=== PATIENT | female | born 1955 | race Caucasian/White ===

== ENCOUNTER 2017-10-04 08:42 | Emergency (ER) | payer OTHER, SELFPAY ==
[2017-10-04 08:43] VITALS: BP 113/73; PULSE 89; RESP 16; TEMP 36.6; O2SAT 100; BMI 30.7
--- NOTE | 2017-10-04 08:54 | EKG12_ITS ---
Test Reason : GENERAL ILLNESS Blood Pressure : / mmHG Vent. Rate : 077 BPM Atrial Rate : 077 BPM P-R Int : 138 ms QRS Dur : 068 ms QT Int : 392 ms P-R-T Axes : 034 020 036 degrees QTc Int : 443 ms Normal sinus rhythm Low voltage QRS Borderline ECG Confirmed by YONNY CONROY, DAWOOD ([id number]), magazine editor DARELL JUSTIN ([id number]) on 10/07/2017 3:30:26 PM Referred By: GLO Confirmed By:DAWOOD BLANCAS MD
--- NOTE | 2017-10-04 08:59 | ED.DCSUM_ITS ---
- ER Visit Summary Date of Service: 10/04/17 Chief Complaint: Increased heart rate, near syncopal symptoms History of Present Illness: The patient is a 62 F who presents with the above symptoms. She states that when she woke up this morning she started walking down the hallway and felt nauseous, diaphoretic and shaky. This is her third visit in 6 weeks for similar symptoms. She states that she did not eat anything this morning and that may contribute to her symptoms. She has seen her PCP as well as cardiology. They do not feel it is caused by her heart. They told her it may be anxiety and told her to increase her Zoloft. She has not done this. She denies any chest pain or abdominal pain. Physical Examination: Vital signs reviewed. HEENT exam unremarkable. Heart is regular rate and rhythm without murmurs. Lungs are clear to auscultation. Abdomen is soft and nontender. Extremities reveal no edema. Skin exam normal. Neurologic exam normal. Test Results: EKG was normal sinus rhythm with a rate of 77. No ST changes. Laboratory studies were normal. Her TSH is 4.64. Is improved from a little bit over 5 a couple of months ago. Emergency Department Course and Treatment: Patient received Tylenol for headache. Treatment Plan: The patient was placed in the residential monitor. There is no signs of any ectopy or tachycardia. Her blood pressure currently is 120/73. I have no definite answer as to why she is having symptoms of heart racing and near syncope including the lightheadedness and feeling like she was going to pass out. She has seen cardiology as well as the primary care physician. According to her, cardiology did not feel that it was cardiac in nature. She is scheduled for an outpatient echocardiogram in days. I feel she can keep this appointment. She was upset that we do not find an acute cause for her symptoms. I informed her that there was no further testing that we could do in the emergency department. She was also upset that there is no clear indication for admission to the hospital. I informed her that she needs to increase hydration at home as this may be a cause of her symptoms. She was afraid to go home by herself. I informed her that maybe having somebody stay with her would help her feel better about this. At this point she has no indications for admission. She has had multiple symptoms and occurrences of this over the past 2 months. She will call her primary care physician today for follow-up appointment Disposition: Discharge Impression: Near syncope This note was generated with [employer] dictation software. It may contain incorrect words, spelling, and punctuation that were not noted in review of the chart prior to signing ED Disposition - Plan for ED Patient: Chief Complaint: General Illness Referrals: Gordon Morley DO [Primary Care Provider] -
[2017-10-04 09:00] LABS: Bedside Glucose 101 mg/dL (70-110)
[2017-10-04 09:20] LABS: Absolute Lymphocyte Count 1.89 X10^3/ul (0.83-4.51); Absolute Neutrophil Count 5.5 X10^3/uL (2.0-7.7); Basophil# 0.03 X10^3/uL; Basophil% 0.4 % (0-1); Eosinophil# 0.21 X10^3/uL; Eosinophils% 2.6 % (0-5); Hematocrit 38.2 % (37-47); Lymphocyte # 1.89 X10^3/ul (4.0); Mean Corp Hgb Conc 31.4 g/gl (32-36); Mean Corpuscular Hgb 26.4 pg (27.0-32.0); Mean Corpuscular Volume 84.1 fL (81-99); Mean Platelet Vol. 10.6 fl (6.2-12.0); Monocyte# 0.62 X10^3/uL; Monocyte% 7.6 % (0-10); Neutrophil # 5.45 X10^3/uL (2.7-7.7); Neutrophil % 66.3 % (47-70); Platelet Count 307 K/mm3 (150-450); RBC Distribution Width CV 15.5 % (11.6-14.6); RBC Distribution Width SD 47.9 fl (35.1-43.9); Red Blood Count 4.54 M/mm3 (4.2-5.4); White Blood Count 8.2 K/mm3 (4.4-11.0)
[2017-10-04 09:21] LABS: POSITIVE COUNT NO; POSITIVE DIFFERENTIAL NO; POSITIVE MORPHOLOGY NO
[2017-10-04 09:23] VITALS: BP 108/68; PULSE 77; RESP 17; O2SAT 99
[2017-10-04] MEDS: Acetaminophen 500 MG Tablet 1000 MG PO (09:34)
[2017-10-04 09:49] LABS: Anion Gap 7 (5-15); BUN 9 mg/dL (7-18); BUN/Creat Ratio 10.1 RATIO (10-20); Calcium,Total 8.6 mg/dL (8.5-10.1); Chloride 107 mmol/L (98-107); Creatinine, Serum 0.89 mg/dL (0.55-1.02); EST Glomerular Filtration Rate 68 mL/min (>60); Est Glom Filt Rate - Afr Amer 82 mL/min (>60); Estimated Creatinine Clearance 61.35 ml/min; Glucose 98 mg/dL (70-110); Potassium 3.6 mmol/L (3.5-5.1); Sodium Level 142 mmol/L (136-145); Thyroid Stim Hormone (TSH) 4.64 uIU/mL (0.358-3.74)
--- NOTE | 2017-10-04 10:17 | ED.DEP ---
ED Disposition - Plan for ED Patient: Disposition: Home or Assisted Living Chief Complaint: General Illness Instructions: ED Near Syncope Unkn Referrals: Gordon Morley DO [Primary Care Provider] -
[2017-10-04 10:39] VITALS: BP 128/84; PULSE 82; RESP 16; O2SAT 98
== END 2017-10-04 10:40 | disposition home or self-care (01) ==
PROVIDERS: Emergency Provider Emergency Medicine; Family Provider Family Medicine; PCP Family Medicine
DX: R55 Syncope and collapse (principal); R00.0 Tachycardia, unspecified; F41.9 Anxiety disorder, unspecified; E03.9 Hypothyroidism, unspecified; Z79.899 Other long term (current) drug therapy
CPT/HCPCS: 80048; 82962; 84443; 84484; 85025; 93005; 99285; A4216

== ENCOUNTER → 2017-10-08 13:41 | Outpatient (CLI) | payer OTHER, SELFPAY ==
[2017-10-04 08:43] VITALS: BMI 30.7
[2017-10-04 10:39] VITALS: BP 128/84
--- NOTE | 2017-10-08 14:00 | ECHOD_ITS ---
Reason For Study: arrhythmia Procedure This was a 2D Doppler, Color Flow transthoracic echocardiogram. Exam performed in department. Left Ventricle Normal LV size. Left ventricular systolic function is normal. The estimated ejection fraction is 65 %. No regional wall motion abnormalities noted. Right Ventricle Normal RV size. Normal systolic function. Atria Normal left atrium. Normal right atrium. Mitral Valve Normal mitral valve. Mild (1+) eccentric mitral valve insufficiency. Tricuspid Valve Normal tricuspid valve. Mild (1+) tricuspid valve insufficiency. Pulmonary artery systolic pressure is 30 mmHg. Aortic Valve Normal aortic valve. Trisinus/trileaflet aortic valve. Pulmonic Valve Normal pulmonic valve. Great Vessels Normal aortic root. The pulmonary artery is normal size. Normal inferior vena cava. Pericardium/Pleural No pericardial effusion. MMode/2D Measurements & Calculations LVIDd: 4.9 cm IVSd: 0.86 cm Ao root diam: 2.8 cm LVIDs: 3.5 cm LVPWd: 0.96 cm LA dimension: 4.0 cm RVDd: 3.1 cm FS: 27.4 % LAV(MOD-bp): 51.4 ml LA A4 area: 18.0 cm2 RA A4 area: 10.9 cm2 LAV(MOD-bp) Indexed: 26.3 ml/m2 LAV(MOD-sp2): 52.7 ml LAV(MOD-sp4): 45.4 ml Doppler Measurements & Calculations Lat Peak E' Rogerio: 12.2 cm/sec Med Peak E' Rogerio: 11.6 cm/sec Ao V2 max: 138.7 cm/sec Ao max P.7 mmHg LV V1 max: 111.0 cm/sec PA V2 max: 119.3 cm/sec TR max rogerio: 252.5 cm/sec LV V1 max P.9 mmHg TR max P.7 mmHg Interpretation Summary Normal LV size. Left ventricular systolic function is normal. The estimated ejection fraction is 65 %. Mild (1+) tricuspid valve insufficiency. Ordering Physician: Jhon Rojas Referring Physician: Gordon Morley Performed By: Jesika Rose, JAGJIT, RVT
== END ==
PROVIDERS: Family Provider Family Medicine; PCP Family Medicine; Visit Provider Internal Medicine Cardiovascular Disease
DX: R00.2 Palpitations (principal)
CPT/HCPCS: 93306

== ENCOUNTER → 2017-10-10 12:16 | Outpatient (CLI) | payer OTHER, SELFPAY ==
[2017-10-10 10:54] VITALS: BP 91/64; BMI 32.0
[2017-10-10 12:42] LABS: Color, Urine Yellow (Yellow); Glucose, Dipstick Normal (Normal); Ketone-Dipstick Negative (Negative); Leukocyte Esterase-Dipstick 500 /ul (Negative); Nitrite-Dipstick Negative (Negative); Occult Blood-Urine 10 /ul (Negative); Protein-Dipstick Negative (Negative); Specific Gravity, Urine 1.015 (1.002-1.030); Urine Clarity Clear (Clear); Urine Urobilinogen Normal (Normal)
[2017-10-10 12:46] LABS: Urine Bilirubin Dipstick 1 mg/dL (Negative)
[2017-10-10 12:52] LABS: Red Blood Cells-Urine 0-5 SEEN /hpf (0-5); Squamous Epithelial Cells - UA 0-5 SEEN /hpf (5-10); White Blood Cells 10-25 SEEN /hpf (0-5)
[2017-10-10 12:53] LABS: Bacteria 1+ /hpf (None Seen); Mucous, Urine 1+ /hpf (<or=2+)
== END ==
PROVIDERS: Family Provider Family Medicine; PCP Family Medicine; Visit Provider Nurse Practitioner
DX: N39.0 Urinary tract infection, site not specified (principal)
CPT/HCPCS: 81001

== ENCOUNTER → 2017-10-11 08:54 | Outpatient (CLI) | payer OTHER, SELFPAY ==
[2017-10-10 10:54] VITALS: BP 91/64; BMI 32.0
[2017-10-15 12:39] LABS: Adrenocorticotropic Hormone 22.5 pg/mL (7.2-63.3)
== END ==
PROVIDERS: Family Provider Family Medicine; PCP Family Medicine; Visit Provider Nurse Practitioner
DX: E27.9 Disorder of adrenal gland, unspecified (principal)
CPT/HCPCS: 36415; 82024; 82533

== ENCOUNTER → 2017-10-15 09:00 | Outpatient (CLI) | payer OTHER, SELFPAY | PROVIDERS: Family Provider Family Medicine; PCP Family Medicine; Visit Provider Family Medicine | DX: N39.0 Urinary tract infection, site not specified (principal) | CPT/HCPCS: 87086; 87088 ==

== ENCOUNTER → 2017-10-29 14:53 | Outpatient (CLI) | payer OTHER, SELFPAY ==
--- NOTE | 2017-10-29 14:56 | US_ITS ---
STUDY: THYROID ULTRASOUND REASON FOR EXAM: Female, 62 years old. Thyroid nodule TECHNIQUE: Transverse and longitudinal ultrasound evaluation of the thyroid was performed with real-time and static arciniega-scale imaging. COMPARISON: September 08, 2012 FINDINGS: RIGHT LOBE: The right lobe of the thyroid gland measures 4.5 x 1.9 x 2.0 cm. There is a heterogeneous echotexture. There is a hyperechoic area in the midpole measuring 14.4 x 9.0 x 12.1 mm. There is increased vascularity. LEFT LOBE: The left lobe of the thyroid gland measures 4.2 x 1.8 x 1.1 cm. There is a heterogeneous echotexture. There are no demonstrated solid, cystic or complex lesions. There is increased vascularity. ISTHMUS: The isthmus measures 4.0 mm. The regional lymph nodes are unremarkable. US/Thyroid IMPRESSION: The thyroid is prominent in size with heterogeneity and increased blood flow consistent with goiter. There is a dominant nodule in the periphery of the midpole of the right lobe showing more prominent blood flow. Percutaneous sampling can be performed. Electronically Signed: Heide Up MD at 22:46 EST Tel Direct: [phone], Service support ,
== END ==
PROVIDERS: Family Provider Family Medicine; PCP Family Medicine; Visit Provider Family Medicine
DX: E03.9 Hypothyroidism, unspecified (principal); E04.1 Nontoxic single thyroid nodule
CPT/HCPCS: 76536

== ENCOUNTER → 2017-12-02 08:32 | Outpatient (CLI) | payer OTHER, SELFPAY ==
[2017-12-02 09:55] LABS: T4 Free Direct 1.31 ng/dL (0.76-1.46); Thyroid Stim Hormone (TSH) 3.12 uIU/mL (0.358-3.74)
== END ==
PROVIDERS: Family Provider Family Medicine; PCP Family Medicine; Visit Provider Internal Medicine Endocrinology, Diabetes & Metabolism
DX: R00.2 Palpitations (principal)
CPT/HCPCS: 36415; 84439; 84443

== ENCOUNTER → 2017-12-07 15:41 | Outpatient (CLI) | payer OTHER, SELFPAY ==
[2017-12-11 11:41] LABS: Metanephrine, Ur 18 ug/L (Undefined); Normetanephrines, Ur 115 ug/L (Undefined)
[2017-12-12 10:24] LABS: Metanephrines, 24Ur 20 ug/24 hr (45-290); Normetanephrines, 24Ur 130 ug/24 hr (82-500)
== END ==
PROVIDERS: Family Provider Family Medicine; PCP Family Medicine; Visit Provider Internal Medicine Endocrinology, Diabetes & Metabolism
DX: R00.2 Palpitations (principal)
CPT/HCPCS: 81050; 83835

== ENCOUNTER → 2017-12-13 10:55 | Outpatient (CLI) | payer OTHER, SELFPAY ==
[2017-12-18 20:08] LABS: Dopamine, UR 90 ug/L (Undefined); Epinephrine, 24Ur 6 ug/24 hr (0-20); Epinephrine, Ur 2 ug/L (Undefined); Norepinephrine, 24Ur 50 ug/24 hr (0-135); Norepinephrine, Ur 18 ug/L (Undefined)
[2017-12-19 08:39] LABS: Dopamine, 24Ur 248 ug/24 hr (0-510); VMA, 24UR 5.5 mg/24 hr (0.0-7.5)
== END ==
PROVIDERS: Family Provider Family Medicine; PCP Family Medicine; Visit Provider Internal Medicine Endocrinology, Diabetes & Metabolism
DX: R00.2 Palpitations (principal)
CPT/HCPCS: 81050; 82384; 84585

== ENCOUNTER → 2018-01-24 12:24 | Outpatient (CLI) | payer OTHER, SELFPAY ==
--- NOTE | 2018-01-24 12:25 | BI_ITS ---
MAMMOGRAPHY - BILATERAL SCREENING REASON FOR EXAM: Female, 62 years old. Routine annual screening examination. PERTINENT HISTORY: Non-contributory. TECHNIQUE: Digital bilateral breast cyndi (3D mammographic acquisition) in the CC and MLO projections. 2-D mediolateral oblique (MLO) and craniocaudad (CC) views of both breasts were obtained. CAD: Full Field Digital Mammography with Computer Added Detection was performed. COMPARISON: Comparison is made with prior examination dated March 19, 2016. FINDINGS: Breast Composition: There are scattered areas of fibroglandular density. There are no dominant masses or suspicious calcifications. No other significant abnormalities are identified. There has been no significant change since the prior study. BI/SCREENING MAMM (CAD), BILAT IMPRESSION: Stable bilateral screening mammogram. Yearly follow-up mammogram recommended. (A) ASSESSMENT CATEGORY: BIRADS Category 1: Negative. A letter regarding these results will be sent to the patient by the facility within 30 days. Approximately 10% of breast cancers are not detected by mammography. A normal mammogram should not delay biopsy of a clinically suspicious abnormality. [id number] Electronically Signed: Darryl Couch MD at 14:12 EDT Tel [phone], Service support ,
== END ==
PROVIDERS: Family Provider Family Medicine; PCP Family Medicine; Visit Provider Family Medicine
DX: Z12.31 Encounter for screening mammogram for malignant neoplasm of breast (principal)
CPT/HCPCS: 77063; 77067

== ENCOUNTER → 2018-04-18 09:35 | Outpatient (CLI) | payer OTHER, SELFPAY ==
[2018-04-18 12:25] LABS: Absolute Lymphocyte Count 1.44 X10^3/ul (0.83-4.51); Absolute Neutrophil Count 3.9 X10^3/uL (2.0-7.7); Basophil# 0.04 X10^3/uL; Basophil% 0.6 % (0-1); Eosinophil# 0.24 X10^3/uL; Eosinophils% 3.9 % (0-5); Hematocrit 36.3 % (37-47); Hemoglobin 11.7 g/dl (12.0-15.0); Lymphocyte # 1.44 X10^3/ul (4.0); Lymphocyte % 23.2 % (19-41); Mean Corp Hgb Conc 32.2 g/gl (32-36); Mean Corpuscular Hgb 25.8 pg (27.0-32.0); Mean Corpuscular Volume 80.1 fL (81-99); Mean Platelet Vol. 12.4 fl (6.2-12.0); Monocyte# 0.55 X10^3/uL; Monocyte% 8.9 % (0-10); Neutrophil # 3.92 X10^3/uL (2.7-7.7); Neutrophil % 63.2 % (47-70); Platelet Count 290 K/mm3 (150-450); RBC Distribution Width CV 16.6 % (11.6-14.6); RBC Distribution Width SD 48.4 fl (35.1-43.9); Red Blood Count 4.53 M/mm3 (4.2-5.4); White Blood Count 6.2 K/mm3 (4.4-11.0)
[2018-04-18 12:33] LABS: POSITIVE COUNT NO; POSITIVE DIFFERENTIAL NO; POSITIVE MORPHOLOGY NO
[2018-04-18 12:37] LABS: ALB/GLOB Ratio 0.8 RATIO (0.9-2.4); AST(SGOT) 25 U/L (15-37); Alanine Aminotransfer ALT/SGPT 38 U/L (13-56); Albumin, Serum 3.3 g/dL (3.2-5.0); Alkaline Phosphatase 129 U/L (45-117); Anion Gap 5 (5-15); BUN 9 mg/dL (7-18); BUN/Creat Ratio 11.5 RATIO (10-20); Calcium,Total 8.8 mg/dL (8.5-10.1); Chloride 105 mmol/L (98-107); Cholesterol 183 mg/dL (200); Creatinine, Serum 0.78 mg/dL (0.55-1.02); EST Glomerular Filtration Rate 79 mL/min (>60); Est Glom Filt Rate - Afr Amer 96 mL/min (>60); Globulin 4.4 g/dL (2.2-4.2); Glucose 84 mg/dL (74-106); High Density Lipoprotein 41 mg/dL; Potassium 3.6 mmol/L (3.5-5.1); Protein, Total 7.7 g/dL (6.4-8.2); Sodium Level 140 mmol/L (136-145); T4 Free Direct 1.29 ng/dL (0.76-1.46); Thyroid Stim Hormone (TSH) 3.62 uIU/mL (0.358-3.74); Triglycerides 104 mg/dL; Very Low Density Lipoprotein 21 mg/dL (5-40); Vitamin D,25 Hydroxy 33.8 ng/mL (29.95-100.01)
[2018-04-21 14:07] LABS: Thyroid Peroxidase AB 119 IU/mL (0-34)
[2018-04-22 10:27] LABS: Thyroglobulin Antibody 4.7 IU/mL (0.0-0.9)
== END ==
PROVIDERS: Family Provider Family Medicine; PCP Family Medicine; Visit Provider Family Medicine
DX: Z00.00 Encounter for general adult medical examination without abnormal findings (principal); E03.9 Hypothyroidism, unspecified; R55 Syncope and collapse; R00.2 Palpitations; E04.1 Nontoxic single thyroid nodule; M85.80 Other specified disorders of bone density and structure, unspecified site
CPT/HCPCS: 36415; 80053; 80061; 82306; 84439; 84443; 85025; 86376; 86800

== ENCOUNTER → 2018-05-06 10:11 | Outpatient (CLI) | payer OTHER, SELFPAY | PROVIDERS: Family Provider Family Medicine; PCP Family Medicine; Visit Provider Family Medicine | DX: Z00.01 Encounter for general adult medical examination with abnormal findings (principal) | CPT/HCPCS: 77080 ==

== ENCOUNTER 2018-05-29 08:55 | Outpatient (RCR) | payer OTHER, SELFPAY | END 2018-06-01 23:59 | LOC: NS 08:55 | PROVIDERS: Family Provider Family Medicine; PCP Family Medicine; Visit Provider Family Medicine | DX: M81.0 Age-related osteoporosis without current pathological fracture (principal); E66.9 Obesity, unspecified; Z71.3 Dietary counseling and surveillance | CPT/HCPCS: 97802 ==

== ENCOUNTER 2018-06-20 08:05 | Outpatient (RCR) | payer OTHER, SELFPAY | END 2018-07-02 23:59 | LOC: NS 08:05 | PROVIDERS: Family Provider Family Medicine; PCP Family Medicine; Visit Provider Family Medicine | DX: E66.9 Obesity, unspecified (principal); Z71.3 Dietary counseling and surveillance; M81.0 Age-related osteoporosis without current pathological fracture | CPT/HCPCS: 97803 ==

== ENCOUNTER 2018-08-01 11:00 | Outpatient (RCR) | payer OTHER, SELFPAY | END 2018-08-01 23:59 | LOC: NS 11:00 | PROVIDERS: Family Provider Family Medicine; PCP Family Medicine; Visit Provider Family Medicine | DX: E66.9 Obesity, unspecified (principal); Z71.3 Dietary counseling and surveillance; M81.0 Age-related osteoporosis without current pathological fracture | CPT/HCPCS: 97803 ==

== ENCOUNTER 2018-08-18 16:51 | Outpatient (RCR) | payer OTHER, SELFPAY ==
[2018-08-02 01:27] VITALS: BMI 32.0
== END 2018-09-01 23:59 ==
LOC: NS 16:51
PROVIDERS: Family Provider Family Medicine; PCP Family Medicine; Visit Provider Family Medicine
DX: E66.9 Obesity, unspecified (principal); M81.0 Age-related osteoporosis without current pathological fracture; Z71.3 Dietary counseling and surveillance
CPT/HCPCS: 97803

== ENCOUNTER 2018-09-08 16:37 | Outpatient (RCR) | payer OTHER, SELFPAY ==
[2018-09-02 01:00] VITALS: BMI 32.0
== END 2018-09-08 23:59 | disposition home or self-care (01) ==
LOC: NS 16:37
PROVIDERS: Family Provider Family Medicine; PCP Family Medicine; Visit Provider Family Medicine
DX: E66.9 Obesity, unspecified (principal); M81.0 Age-related osteoporosis without current pathological fracture; Z71.3 Dietary counseling and surveillance
CPT/HCPCS: 97803

== ENCOUNTER → 2018-09-26 09:47 | Outpatient (CLI) | payer OTHER, SELFPAY ==
[2018-09-25 09:18] VITALS: BMI 33.0
[2018-09-26 12:38] LABS: Cholesterol 168 mg/dL (200); High Density Lipoprotein 44 mg/dL; T4 Free Direct 1.32 ng/dL (0.76-1.46); Thyroid Stim Hormone (TSH) 2.57 uIU/mL (0.358-3.74); Triglycerides 87 mg/dL; Very Low Density Lipoprotein 17 mg/dL (5-40)
== END ==
LOC: LAB.FUTURE 08-17 23:20 → BFHLAB 09-30 08:15
PROVIDERS: Family Provider Family Medicine; PCP Family Medicine; Visit Provider Family Medicine
DX: E03.8 Other specified hypothyroidism (principal); E06.3 Autoimmune thyroiditis; E78.5 Hyperlipidemia, unspecified
CPT/HCPCS: 36415; 80061; 84439; 84443

== ENCOUNTER → 2019-04-08 | Outpatient (CLI) | payer OTHER, SELFPAY ==
[2018-09-25 09:18] VITALS: BMI 33.0
--- NOTE | 2019-04-08 15:08 | BI_ITS ---
MAMMOGRAPHY - BILATERAL SCREENING REASON FOR EXAM: Female, 63 years old. Routine annual screening examination. PERTINENT HISTORY: Non-contributory. TECHNIQUE: Digital bilateral breast jose a (3D mammographic acquisition) in the CC and MLO projections. 2-D mediolateral oblique (MLO) and craniocaudad (CC) views of both breasts were obtained. CAD: Full Field Digital Mammography with Computer Added Detection was performed. COMPARISON: Comparison is made with prior study dated January 24, 2018. FINDINGS: Breast Composition: There are scattered areas of fibroglandular density. There are no dominant masses or suspicious calcifications. No other significant abnormalities are identified. There has been no significant change since the prior study. BI/SCREEN MAMM (CAD) W/JOSE A BILAT IMPRESSION: Stable bilateral screening mammogram. Yearly follow-up mammogram recommended. (A) ASSESSMENT CATEGORY: BIRADS Category 1: Negative. A letter regarding these results will be sent to the patient by the facility within 30 days. Approximately 10% of breast cancers are not detected by mammography. A normal mammogram should not delay biopsy of a clinically suspicious abnormality. [id number] Electronically Signed: Darryl Couch, at 8:33 EDT , Service support ,
== END | disposition home or self-care (01) ==
LOC: OPBI 15:07
PROVIDERS: Family Provider Family Medicine; PCP Family Medicine; Referring Provider Family Medicine; Visit Provider Family Medicine
DX: Z12.31 Encounter for screening mammogram for malignant neoplasm of breast (principal)
CPT/HCPCS: 77063; 77067

== ENCOUNTER → 2019-04-21 08:02 | Outpatient (CLI) | payer OTHER, SELFPAY ==
[2018-09-25 09:18] VITALS: BMI 33.0
[2019-04-21 09:04] LABS: Absolute Lymphocyte Count 1.53 X10^3/uL (0.83-4.51); Absolute Neutrophil Count 4.3 X10^3/uL (2.0-7.7); Basophil# 0.07 X10^3/uL; Eosinophil# 0.24 X10^3/uL; Eosinophils% 3.6 % (0-5); Hemoglobin 11.7 g/dL (12.0-15.0); Lymphocyte # 1.53 X10^3/ul (4.0); Lymphocyte % 22.8 % (19-41); Mean Corp Hgb Conc 31.6 g/dL (32-36); Mean Corpuscular Hgb 26.1 pg (27.0-32.0); Mean Corpuscular Volume 82.6 fL (81-99); Mean Platelet Vol. 11.4 fl (6.2-12.0); Monocyte# 0.57 X10^3/uL; Monocyte% 8.5 % (0-10); NRBC Flagged by Analyzer 0 % (0-5); Neutrophil # 4.28 X10^3/uL (2.7-7.7); Neutrophil % 63.8 % (47-70); Platelet Count 289 K/mm3 (150-450); RBC Distribution Width CV 16.1 % (11.6-14.6); RBC Distribution Width SD 48.6 fl (35.1-43.9); Red Blood Count 4.48 M/mm3 (4.2-5.4); White Blood Count 6.7 K/mm3 (4.4-11.0)
[2019-04-21 09:35] LABS: Hemoglobin A1c 5.7 % (4.2-6.3)
[2019-04-21 09:38] LABS: Vitamin D,25 Hydroxy 31.2 ng/mL (29.95-100.01)
[2019-04-21 09:40] LABS: ALB/GLOB Ratio 0.8 RATIO (0.9-2.4); AST(SGOT) 24 U/L (15-37); Alanine Aminotransfer ALT/SGPT 31 U/L (13-56); Albumin, Serum 3.2 g/dL (3.2-5.0); Alkaline Phosphatase 153 U/L (45-117); Anion Gap 2 (5-15); BUN 8 mg/dL (7-18); BUN/Creat Ratio 10.2 RATIO (10-20); Calcium,Total 8.7 mg/dL (8.5-10.1); Chloride 108 mmol/L (98-107); Cholesterol 186 mg/dL (200); Creatinine, Serum 0.79 mg/dL (0.55-1.02); EST Glomerular Filtration Rate 78 mL/min (>60); Est Glom Filt Rate - Afr Amer 95 mL/min (>60); Ferritin 4 ng/mL (8-252); Globulin 4.1 g/dL (2.2-4.2); Glucose 83 mg/dL (74-106); High Density Lipoprotein 45 mg/dL; Iron 25 ug/dL (50-170); Potassium 4.3 mmol/L (3.5-5.1); Protein, Total 7.3 g/dL (6.4-8.2); Sodium Level 143 mmol/L (136-145); T4 Free Direct 1.25 ng/dL (0.76-1.46); Thyroid Stim Hormone (TSH) 4.56 uIU/mL (0.358-3.74); Triglycerides 86 mg/dL; Very Low Density Lipoprotein 17 mg/dL (5-40)
== END ==
LOC: LAB.FUTURE 10-22 00:32 → LAB 02-24 11:43
PROVIDERS: Family Provider Family Medicine; PCP Family Medicine; Referring Provider Family Medicine; Visit Provider Family Medicine
DX: Z00.00 Encounter for general adult medical examination without abnormal findings (principal); E03.8 Other specified hypothyroidism; E06.3 Autoimmune thyroiditis; E78.5 Hyperlipidemia, unspecified; M85.80 Other specified disorders of bone density and structure, unspecified site; D50.9 Iron deficiency anemia, unspecified; R73.01 Impaired fasting glucose
CPT/HCPCS: 36415; 80053; 80061; 82306; 82728; 83036; 83540; 84439; 84443; 85025

== ENCOUNTER → 2019-08-20 10:26 | Outpatient (CLI) | payer OTHER, SELFPAY ==
[2019-07-17 10:13] VITALS: BMI 33.0
== END ==
PROVIDERS: Family Provider Family Medicine; PCP Family Medicine; Referring Provider Chiropractor; Visit Provider Chiropractor
DX: M99.01 Segmental and somatic dysfunction of cervical region (principal)
CPT/HCPCS: 72040

== ENCOUNTER → 2019-10-02 09:38 | Outpatient (CLI) | payer OTHER, SELFPAY ==
[2019-07-17 10:13] VITALS: BMI 33.0
[2019-10-02 12:43] LABS: Absolute Lymphocyte Count 1.29 X10^3/uL (0.83-4.51); Absolute Neutrophil Count 3.8 X10^3/uL (2.0-7.7); Basophil# 0.06 X10^3/uL; Eosinophil# 0.23 X10^3/uL; Eosinophils% 3.8 % (0-5); Hematocrit 36.9 % (37-47); Hemoglobin 11.4 g/dL (12.0-15.0); Lymphocyte # 1.29 X10^3/ul (4.0); Lymphocyte % 21.4 % (19-41); Mean Corp Hgb Conc 30.9 g/dL (32-36); Mean Corpuscular Hgb 25.4 pg (27.0-32.0); Mean Corpuscular Volume 82.2 fL (81-99); Mean Platelet Vol. 11.8 fl (6.2-12.0); Monocyte# 0.62 X10^3/uL; Monocyte% 10.3 % (0-10); NRBC Flagged by Analyzer 0 % (0-5); Neutrophil # 3.81 X10^3/uL (2.7-7.7); Platelet Count 299 K/mm3 (150-450); RBC Distribution Width CV 15.9 % (11.6-14.6); RBC Distribution Width SD 47.8 fl (35.1-43.9); Red Blood Count 4.49 M/mm3 (4.2-5.4)
[2019-10-02 13:07] LABS: Hemoglobin A1c 5.5 % (4.2-6.3)
[2019-10-02 13:35] LABS: Ferritin 3 ng/mL (8-252); Iron 26 ug/dL (50-170); T4 Free Direct 1.41 ng/dL (0.76-1.46); Thyroid Stim Hormone (TSH) 3.38 uIU/mL (0.358-3.74)
== END ==
PROVIDERS: PCP Family Medicine; Visit Provider Family Medicine
DX: E03.8 Other specified hypothyroidism (principal); E06.3 Autoimmune thyroiditis; D50.9 Iron deficiency anemia, unspecified; R73.01 Impaired fasting glucose
CPT/HCPCS: 36415; 82728; 83036; 83540; 84439; 84443; 85025

== ENCOUNTER 2019-10-11 09:01 | Emergency (ER) | payer OTHER, SELFPAY ==
[2019-07-17 10:13] VITALS: BMI 33.0
[2019-10-11 09:02] VITALS: BP 132/77; PULSE 81; RESP 16; TEMP 36.7; O2SAT 96; BMI 31.4
--- NOTE | 2019-10-11 09:04 | EKG12_ITS ---
Test Reason : PALP Blood Pressure : / mmHG Vent. Rate : 081 BPM Atrial Rate : 081 BPM P-R Int : 142 ms QRS Dur : 068 ms QT Int : 378 ms P-R-T Axes : 040 000 049 degrees QTc Int : 439 ms Normal sinus rhythm Normal ECG Confirmed by YONNY CONROY, DAWOOD ([id number]), editorial clerk ABNER RAMSEY ([id number]) on 10/13/2019 8:01:05 AM Referred By: JORGE Confirmed By:DAWOOD BLANCAS MD
--- NOTE | 2019-10-11 09:05 | RAD_ITS ---
STUDY: X-RAY CHEST REASON FOR EXAM: Female, 64 years old. CHEST PAIN TECHNIQUE: Single AP portable view of the chest. COMPARISON: None. FINDINGS: Mild prominent interstitial markings bilaterally are noted. There is no demonstrated pleural abnormality. Normal size heart. Normal mediastinum and deejay. Normal visualized pulmonary arteries. Normal visualized aortic arch and descending thoracic aorta. Normal visualized thoracic spine. Normal visualized ribs, clavicles, and shoulders. There is no demonstrated abnormality of the visualized soft tissue structures of the upper abdomen. RAD/Chest 1 View (Portable) IMPRESSION: Mild prominent interstitial markings with no evidence of focal consolidation. Electronically Signed: Kevan Xiong DO at 9:26 EST , Service support ,
[2019-10-11 09:10] VITALS: O2SAT 96
[2019-10-11] MEDS: Aspirin 81 MG TAB.CHEW 324 MG PO (09:12)
[2019-10-11 09:20] LABS: Absolute Lymphocyte Count 1.88 X10^3/uL (0.83-4.51); Absolute Neutrophil Count 5.1 X10^3/uL (2.0-7.7); Basophil# 0.05 X10^3/uL; Basophil% 0.6 % (0-1); Eosinophil# 0.42 X10^3/uL; Eosinophils% 5.1 % (0-5); Hematocrit 34.8 % (37-47); Lymphocyte # 1.88 X10^3/ul (4.0); Lymphocyte % 22.8 % (19-41); Mean Corp Hgb Conc 31.6 g/dL (32-36); Mean Corpuscular Hgb 25.5 pg (27.0-32.0); Mean Corpuscular Volume 80.6 fL (81-99); Mean Platelet Vol. 10.7 fl (6.2-12.0); Monocyte# 0.79 X10^3/uL; Monocyte% 9.6 % (0-10); NRBC Flagged by Analyzer 0 % (0-5); Neutrophil # 5.08 X10^3/uL (2.7-7.7); Neutrophil % 61.5 % (47-70); Platelet Count 305 K/mm3 (150-450); Red Blood Count 4.32 M/mm3 (4.2-5.4); White Blood Count 8.3 K/mm3 (4.4-11.0)
--- NOTE | 2019-10-11 09:26 | ED.VISSUMM ---
- ER Visit Summary Date of Service: 10/11/19 Chief Complaint: Palpitations History of Present Illness: The patient is a [address] Morley and Dr. Rojas. She reports that during the night she was awakened by palpitations. States that she has had 3 episodes. It is a fast, irregular heartbeat that last approximately 30 seconds at a time. She reports that she has felt slightly nauseated with this. She is also felt warm. She denies any chest pain. No vomiting or shortness of breath. No near syncope. Patient reports she had a similar episode approximately 10 years ago and had a work-up at that time that included a monitor at home and there was not a cause found. She also reports that she has a history of hypothyroidism. Physical Examination: Vitals: Stable. Afebrile. General: Well-nourished and well-developed. Head: Normocephalic atraumatic. Neck: Supple, no lymphadenopathy. No JVD. Nontender. Cardiovascular: Regular rate and rhythm. No murmurs. Respiratory: No respiratory distress. Clear to auscultation bilaterally. Abdominal: Soft, nontender, nondistended, normal bowel sounds. No guarding, rebound, or peritoneal signs. Back: Nontender. Extremities: Nontender, no edema. Skin: Normal color, no rash. Neurologic: Alert and oriented ?3. Cranial nerves II through XII are intact. Normal strength and sensation. Psych: Normal affect. Test Results: EKG is sinus at [address] changes. CBC shows an H&H 11.0 34.8. Chem-7 shows a chloride of 109. Troponin is negative. TSH is 5.08. Emergency Department Course and Treatment: Patient was given aspirin p.o. She is resting comfortably. Treatment Plan: Patient was discussed with Dr. Ladd. She is going to [place] tomorrow and therefore cannot have a 2448-hour Holter monitor placed. She will be discharged with instructions to follow-up with Dr. Rojas when she gets back from [place]. Return to the emergency department for any worsening symptoms. Disposition: To home in improved and stable condition. Impression: 1. Palpitations. This note was generated with [employer] software. It may contain incorrect words, spelling, and punctuation that were not noted in review of the chart prior to signing ED Disposition - Plan for ED Patient: Instructions: Palpitations Referrals: Gordon Morley DO [Primary Care Provider] - 1-2 Weeks Jhon Rojas MD [STAFF PHYSICIAN] - 1-2 Weeks
[2019-10-11 09:37] LABS: Anion Gap 4 (5-15); BUN 10 mg/dL (7-18); BUN/Creat Ratio 12.2 RATIO (10-20); Calcium,Total 8.7 mg/dL (8.5-10.1); Chloride 109 mmol/L (98-107); Creatinine, Serum 0.82 mg/dL (0.55-1.02); EST Glomerular Filtration Rate 75 mL/min (>60); Est Glom Filt Rate - Afr Amer 91 mL/min (>60); Estimated Creatinine Clearance 64.88 ml/min; Glucose 93 mg/dL (74-106); Potassium 3.7 mmol/L (3.5-5.1); Sodium Level 141 mmol/L (136-145); Thyroid Stim Hormone (TSH) 5.08 uIU/mL (0.358-3.74)
[2019-10-11 10:32] VITALS: BP 114/88; PULSE 76; RESP 16; O2SAT 98
[2019-10-11] MEDS: 0.9% Normal Saline 1,000 ML 150 ML IV (10:32)
== END 2019-10-11 10:37 | disposition home or self-care (01) ==
PROVIDERS: Emergency Provider Emergency Medicine; PCP Family Medicine
DX: R00.2 Palpitations (principal); E03.9 Hypothyroidism, unspecified
CPT/HCPCS: 71045; 80048; 84443; 84484; 85025; 93005; 99285; J7030; A4216

== ENCOUNTER 2020-01-02 07:09 | Emergency (ER) | payer OTHER, SELFPAY ==
[2020-01-02 07:10] VITALS: BP 107/67; PULSE 85; RESP 16; TEMP 35.6; O2SAT 97; BMI 30.7
--- NOTE | 2020-01-02 07:22 | EKG12_ITS ---
Test Reason : PALPS Blood Pressure : / mmHG Vent. Rate : 080 BPM Atrial Rate : 080 BPM P-R Int : 134 ms QRS Dur : 076 ms QT Int : 372 ms P-R-T Axes : 031 012 034 degrees QTc Int : 429 ms Normal sinus rhythm Normal ECG Confirmed by DAWOOD BLANCAS MD ([id number]), communications editor DARELL JUSTIN ([id number]) on 01/05/2020 10:50:29 AM Referred By: YAMILEX Confirmed By:DAWOOD BLANCAS MD
--- NOTE | 2020-01-02 07:22 | RAD_ITS ---
STUDY: X-RAY CHEST REASON FOR EXAM: Female, 64 years old. Heart palpitations TECHNIQUE: Single AP portable view of the chest. COMPARISON: 10.11.2019, chest x-rays FINDINGS: There is minimal interstitial prominence stable since prior studies. There is mild vascular prominence left greater than right suprahilar region. Also stable since prior studies. There is no demonstrated pleural abnormality. There is borderline cardiomegaly. Normal mediastinum and deejay. Normal visualized pulmonary arteries. Normal visualized aortic arch and descending thoracic aorta. Normal visualized thoracic spine. Normal visualized ribs, clavicles, and shoulders. There is no demonstrated abnormality of the visualized soft tissue structures of the upper abdomen. RAD/Chest 1 View (Portable) IMPRESSION: Stable chest no visualized acute focal infiltrate. Electronically Signed: Amaris Barrera MD at 8:42 EDT Tel , Service support ,
--- NOTE | 2020-01-02 07:32 | ED.VIS.GEN ---
History of Present Illness Chief Complaint: Palpitations Informant: Patient Onset: Today Current Severity: Resolved Maximum Severity: Moderate Narrative: Patient presents with palpitations. She states she woke up around midnight. After she rolled over in bed she felt like her heart was racing. She tried to reposition herself multiple times but symptoms did not seem to resolve. She did get up and check her vital signs. She has record of heart rates and blood pressures throughout the night. Heart rate ranged anywhere from 69-131. Patient was seen in October for similar, however symptoms not last as long. At that time they had discussed having her wear a Holter monitor but she was heading out of town the following day and this was not possible. She has not followed up with cardiology. Patient states she did have a similar episode approximately 10 years ago and did wear Holter monitor at that time. No arrhythmia was ever noted. Patient does have a history of hypothyroidism. She denies any recent changes to her Synthroid. - Past Medical History (1) Anxiety and depression Status: Chronic (2) Hypothyroidism (acquired) Status: Chronic (3) Palpitation Status: Chronic (4) Dyslipidemia Status: Chronic Past Medical History - Allergies and Home Meds Allergies/Adverse Reactions: Allergies amoxicillin trihydrate [From Augmentin] Allergy (Verified 01/02/20 07:11) Rash levofloxacin [From Levaquin] Allergy (Verified 01/02/20 07:11) Rash Penicillins Allergy (Verified 01/02/20 07:11) Rash potassium clavulanate [From Augmentin] Allergy (Verified 01/02/20 07:11) Rash Sulfa (Sulfonamide Antibiotics) Allergy (Verified 01/02/20 07:11) Rash tramadol HCl [From Ultram] Allergy (Verified 01/02/20 07:11) Rash codeine Adverse Reaction (Verified 01/02/20 07:11) Unknown Primary Care Physician: Gordon Morley DO [Primary Care Provider] - Doctors: Dr. Rojas Prior records reviewed: Yes Surgical History: cholecystectomy, hysterectomy, tonsillectomy Smoking Status: Never smoker Review of Systems General: Denies: Chills, Fever Eyes: Denies: Visual changes - bilaterally ENT: Denies: Bilateral ear pain Cardiovascular: Reports: Palpitations, Heart racing. Denies: Chest pain Respiratory: Denies: Dyspnea Gastrointestinal: Reports: Nausea. Denies: Abdominal pain, Vomiting Genitourinary: Denies: Dysuria Musculoskeletal: Denies: Swelling, Extremity Pain Neurological: Denies: Headache Hematologic: Denies: Easy bruising, Easy bleeding Allergy: Denies: Uticaria Physical Exam Vital Signs/Narrative: Vital Signs Temp Pulse Resp BP Pulse Ox 01/02/20 07:10 96.1 F L 85 16 107/67 97 Inital Vital Signs reviewed: Yes General: Well nourished, Well developed Head: Normocephalic ENT: Moist mucous membranes Neck: Supple Cardiovascular: Regular rate, Regular rhythm Respiratory: No distress, CTA bilaterally Abdomen: Soft, Nontender Back: Nontender Extremities: Nontender Skin: Normal color, No rash Neurological: Alert, Oriented x3 Psychological: Normal affect Diagnostic/Tx/Re-eval Chest X-Ray - ED: 1 View, Read by ED Physician, Normal, Heart, Lungs, Mediastinum - EKG Initial EKG Interpretation: Sinus Rhythm - Sinus 80 with no acute ischemia. - Medical Decision Making Patient was observed on monitoring and evaluation advisor throughout ED stay. No arrhythmia has been noted. TSH is slightly high, however this is improved when compared to prior visit in October. I spoke with Dr. Gallego, on-call for cardiology. Patient will be given a 48-hour Holter monitor. Patient is to call the office for follow-up. If symptoms worsen she is to return to the emergency room. ED Disposition - Plan for ED Patient: Disposition: Home or Assisted Living Diagnosis: Palpitations Instructions: ED Palpitations Referrals: Jhon Rojas MD [STAFF PHYSICIAN] - As soon as possible
[2020-01-02 08:06] LABS: Absolute Lymphocyte Count 1.63 X10^3/uL (0.83-4.51); Absolute Neutrophil Count 4.7 X10^3/uL (2.0-7.7); Basophil# 0.05 X10^3/uL; Basophil% 0.6 % (0-1); Eosinophil# 0.37 X10^3/uL; Eosinophils% 4.8 % (0-5); Hematocrit 34.7 % (37-47); Hemoglobin 10.9 g/dL (12.0-15.0); Lymphocyte # 1.63 X10^3/ul (4.0); Lymphocyte % 21.1 % (19-41); Mean Corp Hgb Conc 31.4 g/dL (32-36); Mean Corpuscular Hgb 25.5 pg (27.0-32.0); Mean Corpuscular Volume 81.3 fL (81-99); Mean Platelet Vol. 10.9 fl (6.2-12.0); Monocyte# 0.95 X10^3/uL; Monocyte% 12.3 % (0-10); NRBC Flagged by Analyzer 0 % (0-5); Neutrophil # 4.69 X10^3/uL (2.7-7.7); Neutrophil % 60.9 % (47-70); Platelet Count 278 K/mm3 (150-450); RBC Distribution Width CV 15.9 % (11.6-14.6); RBC Distribution Width SD 46.7 fl (35.1-43.9); Red Blood Count 4.27 M/mm3 (4.2-5.4); White Blood Count 7.7 K/mm3 (4.4-11.0)
[2020-01-02 08:08] LABS: Anion Gap 5 (5-15); BUN 9 mg/dL (7-18); Chloride 107 mmol/L (98-107); Creatinine, Serum 0.82 mg/dL (0.55-1.02); EST Glomerular Filtration Rate 74 mL/min (>60); Est Glom Filt Rate - Afr Amer 90 mL/min (>60); Estimated Creatinine Clearance 64.88 ml/min; Glucose 96 mg/dL (74-106); Potassium 3.5 mmol/L (3.5-5.1); Sodium Level 140 mmol/L (136-145)
--- NOTE | 2020-01-02 09:00 | ED.RN ---
AWAITING HOLTER MONITOR PER [facility]
[2020-01-02 09:14] VITALS: BP 95/66; PULSE 78; RESP 16; O2SAT 98
== END 2020-01-02 09:16 | disposition home or self-care (01) ==
PROVIDERS: Emergency Provider Emergency Medicine; PCP Family Medicine
DX: R00.2 Palpitations (principal); E78.5 Hyperlipidemia, unspecified; E03.9 Hypothyroidism, unspecified; F32.9 Major depressive disorder, single episode, unspecified; F41.9 Anxiety disorder, unspecified
CPT/HCPCS: 71045; 80048; 84443; 84484; 85025; 93005; 93225; 93226; 99284; A4216

== ENCOUNTER → 2020-01-02 08:32 | Outpatient (CLI) | payer OTHER, SELFPAY ==
[2020-01-02 07:10] VITALS: BMI 30.7
== END ==
PROVIDERS: PCP Family Medicine; Visit Provider Emergency Medicine
DX: R00.2 Palpitations (principal); E78.5 Hyperlipidemia, unspecified; E03.9 Hypothyroidism, unspecified; F32.9 Major depressive disorder, single episode, unspecified; F41.9 Anxiety disorder, unspecified
CPT/HCPCS: 71045; 80048; 84443; 84484; 85025; 93005; 93225; 93226; 99284; A4216

== ENCOUNTER → 2020-02-19 11:12 | Outpatient (CLI) | payer OTHER, SELFPAY ==
--- NOTE | 2020-02-19 11:14 | RAD_ITS ---
STUDY: X-RAY - RIGHT HAND REASON FOR EXAM: Female, 64 years old. Pain over 3rd mc anterior -- no injury TECHNIQUE: 3 view(s) of the hand. COMPARISON: None. FINDINGS: Normal radiocarpal articulation. Normal distal radioulnar joint. Normal visualized carpal bones. Normal carpal articulations Normal carpometacarpal articulation of the thumb. Normal second through fifth carpometacarpal joints. Normal metacarpi. Normal metacarpophalangeal joint of the thumb. Normal interphalangeal joint of the thumb. Normal proximal and distal phalanges of the thumb. Normal metacarpophalangeal joints of the second through fifth fingers. There is mild articular joint space narrowing of the proximal and distal interphalangeal joints of the second through fifth fingers, but without erosive changes or periarticular soft tissue swelling. Normal phalanges of the second through fifth fingers. The soft tissue structures are unremarkable. RAD/Hand Min 3 Views IMPRESSION: Degenerative joint disease of the hand, as described above. Electronically Signed: Darryl Couch, at 15:24 EDT , Service support ,
== END ==
PROVIDERS: PCP Family Medicine; Referring Provider Family Medicine; Visit Provider Family Medicine
DX: M25.549 Pain in joints of unspecified hand (principal)
CPT/HCPCS: 73130

== ENCOUNTER → 2020-03-30 08:48 | Outpatient (CLI) | payer OTHER, SELFPAY ==
[2020-03-29 10:48] VITALS: BMI 32.3
[2020-03-30 12:34] LABS: Absolute Lymphocyte Count 1.55 X10^3/uL (0.83-4.51); Absolute Neutrophil Count 4.7 X10^3/uL (2.0-7.7); Basophil# 0.06 X10^3/uL; Basophil% 0.8 % (0-1); Eosinophil# 0.25 X10^3/uL; Eosinophils% 3.4 % (0-5); Hematocrit 33.8 % (37-47); Hemoglobin 10.5 g/dL (12.0-15.0); Lymphocyte # 1.55 X10^3/ul (4.0); Lymphocyte % 21.2 % (19-41); Mean Corp Hgb Conc 31.1 g/dL (32-36); Mean Corpuscular Hgb 25.5 pg (27.0-32.0); Mean Platelet Vol. 11.5 fl (6.2-12.0); Monocyte# 0.75 X10^3/uL; Monocyte% 10.3 % (0-10); NRBC Flagged by Analyzer 0 % (0-5); Neutrophil # 4.68 X10^3/uL (2.7-7.7); Platelet Count 314 K/mm3 (150-450); RBC Distribution Width CV 17.3 % (11.6-14.6); RBC Distribution Width SD 51.2 fl (35.1-43.9); Red Blood Count 4.12 M/mm3 (4.2-5.4); White Blood Count 7.3 K/mm3 (4.4-11.0)
[2020-03-30 12:52] LABS: Vitamin D,25 Hydroxy 44.6 ng/mL
[2020-03-30 13:00] LABS: ALB/GLOB Ratio 0.8 RATIO (0.9-2.4); AST(SGOT) 21 U/L (15-37); Alanine Aminotransfer ALT/SGPT 26 U/L (13-56); Albumin, Serum 3.4 g/dL (3.2-5.0); Alkaline Phosphatase 147 U/L (45-117); Anion Gap 3 (5-15); BUN 10 mg/dL (7-18); BUN/Creat Ratio 11.9 RATIO (10-20); Calcium,Total 8.4 mg/dL (8.5-10.1); Chloride 108 mmol/L (98-107); Cholesterol 194 mg/dL (200); Creatinine, Serum 0.84 mg/dL (0.55-1.02); EST Glomerular Filtration Rate 73 mL/min (>60); Est Glom Filt Rate - Afr Amer 88 mL/min (>60); Ferritin 3 ng/mL (8-252); Globulin 4.3 g/dL (2.2-4.2); Glucose 87 mg/dL (74-106); High Density Lipoprotein 44 mg/dL; Iron 27 ug/dL (50-170); Protein, Total 7.7 g/dL (6.4-8.2); Sodium Level 140 mmol/L (136-145); T4 Free Direct 1.29 ng/dL (0.76-1.46); Thyroid Stim Hormone (TSH) 4.59 uIU/mL (0.358-3.74); Triglycerides 73 mg/dL; Very Low Density Lipoprotein 15 mg/dL (5-40)
== END ==
PROVIDERS: PCP Family Medicine; Visit Provider Family Medicine
DX: R00.2 Palpitations (principal); E03.8 Other specified hypothyroidism; E06.3 Autoimmune thyroiditis; M85.80 Other specified disorders of bone density and structure, unspecified site; E78.5 Hyperlipidemia, unspecified; D50.9 Iron deficiency anemia, unspecified
CPT/HCPCS: 36415; 80053; 80061; 82306; 82728; 83540; 84439; 84443; 85025

== ENCOUNTER → 2020-05-05 10:21 | Outpatient (CLI) | payer MEDICARE, SELFPAY ==
[2020-03-29 10:48] VITALS: BMI 32.3
[2020-05-05 12:48] LABS: Absolute Lymphocyte Count 1.45 X10^3/uL (0.83-4.51); Absolute Neutrophil Count 4.9 X10^3/uL (2.0-7.7); Basophil# 0.07 X10^3/uL; Basophil% 0.9 % (0-1); Eosinophil# 0.32 X10^3/uL; Eosinophils% 4.2 % (0-5); Hematocrit 35.6 % (37-47); Lymphocyte # 1.45 X10^3/ul (4.0); Lymphocyte % 19.2 % (19-41); Mean Corp Hgb Conc 30.9 g/dL (32-36); Mean Corpuscular Hgb 25.2 pg (27.0-32.0); Mean Corpuscular Volume 81.7 fL (81-99); Mean Platelet Vol. 11.8 fl (6.2-12.0); Monocyte# 0.81 X10^3/uL; Monocyte% 10.7 % (0-10); NRBC Flagged by Analyzer 0 % (0-5); Neutrophil # 4.85 X10^3/uL (2.7-7.7); Neutrophil % 64.5 % (47-70); Platelet Count 337 K/mm3 (150-450); RBC Distribution Width CV 17.1 % (11.6-14.6); RBC Distribution Width SD 50.8 fl (35.1-43.9); Red Blood Count 4.36 M/mm3 (4.2-5.4); White Blood Count 7.5 K/mm3 (4.4-11.0)
[2020-05-05 12:50] LABS: Ferritin 6 ng/mL (8-252); Iron 31 ug/dL (50-170); LDH 117 U/L (84-246)
== END ==
PROVIDERS: PCP Family Medicine; Visit Provider Family Medicine
DX: D50.9 Iron deficiency anemia, unspecified (principal)
CPT/HCPCS: 36415; 82728; 83540; 83615; 85025

== ENCOUNTER → 2020-05-10 12:52 | Outpatient (CLI) | payer MEDICARE, SELFPAY ==
[2020-03-29 10:48] VITALS: BMI 32.3
[2020-05-06 15:00] VITALS: BMI 32.9
--- NOTE | 2020-05-10 12:59 | BD_ITS ---
STUDY: DUAL ENERGY X-RAY ABSORPTIOMETRY / DXA REASON FOR EXAM: Female, 65 years old. 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 COMPARISON: Comparison is made with prior examination dated 05/06/2018. FINDINGS: Lumbar Spine (L1-L4): g/cm2 (1.132) / T-score (-0.6) / Z-score (1.0) Findings are suggestive of normal bone density with a low fracture risk. Left Femur Total: g/cm2 (0.685) / T-score (-2.6) / Z-score (-1.4) Left Femoral Neck: g/cm2 (0.728) / T-score (-2.2) / Z-score (-0.8) Right Femur Total: g/cm2 (0.718) / T-score (-2.3) / Z-score (-1.1) Right Femoral Neck: g/cm2 (0.763) / T-score (-2.0) / Z-score (-0.5) The T-Scores on the most recent prior examination were: Lumbar Spine (L1-L4): There has been worsening of bone density since the previous examination. Left Femur Total: which represents a worsening of 2.7%. Right Femur Total: which represents a worsening of 4.4%. BD/Dexa Bone Density Study IMPRESSION: The patient is considered osteoporotic as outlined below according to World [employer] Organization (WHO) criteria with a high fracture risk. There has been worsening of bone density since the previous examination. Reference Information: The T-score is the number of standard deviations above or below the standard which is normal for young adults at their peak bone mineral density. The World Health Organization (WHO) interprets the T-scores as follows: Above -1 Normal bone density Between -1 and -2.5 Osteopenia Equal to / or below -2.5 Osteoporosis As a practical clinical guideline, osteopenia may be graded as follows: Mild -1 through -1.5 Moderate -1.6 through -2.0 Severe -2.1 through -2.4 The Z-score is the number of standard deviations above or below age-matched controls. A Z-score of less than -1.5 would be considered abnormal. References: 1. NIH Osteoporosis and Related Bone Diseases http://www.osteo.org 2. International Society for Clinical Densitometry http://www.iscd.org 3. National Osteoporosis Foundation http://www.nof.org Electronically Signed: Darryl Couch, at 14:08 EDT , Service support ,
== END ==
PROVIDERS: PCP Family Medicine; Referring Provider Family Medicine; Visit Provider Family Medicine
DX: M81.0 Age-related osteoporosis without current pathological fracture (principal); Z78.0 Asymptomatic menopausal state
CPT/HCPCS: 77080

== ENCOUNTER 2020-06-07 05:52 | Day surgery (SDC) | payer MEDICARE, SELFPAY ==
[2020-05-13 08:44] VITALS: BMI 31.5
[2020-05-19 12:57] VITALS: BMI 32.8
[2020-06-07] VITALS (7 sets, daily range): BP systolic 91–110; BP diastolic 55–94; PULSE 59–70; RESP 16; TEMP 35.9–36.6; O2SAT 94–97; BMI 32.3
--- NOTE | 2020-06-07 06:15 | HP.PCM_ITS ---
Problem List (1) Iron deficiency anemia Status: Chronic Qualifiers: History and Physical Date of Admission: 06/07/20 Intake Visit Reasons: EGD/ CSCOPE,ANEMIA Chief Complaint: neck and low back pain Allergies amoxicillin trihydrate [From Augmentin] Allergy (Verified 05/13/20 09:03) Rash levofloxacin [From Levaquin] Allergy (Verified 05/13/20 09:03) Rash Penicillins Allergy (Verified 05/13/20 09:03) Rash potassium clavulanate [From Augmentin] Allergy (Verified 05/13/20 09:03) Rash Sulfa (Sulfonamide Antibiotics) Allergy (Verified 05/13/20 09:03) Rash tramadol HCl [From Ultram] Allergy (Verified 05/13/20 09:03) Rash codeine Adverse Reaction (Verified 05/13/20 09:03) Unknown Medications Levothyroxine [Synthroid] 112 mcg PO DAILY 08/11/17 [History Confirmed 05/13/20] ferrous sulfate 325 mg (65 mg iron) tablet 325 mg PO BID #60 tab 03/29/20 [Rx Confirmed 05/13/20] sertraline 50 mg tablet 50 mg PO DAILY tab 03/29/20 [History Confirmed 05/13/20] metoprolol succinate 25 mg tablet,extended release 24 hr 25 mg PO DAILY #30 tab 05/06/20 [Rx Confirmed 05/13/20] PFSH Family History Father CAD (coronary artery disease) myocardial infarction Cancer Heart disease CVA (cerebral vascular accident) Son Diabetes Brother Hyperthyroidism Kidney stones Mother Hypothyroidism Sister Kidney stones Hypothyroidism Social History (Updated 05/13/20 @ 09:[address] Greg Odom MD) Smoking Status: Never smoker second hand exposure: No alcohol intake: never substance use type: does not use HPI HPI HPI: MARCOS BOLIVAR, is a 65 F who presents to the office today for cons ultation regarding iron deficiency anemia. The patient parents been anemic for a couple years. Her most recent hemoglobin level was as low as 10.5. Currently is 11. She also recently has had problems with palpitations. She has been placed on metoprolol. The patient is referred by Dr. Gordno Morley a written compromise surgical consult recommendations will be returned to him. Previous upper endoscopy done November 06, [address] Tc Sun for reflux symptoms. Some reflux esophagitis was identified. The patient actually does not remember that procedure diagnosis. She is not on any ulcer reducing medications at this time. She does not sense any reflux. She denies any previous known history of peptic ulcer disease. On March 27, 2011 she had a previous screening colonoscopy. Internal hemorrhoids noted diverticulosis. This exam was reported to be technically difficult due to tortuosity. Family history is notable that her father had peptic ulcer disease. She has a sister who has ulcerative colitis but that is in remission. The patient notes a low ferritin level. She has been taking oral iron supplementation. She has concerns that she may not be absorbing it. She has not noticed any bright red blood per rectum or melena. No abdominal pain. No unexpected weight loss. She states that she is not on any gastric irritant medications. It is of note that because of relative hypotension she is having her metoprolol adjusted with decreasing dosage. She denies any current chest pain. RUN DATE: 05/13/20 [facility], DEPARTMENT OF LABORATORIES PAGE 1 RUN TIME: 842 Specimen Inquiry [address] [facility] , [place], [address] PATIENT: MARCOS BOLIVAR [facility] U #: [id number] : 1955 AGE/SX: 65/F FACILITY: [facility] ROOM: RE05/05/[address]: Dr. Gordon Morley, DO STATUS:REG CLI BED: DIS: ~ SPEC #: [id number] MAGGI: 05/05/20 STATUS: COMP REQ #: [id number] RECD: 05/05/[address]: Dr. Gordon Morley, DO ENTERED: 05/05/20 [facility] DR: ~ Test Result Flag Adult Reference Range CBCD WBC 7.5 4.4-11.0 K/mm3 RBC 4.36 4.2-5.4 M/mm3 HGB 11.0 L 12.0-15.0 g/dL HCT 35.6 L 37-47 % MCV 81.7 81-99 fL MCH 25.2 L 27.0-32.0 pg MCHC 30.9 L 32-36 g/dL RDW CV 17.1 H 11.6-14.6 % RDW SD 50.8 H 35.1-43.9 fl PLT 337 150-450 K/mm3 MPV 11.8 6.2-12.0 fl NEUT% 64.5 47-70 % LY% 19.2 19-41 % MONO% 10.7 H 0-10 % EO% 4.2 0-5 % BASO% 0.9 0-1 % IG% 0.500 0.0-0.9 % IG% - Immature Granulocytes (promyelocytes, myelocytes and metamyelocytes) > 1% indicates that a LEFT SHIFT is Present. Absolute Neut 4.9 2.0-7.7 X10^3/uL Absolute Lymph 1.45 0.83-4.51 X10^3/uL NUCLEATED RBC 0 0-5 % RUN DATE: 05/13/20 [facility], DEPARTMENT OF LABORATORIES PAGE 1 RUN TIME: 0844 Specimen Inquiry [address] [place], [address] PATIENT: MARCOS BOLIVAR LOC: [facility] U #: [id number] : 1955 AGE/SX: 64/F FACILITY: [facility] ROOM: RE03/30/[address]: Dr. Gordon Morley, STATUS:REG CLI BED: DIS: ~ SPEC #: [id number] MAGGI: 03/30/20 STATUS: COMP REQ #: [id number] RECD: 03/30/[address]: Dr. Gordon Morley, DO ENTERED: 03/30/20 [facility] DR: ~ Test Result Flag Adult Reference Range COMP METABOLIC LIPID GLU 87 74-106 mg/dL Please note revised GLUCOSE reference range effective 10/04/2017. BUN 10 7-18 mg/dL CREAT,SERUM 0.84 0.55-1.02 mg/dL The validity of the calculated GFR & GFRAA in patients over 70 years has not been determined. Clinical correlation is essential. EST GFR 73 >60 mL/min Non- GFR Calc EST GFR - AA 88 >60 mL/min GFR Calc BUN/CRE 11.9 10-20 RATIO T PROT 7.7 6.4-8.2 g/dL ALB 3.4 3.2-5.0 g/dL GLOB 4.3 H 2.2-4.2 g/dL A/G 0.8 L 0.9-2.4 RATIO CA,Total 8.4 L 8.5-10.1 mg/dL AST 21 15-37 U/L ALK P 147 H 45-117 U/L ALT 26 13-56 U/L T BILI 0.30 0.20-1.00 mg/dL For patients on eltrombopag therapy, use of Dimension [place] TBIL is not recommended. CHOL 194 200 mg/dL <200 mg/dL Desirable 200-240 mg/dL Borderline >240 mg/dL High Risk TRIG 73 mg/dL The drugs N-Acetylcysteine and Metamizole may falsely depress this assay. Serum Triglycerides Reference Interval Normal <150 mg/dL Borderline high 150 - 199 mg/dL High 200 - 499 mg/dL Very High > or = 500 mg/dL NA 140 136-145 mmol/L Potassium 4.0 3.5-5.1 mmol/L CL 108 H 98-107 mmol/L CO2 29.0 21.0-32.0 mmol/L GAP 3 L 5-15 HDL 44 mg/dL The drugs N-Acetylcysteine and Metamizole may falsely depress this assay. Reference Range HDL <40 mg/dL Low HDL Cholesterol HDL >or= 60 mg/dL High HDL Cholesterol LDL 135 H 0-130 mg/dL VLDL 15 5-40 mg/dL TSH 4.59 H 0.358-3.74 uIU/mL IRON 27 L 50-170 ug/dL FERRITIN 3 L 8-252 ng/mL T4 FREE DIRECT 1.29 0.76-1.46 ng/dL HPI HPI HPI: MARCOS BOLIVAR, is a 65 F who presents to the office today for Exam Const General: cooperative, healthy appearing, comfortable, no acute distress Nutritional Appearance: obese Orientation: alert, awake [facility] Head: normal to inspection Eyes General: appearance normal, both eyes and all related structures Resp Effort & Inspection: normal respiratory effort Auscultation: clear to auscultation bilaterally Cardio Rate: regular rate Rhythm: regular rhythm GI Palpation: soft, no hepatosplenomegaly Auscultation: normal bowel sounds Neuro Cognition: normal cognition Extrem General: no calf tenderness Psych Affect: normal affect Assessment & Plan Problems 1. Iron deficiency anemia, unspecified iron deficiency anemia type D50.9 Plan I recommended the patient get a esophagogastroduodenoscopy with possible biopsy and colonoscopy with possible biopsy or polypectomy as indicated. She is aware of the technique, benefit, risk, alternatives. In 2010 she describes a previous uncomfortable exam and reports by Dr. Tc Sun with increased difficulty. I anticipate monitored anesthesia care because of potential increased difficulty colonoscopy as well as her recent cardiac problems with palpitations. In addition we discussed the patient's low iron levels and difficulties with absorption. She would be interested in additional consultation from hematology to assist. We will make referral as noted. She has had an opportunity to ask and have questions answered. Currently she is not demonstrating acute signs of blood loss that she has noted. She is not on any anticoagulants. We will schedule and expedite her care. I very much appreciate the kind opportunity of assisting with her surgical management. Copy to Dr. Gordon Odom M.D., F.A.C.S. Orders Orders: Colonoscopy Today EGD Today Plan Detail Goals Decrease pain and spasm Improve ROM Barriers Cervical DDD Coding Level of Care Code 64862 Diagnoses Iron deficiency anemia, unspecified iron deficiency anemia type D50.9 ??Iron deficiency anemia type: unspecified iron deficiency I have re-examined the patient. There are no clinical changes since date of exam. Procedure Criteria Procedure Type: Elective COVID Risk Discussion: The surgeon/proceduralist and patient have discussed in detail the risk of exposure to and/or potential harm posed by the COVID-19 virus with having a surgery/procedure at this time versus the risk of delaying the surgery/procedure. It is not possible to know either the risk of delaying the surgery or procedure or chance of getting an infection with perfect accuracy, but a joint decision was made between the patient and the surgeon/proceduralist to proceed at this time with the scheduled surgery/procedure as indicated on the consent form.
[2020-06-07] MEDS: Lactated Ringers 1,000 ML 100 ML IV (06:31)
--- NOTE | 2020-06-07 07:00 | COLBX_PTH ---
PATIENT: MARCOS BOLIVAR LOC: EN U#:[id number] AGE/SX: 65/F ROOM: RE06/07/[address]: Dr. Greg Odom MD : 1955 BED: DIS: 06/07/2020 SPEC #: [id number] RECD: 06/07/20 08:36 STATUS: MAGDI KINA #: [id number] MAGGI: 06/07/20 07:[address]: Greg Odom DEPT: SURGICAL PATHOLOGY RECD BY: Elzbieta Bryant ENTERED: 06/07/20 08:45 SP TYPE: COLON BX OTHR DR: Dr. Gordon Morley DO Tissues: A - Gastric mucous membrane B - POLYP C - Esophagus, NOS D - Esophagus, NOS Procedures: Special Stain Group I Surgery Specimen Level IV GMS Stain (control) HEADER OPERATION: Colonoscopy, EGD ([facility] PRE-OP DIAGNOSIS: Iron deficiency anemia TISSUE SUBMITTED: A - Antrum biopsy for histo and H. pylori, B - Fundic polyp biopsy, C - Distal esophagus biopsy, D - Mid esophagus biopsy MICROSCOPIC DIAGNOSIS A. Gastric antrum, biopsy: Chronic gastritis. See comment. B. Gastric fundus polyp, biopsy: Fundic gland polyp. C. Distal esophagus, biopsy: Fragments of benign squamous mucosa with focal acute inflammation. Negative for fungal organisms. See comment. D. Mid esophagus, biopsy: Fragments of benign squamous mucosa. No evidence of inflammation. AM:deedee 06/08/20 COMMENT A. The results of immunohistochemistry for Helicobacter pylori will be reported separately ([id number]). C. GMS stain with matched control is used in the evaluation of this case. MICROSCOPIC DESCRIPTION Slides are reviewed. GROSS DESCRIPTION A - Received in fixative is one container labeled with the patient's name and designated antrum biopsy. The specimen consists of multiple irregular fragments of light ryan soft tissue that in aggregate measure 0.2 x 0.2 x 0.1 cm. The specimen is totally submitted in one cassette. B - Received in fixative is one container labeled with the patient's name and designated fundic polyp. The specimen consists of one irregular fragment of light ryan soft tissue that measures 0.5 x 0.3 x 0.1 cm. The specimen is totally submitted in one cassette. C - Received in fixative is one container labeled with the patient's name and designated distal esophagus. The specimen consists of two irregular fragments of light ryan soft tissue that in aggregate measure 0.7 x 0.6 x 0.1 cm. The specimen is totally submitted in one cassette. D - Received in fixative is one container labeled with the patient's name and designated mid esophagus biopsy. The specimen consists of one irregular fragment of light ryan soft tissue that measures 0.6 x 0.5 x 0.1 cm. The specimen is totally submitted in one cassette. / AM:deedee 06/07/20 TC:2 CPT: 06022 x4, 65196
--- NOTE | 2020-06-07 07:00 | IMM_PTH ---
PATIENT: MARCOS BOLIVAR LOC: EN U#:[id number] AGE/SX: 65/F ROOM: RE06/07/[address]: Dr. Greg Odom MD : 1955 BED: DIS: 06/07/2020 SPEC #: [id number] RECD: 06/07/20 09:35 STATUS: MAGDI REQ #: [id number] MAGGI: 06/07/20 07:[address]: Greg Odom DEPT: IMMUNOHISTOCHEMISTRY RECD BY: Evy Thakkar ENTERED: 06/07/20 09:36 SP TYPE: IMMUNO OTHR DR: Dr. Gordon Morley, DO Tissues: A - Stomach, NOS Procedures: H Pylori (initial) PHYSICIAN & INSTITUTION [place] [address] SPECIMEN INFORMATION: Tissue Source: A - Antrum biopsy Clinical Info: Iron deficiency anemia Specimen Number: [id number] CPT code: 92460 METHODOLOGY: Deparaffinized sections of prefer/formalin-fixed tissue or PAP/DQ stained slides are incubated with monoclonal/polyclonal antibodies/oligonucleotide probes. Localization is made via biotin free immunoperoxidase method. Appropriate controls are performed and reacted as expected. Results on target cell population are indicated in the following table: RESULTS: ANTIBODY / CLONE RESULT Block A H Pylori (polyclonal) negative These tests were developed and their performance characteristics determined by [facility]. They may not have been cleared or approved by the U.S. Food and Drug Administration. The FDA has determined that such clearance or approval is not necessary. INTERPRETATION: A. Antrum biopsy: Negative for Helicobacter pylori organisms. AM:deedee 06/08/20
--- NOTE | 2020-06-07 07:27 | OP.EGD_ITS ---
Patient Name: Melody Phillips Procedure Date: 06/07/2020 6:53 AM Date of : 1955 Age: 65 Procedure: Upper GI endoscopy Indications: Iron deficiency anemia Providers: Greg Odom MD Referring MD: Gordon Morley Medicines: See the Anesthesia note for documentation of the administered medications Complications: No immediate complications. Procedure: Pre-Anesthesia Assessment: - Prior to the procedure, a History and Physical was performed, and patient medications and allergies were reviewed. The patient's tolerance of previous anesthesia was also reviewed. The risks and benefits of the procedure and the sedation options and risks were discussed with the patient. All questions were answered, and informed consent was obtained. Prior Anticoagulants: The patient has taken no previous anticoagulant or antiplatelet agents. ASA Grade Assessment: II - A patient with mild systemic disease. After reviewing the risks and benefits, the patient was deemed in satisfactory condition to undergo the procedure. After obtaining informed consent, the endoscope was passed under direct vision. Throughout the procedure, the patient's blood pressure, pulse, and oxygen saturations were monitored continuously. The Endoscope was introduced through the mouth, and advanced to the second part of duodenum. The upper GI endoscopy was accomplished without difficulty. The patient tolerated the procedure well. Scope In: 7:01:10 AM Scope Out: 7:06:42 AM Total Procedure Duration Time 0 hours 5 minutes 32 seconds Findings: LA Grade A (one or more mucosal breaks less than 5 mm, not extending between tops of 2 mucosal folds) esophagitis with no bleeding was found 39 cm from the incisors. Biopsies were taken with a cold forceps for histology. A medium-sized hiatal hernia was present. A mild Schatzki ring was found at the gastroesophageal junction. Diffuse mildly erythematous mucosa without bleeding was found in the gastric antrum. Biopsies were taken with a cold forceps for histology. A few sessile polyps with no stigmata of recent bleeding were found in the gastric fundus. The polyp was removed with a cold biopsy forceps. Resection and retrieval were complete. The examined duodenum was normal. The mid esophagus was normal. Biopsies were taken with a cold forceps for histology. Impression: - LA Grade A reflux esophagitis. Biopsied. - Medium-sized hiatal hernia. - Mild Schatzki ring. - Erythematous mucosa in the antrum. Biopsied. - A few gastric polyps. Resected and retrieved. - Normal examined duodenum. Recommendation: - Telephone my office for pathology results in 1 week. - Use Pepcid (famotidine) 20 mg PO daily. - Follow an antireflux regimen. - Continue present medications. Procedure Code(s): --- Professional --- 65244, Esophagogastroduodenoscopy, flexible, transoral; with biopsy, single or multiple Diagnosis Code(s): --- Professional --- K21.0, Gastro-esophageal reflux disease with esophagitis K44.9, Diaphragmatic hernia without obstruction or gangrene K22.2, Esophageal obstruction K31.89, Other diseases of stomach and duodenum K31.7, Polyp of stomach and duodenum D50.9, Iron deficiency anemia, unspecified CPT copyright 2017 [employer]. All rights reserved. The codes documented in this report are preliminary and upon machine attendant review may be revised to meet current compliance requirements. Greg Odom MD 06/07/2020 7:26:59 AM This report has been signed electronically. Number of Addenda: 1 Note Initiated On: 06/07/2020 6:53 AM Addendum Number: 1 Addendum Date: 06/07/2020 7:29:57 AM Copy: Dr Kayce Odom MD 06/07/2020 7:30:42 AM This report has been signed electronically.
--- NOTE | 2020-06-07 07:27 | OP.CCLET_ITS ---
06/07/2020 Gordon Morley [address] [facility] [place] [address] Re : Upper GI endoscopy procedure for Melody Phililps Dear Dr. Morley This procedure was performed on Sunday, June 07, 2020. My impressions and recommendations are as follows: Impressions : - LA Grade A reflux esophagitis. Biopsied. - Medium-sized hiatal hernia. - Mild Schatzki ring. - Erythematous mucosa in the antrum. Biopsied. - A few gastric polyps. Resected and retrieved. - Normal examined duodenum. Recommendations : - Telephone my office for pathology results in 1 week. - Use Pepcid (famotidine) 20 mg PO daily. - Follow an antireflux regimen. - Continue present medications. My findings are described in the full procedure note, which is enclosed. If I can be of further assistance, please feel free to contact me at Doctor phone number(s): Work: . Sincerely, Greg Odom MD 06/07/2020 7:26:59 AM This report has been signed electronically.
--- NOTE | 2020-06-07 07:29 | OP.COLON_ITS ---
Patient Name: Melody Phillips Procedure Date: 06/07/2020 7:07 AM Date of : 1955 Age: 65 Procedure: Colonoscopy Indications: Iron deficiency anemia Providers: Greg Odom MD Referring MD: Gordon Morley Medicines: See the Anesthesia note for documentation of the administered medications Patient Profile: Last Colonoscopy: March 2011. Complications: No immediate complications. Procedure: Pre-Anesthesia Assessment: - Prior to the procedure, a History and Physical was performed, and patient medications and allergies were reviewed. The patient's tolerance of previous anesthesia was also reviewed. The risks and benefits of the procedure and the sedation options and risks were discussed with the patient. All questions were answered, and informed consent was obtained. Prior Anticoagulants: The patient has taken no previous anticoagulant or antiplatelet agents. ASA Grade Assessment: II - A patient with mild systemic disease. After reviewing the risks and benefits, the patient was deemed in satisfactory condition to undergo the procedure. After I obtained informed consent, the scope was passed under direct vision. Throughout the procedure, the patient's blood pressure, pulse, and oxygen saturations were monitored continuously. The colonoscope was introduced through the anus and advanced to the cecum, identified by appendiceal orifice and ileocecal valve. The colonoscopy was performed without difficulty. The patient tolerated the procedure well. The quality of the bowel preparation was good. The ileocecal valve and the appendiceal orifice were photographed. Scope In: 7:09:13 AM Scope Withdrawal Time 0 hours 6 minutes 28 seconds Scope Out: 7:19:56 AM Total Procedure Duration Time 0 hours 10 minutes 43 seconds Findings: Hemorrhoids were found on perianal exam. The colon (entire examined portion) appeared normal. Impression: - Hemorrhoids found on perianal exam. - The entire examined colon is normal. - No specimens collected. Recommendation: - Discharge patient to home. - Resume previous diet. - Continue present medications. - Repeat colonoscopy in 10 years for screening purposes. Procedure Code(s): --- Professional --- 20528, Colonoscopy, flexible; diagnostic, including collection of specimen(s) by brushing or washing, when performed (separate procedure) Diagnosis Code(s): --- Professional --- K64.9, Unspecified hemorrhoids D50.9, Iron deficiency anemia, unspecified CPT copyright 2017 [employer]. All rights reserved. The codes documented in this report are preliminary and upon robotics specialist review may be revised to meet current compliance requirements. Greg Odom MD 06/07/2020 7:29:17 AM This report has been signed electronically. Number of Addenda: 0 Note Initiated On: 06/07/2020 7:07 AM
--- NOTE | 2020-06-07 07:29 | OP.CCLET_ITS ---
06/07/2020 Kayce London [address] [place] [address] Re : Colonoscopy procedure for Melody Smithenhall Dear Dr. London This procedure was performed on Sunday, June 07, 2020. My impressions and recommendations are as follows: Impressions : - Hemorrhoids found on perianal exam. - The entire examined colon is normal. - No specimens collected. Recommendations : - Discharge patient to home. - Resume previous diet. - Continue present medications. - Repeat colonoscopy in 10 years for screening purposes. My findings are described in the full procedure note, which is enclosed. If I can be of further assistance, please feel free to contact me at Doctor phone number(s): Work: . Sincerely, Greg Odom MD 06/07/2020 7:29:17 AM This report has been signed electronically.
== END 2020-06-07 08:23 | disposition home or self-care (01) ==
LOC: EN 05:52 → AC 05:53
PROVIDERS: Anesthesiology; PCP Family Medicine; Referring Provider Family Medicine; Visit Provider Surgery
PROC: 0DJD8ZZ Inspection of Lower Intestinal Tract, Via Natural or Artificial Opening Endoscopic (ICD-10-PCS; CPT 45378; principal; 2020-06-07 06:55)
DX: K29.50 Unspecified chronic gastritis without bleeding (principal); K44.9 Diaphragmatic hernia without obstruction or gangrene; K31.7 Polyp of stomach and duodenum; K22.2 Esophageal obstruction; K64.9 Unspecified hemorrhoids; D50.9 Iron deficiency anemia, unspecified; Z11.59 Encounter for screening for other viral diseases; E06.9 Thyroiditis, unspecified; Z78.0 Asymptomatic menopausal state; Z79.899 Other long term (current) drug therapy
CPT/HCPCS: 43239; 45378; 87635; 88305; 88312; 88342; C9803; J7120; U0003

== ENCOUNTER 2020-06-09 21:20 | Emergency (ER) | payer MEDICARE, SELFPAY ==
[2020-06-07 06:26] VITALS: BMI 32.3
[2020-06-09 21:21] VITALS: BP 115/87; PULSE 74; RESP 19; TEMP 36.4; O2SAT 98; BMI 33.3
--- NOTE | 2020-06-09 21:38 | EKG12_ITS ---
Test Reason : PALPITATIONS Blood Pressure : / mmHG Vent. Rate : 071 BPM Atrial Rate : 071 BPM P-R Int : 166 ms QRS Dur : 070 ms QT Int : 402 ms P-R-T Axes : 042 001 029 degrees QTc Int : 436 ms Sinus rhythm with Premature atrial complexes Otherwise normal ECG Confirmed by WILBER CONROY, ALESSANDRA ([id number]), proposal editor THOMAS SOLARES ([id number]) on 06/15/2020 11:03:57 AM Referred By: RAFA Confirmed By:CHACE MERINO MD
--- NOTE | 2020-06-09 21:47 | ED.VIS.GEN ---
History of Present Illness Chief Complaint: Palpitations Informant: Patient Narrative: 65-year-old female with past medical history of hyperlipidemia and palpitations presents with palpitations. States that over the past year she has been on metoprolol which is kept her symptoms at day. States that today she was exerting herself and felt like she was short of breath and then noticed that she had palpitations again. This happened multiple times in the like she is going to pass out. She denies any chest pain, nausea, vomiting, diaphoresis. Has been taking her medication as prescribed. No increase in caffeine. Past Medical History - Allergies and Home Meds Allergies/Adverse Reactions: Allergies amoxicillin trihydrate [From Augmentin] Allergy (Verified 06/09/20 21:48) Rash levofloxacin [From Levaquin] Allergy (Verified 06/09/20 21:48) Rash Penicillins Allergy (Verified 06/09/20 21:48) Rash potassium clavulanate [From Augmentin] Allergy (Verified 06/09/20 21:48) Rash Sulfa (Sulfonamide Antibiotics) Allergy (Verified 06/09/20 21:48) Rash tramadol HCl [From Ultram] Allergy (Verified 06/09/20 21:48) Rash codeine Adverse Reaction (Verified 06/09/20 21:48) Unknown Primary Care Physician: Gordon Morley DO [Primary Care Provider] - Prior records reviewed: Yes Past Medical History: - - Palpitations and HLD Surgical History: cholecystectomy, hysterectomy, tonsillectomy Lives: Alone Smoking Status: Never smoker Alcohol: None Drugs: None Review of Systems General: Denies: Chills, Fever, Sweats Eyes: Denies: Visual changes - bilaterally, Diplopia ENT: Denies: Rhinorrhea, Sore throat Cardiovascular: Reports: Palpitations. Denies: Chest pain Respiratory: Reports: Dyspnea. Denies: Cough, Dyspnea on exertion Gastrointestinal: Denies: Abdominal pain, Nausea, Vomiting, Diarrhea, Melena, Hematochezia Genitourinary: Denies: Dysuria, Hematuria, Frequency Musculoskeletal: Denies: Back pain, Extremity Pain Skin: Denies: Rash, Wounds Neurological: Denies: Headache, Weakness, Numbness Physical Exam Vital Signs/Narrative: Vital Signs Temp Pulse Resp BP Pulse Ox 06/09/20 21:21 97.6 F L 74 19 H 115/87 H 98 Inital Vital Signs reviewed: Yes General: Well nourished, Well developed, No Acute Distress Head: Normocephalic, Atraumatic Eyes: Perrl, EOMI ENT: Moist mucous membranes, No rhinorrhea Neck: Supple, Nontender Cardiovascular: Regular rate, Regular rhythm, No murmurs Respiratory: No distress, CTA bilaterally, Chest nontender Abdomen: Soft, Nontender, Nondistended, Normal bowel sounds Back: Nontender, Normal Inspection Extremities: Nontender, No edema Skin: Normal color, No rash Neurological: Alert, Oriented x3, Cranial nerves II-XII grossly intact, Normal Strength, Normal Sensation Psychological: Normal affect, Normal Mood Diagnostic/Tx/Re-eval Chest X-Ray - ED: 1 View, No Acute Disease Clinical Impression(s) from Imaging Studies Chest X-Ray 06/09/20 22:00 IMPRESSION: Mild CHF with cephalization of pulmonary blood flow. This appears slightly more prominent than noted on the previous study. There is no evidence of infiltrate, atelectasis, or pleural fluid. Electronically Signed: Gonzalez Grande MD at 22:35 EDT , Service support , Laboratory Data 06/09/20 06/09/20 06/09/20 15:20 21:35 21:35 WBC 9.5 RBC 4.38 Hgb 11.1 L Hct 36.2 L MCV 82.6 MCH 25.3 L MCHC 30.7 L RDW Std Deviation 50.3 H RDW Coeff of Andreas 16.8 H Plt Count 317 MPV 11.0 Immature Gran % (Auto) 0.400 Neut % (Auto) 60.0 Lymph % (Auto) 26.0 [place] % (Auto) 9.9 Eos % (Auto) 3.2 Baso % (Auto) 0.5 Absolute Neuts (auto) 5.7 Absolute Lymphs (auto) 2.46 Nucleated RBC % 0 D-Dimer Quant (PE/DVT) 0.96 H* Sodium 140 Potassium 3.4 L Chloride 105 Carbon Dioxide 29.0 Anion Gap 6 BUN 9 Creatinine 0.84 Estim Creat Clear Calc 62.51 Est GFR (MDRD) Af Amer 88 Est GFR (MDRD) Non-Af 72 BUN/Creatinine Ratio 10.7 Glucose 89 Calcium 8.7 Magnesium 1.9 Troponin I < 0.015 TSH 4.40 H - Rhythm Strip Rhythm Strip: Sinus Rhythm Rate: 71 Ectopy: None - EKG Initial EKG Interpretation: Sinus Rhythm - Sinus rhythm at 71 bpm. OH interval 166 ms. QTC of 436 ms. No evidence of ST elevation or depression at this time. - Medical Decision Making Patient appears well and nontoxic. Vital signs within normal limits. EKG nonischemic. Lab work within normal limits other than elevated d-dimer. CTA currently pending. Patient will be signed out to oncoming physician at 2300. 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 Impression: 1. Palpitations 2. Dyspnea ED Disposition - Plan for ED Patient: Disposition: Home or Assisted Living Instructions: ED Palpitations Referrals: Grodon Morley DO [Primary Care Provider] - 2 Days Jhon Rojas MD [STAFF PHYSICIAN] - 3-5 Days
[2020-06-09 21:55] LABS: Absolute Lymphocyte Count 2.46 X10^3/uL (0.83-4.51); Absolute Neutrophil Count 5.7 X10^3/uL (2.0-7.7); Basophil# 0.05 X10^3/uL; Basophil% 0.5 % (0-1); Eosinophils% 3.2 % (0-5); Hematocrit 36.2 % (37-47); Hemoglobin 11.1 g/dL (12.0-15.0); Lymphocyte # 2.46 X10^3/ul (4.0); Mean Corp Hgb Conc 30.7 g/dL (32-36); Mean Corpuscular Hgb 25.3 pg (27.0-32.0); Mean Corpuscular Volume 82.6 fL (81-99); Monocyte# 0.94 X10^3/uL; Monocyte% 9.9 % (0-10); NRBC Flagged by Analyzer 0 % (0-5); Neutrophil # 5.68 X10^3/uL (2.7-7.7); Platelet Count 317 K/mm3 (150-450); RBC Distribution Width CV 16.8 % (11.6-14.6); RBC Distribution Width SD 50.3 fl (35.1-43.9); Red Blood Count 4.38 M/mm3 (4.2-5.4); White Blood Count 9.5 K/mm3 (4.4-11.0)
--- NOTE | 2020-06-09 22:00 | RAD_ITS ---
STUDY: X-RAY CHEST REASON FOR EXAM: Female, 65 years old. PALPITATIONS TECHNIQUE: Single AP portable view of the chest. COMPARISON: Prior study of 01/02/2020 FINDINGS: monitoring manager leads are seen. The lungs are clear and expanded. There is no demonstrated pleural abnormality. Normal size heart. Normal mediastinum and deejay. There is prominence of the pulmonary hilar arteries and peripheral pulmonary arteries, consistent with congestive heart failure (CHF). Normal visualized aortic arch and descending thoracic aorta. Normal visualized thoracic spine. Normal visualized ribs, clavicles, and shoulders. There is no demonstrated abnormality of the visualized soft tissue structures of the upper abdomen. RAD/Chest 1 View (Portable) IMPRESSION: Mild CHF with cephalization of pulmonary blood flow. This appears slightly more prominent than noted on the previous study. There is no evidence of infiltrate, atelectasis, or pleural fluid. Electronically Signed: Gonzalez Grande MD at 22:35 EDT , Service support ,
[2020-06-09 22:20] LABS: Anion Gap 6 (5-15); BUN 9 mg/dL (7-18); BUN/Creat Ratio 10.7 RATIO (10-20); Calcium,Total 8.7 mg/dL (8.5-10.1); Chloride 105 mmol/L (98-107); Creatinine, Serum 0.84 mg/dL (0.55-1.02); EST Glomerular Filtration Rate 72 mL/min (>60); Est Glom Filt Rate - Afr Amer 88 mL/min (>60); Estimated Creatinine Clearance 62.51 ml/min; Glucose 89 mg/dL (74-106); Magnesium 1.9 mg/dL (1.6-2.6); Potassium 3.4 mmol/L (3.5-5.1); Sodium Level 140 mmol/L (136-145)
[2020-06-09 22:21] VITALS: BP 103/72; PULSE 71; RESP 16; O2SAT 94
[2020-06-09 22:35] LABS: D-Dimer Quantitative (DVT/PE) 0.96 FEU/ug/m (0.27-0.49)
--- NOTE | 2020-06-09 22:36 | CT_ITS ---
STUDY: CTA CHEST REASON FOR EXAM: Female, 65 years old. PALPITATIONS AND DYSPNEA. Pt states she always has high ddimer RADIATION DOSAGE (If Supplied By Facility): CTDIvol = ( 12.05 ) mGy, DLP = ( 455.03 ) mGycm TECHNIQUE: The examination was performed with the intravenous administration of IV 75mL Isovue-370. Post-processing of the angiographic images was performed, with multiplanar reformation and 3D reconstruction. Individualized dose optimization techniques were used for this CT. COMPARISON: 09/21/2011. FINDINGS: Normal enhancement of the main pulmonary artery and right and left pulmonary arteries. Normal enhancement of the bilateral peripheral pulmonary arteries. There is no demonstrated pulmonary embolism. Normal thoracic aorta and visualized great vessels. There is no demonstrated aortic dissection. Normal heart and pericardium. Normal mediastinum. Normal hilar regions. Normal visualized trachea and bronchi. The lungs are well expanded. Mild diffuse hazy density seen throughout both lungs suggests possibility of mild pulmonary edema. There are numerous bilateral suspicious noncalcified pulmonary nodules, many of which in retrospect were present on the previous exam, but all of which have increased in size. The appearance is most consistent with widespread metastatic disease. As example, some of the nodules measure: 1.1 cm nodule seen in the medial left apex, axial image 179, previously measuring only 7 mm. 4 mm nodule in the posterior right upper lobe, axial image 153, previously measured 3 mm. 4 mm nodule in the lateral mid left lung, axial image 141 previously not clearly seen. 4. 5 nodules as much as 6 mm in the lateral mid right lung, axial image 131 increase in size and number since previous study. 8 mm nodule in the anterior segment of the right lower lobe, axial image 126 measured only 6 mm previously. 9 mm nodule in the right middle lobe, axial image 120 not definitely seen previously. Numerous nodules as much as 5 mm size in both lung bases. No infiltrates. No effusions. Normal osseous structures. Normal visualized upper abdomen. CT/CTA Chest W/WO Contrast IMPRESSION: Normal CTA chest examination, without a demonstrated pulmonary embolism or arterial dissection. Very numerous bilateral noncalcified pulmonary nodules many of which were present previously, but most of which have increased in size and there are also new nodules. Findings suggest metastatic disease. Electronically Signed: Michael Cervantes MD at 23:13 EDT , Service support ,
[2020-06-09 23:00] VITALS: BP 105/67; PULSE 66; RESP 12; O2SAT 95
[2020-06-10] VITALS: BP 116/71; PULSE 74; RESP 18; O2SAT 98
--- NOTE | 2020-06-10 | ED.RN ---
dr landa in to see pt and discuss dx
--- NOTE | 2020-06-10 00:06 | ED.VISSUMM ---
- ER Visit Summary Date of Service: 06/10/20 Chief Complaint: [] History of Present Illness: The patient is a 65 F [] Physical Examination: [] Test Results: [] Emergency Department Course and Treatment: [] Treatment Plan: [] Disposition: [] Impression: [] This note was generated with [employer] dictation software. It may contain incorrect words, spelling, and punctuation that were not noted in review of the chart prior to signing ED Disposition - Plan for ED Patient: Disposition: Home or Assisted Living Diagnosis: Multiple subsolid lung nodules greater than 6 mm in diameter, Anemia, Concern for metastatic disease Instructions: ED Palpitations Referrals: Jhon Rojas MD [STAFF PHYSICIAN] - 3-5 Days Gordon Morley DO [Primary Care Provider] - 2 Days Kayce London MD [STAFF PHYSICIAN] - Keep Karen appointment Additional Instructions: Your appointment with Dr. Baxter for this upcoming Saturday. He will have access to the CAT scan and determine appropriate tests to evaluate your multiple nodules and because of your multiple nodules.
[2020-06-10 00:19] VITALS: BP 114/71; PULSE 70; RESP 17; O2SAT 98
== END 2020-06-10 00:20 | disposition home or self-care (01) ==
PROVIDERS: Emergency Provider Emergency Medicine; PCP Family Medicine
DX: R00.2 Palpitations (principal); R06.00 Dyspnea, unspecified; D64.9 Anemia, unspecified; E78.5 Hyperlipidemia, unspecified
CPT/HCPCS: 71045; 71275; 80048; 83735; 84443; 84484; 85025; 85379; 93005; 99284; Q9967; A4216

== ENCOUNTER → 2020-06-23 07:57 | Outpatient (CLI) | payer MEDICARE, SELFPAY ==
[2020-06-15 13:23] VITALS: BMI 33.3
[2020-06-23] VITALS (12 sets, daily range): BP systolic 88–111; BP diastolic 54–70; PULSE 59–69; RESP 12–20; TEMP 37; O2SAT 95–100; BMI 30.7
--- NOTE | 2020-06-23 07:58 | CT_ITS ---
PROCEDURE: CT GUIDED CORE NEEDLE BIOPSY OF A right upper lobe LUNG LESION INDICATION: Female, 65 years old. RT LUNG NODULE BX PHYSICIAN: Dr. DALILA Zuluaga CONSENT: Written informed consent was obtained having explained the risks, benefits and alternatives in detail with the patient who accepted the risks and agreed to proceed. Laboratory review and clinical assessment was performed. CONSCIOUS SEDATION PROTOCOL: The Drugs used were: 2 mg Versed, IV., and 50 mcg Fentanyl, IV. The sedation time was: 23 minutes. Conscious sedation was started at 9:07 AM and terminated at 9:30 AM. The conscious sedation protocol was independently monitored. RADIATION DOSAGE (If Supplied By Facility): CTDIvol = ( 17 ) mGy, DLP = ( 347.58 ) mGycm Individualized dose optimization techniques were used for this CT. TECHNIQUE: The patient was placed in the supine position. A noncontrast CT was performed to localize the lesion in the anterior aspect of the right upper lobe . The skin surface was prepped and draped in a sterile fashion. 1% lidocaine was used for local anesthesia. Using CT guidance, a 20-gauge coaxial biopsy device was advanced to the periphery of the lesion. A total of 3 core specimens were obtained. The specimens were placed in a formalin solution. A post procedure CT demonstrated no adverse sequelae or pneumothorax. The patient tolerated the procedure well without adverse event. A negative biopsy does not exclude malignancy. Further imaging or clinical followup based on patient condition and degree of clinical suspicion for malignancy. Suggest rebiopsy, if biopsy results do not match with clinical scenario. CT/Biopsy/Inj or Needle Placement IMPRESSION: 1. CT directed core needle biopsy of the anterior right upper lobe pulmonary nodule using CT image guidance with image documentation as described. Pathology results are pending. 2. Conscious Sedation protocol utilized with independent monitoring. Electronically Signed: Darryl Couch, at 10:50 EDT , Service support ,
[2020-06-23 08:10] LABS: Absolute Lymphocyte Count 1.65 X10^3/uL (0.83-4.51); Absolute Neutrophil Count 5.1 X10^3/uL (2.0-7.7); Basophil# 0.04 X10^3/uL; Basophil% 0.5 % (0-1); Eosinophil# 0.28 X10^3/uL; Eosinophils% 3.6 % (0-5); Hematocrit 38.5 % (37-47); Hemoglobin 11.8 g/dL (12.0-15.0); Lymphocyte # 1.65 X10^3/ul (4.0); Lymphocyte % 21.2 % (19-41); Mean Corp Hgb Conc 30.6 g/dL (32-36); Mean Corpuscular Hgb 25.4 pg (27.0-32.0); Mean Platelet Vol. 10.4 fl (6.2-12.0); Monocyte# 0.64 X10^3/uL; Monocyte% 8.2 % (0-10); NRBC Flagged by Analyzer 0 % (0-5); Neutrophil # 5.14 X10^3/uL (2.7-7.7); Neutrophil % 66.1 % (47-70); Platelet Count 321 K/mm3 (150-450); RBC Distribution Width SD 51.1 fl (35.1-43.9); Red Blood Count 4.64 M/mm3 (4.2-5.4); White Blood Count 7.8 K/mm3 (4.4-11.0)
[2020-06-23 08:20] LABS: Prothrombin Time (Protime)PT. 12.7 SECONDS (11.7-14.9)
[2020-06-23 08:21] LABS: Partial Thromboplast Time 27.7 Seconds (24.1-36.2)
[2020-06-23] MEDS: Midazolam 2 MG/2 ML Syringe IV (09:07)
[2020-06-23] MEDS: fentaNYL 100 MCG/2 ML Ampul IV (09:07)
--- NOTE | 2020-06-23 09:30 | ASPIGT_PTH ---
PATIENT: MARCOS BOLIVAR LOC: [place] U#:[id number] AGE/SX: 70/F ROOM: RE06/23/[address]: Dr. Kayce London MD : 1955 BED: DIS: SPEC #: [id number] RECD: 06/23/20 10:00 STATUS: MAGDI REGabriel #: [id number] MAGGI: 06/23/20 09:[address]: Kayce London DEPT: SURGICAL PATHOLOGY RECD BY: Arcelia Huerta ENTERED: 06/23/20 10:00 SP TYPE: ASP RAD OTHR DR: Dr. Gordon Morley DO Tissues: Lung, NOS Procedures: FNA Specimen Adequacy Special Stain Group II Special Stain Group I Surgery Specimen Level IV AFB Stain (control) GMS Stain (control) Imprint (control) HEADER OPERATION: CT-guided biopsy right lung nodule PRE-OP DIAGNOSIS: Right lung nodule TISSUE SUBMITTED: Right lung nodule MICROSCOPIC DIAGNOSIS Right lung nodule, CT-guided core biopsy: Fragments of benign lung parenchymal tissue with focal area of non-necrotizing granuloma formation. Focal mild chronic inflammation. Special stains for acid fast bacilli and fungi are negative for organisms; matched controls are appropriate. See comment. AGAPITO:deedee 06/24/20 COMMENT The specimen is evaluated at the time of biopsy by Dr. Kaur. Immediate Evaluation = Atypical cells noted with spindle cell morphology. Correlation with clinical, radiologic findings and appropriate follow up are necessary. Re-biopsy is suggested if clinically indicated. Case has been reviewed in consultation with Dr. Bello who concurs with the above diagnosis. IDC:AM MICROSCOPIC DESCRIPTION Slides are reviewed. GROSS DESCRIPTION Received in fixative is one container labeled with the patient's name and designated right lung biopsy. The specimen consists of multiple elongated fragments of ryan soft tissue that in aggregate measure 0.2 x 0.2 x 0.1 cm. The specimen is totally submitted in one cassette. Four touch imprints are prepared at the time of core biopsy. / AGAPITO:deedee 06/23/20 TC:3 CPT: 86572, 41545, 15698 x2
--- NOTE | 2020-06-23 09:45 | RAD_ITS ---
STUDY: X-RAY CHEST REASON FOR EXAM: Female, 65 years old. Immediate post lung biopsy TECHNIQUE: Inspiration and expiration views are obtained. COMPARISON: Comparison is made to 06/09/2020. FINDINGS: EKG electrodes are seen. Immediate post right lung radiographs. No evidence of pneumothorax. RAD/Chest Insp/Exp 2 View IMPRESSION: No evidence of pneumothorax on the immediately post right lung biopsy Electronically Signed: Darryl Couch, at 13:46 EDT , Service support ,
--- NOTE | 2020-06-23 11:53 | RAD_ITS ---
STUDY: X-RAY CHEST REASON FOR EXAM: Female, 65 years old. 2 hour post biopsy TECHNIQUE: AP inspiration and expiration views. COMPARISON: Comparison is made with prior examination done earlier today. FINDINGS: Two-hour post right lung biopsy. There is no evidence of pneumothorax. RAD/Chest Insp/Exp 2 View IMPRESSION: No evidence of pneumothorax on the post right lung biopsy. Electronically Signed: Darryl Couch, at 12:24 EDT , Service support ,
== END ==
PROVIDERS: PCP Family Medicine; Referring Provider Internal Medicine Hematology & Oncology; Visit Provider Internal Medicine Hematology & Oncology
DX: J84.10 Pulmonary fibrosis, unspecified (principal); D50.9 Iron deficiency anemia, unspecified; K21.9 Gastro-esophageal reflux disease without esophagitis
CPT/HCPCS: 32405; 36415; 71046; 77012; 85025; 85610; 85730; 88172; 88305; 88312; 88313; 99155; 99156; J7040; A4216

== ENCOUNTER → 2020-07-06 08:57 | Outpatient (CLI) | payer MEDICARE, SELFPAY ==
[2020-07-05 06:21] VITALS: BMI 32.5
--- NOTE | 2020-07-08 07:41 | PFT ---
INTRODUCTION: The patient is a 65-year-old female that presents for pulmonary function studies secondary to a diagnosis of sarcoidosis. Respiratory therapy reports good patient effort. Bronchodilators were used during testing. INTERPRETATION: Forced expiration spirometry demonstrates no evidence of a large airways obstructive ventilatory defect. There was no significant response to aerosolized bronchodilators. Spirograms are of good quality and plateau normally. Body plethysmography was performed and reveals lung volumes to be within normal limits. Diffusing capacity by single breath CO is also within normal limits as well. IMPRESSION: Grossly normal pulmonary function studies.
== END ==
PROVIDERS: PCP Family Medicine; Referring Provider Internal Medicine Critical Care Medicine; Visit Provider Internal Medicine Critical Care Medicine
DX: D86.9 Sarcoidosis, unspecified (principal)
CPT/HCPCS: 94060; 94726; 94729

== ENCOUNTER → 2020-07-07 12:55 | Outpatient (CLI) | payer MEDICARE, SELFPAY ==
[2020-06-15 13:23] VITALS: BMI 33.3
[2020-07-05 06:21] VITALS: BMI 32.5
--- NOTE | 2020-07-07 12:56 | BI_ITS ---
MAMMOGRAPHY - BILATERAL SCREENING REASON FOR EXAM: Female, 65 years old. Routine annual screening examination. PERTINENT HISTORY: Non-contributory. TECHNIQUE: Digital bilateral breast jose a (3D mammographic acquisition) in the CC and MLO projections. 2-D mediolateral oblique (MLO) and craniocaudad (CC) views of both breasts were obtained. CAD: Full Field Digital Mammography with Computer Added Detection was performed. COMPARISON: Comparison is made with prior study dated 04/08/2019 and 01/24/2018. FINDINGS: Breast Composition: There are scattered areas of fibroglandular density. There are no dominant masses or suspicious calcifications. No other significant abnormalities are identified. There has been no significant change since the prior study. BI/SCREEN MAMM (CAD) W/JOSE A BILAT IMPRESSION: Stable bilateral screening mammogram. Yearly follow-up mammogram recommended. (A) ASSESSMENT CATEGORY: BIRADS Category 1: Negative. A letter regarding these results will be sent to the patient by the facility within 30 days. Approximately 10% of breast cancers are not detected by mammography. A normal mammogram should not delay biopsy of a clinically suspicious abnormality. [id number] Electronically Signed: Darryl Couch, at 14:22 EST , Service support ,
== END ==
PROVIDERS: PCP Internal Medicine Hematology & Oncology; Referring Provider Internal Medicine Hematology & Oncology; Visit Provider Internal Medicine Hematology & Oncology
DX: Z12.31 Encounter for screening mammogram for malignant neoplasm of breast (principal)
CPT/HCPCS: 77063; 77067

== ENCOUNTER → 2020-07-27 12:20 | Outpatient (CLI) | payer MEDICARE, SELFPAY ==
[2020-07-05 06:21] VITALS: BMI 32.5
[2020-07-25 13:07] VITALS: BMI 31.4
[2020-07-27 12:43] VITALS: PULSE 74; PULSE 78; PULSE 92; PULSE 94; PULSE 95; PULSE 97; PULSE 99; O2SAT 96; O2SAT 97; O2SAT 98
--- NOTE | 2020-07-27 14:55 | PCM.PSN.6M ---
PSN 6 Minute Walk Test - 6 Minute Walk Test 6 Minute Walk Test: 6 Minute Walk Test PSN:6-Minute Walk Test Start: 07/27/20 12:42 Freq: Status: Active Protocol: RESP.6MINW Document 07/27/20 12:43 JULIO (Rec: 07/27/20 12:47 JULIO [id number]) 6 Minute Walk Test Date Performed 07/27/20 Time Performed 12:30 Height 5 ft 6 in Weight: 88.904 kg Weight in Pounds 196.[address]: Sergio Kilpatrick Assistive device used: None Pre-test Oxygen Delivery Method Room Air Pulse Ox (%) 98 Pulse Rate (60-100 beats/min) 78 Dyspnea Katherin Scale (0-10) 0 Exertion Katherin Scale (6-20) 6 1st minute Oxygen Delivery Method Room Air Pulse Ox (%) 97 Pulse Rate (60-100 beats/min) 92 2nd minute Oxygen Delivery Method Room Air Pulse Ox (%) 97 Pulse Rate (60-100 beats/min) 92 3rd minute Oxygen Delivery Method Room Air Pulse Ox (%) 96 Pulse Rate (60-100 beats/min) 94 4th minute Oxygen Delivery Method Room Air Pulse Ox (%) 96 Pulse Rate (60-100 beats/min) 95 5th minute Oxygen Delivery Method Room Air Pulse Ox (%) 96 Pulse Rate (60-100 beats/min) 97 6th minute Oxygen Delivery Method Room Air Pulse Ox (%) 96 Pulse Rate (60-100 beats/min) 99 Dyspnea Katherin Scale (0-10) 0.5 Exertion Katherin Scale (6-20) 11 Post-test Oxygen Delivery Method Room Air Pulse Ox (%) 96 Pulse Rate (60-100 beats/min) 74 Full Laps Walked 17 Partial Lap, Number of Tiles Walked 20 Total Distance Walked (ft) 1023 - Interpretation Interpretation: The patient was able to ambulate 1023 feet over the course of 6 minutes on room air with no assistive devices or breaks. The patient experienced no significant tachycardia or desaturation during testing. These findings are consistent with a normal walking oximetry. - Recommendations Recommendations: No supplemental oxygen is indicated at this time.
== END ==
PROVIDERS: PCP Family Medicine; Referring Provider Internal Medicine Critical Care Medicine; Visit Provider Internal Medicine Critical Care Medicine
DX: D86.9 Sarcoidosis, unspecified (principal)
CPT/HCPCS: 94618

== ENCOUNTER → 2021-03-28 13:40 | Outpatient (CLI) | payer MEDICARE, SELFPAY ==
[2021-03-21 14:34] VITALS: BMI 34.0
--- NOTE | 2021-03-28 13:41 | CT_ITS ---
STUDY: CT CHEST WITHOUT CONTRAST REASON FOR EXAM: Female, 65 years old. Patient has a history of sarcoidosis. RADIATION DOSAGE (If Supplied By Facility): CTDIvol = ( 11.22 ) mGy, DLP = ( 389.66 ) mGycm TECHNIQUE: Transaxial imaging was performed without the administration of intravenous contrast material. Multiplanar coronal and sagittal images were reformatted. Individualized dose optimization techniques were used for this CT. COMPARISON: None. FINDINGS: There is a 7.7 mm noncalcified nodule in the medial aspect of the left upper lobe as seen on axial image #33 and coronal image #119. A similar appearing nodule measuring 5.8 mm is seen in the anterior aspect of the right lower lobe as seen on axial image #54 and coronal image #150. A 7.3 mm nodule is also seen in the anterior aspect of the right middle lobe as seen on axial image #59 and coronal image #73. There is no demonstrated pleural abnormality. There are calcifications of the coronary arteries. There are multiple small lymph nodes within the mediastinum, which are normal in size and morphology most compatible with reactive lymph hyperplasia. Normal hilar regions. Normal unenhanced pulmonary arteries. Normal aorta arch and descending thoracic aorta. There are degenerative changes of the thoracic spine. Small hiatal hernia. The patient is status post cholecystectomy. CT/Chest without Contrast IMPRESSION: Pulmonary nodules as described. Six-month follow-up examination is recommended. Electronically Signed: Darryl Couch MD at 15:38 EDT , Service support ,
== END ==
PROVIDERS: PCP Family Medicine; Referring Provider Nurse Practitioner Acute Care; Visit Provider Nurse Practitioner Acute Care
DX: D86.9 Sarcoidosis, unspecified (principal)
CPT/HCPCS: 71250

== ENCOUNTER → 2021-04-05 08:21 | Outpatient (CLI) | payer MEDICARE, SELFPAY ==
[2021-02-21 10:59] VITALS: BMI 33.9
[2021-04-04 10:50] VITALS: BMI 34.0
[2021-04-05 09:38] LABS: Vitamin D,25 Hydroxy 44.4 ng/mL
[2021-04-05 09:50] LABS: ALB/GLOB Ratio 0.9 RATIO (0.9-2.4); AST(SGOT) 26 U/L (15-37); Alanine Aminotransfer ALT/SGPT 36 U/L (13-56); Albumin, Serum 3.4 g/dL (3.2-5.0); Alkaline Phosphatase 122 U/L (45-117); Anion Gap 5 (5-15); BUN 10 mg/dL (7-18); BUN/Creat Ratio 13.8 RATIO (10-20); Calcium,Total 8.7 mg/dL (8.5-10.1); Chloride 107 mmol/L (98-107); Cholesterol 185 mg/dL (200); Creatinine, Serum 0.72 mg/dL (0.55-1.02); EST Glomerular Filtration Rate 86 mL/min (>60); Est Glom Filt Rate - Afr Amer 103 mL/min (>60); Globulin 3.8 g/dL (2.2-4.2); Glucose 93 mg/dL (74-106); High Density Lipoprotein 43 mg/dL; Potassium 3.8 mmol/L (3.5-5.1); Protein, Total 7.2 g/dL (6.4-8.2); Sodium Level 140 mmol/L (136-145); Thyroid Stim Hormone (TSH) 3.74 uIU/mL (0.358-3.74); Triglycerides 93 mg/dL; Very Low Density Lipoprotein 19 mg/dL (5-40)
== END ==
PROVIDERS: PCP Family Medicine; Referring Provider Family Medicine; Visit Provider Family Medicine
DX: E03.8 Other specified hypothyroidism (principal); E06.3 Autoimmune thyroiditis; E78.5 Hyperlipidemia, unspecified; M81.0 Age-related osteoporosis without current pathological fracture; Z51.81 Encounter for therapeutic drug level monitoring
CPT/HCPCS: 36415; 80053; 80061; 82306; 84443

== ENCOUNTER → 2021-08-08 09:07 | Outpatient (CLI) | payer MEDICARE, SELFPAY ==
--- NOTE | 2021-08-08 09:10 | RAD_ITS ---
STUDY: X-RAY - LEFT KNEE REASON FOR EXAM: Female, 66 years old. PAIN/ TRAUMA TECHNIQUE: 4 view(s) of the knee. COMPARISON: None. FINDINGS: Normal visualized distal femur. Normal visualized proximal tibia and fibula. Normal proximal tibiofibular articulation. Normal medial femorotibial compartment. Normal lateral femorotibial compartment. Normal patellofemoral articulation. The soft tissue structures are unremarkable. RAD/Knee 4 or More Views IMPRESSION: Normal x-ray examination of the knee. Electronically Signed: Darryl Couch MD at 9:19 EST , Service support ,
== END ==
PROVIDERS: PCP Family Medicine; Referring Provider Family Medicine; Visit Provider Family Medicine
DX: M25.562 Pain in left knee (principal)
CPT/HCPCS: 73564

== ENCOUNTER → 2021-08-23 10:24 | Outpatient (CLI) | payer MEDICARE, SELFPAY ==
--- NOTE | 2021-08-23 10:27 | US_ITS ---
STUDY: THYROID ULTRASOUND REASON FOR EXAM: Female, 66 years old. CORNELL''S DISEASE/GOITER TECHNIQUE: Ultrasound evaluation of the thyroid was performed with real-time and static arciniega-scale imaging. COMPARISON: 10/29/2017 FINDINGS: RIGHT LOBE: The right lobe of the thyroid gland measures 4.1 x 2.0 x 2.0 cm. There is a heterogeneous echotexture. Nodule 1: Enlarging 16 x 11 x 12 mm (from 14 x 9 x 12 mm) solid isoechoic wire than tall ill-defined marginated nodule with no echogenic foci (TR 3) in the lateral right lobe and follow-up ultrasound is recommended in one year. LEFT LOBE: The left lobe of the thyroid gland measures 4.2 x 1.3 x 1.3 cm. There is a heterogeneous echotexture. There are no demonstrated solid, cystic or complex lesions. ISTHMUS: The isthmus measures . The regional lymph nodes are normal. US/Thyroid IMPRESSION: Thyroiditis with an enlarging dominant nodule in the right lobe and follow-up ultrasound is recommended in 1 year. Electronically Signed: Kadeem Lopez MD at 16:58 EST Tel , Service support ,
== END ==
PROVIDERS: PCP Family Medicine; Referring Provider Family Medicine; Visit Provider Family Medicine
DX: E04.2 Nontoxic multinodular goiter (principal)
CPT/HCPCS: 76536

== ENCOUNTER 2021-09-27 12:04 | Outpatient (CLI) | payer MEDICARE, SELFPAY ==
--- NOTE | 2021-09-27 12:06 | BI_ITS ---
MAMMOGRAPHY - BILATERAL SCREENING REASON FOR EXAM: Female, 66 years old. Routine annual screening examination. PERTINENT HISTORY: Non-contributory. History of prior left breast aspiration. TECHNIQUE: Digital bilateral breast jose a (3D mammographic acquisition) in the CC and MLO projections. 2-D mediolateral oblique (MLO) and craniocaudad (CC) views of both breasts were obtained. CAD: Full Field Digital Mammography with Computer Added Detection was performed. COMPARISON: Comparison is made with prior study 07/07/2020 and 04/08/2019. FINDINGS: Breast Composition: There are scattered areas of fibroglandular density. There are no dominant masses or suspicious calcifications. No other significant abnormalities are identified. There has been no significant change since the prior study. BI/SCRN MAMM (CAD)W/JOSE A BILAT IMPRESSION: Stable bilateral screening mammogram. Yearly follow-up mammogram recommended. (A) ASSESSMENT CATEGORY: BIRADS Category 1: Negative. A letter regarding these results will be sent to the patient by the facility within 30 days. Approximately 10% of breast cancers are not detected by mammography. A normal mammogram should not delay biopsy of a clinically suspicious abnormality. [id number] Electronically Signed: Darryl Couch MD at 12:46 EST ,
== END 2021-09-27 23:59 | disposition short-term general hospital (02) ==
LOC: OPBI 12:04
PROVIDERS: PCP Family Medicine; Referring Provider Internal Medicine Hematology & Oncology; Visit Provider Internal Medicine Hematology & Oncology
DX: Z12.31 Encounter for screening mammogram for malignant neoplasm of breast (principal)
CPT/HCPCS: 77063; 77067

== ENCOUNTER 2021-11-29 12:06 | Outpatient (CLI) | payer MEDICARE, SELFPAY ==
--- NOTE | 2021-11-29 12:13 | US_ITS ---
STUDY: THYROID ULTRASOUND REASON FOR EXAM: Female, 66 years old. NODULE TECHNIQUE: Ultrasound evaluation of the thyroid was performed with real-time and static arciniega-scale imaging. COMPARISON: 08/23/2021. FINDINGS: RIGHT LOBE: The right lobe of the thyroid gland measures 4.2 x 2 x 1.9 cm. There is a heterogeneous echotexture. Multiple nodules are seen the largest measures 17 x 13 x 14 mm consistent with TR 2. LEFT LOBE: The left lobe of the thyroid gland measures 3.9 x 1.2 x 1.9 cm. There is a heterogeneous echotexture. Multiple nodules are seen adjacent to the previous study. ISTHMUS: The isthmus measures 3 . The regional lymph nodes are normal. US/Thyroid IMPRESSION: Heterogeneous echotexture of the thyroid gland suggesting chronic thyroiditis brain Multiple benign-appearing thyroid nodules the largest is in the right thyroid lobe measures 17 x 15 x 14 mm. There has been no significant change since the previous study. Electronically Signed: Joe Smith MD at 4:46 EDT ,
--- NOTE | 2021-11-29 12:18 | US_ITS ---
STUDY: ULTRASOUND OF THE SOFT TISSUES OF THE NECK REASON FOR EXAM: Female, 66 years old. SUPERFICIAL MASS LFT PAROTID TECHNIQUE: Ultrasound evaluation of the thyroid was performed with real-time and static arciniega-scale imaging. COMPARISON: None. FINDINGS: RIGHT PAROTID GLAND: 3.8 x 3.8 x 1.3 cm and shows homogeneous echotexture. There is no abdominal mass. LEFT PAROTID GLAND: 4.3 x 3.4 x 0.7 cm and shows homogeneous echotexture. There is a heterogeneous hypoechoic mass measuring approximately 0.7 x 0.8 x 0.4 cm at the upper part of the left parotid gland may represent a neoplastic process. Biopsy is recommended. US/Head/Neck Soft Tissue IMPRESSION: There is a heterogeneous hypoechoic mass measuring approximately 0.7 x 0.8 x 0.4 cm at the upper part of the left parotid gland may represent a neoplastic process. Biopsy is recommended. Electronically Signed: Joe Smith MD at 4:23 EDT ,
== END 2021-11-29 23:59 | disposition home or self-care (01) ==
LOC: US 12:07
PROVIDERS: PCP Family Medicine; Visit Provider Family Medicine
DX: K11.8 Other diseases of salivary glands (principal); E04.1 Nontoxic single thyroid nodule
CPT/HCPCS: 76536

== ENCOUNTER 2021-12-13 09:28 | Outpatient (CLI) | payer MEDICARE, SELFPAY ==
--- NOTE | 2021-12-13 | ASPOS_PTH ---
PATIENT: MARCOS BOLIVAR LOC: LAB U#:[id number] AGE/SX: 66/F ROOM: RE12/13/[address]: Dr. Leo Strauss MD : 1955 BED: DIS: 12/13/2021 SPEC #: [id number] RECD: 12/13/21 10:00 STATUS: MAGDI KINA #: [id number] MAGGI: 12/13/21 00:[address]: Leo Strauss DEPT: CYTOLOGY RECD BY: Arcelia Huerta ENTERED: 12/13/21 12:49 SP TYPE: ASP HERE OTHR DR: Dr. Gordon Morley, DO Tissues: Preauricular region Procedures: Surgery Specimen Level IV Cytology Other Fine Needle Asp on Site HEADER OPERATION: Fine needle aspiration, left preauricular mass PRE-OP DIAGNOSIS: Left preauricular mass TISSUE SUBMITTED: Left preauricular mass DIAGNOSIS CYTOLOGY Fine needle aspiration, left preauricular mass (smears and cell block): Consistent with atypical spindle/lipomatous lesion. See comment. AM:deedee 12/14/2021 COMMENT The specimen is evaluated at the time of FNA by Dr. Bello. Immediate Evaluation = Favor lipomatous lesion. Complete excision of lesion is recommended for definite classifications. Case has been reviewed in consultation with Dr. Kaur who concurs with the above diagnosis. IDC:SJ CYTOLOGY STUDY Slides are reviewed. CYTOLOGY GROSS Received is 0.1 ml of ryan fluid labeled with the patient's name, and designated left preauricular mass. Two imprints are made from the submitted fluid and the rest is added to CytoLyt for cell block preparation. Submitted for cytology study. / AM:deedee 12/13/2021 TC:? CPT: 83126, 30697, 96289, 72836
== END 2021-12-13 23:59 | disposition home or self-care (01) ==
LOC: LAB 10:15
PROVIDERS: PCP Family Medicine; Visit Provider Otolaryngology
DX: R22.0 Localized swelling, mass and lump, head (principal)
CPT/HCPCS: 10021; 88161; 88305

== ENCOUNTER → 2022-01-04 | Outpatient (CLI) | payer MEDICARE, SELFPAY ==
--- NOTE | 2022-01-04 13:11 | EKG12_ITS ---
Test Reason : PRE-OP Blood Pressure : / mmHG Vent. Rate : 068 BPM Atrial Rate : 068 BPM P-R Int : 148 ms QRS Dur : 070 ms QT Int : 414 ms P-R-T Axes : 029 005 032 degrees QTc Int : 440 ms Normal sinus rhythm Low voltage QRS Borderline ECG Confirmed by WILBER CONROY, ALESSANDRA ([id number]), make up editor THOMAS SOLARES ([id number]) on 01/05/2022 9:42:51 AM Referred By: Robbi Strauss Confirmed By:CHACE MERINO MD
== END | disposition home or self-care (01) ==
LOC: PSN 13:09
PROVIDERS: PCP Family Medicine; Referring Provider Otolaryngology; Visit Provider Otolaryngology
DX: Z01.810 Encounter for preprocedural cardiovascular examination (principal); L98.9 Disorder of the skin and subcutaneous tissue, unspecified
CPT/HCPCS: 93005

== ENCOUNTER → 2022-01-08 | Outpatient (CLI) | payer MEDICARE, SELFPAY ==
[2022-01-08 12:51] LABS: Hemoglobin 13.2 g/dL (12.0-15.0); Mean Corpuscular Hgb 30.6 pg (27.0-32.0); Mean Corpuscular Volume 92.6 fL (81-99); Mean Platelet Vol. 11.3 fl (6.2-12.0); Platelet Count 252 K/mm3 (150-450); RBC Distribution Width CV 13.4 % (11.6-14.6); RBC Distribution Width SD 45.4 fl (35.1-43.9); Red Blood Count 4.32 M/mm3 (4.2-5.4); White Blood Count 7.8 K/mm3 (4.4-11.0)
[2022-01-08 14:46] LABS: Anion Gap 6 (5-15); BUN 15 mg/dL (7-18); BUN/Creat Ratio 17.4 RATIO (10-20); Calcium,Total 8.8 mg/dL (8.5-10.1); Chloride 107 mmol/L (98-107); Creatinine, Serum 0.86 mg/dL (0.55-1.02); EST Glomerular Filtration Rate 70 mL/min (>60); Est Glom Filt Rate - Afr Amer 85 mL/min (>60); Glucose 102 mg/dL (74-106); Potassium 3.6 mmol/L (3.5-5.1); Sodium Level 140 mmol/L (136-145)
== END | disposition home or self-care (01) ==
LOC: LAB 11:30
PROVIDERS: PCP Family Medicine; Referring Provider Otolaryngology; Visit Provider Otolaryngology
DX: Z01.812 Encounter for preprocedural laboratory examination (principal); L98.9 Disorder of the skin and subcutaneous tissue, unspecified
CPT/HCPCS: 36415; 80048; 85027

== ENCOUNTER → 2022-01-16 | Outpatient (CLI) | payer MEDICARE, SELFPAY ==
--- NOTE | 2022-01-16 | LES_PTH ---
PATIENT: MARCOS BOLIVAR LOC: [facility] U#:[id number] AGE/SX: 66/F ROOM: RE01/16/[address]: Dr. Leo Strauss MD : 1955 BED: DIS: 01/16/2022 SPEC #: [id number] RECD: 01/16/22 15:02 STATUS: MAGDI REGabriel #: [id number] MAGGI: 01/16/22 00:[address]: Leo Strauss DEPT: SURGICAL PATHOLOGY RECD BY: Rolly Cerna ENTERED: 01/17/22 09:16 SP TYPE: Lesion OTHR DR: Dr. Gordon Morley, [facility] Tissues: Skin of face, NOS Procedures: Surgery Specimen Level IV HEADER OPERATION: Excision facial lesion PRE-OP DIAGNOSIS: Localized swelling mass and lump face TISSUE SUBMITTED: Left facial mass MICROSCOPIC DIAGNOSIS Left facial mass, excision: Pilomatricoma. SJ:deedee 01/18/2022 COMMENT Please make reference to previous cytology specimen ([id number]) left preauricular mass, FNA with diagnosis of ?consistent with atypical spindle/lipomatous lesion.? MICROSCOPIC DESCRIPTION Slides are reviewed. GROSS DESCRIPTION Received is one container labeled with the patient's name and not further designated. The specimen consists of a piece of ryan-brown soft tissue measuring 0.9 x 0.9 x 0.5 cm. The specimen is inked, bisected and submitted entirely in one cassette. / SJ:deedee 01/17/2022 TC:1 CPT: 77167
== END | disposition home or self-care (01) ==
PROVIDERS: PCP Family Medicine; Referring Provider Otolaryngology; Visit Provider Otolaryngology
DX: R22.0 Localized swelling, mass and lump, head (principal)
CPT/HCPCS: 88305

== ENCOUNTER → 2022-03-13 | Outpatient (CLI) | payer MEDICARE, SELFPAY ==
--- NOTE | 2022-03-13 12:43 | CT_ITS ---
STUDY: CT CHEST WITHOUT CONTRAST REASON FOR EXAM: Female, 66 years old. Multiple pulmonary Nodules RADIATION DOSAGE (If Supplied By Facility): CTDIvol = ( 15.43 ) mGy, DLP = ( 539.92 ) mGycm TECHNIQUE: Transaxial imaging was performed without the administration of intravenous contrast material. Multiplanar coronal and sagittal images were reformatted. Individualized dose optimization techniques were used for this CT. COMPARISON: Comparison is made with prior study dated 03/28/2021. FINDINGS: CHEST Stable 7.8 mm noncalcified nodule in the medial aspect of the left upper lobe as seen on axial image #26. Stable 5.2 mm well-defined nodule in the anterior aspect of the right lower lobe as seen on axial image #51. Stable 8 mm nodule in the anterior aspect of the right middle lobe as seen on axial image #55. Stable 2 mm nodule in the posterior lateral aspect of the right lower lobe as seen on axial image #55. There is no demonstrated pleural abnormality. There are calcifications of the coronary arteries. There are multiple small lymph nodes within the mediastinum, which are normal in size and morphology most compatible with reactive lymph hyperplasia. Normal hilar regions. Normal unenhanced pulmonary arteries. Normal aorta arch and descending thoracic aorta. There are mild degenerative changes of the thoracic spine. Small hiatal hernia. The patient is status post cholecystectomy. CT/Chest without Contrast IMPRESSION: Bilateral pulmonary nodules. There has been no change. Electronically Signed: Darryl Couch MD at 14:11 EDT ,
--- NOTE | 2022-03-14 07:48 | PFT ---
INTRODUCTION: The patient is a 66-year-old female that presents for pulmonary function studies. Respiratory therapy reported good patient effort. Bronchodilators were used during testing. INTERPRETATION: Forced expiration spirometry demonstrates no evidence of a large airways obstructive ventilatory defect. There was no significant response to aerosolized bronchodilators. Spirograms are of good quality and plateau normally. Body plethysmography was performed and reveals lung volumes to be within normal limits. Diffusing capacity by single breath CO is also within normal limits. IMPRESSION: Grossly normal pulmonary function studies.
== END | disposition home or self-care (01) ==
PROVIDERS: PCP Family Medicine; Referring Provider Nurse Practitioner Acute Care; Visit Provider Nurse Practitioner Acute Care
DX: R91.8 Other nonspecific abnormal finding of lung field (principal); D86.9 Sarcoidosis, unspecified
CPT/HCPCS: 71250; 94060; 94726; 94729

== ENCOUNTER → 2022-04-03 | Outpatient (CLI) | payer MEDICARE, SELFPAY ==
--- NOTE | 2022-04-03 17:32 | MRI_ITS ---
STUDY: MRI LEFT KNEE REASON FOR EXAM: Left lateral and posterior knee pain, twisting injury 3 weeks ago. TECHNIQUE: Standardized fat and water weighted pulse sequences were obtained in all 3 orthogonal planes. COMPARISON: Radiographs 03/28/2022. FINDINGS: Normal medial meniscus. Normal hyaline cartilage of the medial femorotibial compartment. Normal medial femoral condyle and tibial plateau. Normal medial collateral ligamentous complex (MCL). Normal distal semimembranosus, gracilis and semitendinosus tendons. Normal lateral meniscus. Normal hyaline cartilage of the lateral femorotibial compartment. Normal lateral femoral condyle and tibial plateau. Normal proximal tibiofibular articulation. Normal lateral collateral (fibular) ligament. Normal popliteus tendon. Normal biceps femoris tendon. Normal anterior cruciate ligament (ACL). Normal posterior cruciate ligament (PCL). Normal congruent patellofemoral articulation. There is low-grade chondromalacia patellae (T2 axial image 11). Normal medial and lateral patellar retinaculum. Normal quadriceps tendon. Normal patellar tendon. There is an enthesophyte at the inferior pole of the patella and an enthesophyte at the anterior tibial tubercle. Normal Hoffa''s fat pad. There is a small joint effusion. There is mild edema in the anterior subcutis adipose space. The otherwise visualized osseous structures are unremarkable. MRI/Lower Ext Joint Only (Routine) IMPRESSION: Low-grade chondromalacia patellae. Small joint effusion. No demonstrated meniscal or ligamentous injury. Electronically Signed: Brian Hood MD at 7:13 EDT ,
== END | disposition home or self-care (01) ==
LOC: MRI 16:56
PROVIDERS: PCP Family Medicine; Referring Provider Orthopaedic Surgery; Visit Provider Orthopaedic Surgery
DX: M23.92 Unspecified internal derangement of left knee (principal); X50.1XXA Overexertion from prolonged static or awkward postures, initial encounter; M22.42 Chondromalacia patellae, left knee; M25.462 Effusion, left knee
CPT/HCPCS: 73721

== ENCOUNTER → 2022-04-17 | Outpatient (CLI) | payer MEDICARE, SELFPAY ==
[2022-04-17 10:51] LABS: Vitamin D,25 Hydroxy 36.3 ng/mL
[2022-04-17 11:00] LABS: Cholesterol 222 mg/dL (200); High Density Lipoprotein 50 mg/dL; Thyroid Stim Hormone (TSH) 3.42 uIU/mL (0.358-3.74); Triglycerides 89 mg/dL; Very Low Density Lipoprotein 18 mg/dL (5-40)
== END | disposition home or self-care (01) ==
LOC: PAVLAB 09:52
PROVIDERS: PCP Family Medicine; Referring Provider Family Medicine; Visit Provider Family Medicine
DX: E78.5 Hyperlipidemia, unspecified (principal); E03.8 Other specified hypothyroidism; E06.3 Autoimmune thyroiditis; M81.0 Age-related osteoporosis without current pathological fracture
CPT/HCPCS: 36415; 80061; 82306; 84439; 84443

== ENCOUNTER → 2022-09-11 | Outpatient (CLI) | payer MEDICARE, SELFPAY ==
[2022-09-11 17:51] LABS: Absolute Lymphocyte Count 1.01 X10^3/uL (0.83-4.51); Absolute Neutrophil Count 6.6 X10^3/uL (2.0-7.7); Basophil# 0.06 X10^3/uL; Basophil% 0.7 % (0-1); Eosinophil# 0.04 X10^3/uL; Eosinophils% 0.5 % (0-5); Hematocrit 44.3 % (37-47); Hemoglobin 14.4 g/dL (12.0-15.0); Lymphocyte # 1.01 X10^3/ul (0.83-4.51); Lymphocyte % 12.3 % (19-41); Mean Corp Hgb Conc 32.5 g/dL (32-36); Mean Corpuscular Hgb 30.7 pg (27.0-32.0); Mean Corpuscular Volume 94.5 fL (81-99); Monocyte# 0.53 X10^3/uL; Monocyte% 6.5 % (0-10); NRBC Flagged by Analyzer 0.2 % (0-5); Neutrophil # 6.55 X10^3/uL (2.7-7.7); Neutrophil % 79.8 % (47-70); POSITIVE COUNT YES; Platelet Count 185 K/mm3 (150-450); RBC Distribution Width CV 13.6 % (11.6-14.6); RBC Distribution Width SD 47.5 fl (35.1-43.9); Red Blood Count 4.69 M/mm3 (4.2-5.4); White Blood Count 8.2 K/mm3 (4.4-11.0)
[2022-09-11 18:14] LABS: Hemoglobin A1c 5.2 % (3.8-5.6)
[2022-09-11 18:18] LABS: ALB/GLOB Ratio 0.9 RATIO (0.9-2.4); AST(SGOT) 23 U/L (15-37); Alanine Aminotransfer ALT/SGPT 35 U/L (13-56); Albumin, Serum 3.5 g/dL (3.2-5.0); Alkaline Phosphatase 101 U/L (45-117); Anion Gap 7 (5-15); BUN 10 mg/dL (7-18); BUN/Creat Ratio 11.6 RATIO (10-20); Calcium,Total 9.3 mg/dL (8.5-10.1); Chloride 105 mmol/L (98-107); Creatinine, Serum 0.86 mg/dL (0.55-1.02); EST Glomerular Filtration Rate 70 mL/min (>60); Est Glom Filt Rate - Afr Amer 85 mL/min (>60); Ferritin 51 ng/mL (8-252); Glucose 117 mg/dL (74-106); Iron 82 ug/dL (50-170); Potassium 4.3 mmol/L (3.5-5.1); Protein, Total 7.5 g/dL (6.4-8.2); Sodium Level 140 mmol/L (136-145); T4 Free Direct 1.33 ng/dL (0.76-1.46); Thyroid Stim Hormone (TSH) 2.67 uIU/mL (0.358-3.74)
== END | disposition home or self-care (01) ==
LOC: BFHLAB 15:01
PROVIDERS: PCP Family Medicine; Visit Provider Family Medicine
DX: D50.9 Iron deficiency anemia, unspecified (principal); E03.8 Other specified hypothyroidism; E06.3 Autoimmune thyroiditis; E16.2 Hypoglycemia, unspecified; I95.9 Hypotension, unspecified
CPT/HCPCS: 36415; 80053; 82533; 82728; 83036; 83540; 84439; 84443; 85025

== ENCOUNTER → 2022-11-22 | Outpatient (CLI) | payer MEDICARE, SELFPAY ==
--- NOTE | 2022-11-22 15:38 | BD_ITS ---
STUDY: DUAL ENERGY X-RAY ABSORPTIOMETRY / DXA REASON FOR EXAM: Female, 67 years old. M810 TECHNIQUE: Bone Mineral Density (BMD) measurements of lumbar spine and bilateral hips were obtained. COMPARISON: Comparison is made with prior examination of May 10, 2020. FINDINGS: Lumbar Spine (L1-L4): g/cm2 (0.926) / T-score (-1.1) / Z-score (0.8) Findings are suggestive of osteopenia with a moderate fracture risk. Left Femur Total: g/cm2 (0.670) / T-score (-2.2) / Z-score (-0.9) Left Femoral Neck: g/cm2 (0.625) / T-score (-2.0) / Z-score (-0.4) Right Femur Total: g/cm2 (0.687) / T-score (-2.1) / Z-score (-0.7) Right Femoral Neck: g/cm2 (0.611) / T-score (-2.1) / Z-score (-0.5) The T-Scores on the most recent prior examination were: Lumbar Spine (L1-L4): There has been worsening of bone density since the previous examination. Left Femur Total: which represents an improvement of 6.7%. Right Femur Total: which represents an improvement of 4.1%. BD/Dexa Bone Density Study IMPRESSION: The patient is considered osteopenic as outlined below according to World [place]cell[place] Organization (WHO) criteria with a high fracture risk. There has been improvement of bone density since the previous examination. Reference Information: The T-score is the number of standard deviations above or below the standard which is normal for young adults at their peak bone mineral density. The World Health Organization (WHO) interprets the T-scores as follows: Above -1 Normal bone density Between -1 and -2.5 Osteopenia Equal to / or below -2.5 Osteoporosis As a practical clinical guideline, osteopenia may be graded as follows: Mild -1 through -1.5 Moderate -1.6 through -2.0 Severe -2.1 through -2.4 The Z-score is the number of standard deviations above or below age-matched controls. A Z-score of less than -1.5 would be considered abnormal. References: 1. NIH Osteoporosis and Related Bone Diseases www osteo.org 2. International Society for Clinical Densitometry www iscd.org 3. National Osteoporosis Foundation www nof.org Electronically Signed: Darryl Couch MD at 15:57 EDT ,
== END | disposition home or self-care (01) ==
LOC: OPBD 15:28
PROVIDERS: PCP Family Medicine; Referring Provider Family Medicine; Visit Provider Family Medicine
DX: M81.0 Age-related osteoporosis without current pathological fracture (principal)
CPT/HCPCS: 77080

== ENCOUNTER → 2023-02-15 | Outpatient (CLI) | payer MEDICARE, SELFPAY ==
[2023-02-15 15:36] LABS: Absolute Lymphocyte Count 0.74 X10^3/uL (0.83-4.51); Absolute Neutrophil Count 4.5 X10^3/uL (2.0-7.7); Basophil# 0.04 X10^3/uL; Basophil% 0.7 % (0-1); Eosinophil# 0.18 X10^3/uL; Hematocrit 40.9 % (37-47); Hemoglobin 13.7 g/dL (12.0-15.0); Lymphocyte # 0.74 X10^3/ul (0.83-4.51); Lymphocyte % 12.5 % (19-41); Mean Corp Hgb Conc 33.5 g/dL (32-36); Mean Corpuscular Hgb 30.2 pg (27.0-32.0); Mean Corpuscular Volume 90.3 fL (81-99); Mean Platelet Vol. 11.8 fl (6.2-12.0); Monocyte% 8.4 % (0-10); NRBC Flagged by Analyzer 0 % (0-5); Neutrophil # 4.45 X10^3/uL (2.7-7.7); Neutrophil % 75.1 % (47-70); Platelet Count 261 K/mm3 (150-450); RBC Distribution Width CV 12.9 % (11.6-14.6); RBC Distribution Width SD 42.7 fl (35.1-43.9); Red Blood Count 4.53 M/mm3 (4.2-5.4); White Blood Count 5.9 K/mm3 (4.4-11.0)
[2023-02-15 15:58] LABS: Vitamin B12 295 pg/mL (211-911); Vitamin D,25 Hydroxy 54.4 ng/mL
[2023-02-15 16:22] LABS: Erythrocyte Sedimentation Rate 27 mm/hr (0-30)
[2023-02-15 16:33] LABS: CRP 4.01 mg/L (0.0-3.0); Ferritin 35 ng/mL (8-252); Iron 72 ug/dL (50-170)
[2023-02-18 12:07] LABS: CCP IgG Antibodies > 250 units (0-19)
[2023-02-18 13:07] LABS: ANTINUCLEAR ANTIBODIES DIRECT Negative (Negative)
== END | disposition home or self-care (01) ==
LOC: MTLAB 13:41
PROVIDERS: PCP Family Medicine; Referring Provider Nurse Practitioner Family; Visit Provider Nurse Practitioner Family
DX: M25.50 Pain in unspecified joint (principal); R53.83 Other fatigue
CPT/HCPCS: 36415; 82306; 82607; 82728; 83540; 85025; 85652; 86038; 86140; 86200; 86431

== ENCOUNTER 2023-02-26 11:00 | Outpatient (RCR) | payer MEDICARE, SELFPAY ==
--- NOTE | 2023-01-21 14:59 | HP.OTEVAL_ITS ---
Patient's Visit Information MARCOS BOLIVAR is a 67 year old F, referred to Occupational Therapy by Dr. Gordon Morley DO, with a diagnosis of CTS. Date of Evaluation: 01/21/23 Occupational Therapist: JAMIR Hernandez/Chris, CHT - Subjective This 67 year old female was seen for OT eval with dx of right CTS. pt states about two weeks ago she did gardening/ weedeating/and planting ta for 4-5 hours. than went to carry a heavy grocery bag and had sharp shooting pain down middle/and ring finger of right hand- pt states she has had pain since- she has been taking Tylenol, and soaking her hand in warm water and Epson salt and wearing a brace at night. pt states during the night she must take it off during the night, because she wakes up with it off. pt states she get sharp shooting pain. and this limits pt with daily occupations. pt states she likes doing YOGA but has not been able too- another person told her to do what look like nerve flossing) pt states no change in symptoms. She is schedule for a nerve conduction test in March- pt states she would like to know what she can do to decrease pain-. pt states she does gardening as well as her YOGA and goes to her grandchildren's events - ADLs Comments: pt states sharp shooting pain /tingling is challenging. - Pain right hand 2 Pain Intensity Range: 5 - ROM Wrist: right 55/70 left 65/65 CMC: right 10 left 10 MP: right 50 left 40 IP: right 50 left 40 Radial Abduction: right 35 left 40 - Strength Veterinary Technician Instructor: right 15# left 30# Lateral Pinch: right 4# left 10# Tripod Pinch: right 8# left 8# - Edema Wrist: right 15cm left 15cm - Sensation Thumb: right 2.83 left 2.83 interpretation normal sensation Index: right 2.83 left 2.83 interpretation normal sensation Middle: right 2.83 left 2.83 interpretation normal sensation Ring: right 2.83 left 2.83 interpretation normal sensation Little: right 2.83 left 2.83 interpretation normal sensation - Special Tests Phalen's (Carpal Tunnel): positive right and left - Goals Goal:ROM equal to unaffected hand: Yes Goal:Veterinary Technician Instructor/Pinch strength at least 75% of unaffected hand: Yes Goal:No pain with affected hand use: Yes Goal:Full use of affected hand in daily activities including: Yes Comment: brace Other Goal: pt will demo understanding of brace use at night ( not to put on tight) by end of 1st session. pt will demo understanding of positional symptoms and avoidance of positions of elbow/wrist that increase tingling symptoms by end of 3rd visit. - Rehabilitation General Assessment: pt demo symptoms of pain/tingling and weakness of bilateral hands/ pt demo with positive symptoms of CTS. pt would benefit from skilled OT services 2x week for 4 weeks to ed. pt on CTS, conservative treatment options - as well as joint protection paola. and ad. eq. to allow pt to continue to perform her IADLs at BRITNI level. pt demo understanding and agrees to POC. Rehabilitation Potential: Good - Anticipated Interventions Strengthening, Modalities, Orthoses, Joint Protection/Energy Conservation, Ergonomic Education, Education re assistive Equipment, Education re Diagnosis, Home Program - Visit Plan Frequency: 2x /Week Duration: 4 Weeks TEXT: Thank you for the opportunity to evaluate your patient. For Medicare and Medicare HMO plans, please review the plan of care and approve it. It will need to be FAXED BACK to us at [phone] for Medicare purposes. Please let me know if there are questions or concerns regarding this plan of care. Physician Signature: Date:
== END 2023-02-26 19:00 | disposition home or self-care (01) ==
LOC: OT 11:00
PROVIDERS: PCP Family Medicine; Referring Provider Nurse Practitioner Family; Visit Provider Family Medicine
DX: G56.01 Carpal tunnel syndrome, right upper limb (principal)
CPT/HCPCS: 97035; 97110; 97140; 97165; 97166; 97530

== ENCOUNTER → 2023-03-06 | Outpatient (CLI) | payer MEDICARE, SELFPAY ==
--- NOTE | 2023-03-06 12:40 | NEURO ---
NCS and/or EMG Patient Report Ordering Doctor: Yuni Tao DATE OF SERVICE: 03/06/23 Melody presents for electrodiagnostic testing of the right upper limb. She reports intermittent numbness and tingling in the right hand. Electrodiagnostic findings: Right median motor nerve demonstrates normal distal latency, amplitude and conduction velocity. Right ulnar motor responses is within normal limits, including conduction across the elbow. Normal right median and ulnar F-wave. Sensory responses are within normal limits. Needle EMG testing shows no evidence of denervation with normal motor unit action potentials. Electrodiagnostic impression: This is a normal electrodiagnostic study of the right upper limb. There is no electrodiagnostic evidence for peripheral neuropathy or cervical radiculopathy Multi Select Codes Neurology Neurology Interp Codes: 33496-07 Musc test done w/n test comp (interp) and 58395-04 Nrv cndj test 7-8 studies (interp)
== END | disposition home or self-care (01) ==
LOC: PSN 09:59
PROVIDERS: PCP Family Medicine; Referring Provider Nurse Practitioner; Visit Provider Nurse Practitioner
DX: M79.641 Pain in right hand (principal); Z12.31 Encounter for screening mammogram for malignant neoplasm of breast
CPT/HCPCS: 77063; 77067; 95886; 95910

== ENCOUNTER → 2023-03-06 | Outpatient (CLI) | payer MEDICARE, SELFPAY ==
--- NOTE | 2023-03-06 08:54 | BI_ITS ---
MAMMOGRAPHY - BILATERAL SCREENING REASON FOR EXAM: Female, 67 years old. Routine annual screening examination. PERTINENT HISTORY: Non-contributory. TECHNIQUE: Digital bilateral breast jose a (3D mammographic acquisition) in the CC and MLO projections. 2-D mediolateral oblique (MLO) and craniocaudad (CC) views of both breasts were obtained. CAD: Full Field Digital Mammography with Computer Added Detection was performed. COMPARISON: Comparison is made with prior study dated September 27, 2021 and July 07, 2020. FINDINGS: Breast Composition: There are scattered areas of fibroglandular density. There are no dominant masses or suspicious calcifications. No other significant abnormalities are identified. There has been no significant change since the prior study. BI/SCRN MAMM (CAD)W/JOSE A BILAT IMPRESSION: Stable bilateral screening mammogram. Yearly follow-up mammogram recommended. (A) ASSESSMENT CATEGORY: BIRADS Category 1: Negative. A letter regarding these results will be sent to the patient by the facility within 30 days. Approximately 10% of breast cancers are not detected by mammography. A normal mammogram should not delay biopsy of a clinically suspicious abnormality. [id number] Electronically Signed: Darryl Couch MD at 9:48 EDT ,
== END | disposition home or self-care (01) ==
LOC: OPBI 08:48
PROVIDERS: PCP Family Medicine; Visit Provider Internal Medicine Hematology & Oncology
DX: Z12.31 Encounter for screening mammogram for malignant neoplasm of breast (principal)
CPT/HCPCS: 77063; 77067

== ENCOUNTER → 2023-04-24 | Outpatient (CLI) | payer MEDICARE, SELFPAY ==
[2023-04-24 12:31] LABS: AST(SGOT) 22 U/L (15-37); Alanine Aminotransfer ALT/SGPT 32 U/L (13-56); Albumin, Serum 3.4 g/dL (3.2-5.0); Alkaline Phosphatase 95 U/L (45-117); Anion Gap 3 (5-15); BUN 12 mg/dL (7-18); Calcium,Total 8.7 mg/dL (8.5-10.1); Chloride 107 mmol/L (98-107); Cholesterol 195 mg/dL (200); Creatinine, Serum 0.75 mg/dL (0.55-1.02); EST Glomerular Filtration Rate 82 mL/min (>60); Est Glom Filt Rate - Afr Amer 99 mL/min (>60); Globulin 3.5 g/dL (2.2-4.2); Glucose 90 mg/dL (74-106); High Density Lipoprotein 44 mg/dL; Potassium 3.6 mmol/L (3.5-5.1); Protein, Total 6.9 g/dL (6.4-8.2); Sodium Level 142 mmol/L (136-145); T4 Free Direct 1.16 ng/dL (0.76-1.46); Triglycerides 94 mg/dL; Very Low Density Lipoprotein 19 mg/dL (5-40)
== END | disposition home or self-care (01) ==
LOC: LAB.FUTURE 10:39 → BFHLAB 10:45
PROVIDERS: PCP Family Medicine; Referring Provider Family Medicine; Visit Provider Family Medicine
DX: E78.5 Hyperlipidemia, unspecified (principal); E06.3 Autoimmune thyroiditis; R00.2 Palpitations; Z51.81 Encounter for therapeutic drug level monitoring
CPT/HCPCS: 36415; 80053; 80061; 84439; 84443

== ENCOUNTER 2023-05-23 13:06 | Outpatient (CLI) | payer MEDICARE, SELFPAY ==
--- NOTE | 2023-05-23 13:11 | CT_ITS ---
STUDY: CT CHEST WITHOUT CONTRAST REASON FOR EXAM: Female, 68 years old. CALC[address]ICATION ON CT OVER READ ONLY RADIATION DOSAGE (If Supplied By Facility): CTDIvol = ( 12.19 ) mGy, DLP = ( 195.04 ) mGycm TECHNIQUE: Transaxial imaging was performed without the administration of intravenous contrast material. Individualized dose optimization techniques were used for this CT. COMPARISON: Comparison is made with prior study dated March 13, 2002. FINDINGS: CHEST Stable 8 mm noncalcified nodule in the medial aspect of the left upper lobe as seen on axial image #2. Slight increase in size of the previously seen nodule in the right middle lobe as seen on axial image #31. This measures 1.2 cm. Stable 5.2 mm well-defined nodule in the anterior aspect of the right lower lobe. There is no demonstrated pleural abnormality. There are mild calcifications of the coronary arteries. Normal mediastinum. Normal hilar regions. Normal unenhanced pulmonary arteries. Normal aorta arch and descending thoracic aorta. There are degenerative changes of the thoracic spine. Small hiatal hernia. IMPRESSION: Interval increase in size of the previously seen nodule in the anterior aspect of the right middle lobe. It presently measures 1.2 cm. Correlation with a PET scan is recommended. Electronically Signed: Darryl Couch MD at 12:14 EDT , STUDY: CT CHEST WITH CONTRAST REASON FOR EXAM: Female, 68 years old. CALCIFICATION ON CT OVER READ ONLY RADIATION DOSAGE (If Supplied By Facility): CTDIvol = ( 31.76 ) mGy, DLP = ( 1078.72 ) mGycm TECHNIQUE: Transaxial imaging was performed following intravenous administration of ISOVUE 370-67ml. Individualized dose optimization techniques were used for this CT. COMPARISON: Comparison is made with prior study March 13, 2022. FINDINGS: CHEST Stable pulmonary nodules except for a nodule in the anterior aspect the right middle lobe. It presently measures 1.2 cm. Correlation with PET scan is recommended. There is no demonstrated pleural abnormality. There are calcifications of the coronary arteries. Normal mediastinum. Normal hilar regions. Normal unenhanced pulmonary arteries. Normal aorta arch and descending thoracic aorta. Normal osseous structures. There is no demonstrated abnormality of the visualized upper abdomen. CT/Limited Chest CT Cardiac Only IMPRESSION: Slight increase in size of the previously seen nodule in the right middle lobe. Correlation with PET scan is recommended. Electronically Signed: Darryl Couch MD at 12:16 EDT ,
[2023-05-23 13:26] VITALS: BP 116/73; PULSE 61; RESP 18; TEMP 36.5; O2SAT 99; BMI 31.4
[2023-05-23] MEDS: 0.9% Saline Lock 10 ML Syringe IV (13:45)
[2023-05-23 13:54] VITALS: BP 95/63; PULSE 62
[2023-05-23] MEDS: Nitroglycerin SL (ED/IMG/CATH) 0.4 MG TABLET SL (13:54)
[2023-05-23 13:57] VITALS: BP 95/63; PULSE 62; RESP 18; O2SAT 93
== END 2023-05-23 23:59 | disposition home or self-care (01) ==
LOC: CT 13:09
PROVIDERS: PCP Family Medicine; Referring Provider Physician Assistant Medical; Visit Provider Physician Assistant Medical
DX: I25.10 Atherosclerotic heart disease of native coronary artery without angina pectoris (principal)
CPT/HCPCS: 75571; 75574; 76380; A4216

== ENCOUNTER → 2023-06-06 | Outpatient (CLI) | payer MEDICARE, SELFPAY ==
--- NOTE | 2023-06-06 12:30 | PFT ---
INTRODUCTION: The patient is a 68-year-old female who presents for pulmonary function studies secondary to a diagnosis of sarcoidosis. Respiratory therapy reported good patient effort. Bronchodilators were used during testing. INTERPRETATION: Forced expiration spirometry demonstrates no evidence of a large airways obstructive ventilatory defect. There was no significant response to aerosolized bronchodilators. Spirograms are of good quality and plateau normally. Body plethysmography was performed and revealed lung volumes to be within normal limits. Diffusing capacity by single breath CO was also within normal limits. IMPRESSION: Normal pulmonary function studies.
== END | disposition home or self-care (01) ==
LOC: PSN 09:08
PROVIDERS: PCP Family Medicine; Referring Provider Nurse Practitioner Acute Care; Visit Provider Nurse Practitioner Acute Care
DX: D86.9 Sarcoidosis, unspecified (principal)
CPT/HCPCS: 94060; 94726; 94729

== ENCOUNTER → 2023-08-08 | Outpatient (CLI) | payer MEDICARE, SELFPAY ==
--- NOTE | 2023-08-08 14:54 | CT_ITS ---
EXAM: CT CHEST WITHOUT INTRAVENOUS CONTRAST CLINICAL INDICATION: Possible increase in 1.2 cm nodule TECHNIQUE: Helically acquired images were obtained of the chest without intravenous contrast. This CT exam was performed using one or more of the following dose reduction techniques: automated exposure control, adjustment of the mA and/or kV according to patient size, and/or use of iterative reconstruction technique. COMPARISON: 05/23/2023 FINDINGS: LUNGS AND PLEURAL SPACES: There is a noncalcified nodule in the right upper lobe that measures 9 mm. There is a noncalcified nodule seen. The right middle lobe and measures 1.1 cm. There are small 3 to 4 mm noncalcified nodules seen right middle and lower lobes as well as in the left lower lobe. No pleural effusion or thickening. No pneumothorax. HEART: Unremarkable. Heart size is normal. No pericardial effusion. No significant coronary artery calcifications. MEDIASTINUM: There is a small hiatal hernia. No mediastinal or hilar adenopathy. Esophagus is unremarkable. THYROID: Unremarkable. No thyroid lesions. BONES/JOINTS: Unremarkable. No suspicious lytic or blastic abnormality. VASCULATURE: Unremarkable. Thoracic aorta is non-dilated. CT/Chest without Contrast IMPRESSION: Multiple bilateral noncalcified nodules may represent metastatic disease. Further evaluation with PET CT scan may be beneficial. Electronically Signed: Johnson Saba MD at 23:23 EST ,
== END | disposition home or self-care (01) ==
LOC: CT 14:53
PROVIDERS: PCP Family Medicine; Referring Provider Nurse Practitioner Acute Care; Visit Provider Nurse Practitioner Acute Care
DX: R91.8 Other nonspecific abnormal finding of lung field (principal)
CPT/HCPCS: 71250

== ENCOUNTER → 2023-11-13 | Outpatient (CLI) | payer MEDICARE, SELFPAY ==
--- NOTE | 2023-11-13 13:43 | CT_ITS ---
STUDY: CT CHEST WITHOUT CONTRAST REASON FOR EXAM: Female, 68 years old. Enlarging multiple nodules in Sarcoid RADIATION DOSAGE (If Supplied By Facility): CTDIvol = ( 12.26 ) mGy, DLP = ( 401.26 ) mGycm TECHNIQUE: Transaxial imaging was performed without the administration of intravenous contrast material. Multiplanar coronal and sagittal images were reformatted. Individualized dose optimization techniques were used for this CT. COMPARISON: Comparison is made with prior study dated August 08, 2023. FINDINGS: CHEST There is a 7.5 mm noncalcified nodule in the anterior medial aspect of the left upper lobe as seen on axial image #29. Partially calcified 4.8 mm nodule in the anterior aspect of the right lower lobe adjacent to the right major fissure. 3 mm noncalcified nodule in the peripheral lateral aspect of the right lower lobe as seen on image #52. 1.05 cm nodule in the anterior medial aspect of the right middle lobe as seen on axial image #56. There is no demonstrated pleural abnormality. Normal heart and pericardium. Normal mediastinum. Normal hilar regions. Normal unenhanced pulmonary arteries. Normal aorta arch and descending thoracic aorta. Normal osseous structures. Small hiatal hernia. CT/Chest without Contrast IMPRESSION: Essentially stable examination with pulmonary nodules. Electronically Signed: Darryl Couch MD at 15:17 EDT ,
== END | disposition home or self-care (01) ==
LOC: PSN 12:52
PROVIDERS: PCP Family Medicine; Referring Provider Internal Medicine Critical Care Medicine; Visit Provider Internal Medicine Critical Care Medicine
DX: R91.8 Other nonspecific abnormal finding of lung field (principal)
CPT/HCPCS: 71250; 94060; 94726; 94729

== ENCOUNTER → 2024-01-14 | Outpatient (CLI) | payer MEDICARE, SELFPAY ==
[2024-01-14 15:40] LABS: T4 Free Direct 1.04 ng/dL (0.76-1.46); Thyroid Stim Hormone (TSH) 3.92 uIU/mL (0.358-3.74)
== END | disposition home or self-care (01) ==
LOC: BFHLAB 11:43
PROVIDERS: PCP Family Medicine; Referring Provider Family Medicine; Visit Provider Family Medicine
DX: E03.8 Other specified hypothyroidism (principal); E06.3 Autoimmune thyroiditis
CPT/HCPCS: 36415; 84439; 84443

== ENCOUNTER → 2024-03-09 | Outpatient (CLI) | payer MEDICARE, SELFPAY ==
--- NOTE | 2024-03-09 10:16 | BI_ITS ---
MAMMOGRAPHY - BILATERAL SCREENING REASON FOR EXAM: Female, 68 years old. Routine annual screening examination. PERTINENT HISTORY: Non-contributory. TECHNIQUE: Digital bilateral breast jose a (3D mammographic acquisition) in the CC and MLO projections. 2-D mediolateral oblique (MLO) and craniocaudad (CC) views of both breasts were obtained. CAD: Full Field Digital Mammography with Computer Added Detection was performed. COMPARISON: Comparison is made with prior study dated March 06, 2023 and September 27, 2021. FINDINGS: Breast Composition: There are scattered areas of fibroglandular density. There are no dominant masses or suspicious calcifications. No other significant abnormalities are identified. There has been no significant change since the prior study. BI/SCRN MAMM (CAD)W/JOSE A BILAT IMPRESSION: Stable bilateral screening mammogram. Yearly follow-up mammogram recommended. (A) ASSESSMENT CATEGORY: BIRADS Category 1: Negative. A letter regarding these results will be sent to the patient by the facility within 30 days. Approximately 10% of breast cancers are not detected by mammography. A normal mammogram should not delay biopsy of a clinically suspicious abnormality. [id number] Electronically Signed: Darryl Couch MD at 10:58 EDT ,
== END | disposition home or self-care (01) ==
LOC: OPBI 10:16
PROVIDERS: PCP Family Medicine; Referring Provider Internal Medicine Hematology & Oncology; Visit Provider Internal Medicine Hematology & Oncology
DX: Z12.31 Encounter for screening mammogram for malignant neoplasm of breast (principal)
CPT/HCPCS: 77063; 77067

== ENCOUNTER → 2024-04-24 | Outpatient (CLI) | payer MEDICARE, SELFPAY ==
[2024-04-24 10:59] LABS: Cholesterol 180 mg/dL (200); High Density Lipoprotein 48 mg/dL; T4 Free Direct 1.16 ng/dL (0.76-1.46); Triglycerides 77 mg/dL; Very Low Density Lipoprotein 15 mg/dL (5-40)
== END | disposition home or self-care (01) ==
LOC: LAB 09:19
PROVIDERS: PCP Family Medicine; Referring Provider Family Medicine; Visit Provider Family Medicine
DX: I25.10 Atherosclerotic heart disease of native coronary artery without angina pectoris (principal); I25.83 Coronary atherosclerosis due to lipid rich plaque; R79.89 Other specified abnormal findings of blood chemistry
CPT/HCPCS: 36415; 80061; 84439; 84443

== ENCOUNTER → 2024-05-05 | Outpatient (CLI) | payer MEDICARE, SELFPAY | END | disposition home or self-care (01) | LOC: SL 10:16 | PROVIDERS: PCP Family Medicine; Referring Provider Family Medicine; Visit Provider Physician Assistant Medical | DX: G47.33 Obstructive sleep apnea (adult) (pediatric) (principal) | CPT/HCPCS: 95806 ==

== ENCOUNTER → 2024-05-18 | Outpatient (CLI) | payer MEDICARE, SELFPAY | END | disposition home or self-care (01) | LOC: SL 11:45 | PROVIDERS: PCP Family Medicine; Visit Provider Nurse Practitioner Acute Care | DX: Z46.89 Encounter for fitting and adjustment of other specified devices (principal) ==

== ENCOUNTER → 2024-07-22 | Outpatient (CLI) | payer MEDICARE, SELFPAY | END | disposition home or self-care (01) | PROVIDERS: PCP Family Medicine; Referring Provider Nurse Practitioner Acute Care; Visit Provider Nurse Practitioner Acute Care | DX: Z53.21 Procedure and treatment not carried out due to patient leaving prior to being seen by health care provider (principal) ==

== ENCOUNTER 2024-08-18 05:50 | Emergency (ER) | payer MEDICARE, SELFPAY ==
[2024-08-18 05:52] VITALS: BP 132/85; PULSE 79; RESP 18; TEMP 36.5; O2SAT 97; BMI 32.5
[2024-08-18 05:54] VITALS: BP 132/85; PULSE 77; RESP 18; TEMP 36.5; O2SAT 97
[2024-08-18 06:16] VITALS: O2SAT 95
--- NOTE | 2024-08-18 06:29 | RAD_ITS ---
STUDY: X-RAY CHEST REASON FOR EXAM: Female, 69 years old. Cough. History of sarcoidosis. History of Covid. TECHNIQUE: Single AP portable view of the chest. COMPARISON: Comparison is made with prior study dated June 09, 2020. FINDINGS: EKG electrodes are seen. The lungs are clear and expanded. There is no demonstrated pleural abnormality. Normal size heart. Normal mediastinum and deejay. Normal visualized pulmonary arteries. Normal visualized aortic arch and descending thoracic aorta. Normal visualized thoracic spine. Normal visualized ribs, clavicles, and shoulders. There is no demonstrated abnormality of the visualized soft tissue structures of the upper abdomen. RAD/Chest 1 View (Portable) IMPRESSION: Normal x-ray examination of the chest. Electronically Signed: Darryl Couch MD at 8:39 EST ,
--- NOTE | 2024-08-18 06:30 | EX.ED.DYSGE1 ---
HPI History of Present Illness Chief Complaint: Shortness of Breath Informant: patient and family Narrative Narrative: Presents here with sister for evaluation. Patient diagnosed herself COVID 2 days ago. Symptoms of fatigue starting 4 days ago. Slight cough. No fevers headache myalgias. No vomiting or diarrhea. This morning she woke up she checked a pulse ox and was 87% with ambulation however it went up in the 90s. History of sarcoidosis. No tobacco history. Has had COVID infections in the past. She had 1 vaccination with 1 booster. She states symptoms seems to be improving with her fatigue. She is concerned with the initial pulse ox. Prior similar symptoms: Yes PFSH PFS Medical History Rheumatoid arthritis Coronary artery calcification seen on CAT scan Carpal tunnel syndrome of right wrist Nonsustained paroxysmal supraventricular tachycardia Segmental and somatic dysfunction of lumbar region DDD (degenerative disc disease), cervical Segmental and somatic dysfunction of thoracic region Segmental and somatic dysfunction of cervical region Iron deficiency anemia Obesity Degenerative disc disease, cervical Segmental and somatic dysfunction of cervical region Segmental and somatic dysfunction of thoracic region Segmental and somatic dysfunction of lumbar region Hypothyroidism (acquired) Migraine Gallstones Breast cyst Recurrent UTI Anxiety and depression Anemia Seasonal allergies Bursitis of left hip Dyslipidemia Osteopenia Hypothyroid Home Medications ?Medication ?Instructions ?Recorded ?Last Taken ?Type levothyroxine 112 mcg tablet 112 mcg PO DAILY 08/11/17 06/22/20 History sertraline 50 mg tablet 50 mg PO DAILY 03/29/20 06/22/20 History ferrous sulfate 325 mg (65 mg 325 mg PO DAILY 04/14/24 Unknown History iron) tablet (Feosol) cholecalciferol (vitamin D3) 50 50 mcg PO QDAY 07/07/24 Unknown History mcg (2,000 unit) capsule prednisone 10 mg tablet 20 mg PO QDAY 07/07/24 Unknown History Allergy/AdvReac Type Severity Reaction Status Date / Time levofloxacin (From Levaquin) Allergy Severe Rash Verified 08/18/24 05:52 amoxicillin trihydrate (From Allergy Intermediate Rash Verified 08/18/24 05:52 Augmentin) Penicillins Allergy Intermediate Rash Verified 08/18/24 05:52 potassium clavulanate (From Allergy Intermediate Rash Verified 08/18/24 05:52 Augmentin) tramadol HCl (From Ultram) Allergy Intermediate Rash Verified 08/18/24 05:52 Sulfa (Sulfonamide Allergy Mild Rash Verified 08/18/24 05:52 Antibiotics) codeine AdvReac Intermediate Unknown Verified 08/18/24 05:52 Family History Father CAD (coronary artery disease) myocardial infarction Cancer Heart disease CVA (cerebral vascular accident) Son Diabetes Brother Hyperthyroidism Kidney stones Mother Hypothyroidism Sister Kidney stones Hypothyroidism Surgical History History of colonoscopy (2010) History of esophagogastroduodenoscopy (EGD) (2012) repair of cleft lip Hx of tonsillectomy History of partial hysterectomy Hx of cholecystectomy Social History Smoking Status: Never smoker second hand exposure: No alcohol intake: never substance use type: does not use yahaira/pentecostalism: Caodaism seatbelt use: always do you feel safe at home: Yes ROS ROS ED Constitutional Constitutional ED: Reports other Details: Fatigue ; Denies chills, fever(s) or sweats Eyes Eyes: Denies change in vision ENT ENT ED: Denies dysphagia or sore throat Cardiovascular Cardiovascular: Denies chest pain, leg edema, palpitations or racing heartbeat Respiratory/Chest Respiratory/Chest: Reports cough; Denies dyspnea or dyspnea on exertion Gastrointestinal Gastrointestinal: Denies abdominal pain, diarrhea, nausea or vomiting Genitourinary Genitourinary ED: Denies dysuria, hematuria or urinary frequency Musculoskeletal Musculoskeletal: Denies back pain, extremity pain or neck pain Integumentary Denies rash or wounds Neurologic Neurologic: Denies headache(s), paresthesias or weakness EXAM Physical Exam Const Vital Signs: 08/18/24 05:52 08/18/24 05:54 08/18/24 06:16 Temperature 97.7 F L 97.7 F L Temperature Source Oral Oral Pulse Rate 79 77 Respiratory Rate 18 18 Respiratory Effort Normal Respiratory Depth Normal Respiratory Pattern Normal Blood Pressure 132/85 H 132/85 H Blood Pressure Mean 100 100 Pulse Ox 97 97 Oxygen Delivery Method Room Air Room Air Room Air Positive well nourished and well developed General Appearance ED: well developed and NAD HEENT Reports moist mucous membranes normocephalic and atraumatic Eyes EOMs intact bilaterally and conjunctivae normal General Eye ED: Yes normal appearance of both eyes Neck no lymphadenopathy and supple General: Negative for tenderness Chest Wall Chest: Negative for tenderness Resp normal respiratory effort and normal air movement Effort and Inspection: symmetric chest movement; Negative for respiratory distress Cardio regular rate, regular rhythm and no murmurs Peripheral Pulses: pulses 2+ throughout GI normal to inspection, nondistended, normoactive bowel sounds and non-tender Palpation: Negative for guarding or rebound tenderness present Back/Spine no CVA tenderness and no thoracic nor lumbar tenderness Extremity normal to inspection General Extremety ED: Negative for edema or tenderness General Extremity: Negative for edema Neuro oriented x3 and no sensory deficits noted Sensorium / Orientation: awake and alert Skin no rashes or lesions noted and no wounds MDM MDM MDM Narrative Medical decision making narrative: Interventions / MDM: Differential diagnosis: COVID-19 infection, fatigue Diagnosis considered but do not suspect: N/A My EKG interpretation: N/A Imaging independently reviewed and interpreted by myself: 1 view chest x-ray: No acute process. External documents reviewed: N/A Test considered but not ordered:N/A ED course: Pulse ox on arrival 97% on room air. She is in no respiratory distress. Home COVID +2 days ago. Will check two-view chest x-ray, will perform ambulatory pulse ox for evaluation. 0655: Chest x-ray negative. She was ambulated pulse ox maintained at 94% throughout. Reassured on findings. Clinically she reports she is improving. I would expect her to continue to improve. She will continue to monitor pulse ox. Return precautions. All questions were answered. Re-evaluation: stable Disposition discussed with patient/family/significant other: Patient and sister Case discussed with consulting clinician: N/A This note was generated with iKnowl dictation software. It may contain incorrect words, spelling, and punctuation that were not noted in checking the note before signing. Discharge Plan Triage Chief Complaint: Shortness of Breath ED Provider: Carl Mota Dx/Rx/DC Orders Clinical Impression: COVID-19, Fatigue Instructions: Coronavirus Disease 2019 (COVID-19): Caring for Yourself or Others Prescriptions: No Action sertraline 50 mg tablet 50 mg PO DAILY ferrous sulfate [Feosol] 325 mg (65 mg iron) tablet 325 mg PO DAILY prednisone 10 mg tablet 20 mg PO QDAY cholecalciferol (vitamin D3) 50 mcg (2,000 unit) capsule 50 mcg PO QDAY levothyroxine 112 MCG tablet 112 mcg PO DAILY Primary Care Provider: Gordon Morley Referrals: Gordon Morley DO [Primary Care Provider] - 1-2 Weeks Activity Restrictions/Additional Instructions: Chest x-ray negative. Pulse ox stable in the ED. Monitor symptoms, develop respiratory distress, return to ED for reevaluation. Print Language: Bur[place]ian Disposition Disposition: Home, Self Care Discharge Date/Time: 08/18/24 07:15
[2024-08-18 06:36] VITALS: O2SAT 94
== END 2024-08-18 07:15 | disposition home or self-care (01) ==
LOC: ED 07:07
PROVIDERS: Emergency Provider Emergency Medicine; PCP Family Medicine; Visit Provider Emergency Medicine
DX: U07.1 COVID-19 (principal); E03.9 Hypothyroidism, unspecified; F41.9 Anxiety disorder, unspecified; F32.A Depression, unspecified; Z79.899 Other long term (current) drug therapy
CPT/HCPCS: 71045; 99282

== ENCOUNTER → 2024-09-30 | Outpatient (CLI) | payer MEDICARE, SELFPAY ==
[2024-09-30 12:23] VITALS: PULSE 100; PULSE 101; PULSE 103; PULSE 104; PULSE 96; PULSE 97; PULSE 99; O2SAT 96; O2SAT 97; O2SAT 98
--- NOTE | 2024-10-07 13:24 | WT_ITS ---
PSN 6 Minute Walk Test 6 Minute Walk Test 6 Minute Walk Test: 6 Minute Walk Test PSN:6-Minute Walk Test Start: 09/30/24 12:23 Freq: Status: Active Protocol: RESP.6MINW Document 09/30/24 12:23 [facility] (Rec: 09/30/24 12:30 [facility] [id number]) 6 Minute Walk Test Date Performed 09/30/24 Time Performed 12:00 Height 5 ft 6 in Weight: 193 lb Weight in Pounds 193.[address]: Meka Tomas Assistive device None used: Pre-test Oxygen Delivery Room Air Method Pulse Ox (%) 97 Pulse Rate (60-100 99 beats/min) Dyspnea Katherin Scale ( 0 0-10) 1st minute Oxygen Delivery Room Air Method Pulse Ox (%) 98 Pulse Rate (60-100 96 beats/min) Dyspnea Katherin Scale ( 0 0-10) Number of Rests 0 Taken 2nd minute Oxygen Delivery Room Air Method Pulse Ox (%) 98 Pulse Rate (60-100 97 beats/min) Dyspnea Katherin Scale ( 0 0-10) Number of Rests 0 Taken 3rd minute Oxygen Delivery Room Air Method Pulse Ox (%) 98 Pulse Rate (60-100 100 beats/min) Dyspnea Katherin Scale ( 0 0-10) Number of Rests 0 Taken 4th minute Oxygen Delivery Room Air Method Pulse Ox (%) 96 Pulse Rate (60-100 104 H beats/min) Dyspnea Katherin Scale ( 0 0-10) Number of Rests 0 Taken 5th minute Oxygen Delivery Room Air Method Pulse Ox (%) 97 Pulse Rate (60-100 101 H beats/min) Dyspnea Katherin Scale ( 0 0-10) Number of Rests 0 Taken 6th minute Oxygen Delivery Room Air Method Pulse Ox (%) 98 Pulse Rate (60-100 103 H beats/min) Dyspnea Katherin Scale ( 0 0-10) Number of Rests 0 Taken Post-test Oxygen Delivery Room Air Method Pulse Ox (%) 98 Pulse Rate (60-100 96 beats/min) Dyspnea Katherin Scale ( 0 0-10) Full Laps Walked 20 Partial Lap, Number 13 of Tiles Walked Total Distance 1193 Walked (ft) Interpretation Interpretation: The patient ambulated 1193 feet over the course of 6 minutes beginning on room air without assistive devices. Pretesting oxygen saturation was noted to be 97% on room air. With ambulation, the katy oxygen saturation was 96%. There was no significant exertional oxygen desaturation. Recommendations Recommendations: There is no indication for the use of supplemental oxygen at this time.
== END | disposition home or self-care (01) ==
LOC: PSN 12:01
PROVIDERS: PCP Family Medicine; Referring Provider Nurse Practitioner Family; Visit Provider Nurse Practitioner Family
DX: U07.1 COVID-19 (principal)
CPT/HCPCS: 94618

== ENCOUNTER 2024-12-17 15:00 | Outpatient (RCR) | payer MEDICARE, SELFPAY ==
--- NOTE | 2024-11-17 14:25 | HP.PTEVAL_ITS ---
Patient's Visit Information Visit Information Visit Information: MARCOS BOLIVAR is a 69 year old F referred to Physical Therapy by MAHAMED Grace with a diagnosis of RADUCULOPATHY ,CERVICAL REGION. Date of Evaluation: 11/17/24 Physical Therapist: Jose Carreno PT, Cert MDT, OCS Visit Plan Frequency: 2x /Week Duration: 4 Weeks Plan: PRECAUTION: RA PT INTERVENTIONS CERVICAL ROM ,POSTURAL EX'S ,SCAPULAR STRENGTH AND MANUAL THERAPY STM (UT/LEVATOR/PARASPINALS) Subjective Subjective: This 69 y/o female presents to physical therapy with cervical radiculopathy .Patient symptoms in arms ~ 1 arm right > left . Patient had EMG nerve conduction test ~ 1 year which was negative. Patient has been diagnosed with RA past year which patient started medication for RA. Patient seen MAHAMED Cosme recommended PT and MRI pending. Stopped celebrex. Pain has pain right arm burning/stinging nerve pain. Patient aggravating factors turning stiffness ,symptoms right arm worse. In morning , fingers stiffness and clamps up hand. Difficulty turning door nob ,open a can ,tie shoes Alleviating factors improves as day goes on. Patient sleeps okay . Patient x-rays showed Straightening of the normal lordosis. Vertebral body heights are within normal limits. Mild/moderate multilevel disc space narrowing. Negative for abnormal motion. Mild multilevel uncovertebral and moderate/advanced multilevel facet arthropathy. Patient is active do Yoga . Patient has had PT in past . Patient condition affects QOL and function, Patient has OT for hands. 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 STRENGTH ( dynamometer) : right 20 # ,left 30# Special Tests C/S Radiculapathy - Left Upper limb tension test: Negative C/S Radiculapathy - Right Upper limb tension test: Negative C/S Radiculapathy - Left Spurlings: Negative C/S Radiculapathy - Right Spurlings: Negative C/S Radiculapathy - Left Cervical distraction: Negative C/S Radiculapathy - Right Cervical distraction: Negative Sharp Bambi: Negative Vertebral Artery Test: Negative Alar Ligament Test: Negative Balance/Special Test Scores Oswestry Neck Score: 15 Goals Goal 1:: Patient to be I with HEP for neck Goal Time Frame: 4-6 Weeks Goal 2:: Patient to demonstrate 60% improvement with improved function Goal Time Frame: 4-6 Weeks Goal 3:: Patient improve cervical ROM for function of recovery for driving a car for rotation Goal Time Frame: 4-6 Weeks Goal 4:: Patient to improve neck oswestry score by 3-5 point to improve QOL Rehabilitation Potential Physical Therapy Diagnosis: This patient has cervical radiculopathy right arm and stiffness in bilateral hand from recent dx of rheumatoid OA with decrease ROM cervical ,weakness hands thus benefit from skilled PT Rehabilitation Potential: Good Anticipated Interventions Patient/Client Instruction: Educate patient on: Condition and Plan of Care For the Purpose of:: To decrease pain, To increase ROM, To improve muscle performance and motor function, To increase tolerance to activity/condition/position, To improve ability of physical actions for home/community/work/leisure, To improve health of tissue, To decrease soft tissue restriction and To increase flexibility/ROM Therapeutic Exercise to Include: Strength training, Postural training, Flexibilty training, Active ROM and Scapular Strength/Stabilization Comment: BLE For the Purpose of:: To decrease pain, To increase ROM, To increase oxygenation perfusion, To increase tolerance to activity/condition/position, To improve ability of physical actions for home/community/work/leisure, To improve health of tissue, To decrease soft tissue restriction and To increase flexibility/ROM Manual Therapy Techniques to Include: Soft tissue mobilization Comment: NECK For the Purpose of:: To decrease pain, To increase ROM, To improve nutrient delivery to tissue, To increase oxygenation perfusion, To improve health of tissue, To decrease soft tissue restriction and To increase flexibility/ROM Text: Thank you for the opportunity to evaluate your patient. For Medicare and Medicare HMO plans, please review the plan of care and approve it. It will need to be FAXED BACK to us at [phone] for Medicare purposes. For Medicare only, by signing this I certify the plan of care. Please let me know if there are questions or concerns regarding this plan of care. Physician Signature: Date:
--- NOTE | 2024-12-17 15:28 | HP.PTDCSUM ---
Discharge Summary D/C summary: It has been my pleasure to treat MARCOS BOLIVAR referred by MAHAMED Grace, with the diagnosis of RADUCULOPATHY ,CERVICAL REGION for a total of 9 visit(s). Discharge Date: 12/17/24 Please see the following information for a summary of their discharge status. Subjective Subjective: This patient doing well . 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 STRENGTH ( dynamometer) : DOMIENT right 35 # ,left 40# Goals Goal 1:: Patient to be I with HEP for neck Goal Progress: Goal Met Goal 2:: Patient to demonstrate 60% improvement with improved function Goal Progress: Goal Met Goal 3:: Patient improve cervical ROM for function of recovery for driving a car for rotation Goal Progress: Goal Met Goal 4:: Patient to improve neck oswestry score by 3-5 point to improve QOL Goal Progress: Goal Met Plan Plan: D/C TO HEP D/C Information Discharge Comments: HEP d/c sentence: If there are questions or concerns regarding this patient's physical therapy, please feel free to call me at [phone]. Thank you for the referral of this patient. Sincerely, Jose Carreno, PT, Cert MDT, OCS Balance/Gait/Functional tests Balance/Special Test Scores Oswestry Neck Score: 4 Improvement % Improvement: 50
--- NOTE | 2025-05-10 17:03 | HP.PTDCSUM ---
Discharge Summary D/C summary: It has been my pleasure to treat MARCOS BOLIVAR referred by MAHAMED Grace, with the diagnosis of RADUCULOPATHY ,CERVICAL REGION for a total of 9 visit(s). Discharge Date: 12/17/24 Please see the following information for a summary of their discharge status. Subjective Subjective: This patient doing well . Didnt do MRI Less hand arm pain See MD 12/21 Pain Bilateral: Pain Intensity (Out of 10): 0 Bilateral Wrist: Pain Intensity (Out of 10): 0 Overall Improvement % Improvement: 50 Objective Objective/Function: OSTURE: mild thoracic spine PALPATION: tender UT/levator /paraspinals AROM: BUE WFL MMT: BUE 4/5 grossly CERVICAL ROM: flexion min loss ,extension /lateral flexion/rotation mod loss FEED[employer] TOBACCO STRENGTH ( dynamometer) : DOMIENT right 35 # ,left 40# Goals Goal 1:: Patient to be I with HEP for neck Goal Progress: Goal Met Goal 2:: Patient to demonstrate 60% improvement with improved function Goal Progress: Goal Met Goal 3:: Patient improve cervical ROM for function of recovery for driving a car for rotation Goal Progress: Goal Met Goal 4:: Patient to improve neck oswestry score by 3-5 point to improve QOL Goal Progress: Goal Met Plan Plan: D/C TO HEP D/C Information Discharge Comments: HEP d/c sentence: If there are questions or concerns regarding this patient's physical therapy, please feel free to call me at [phone]. Thank you for the referral of this patient. Sincerely, Jose Carreno, PT, Cert MDT, OCS Balance/Gait/Functional tests Balance/Special Test Scores Oswestry Neck Score: 4 Improvement % Improvement: 50
== END 2024-12-17 19:00 | disposition home or self-care (01) ==
LOC: PT 15:00
PROVIDERS: PCP Family Medicine; Referring Provider Student in an Organized Health Care Education/Training Program; Visit Provider Student in an Organized Health Care Education/Training Program
DX: M54.12 Radiculopathy, cervical region (principal)
CPT/HCPCS: 97110; 97140; 97162; 97530

== ENCOUNTER → 2024-12-23 | Outpatient (CLI) | payer MEDICARE, SELFPAY | END | disposition home or self-care (01) | PROVIDERS: PCP Family Medicine; Referring Provider Nurse Practitioner Acute Care; Visit Provider Nurse Practitioner Acute Care | DX: D86.9 Sarcoidosis, unspecified (principal) | CPT/HCPCS: 94060; 94726; 94729 ==

== ENCOUNTER → 2025-01-18 | Outpatient (CLI) | payer MEDICARE, SELFPAY ==
--- NOTE | 2025-01-18 16:20 | CT_ITS ---
EXAM: CT Chest Without Intravenous Contrast CLINICAL INDICATION: MULTIPLE NODULES, HISTORY OF SARCOIDOSIS TECHNIQUE: Axial computed tomography images of the chest without intravenous contrast. This CT exam was performed using one or more of the following dose reduction techniques: automated exposure control, adjustment of the mA and/or kV according to patient size, and/or use of iterative reconstruction technique. COMPARISON: No relevant prior studies available. FINDINGS: LUNGS AND PLEURAL SPACES: Stable 7 mm nodule of the left upper lobe. Stable 5 mm nodule of the right lower lobe. Stable 3 mm nodule of the right lower lobe. Stable 10 mm nodule of the right middle lobe. Lung emphysema/COPD. No consolidation. No pneumothorax. No significant effusion. No new suspicious pulmonary nodules. HEART: Unremarkable. No cardiomegaly. No significant pericardial effusion. No significant coronary artery calcifications. MEDIASTINUM: Small hiatal hernia. A few prominent mediastinal lymph nodes measuring up to 6 mm. BONES/JOINTS: Unremarkable. No acute fracture. No dislocation. SOFT TISSUES: Unremarkable. VASCULATURE: Unremarkable. No thoracic aortic aneurysm. LYMPH NODES: See above. OTHER FINDINGS: Prior dated 11/30/2023. CT/Chest without Contrast IMPRESSION: 1. No new suspicious pulmonary nodules. 2. No significant change from the prior exam. 3. Continue low-dose CT scan of the chest in 12 months is recommended. Reading [facility]
== END | disposition home or self-care (01) ==
LOC: CT 16:17
PROVIDERS: PCP Family Medicine; Referring Provider Nurse Practitioner Family; Visit Provider Nurse Practitioner Family
DX: R91.8 Other nonspecific abnormal finding of lung field (principal)
CPT/HCPCS: 71250

== ENCOUNTER → 2025-03-10 | Outpatient (CLI) | payer MEDICARE, SELFPAY ==
--- NOTE | 2025-03-10 10:00 | BI_ITS ---
EXAM: SCRN MAMM (CAD)W/JOSE A BILAT DATE: 03/10/2025 CLINICAL HISTORY: F, Age 69 y/o , SCREENING TECHNIQUE: SCRN MAMM (CAD)W/JOSE A BILAT COMPARISON: Prior exam(s) dated 03/09/2024, 03/06/2023, 09/27/2021. FINDINGS: TISSUE DENSITY: The breasts are almost entirely fatty. Bilateral Breast Mammographic Findings: No significant masses, calcifications or other abnormalities are identified. BI/SCRN MAMM (CAD)W/JOSE A BILAT IMPRESSION: There is no mammographic evidence of malignancy. OVERALL FINAL ASSESSMENT BI-RADS 1: NEGATIVE. RECOMMEND ANNUAL MAMMOGRAPHIC SCREENING. RECOMMENDATION: Routine annual follow-up in 1 Year A letter with findings and recommendations will be mailed to the patient. Reading Location: [id number]
== END | disposition home or self-care (01) ==
LOC: OPBI 09:56
PROVIDERS: PCP Family Medicine; Referring Provider Internal Medicine Medical Oncology; Visit Provider Internal Medicine Medical Oncology
DX: Z12.31 Encounter for screening mammogram for malignant neoplasm of breast (principal)
CPT/HCPCS: 77063; 77067

== ENCOUNTER → 2025-05-01 | Outpatient (CLI) | payer MEDICARE, SELFPAY ==
--- OUTSIDE RECORDS SUMMARY | 2025-05-01 08:35 | XMS RPT_ITS | CCD ---
Author Organization [facility] Care Team Providers Care Line Staker Name Role Phone Dossi DC, Jossie B Unavailable Wartmann, Christopher T Unavailable Unavaila ble Wartmann, Christopher T Unavailable Unavaila ble No Doctor Assigned, Nodr Unavailable Unavail able Higinio Yee Unavailable Unavailable NovMonae blackwell Unavailable Unavailable NovMonae blackwell Unavailable Unavailable No Doctor Assigned, Nodr Unavailable Unavail able Dossi DC, Jossie B Unavailable Dr. Rajesh Morley Primary Care Provider [phone] Dr. Rajesh Morley Referring Provider Dr. Kayce London Attending Provider Dr. Rajesh Morley Primary Care Provider Dr. Rajesh Morley Referring Provider Rj IRBY, PA Marybeth Yang Attending Provider Casey MEDICAL ASSISTANT FLOAT, MEDICAL ASSISTANT FLOAT-C Denise Referring Provider [phone] Casey MEDICAL ASSISTANT FLOAT, MEDICAL ASSISTANT FLOAT-C Denise Other Provider Dr. Daron Dahl Attending Provider Dr. Kayce London Attending Provider Dr. Darryn Roy Attending Provider Dr. Rajesh Morley Primary Care Provider Dr. Rajesh Morley Referring Provider [phone] BRENDA Tao Attending Provider Dr. Jhon Rojas Attending Provider Rajesh Morley DO Primary Care Provider Dr. Kayce London Attending Provider Tao, MEDICAL ASSISTANT FLOAT-C Yuni Referring Provider Aislinn, MEDICAL ASSISTANT FLOAT-C Yuni Other Provider Dr. Brooklynn Rockwell Attending Provider MAHAMED Khanna Attending Provider Dr. Rajesh Morley Primary Care Provider [phone] Dr. Rajesh Morley Referring Provider MAHAMED Khanna Other Provider Dr. Jhon Rojas Attending Provider Kevan MEDICAL ASSISTANT FLOAT, MEDICAL ASSISTANT FLOAT-C Joon Joyce Attending Provider Dr. Rajesh Morley Primary Care Provider [phone] Dr. Rajesh Morley Referring Provider MAHAMED Khanna Attending Provider Dr. Jhon Rojas Attending Provider MAHAMED Khanna Other Provider Kevan MEDICAL ASSISTANT FLOAT, MEDICAL ASSISTANT FLOAT-C Joon Joyce Attending Provider Casey MEDICAL ASSISTANT FLOAT, MEDICAL ASSISTANT FLOAT-C Denise Attending Provider [phone] Casey MEDICAL ASSISTANT FLOAT, MEDICAL ASSISTANT FLOAT-C Denise Referring Provider [phone] Casey MEDICAL ASSISTANT FLOAT, MEDICAL ASSISTANT FLOAT-C Denise Other Provider Dr. Daron Dahl Attending Provider Pippa MEDICAL ASSISTANT FLOAT, MEDICAL ASSISTANT FLOAT-C Germaine Attending Provider Dr. Sergio Kilpatrick Attending Provider Dr. Rajesh Morley Primary Care Provider [phone] Dr. Rajesh Morley Referring Provider [phone] Sergio Kilpatrick Attending Provider Rajesh Morley DO Primary Care Provider DANETTE ISAAC Attending Unavaila ble LAURA, RAJESH A Referring Unavailable LAURA, RAJESH A Primary Care Unavailable VIVEK SILVA Attending Unavailabl e CLAUDIA, ANAND Referring Unavailable LAURA, RAJESH A Primary Care Unavailable MICHAEL FOY Attending Unavailable ANAND TAYLOR Referring Unavailable LAURA, RAJESH A Primary Care Unavailable Dr. Rajesh Morley DO Primary Care Provider Jenny Wooten Attending Provider Jenny Wooten Referring Provider Casey MEDICAL ASSISTANT FLOAT-C, Denise Attending Provider Casey MEDICAL ASSISTANT FLOAT-C, Denise Referring Provider Dr. Rajesh Morley DO Referring Provider Genoveva MEDICAL ASSISTANT FLOAT-CMeka Attending Provider Genoveva MEDICAL ASSISTANT FLOAT-C, Meka Yang Referring Provider Dr. Darryn Weeks MD Attending Provider [phone] Darryn Weeks MD Referring Provider [phone] Dr. Kayce London MD Attending Provider Ilene CONROY, Dr. Greg Mckeon Referring Provider Dr. Rajesh Morley DO Primary Care Provider Marybeth Khanna Attending Provider Laura, Rajesh Primary Care Unavailable Denise Peña NP Referring Unavailable Casey MORALES, Denise Attending Unavailable LauraRajesh Referring Unavailable Marybeth Khanna Attending Unavail able Laura, Rajesh Primary Care Unavailable Laura, Rajesh Referring Unavailable Laura, Rajesh Primary Care Unavailable Casey MEDICAL ASSISTANT FLOAT, Denise Attending Unavailable Darryn Weeks Referring Unavailable Darryn Weeks Attending Unavailable Laura, Rajesh Primary Care Unavailable Meka Tomas Referring Unavailable Meka Tomas Attending Unavailable Laura, Rajesh Primary Care Unavailable Jenny Cosme Referring Unavailable Jenny Cosme Attending Unavailable Laura, Rajesh Primary Care Unavailable Laura, Rajesh Attending Unavailable Laura, Rajesh Primary Care Unavailable Laura, Rajesh Primary Care Unavailable Casey MEDICAL ASSISTANT FLOAT, Denise Attending Unavailable Laura, Rajesh Primary Care Unavailable Greg Odom Referring Unavailable Kayce London Attending Unavailable Laura, Rajesh Referring Unavailable Laura, Rajesh Primary Care Unavailable Laura, Rajesh Attending Unavailable Laura, Rajesh Primary Care Unavailable Casey MEDICAL ASSISTANT FLOAT, Denise Referring Unavailable Casey MEDICAL ASSISTANT FLOAT, Denise Attending Unavailable Laura, Rajesh Primary Care Unavailable Jhon Rojas Attending Unavailable Laura, Rajesh Referring Unavailable Meka Tomas Attending Unavailable Laura, Rajesh Primary Care Unavailable Laura, Rajesh Primary Care Unavailable Laura, Rajesh Referring Unavailable Kayce London Attending Unavailable Laura, Rajesh Primary Care Unavailable Laura, Rajesh Referring Unavailable Jenny Cosme Attending Unavailable Laura, Rajesh Primary Care Unavailable Laura, Rajesh Referring Unavailable Marybeth Khanna Attending Unavail able Daron Dahl Attending Unavailable Meka Tomas Consulting Unavailable Meka Tomas Referring Unavailable Laura, Rajesh Primary Care Unavailable Daron Dahl Attending Unavailable Meka Tomas Attending Unavailable Laura, Rajesh Referring Unavailable Laura, Rajesh Primary Care Unavailable Meka Tomas Referring Unavailable Meka Tomas Attending Unavailable Laura, Rajesh Primary Care Unavailable Laura, Rajesh Primary Care Unavailable Carl Mota Attending Unavailable Laura, Rajesh Referring Unavailable Laura, Rajesh Primary Care Unavailable Marybeth Khanna Attending Unavail able Allergies Allergy Classification Reported Allergen(s) Allergy Type Date of Onset Reaction(s) Facility (3 sources) penicillin g drug allergy 6 [facility] Work Phone: (3 sources) traMADol drug allergy 6 Rash [facility] Work Phone: (3 sources) SULF DRUGS drug allergy 6 [facility] Work Phone: (20 sources) Amoxicillin; Translations: [amoxicillin trihydrate] Drug Allergy 2 Rash [facility] (19 sources) Codeine Drug Allergy 2 [facility] (20 sources) levoFLOXacin; Translations: [LEVOFLOXACIN] Drug Allergy 5 Intolerance [facility] (20 sources) Penicillins; Translations: [PENICILLINS] Allergy to substance 1 [facility] (20 sources) Sulfonamides (Antibiotic); Translations: [SULFA (SULFONAMIDE ANTIBIOTICS)] Allergy to substance 3 Intolerance [facility] (20 sources) traMADol; Translations: [TRAMADOL HCL] Drug Allergy 7 [facility] (20 sources) potassium clavulanate; Translations: [potassium clavulanate] Allergy to substance 2 Rash [facility] (10 sources) Amoxicillin / Clavulanate; Translations: [AMOXICILLIN-POT CLAVULANATE] Drug Allergy 7 [facility] (1 source) Codeine Drug Allergy 5 [facility] Repository (1 source) levoFLOXacin Drug Allergy 5 [facility] Repository Medications Current Medications Medication Drug Class(es) Dates Sig (Normalized) Sig (Original) azithromycin 250 mg oral tablet (1 source) Macrolide Antimicrobial Start: 3 End: 3 take 2 tablets by mouth once daily, then take 1 tablet by mouth once daily azithromycin (ZITHROMAX) 250 mg tablet Indications: Other acute nonsuppurative otitis media of right ear, recurrence not specified Take 2 tablets by mouth once daily for 1 day, THEN 1 tablet once daily for 4 days. 6 tablet 0 03/03/2023 03/08/2023 Active Comment on above: Take 2 tablets by mo [facility] once daily for 1 day, THEN 1 tablet once daily for 4 days. ergocalciferol, vitamin D2, (VITAMIN D2 ORAL) (1 source) ergocalciferol, vitamin D2, (VITAMIN D2 ORAL) Take by mouth. Active hydroxychloroquine sulfate 200 mg oral tablet (7 sources) Antimalarial, Antirheumatic Agent Start: 4 End: 5 Hydroxychloroquine 200 mg tablet Active mg PO November 10, 2024 12:00am iron,carb/vit C/vit B12/folic (IRON 100 PLUS ORAL) (1 source) iron,carb/vit C/ vit B12/folic (IRON 100 PLUS ORAL) Take by mouth. Active Multivitamin tablet (3 sources) Start: 5 Multivitamin tablet Active 1 {tbl} PO EVERY MORNING September 03, 2024 1:00am ofloxacin 3 mg/ml otic solution (1 source) Quinolone Antimicrobial Start: 3 End: 3 ofloxacin (FLOXIN) 0.3 % otic solution Indications: Acute otitis externa of right ear, unspecified type Use 5 Drops in the right ear once daily for 7 days. 10 mL 0 03/03/2023 03/10/2023 Active Comment on above: Use 5 Drops in the r ight ear once daily for 7 days. sertraline 50 mg oral tablet (20 sources) Serotonin Reuptake Inhibitor Start: 0 take 1 tablet by mouth once daily Sertraline 50 mg tablet Active 50 mg PO DAILY March 29, 2020 12:00am Start: 09-25-2017 End: 10-10-2017 Sertraline 25 MG tablet Disc ontinued 37.5 mg PO AT BEDTIME September 25, 2017 10:31am October 10, 2017 11:38am Start: 09-25-2017 End: 10-10-2017 take 37.5 mg by mouth at bedtime Sertraline Discontinued 37.5 MG PO AT BEDTIME September 25, 2017 10:31am October 10, 2017 11:38am Start: 08-11-2017 End: 09-25-2017 Sertraline 25 MG tablet Disc ontinued 1.5 {tbl} PO DAILY August 11, 2017 1:00am September 25, 2017 10:31am Start: 03-02-2016 End: 03-29-2020 take 1 tablet by mouth at bedtime Sertraline 25 MG tablet Discontinued 25 mg PO AT BEDTIME October 10, 2017 11:38am March 29, 2020 10:49am Comment on above: Take 1 tablet by cheryl th once daily. levothyroxine sodium 0.112 mg oral tablet (20 sources) l-Thyroxine Start: 07-31-2016 LEVO-T 112 MCG TABS LEVOTHYROXINE SODIUM [id number] Jossie Park DC Start: 03-02-2016 take 1 tablet by cheryl th once daily Levothyroxine 112 MCG tablet Active 112 ug PO DAILY August 11, 2017 1:00am Comment on above: Take 1 tablet by cheryl th once daily. Take on empty stomach. For thyroid. Completed/Discontinued Medications Medication Drug Class(es) Dates Sig (Normalized) Sig (Original) celecoxib 100 mg oral capsule (3 sources) Nonsteroidal Anti-inflammatory Drug Start: 11-10-2024 End: 04-22-2025 take 1 capsule by mouth twice daily Celecoxib (Celebrex) 100 mg capsule Discontinued 100 mg PO TWICE A DAY 30 0 November 10, 2024 12:00am April 22, 2025 9:59am cephalexin 500 mg oral capsule (19 sources) Cephalosporin Antibacterial Start: 09-22-2017 End: 09-25-2017 take 1 capsule by mouth every six hours Cephalexin 500 MG capsule Discontinued 500 mg PO EVERY 6 HOURS FOR 7 DAYS 28 September 22, 2017 1:00am September 25, 2017 10:30am No Diagnosis Code cholecalciferol 0.05 mg oral capsule (20 sources) Vitamin D Start: 07-07-2024 End: 04-22-2025 take 1 capsule by mouth once daily Cholecalciferol (Vitamin D3) 50 mcg (2,000 unit) capsule Discontinued 50 ug PO daily July 07, 2024 1:00am April 22, 2025 9:59am Start: 11-25-2020 End: 01-02-2024 take 1 tablet by mouth once daily Cholecalciferol (Vitamin D3) 25 mcg (1,000 unit) tablet Discontinued 1000 U PO DAILY November 25, 2020 12:00am February 21, 2022 11:11am only takes in the winter Comment on above: Take 1,000 Units by mouth once daily. ferrous gluconate 324 mg oral tablet (19 sources) Start: 09-26-2021 End: 02-21-2022 take 1 tablet by mouth once daily Ferrous Gluconate 324 mg (37.5 mg iron) tablet Discontinued 324 mg PO DAILY September 26, 2021 1:00am February 21, 2022 11:11am ferrous sulfate 325 mg oral tablet (20 sources) Start: 04-14-2024 End: 03-16-2025 take 1 tablet by mouth once daily Ferrous Sulfate (Feosol) 325 mg (65 mg iron) tablet Discontinued 325 mg PO DAILY April 14, 2024 12:00am March 16, 2025 2:25pm Start: 05-26-2020 End: 11-25-2020 take 1 tablet by mouth once daily Ferrous Sulfate 325 MG tablet Discontinued 325 mg PO DAILY May 26, 2020 9:05am November 25, 2020 12:03pm Start: 03-29-2020 End: 05-26-2020 take 1 tablet by mouth twice daily Ferrous Sulfate (Ferosul) 325 mg (65 mg iron) tablet Discontinued 325 mg PO TWICE A DAY 60 3 March 29, 2020 12:00am May 26, 2020 9:05am ibuprofen 800 mg oral tablet (6 sources) Nonsteroidal Anti-inflammatory Drug Start: 11-17-2016 End: 01-02-2024 take 1 tablet by mouth every eight hours as needed for pain ibuprofen (MOTRIN) 800 mg tablet Indications: Chest wall pain Take 1 tablet by mouth every 8 hours as needed for Pain (with food.). 30 tablet 0 11/17/2016 01/02/2024 Discontinued (Course of therapy completed) Comment on above: Take 1 tablet by mouth every 8 hours as needed for Pain (with food.). meloxicam 15 mg oral tablet (11 sources) Nonsteroidal Anti-inflammatory Drug Start: 12-31-2022 End: 02-26-2023 take 1 tablet by mouth once daily at mealtime for pain Meloxicam 15 mg tablet Discontinued 15 mg PO DAILY 30 December 31, 2022 12:00am February 26, 2023 3:02pm Carpal tunnel syndrome of right wrist Carpal tunnel syndrome, right upper limb pain Take once daily with food, do not take in conjunction with other NSAIDS. Okay to take Tylenol for breakthrough pain. metoprolol tartrate 50 mg oral tablet (20 sources) beta-Adrenergic Olivier Start: 04-17-2023 End: 06-10-2023 take 1 tablet by mouth once Metoprolol Tartrate 50 mg tablet Discontinued 50 mg PO ONCE 1 0 April 17, 2023 12:00am June 10, 2023 3:08pm one hour prior to CT scan Start: 05-06-2020 End: 05-26-2020 take 1 tablet by mouth once daily Metoprolol Succinate 25 mg tablet extended release 24 hr Discontinued 25 mg PO DAILY 30 May 06, 2020 3:21pm May 26, 2020 9:05am tachycardia Start: 04-07-2020 End: 05-06-2020 take 1 tablet by mouth once daily Metoprolol Succinate 50 mg tablet extended release 24 hr Discontinued 50 mg PO DAILY 30 11 April 07, 2020 12:00am May 06, 2020 3:22pm tachycardia Multivitamin With Iron-Mineral (16 sources) Start: 02-21-2021 End: 09-20-2021 take 1 tablet by mouth once daily Multivitamin With Iron-Mineral Discontinued 1 TABLET PO DAILY February 21, 2021 11:41am September 20, 2021 2:37pm Start: 02-21-2021 End: 09-20-2021 take 1 tablet by mouth once daily Multivitamin With Iron-Mineral Discontinued 1 TABLET PO DAILY February 20, 2021 11:00pm September 20, 2021 1:37pm Start: 02-21-2021 End: 09-20-2021 take 1 tablet by mouth once daily Multivitamin With Iron-Mineral Discontinued 1 TABLET PO DAILY February 21, 2021 12:00am September 20, 2021 2:37pm Multivitamin With Iron-Mineral tablet (3 sources) Start: 02-21-2021 End: 09-20-2021 Multivitamin With Iron-Mineral tablet Discontinued 1 {tbl} PO DAILY February 21, 2021 12:00am September 20, 2021 2:37pm mupirocin 0.02 mg/mg topical ointment (6 sources) RNA Synthetase Inhibitor Antibacterial Start: 04-10-2019 End: 01-02-2024 mupirocin (BACTROBAN) 2 % ointment Apply 1 application to affected area three times daily. 30 g 0 04/10/2019 01/02/2024 Discontinued (Course of therapy completed) Comment on above: Apply 1 application to affected area three times daily. [place]-3 Fatty Acids-Fish Oil (16 sources) Start: 05-26-2020 End: 09-20-2021 [place]-3 Fatty Acids-Fish Oil Discontinued 1 EACH PO DAILY May 26, 2020 9:04am September 20, 2021 2:37pm Start: 05-26-2020 End: 09-20-2021 [place]-3 Fatty Acids-Fish Oil Discontinued 1 EACH PO DAILY May 25, 2020 11:00pm September 20, 2021 1:37pm Start: 05-26-2020 End: 09-20-2021 [place]-3 Fatty Acids-Fish Oil Discontinued 1 EACH PO DAILY May 26, 2020 12:00am September 20, 2021 2:37pm [place]-3 Fatty Acids-Fish Oil 1 EACH capsule (3 sources) Start: 05-26-2020 End: 09-20-2021 [place]-3 Fatty Acids-Fish Oil 1 EACH capsule Discontinued 1 NMA PO DAILY May 26, 2020 12:00am September 20, 2021 2:37pm Pediatric Thdkxron-Cnve-Jzp (16 sources) Start: 05-26-2020 End: 02-21-2021 Pediatric Govvisel-Azzb-Mqe Discontinued 1 EACH PO DAILY May 26, 2020 9:04am February 21, 2021 11:41am Start: 05-26-2020 End: 02-21-2021 Pediatric Afiyemxc-Ggoa-Tys Discontinued 1 EACH PO DAILY May 25, 2020 11:00pm February 21, 2021 10:41am Start: 05-26-2020 End: 02-21-2021 Pediatric Slbwzbuv-Sexo-Ash Discontinued 1 EACH PO DAILY May 26, 2020 12:00am February 21, 2021 11:41am Pediatric Ockbikta-Gzpm-Szy 1 EACH tablet,chewable (3 sources) Start: 05-26-2020 End: 02-21-2021 take 1 tablet by mouth once daily Pediatric Chxlultz-Gdbd-Lkg 1 EACH tablet,chewable Discontinued 1 NMA PO DAILY May 26, 2020 12:00am February 21, 2021 11:41am predniSONE 10 mg oral tablet (7 sources) Start: 09-03-2024 End: 12-29-2024 take 1 tablet by mouth once daily Prednisone 10 mg tablet Discontinued 10 mg PO daily September 03, 2024 2:21pm December 29, 2024 2:20pm Start: 07-07-2024 End: 09-03-2024 take 2 tablets by mouth once daily Prednisone 10 mg tablet Discontinued 20 mg PO daily July 07, 2024 1:00am September 03, 2024 2:22pm Start: 03-23-2024 predniSONE (DE LTASONE) 10 mg tablet Take 10 mg by mouth as needed (for RA flares). 03/23/2024 Active Problems Active Problems Problem Classification Problem Date Documented Date Episodic/Chronic Adjustment disorders (9 sources) Adjustment disorder with depressed mood; Translations: [Adjustment disorder with depressed mood] Onset: 03-02-2016 07-18-2016 Chronic Cardiac dysrhythmias (20 sources) Nonsustained paroxysmal supraventricular tachycardia; Translations: [Supraventricular tachycardia] Onset: 04-22-2025 Chronic Comment on above: per 30 day 05/2020 Cardiac dysrhythmias (19 sources) Palpitations - rapid; Translations: [Palpitations] 05-19-2020 Episodic Coronary atherosclerosis and other heart disease (14 sources) Calcification of coronary artery; Translations: [Atherosclerotic heart disease of [place] coronary artery without angina pectoris] Onset: 04-22-2025 04-17-2023 Chronic Deficiency and other anemia (2 sources) Iron deficiency anemia secondary to blood loss (chronic); Translations: [Iron deficiency anemia secondary to blood loss (chronic)] Onset: 03-16-2025 Chronic Deficiency and other anemia (19 sources) Anemia; Translations: [Anemia, unspecified] 06-11-2020 Episodic Deficiency and other anemia (20 sources) Iron deficiency anemia; Translations: [Iron deficiency anemia, unspecified] 03-21-2021 Episodic Deficiency and other anemia (20 sources) Iron deficiency anemia, unspecified; Translations: [Iron deficiency anemia, unspecified] Onset: 03-16-2025 Episodic Disorders of lipid metabolism (20 sources) Dyslipidemia; Translations: [Hyperlipidemia, unspecified] Onset: 04-22-2025 Chronic Esophageal disorders (9 sources) Gastroesophageal reflux disease without esophagitis; Translations: [Gastro-esophageal reflux disease without esophagitis] Onset: 07-18-2016 07-18-2016 Chronic Immunity disorders (20 sources) Sarcoidosis; Translations: [Sarcoidosis, unspecified] Onset: 01-02-2024 07-05-2020 Chronic Malaise and fatigue (3 sources) Fatigue; Translations: [Other fatigue] 08-26-2024 Episodic Miscellaneous mental health disorders (1 source) Eating disorder, unspecified; Translations: [Eating disorder, unspecified] Onset: 03-16-2025 Chronic Other aftercare (1 source) Drug therapy finding; Translations: [Other mcfp (current) drug therapy] 01-02-2024 Episodic Other bone disease and musculoskeletal deformities (20 sources) Segmental and somatic dysfunction; Translations: [Segmental and somatic dysfunction of cervical region] Onset: 07-31-2016 07-31-2016 Episodic Other bone disease and musculoskeletal deformities (14 sources) Chondromalacia; Translations: [Chondromalacia, left knee] 04-06-2022 Episodic Other bone disease and musculoskeletal deformities (2 sources) Chondromalacia, left knee; Translations: [Chondromalacia of patella] Episodic Other ear and sense organ disorders (1 source) Acute otitis externa of right ear; Translations: [Unspecified acute noninfective otitis externa, right ear] Episodic Other lower respiratory disease (20 sources) Multiple nodules of lung; Translations: [Other nonspecific abnormal finding of lung field] 06-11-2020 Episodic Other lower respiratory disease (8 sources) Rib pain; Translations: [Pleurodynia] 04-17-2023 Episodic Other lower respiratory disease (4 sources) Pleurodynia; Translations: [Chest pain, unspecified] 04-17-2023 Episodic Other nervous system disorders (7 sources) Carpal tunnel syndrome; Translations: [Carpal tunnel syndrome, right upper limb] 12-31-2022 Chronic Other nervous system disorders (4 sources) Carpal tunnel syndrome, right upper limb; Translations: [Carpal tunnel syndrome] 12-31-2022 Chronic Other nervous system disorders (4 sources) Carpal tunnel syndrome of right wrist; Translations: [Carpal tunnel syndrome, right upper limb] 12-31-2022 Chronic Other non-traumatic joint disorders (14 sources) Knee joint inflamed; Translations: [Monoarthritis, not elsewhere classified, left knee] 04-06-2022 Chronic Other non-traumatic joint disorders (20 sources) Pain in left knee; Translations: [Mechanical pain of left knee] Episodic Other screening for suspected conditions (not mental disorders or infectious disease) (20 sources) Mammography abnormal; Translations: [Other abnormal and inconclusive findings on diagnostic imaging of breast] Onset: 03-18-2015 03-18-2015 Episodic Otitis media and related conditions (1 source) Acute secretory otitis media; Translations: [Other acute nonsuppurative otitis media, right ear] Episodic Rehabilitation care; fitting of prostheses; and adjustment of devices (1 source) Encounter for fitting and adjustment of other specified devices; Translations: [Encounter for fitting and adjustment of other specified devices] Onset: 06-10-2024 Chronic Residual codes; unclassified (7 sources) Obstructive sleep apnea syndrome; Translations: [Obstructive sleep apnea (adult) (pediatric)] 04-14-2024 Chronic Residual codes; unclassified (1 source) Obstructive sleep apnea (adult) (pediatric); Translations: [Obstructive sleep apnea (adult) (pediatric)] Onset: 04-22-2025 Chronic Rheumatoid arthritis and related disease (2 sources) Rheumatoid arthritis of multiple joints; Translations: [Rheumatoid arthritis with rheumatoid factor of multiple sites without organ or systems involvement] 01-02-2024 Chronic Spondylosis; intervertebral disc disorders; other back problems (19 sources) Degeneration of cervical intervertebral disc; Translations: [Other cervical disc degeneration, unspecified cervical region] 02-20-2021 Chronic Syncope (19 sources) Near syncope; Translations: [Syncope and collapse] 02-20-2021 Episodic Thyroid disorders (10 sources) Acquired hypothyroidism; Translations: [Hypothyroidism, unspecified] Onset: 07-18-2016 07-18-2016 Chronic Urinary tract infections (19 sources) Urinary tract infectious disease; Translations: [Urinary tract infection, site not specified] 03-29-2020 Episodic Viral infection (3 sources) Disease caused by 2019-nCoV; Translations: [COVID-19] 08-18-2024 Episodic Viral infection (2 sources) COVID-19; Translations: [COVID-19] Onset: 10-19-2024 Past or Other Problems Problem Classification Problem Date Documented Da te Episodic/Chronic Other lower respiratory disease (14 sources) Other nonspecific abnormal finding of lung field; Translations: [Other nonspecific abnormal finding of lung field] Onset: 01-21-2025 Episodic Other lower respiratory disease (1 source) Shortness of breath; Translations: [Shortness of breath] Onset: 09-15-2024 Episodic Other non-traumatic joint disorders (3 sources) Hip pain; Translations: [Pain in left hip] Onset: 11-05-2016 11-05-2016 Episodic Other nutritional; endocrine; and metabolic disorders (5 sources) Body mass index 30+ - obesity; Translations: [Body mass index (BMI) 32.0-32.9, adult] Onset: 11-11-2014 Resolved: 06-10-2015 06-10-2015 Chronic Residual codes; unclassified (1 source) Procedure and treatment not carried out due to patient leaving prior to being seen by health care provider; Translations: [Procedure and treatment not carried out due to patient leaving prior to being seen by health care provider] Onset: 08-18-2024 Episodic Spondylosis; intervertebral disc disorders; other back problems (6 sources) Cervical radiculopathy; Translations: [Radiculopathy, cervical region] Onset: 11-10-2024 11-10-2024 Episodic Results Test Name Value Interpretation Reference Range Facility Cardiology Visit Reporton Cardiology Visit Report [facility] [address] [place] [address] OFFICE VISIT Date of Service: 04/22/25 MR#: [id number] Acct: [id number] Name: MARCOS BOLIVAR Rep #: [id number] : 1955 Provider: MAHAMED Barker Age/Sex: 70/F Location: [facility] Status: Signed HPI HPI History of Present Illness Details: Marcos Bolivar is a 70 year-old female that presents here today for a cardiovascular follow-up.??? She established with us for concerns over palpitations.??? She was noted to be anemic at that time with a low iron.??? We did start her on iron.??? She also underwent a 30-day event monitor.??? 30-day event monitor she did have one episode of SVT.??? She has done remarkably well since getting her iron transfusions and her ferritin and iron levels are improved as well as her hemoglobin. She no longer needs to see hematology. ??? She has not had any further palpitations her metoprolol has been discontinued.??? Of interest is the fact that she has been diagnosed with sarcoid.??? 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 Her Coronary calcium score 12.7. She did see [facility] for the sarcoid and RA clinic. She was recommended to f/u annual CTs. From a cardiac standpoint, patient is doing well. She does not have any chest discomfort/heaviness/tight ness. She does not have any worsening symptoms of shortness of breath. She does not have any orthopnea. She denies PND. She does not have any symptoms of congestive heart failure. She does not have any palpitations that she is aware of. She does not have any lightheadedness or dizziness. She does not have any near-syncope or syncope. She does not have any lower extremity edema. She does not have any symptoms of claudication. 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 Is patient in pain?: No Allergies levofloxacin (From Levaquin) Allergy (Severe, Verified 03/16/25 14:25) Rash amoxicillin trihydrate (From Augmentin) Allergy (Intermediate, Verified 03/16/25 14:25) Rash Penicillins Allergy (Intermediate, Verified 03/16/25 14:25) Rash potassium clavulanate (From Augmentin) Allergy (Intermediate, Verified 03/16/25 14:25) Rash tramadol HCl (From Ultram) Allergy (Intermediate, Verified 03/16/25 14:25) Rash Sulfa (Sulfonamide Antibiotics) Allergy (Mild, Verified 03/16/25 14:25) Rash codeine Adverse Reaction (Intermediate, Verified 03/16/25 14:25) Unknown Medications ???Medication ???Instructions ???Recorded ???Confirmed ???Type levothyroxine 112 mcg tablet 112 mcg PO DAILY 08/11/17 04/22/25 History sertraline 50 mg tablet 50 mg PO DAILY 03/29/20 04/22/25 H istory multivitamin 1 tab PO QAM 09/03/24 04/22/25 His tory hydroxychloroquine 200 mg tablet mg PO 11/10/24 04/22/25 History Ejection fraction %: 65 Have you fallen in the past year?: No PFSH Medical History Rheumatoid arthritis Coronary artery calcification seen on CAT scan Carpal tunnel syndrome of right wrist Nonsustained paroxysmal supraventricular tachycardia Segmental and somatic dysfunction of lumbar region DDD (degenerative disc disease), cervical Segmental and somatic dysfunction of thoracic region Segmental and somatic dysfunction of cervical region Iron deficiency anemia Obesity Degenerative disc disease, cervical Segmental and somatic dysfunction of cervical region Segmental and somatic dysfunction of thoracic region Segmental and somatic dysfunction of lumbar region Hypothyroidism (acquired) Migraine Gallstones Breast cyst Recurrent UTI Anxiety and depression Anemia Seasonal allergies Bursitis of left hip Dyslipidemia Osteopenia Hypothyroid Surgical History History of colonoscopy (2010) History of esophagogastroduodenoscopy (EGD) (2012) repair of cleft lip Hx of tonsillectomy History of partial hysterectomy Hx of cholecystectomy Family History Father CAD (coronary artery disease) myocardial infarction Cancer Heart disease CVA (cerebral vascular accident) Son Diabetes Brother Hyperthyroidism Kidney stones Mother Hypothyroidism Sister Kidney stones Hypothyroidism Social History (Revie (more content not included)... Normal [facility] Oncology Visit Reporton 03-02 Oncology Visit Report [facility] [address] [place] [address] [place] [address] OFFICE VISIT Date of Service: 03/16/25 1422 MR#: [id number] Acct: [id number] Name: MARCOS BOLIVAR Rep #: [id number] : 1955 From: Kayce London MD Age/Sex: 69/F Location: [facility] Status: Signed HPI Subjective Date of Service 03/16/25 Chief Complaint Anemia History of Present Illness 67-year-old female with #1- Chronic iron deficiency anemia. > 20 years earlier her anemia was attributed to excessive uterine bleeding from fibroids and at that time she underwent a hysterectomy with an improvement of her anemia. Since then she has been unaware of any external blood loss . She has not had any gastric surgeries and suffers from occasional dyspepsia and GERD and uses acid suppressants on a as needed basis averaging once or so per week. She underwent upper and lower GI endoscopies in June 2020 with no obvious source of GI blood loss seen. She has started oral iron supplement April 2020 with improvement. #2-Multiple bilateral lung nodules, sarcoidosis: She has no prior history of malignancies. Was seen in the emergency room June [address] chest June 09, 2020: COMPARISON: 09/21/2011. FINDINGS: Normal enhancement of the main pulmonary artery and right and left pulmonary arteries. Normal enhancement of the bilateral peripheral pulmonary arteries. There is no demonstrated pulmonary embolism. Normal thoracic aorta and visualized great vessels. There is no demonstrated aortic dissection. Normal heart and pericardium. Normal mediastinum. Normal hilar regions. Normal visualized trachea and bronchi. The lungs are well expanded. Mild diffuse hazy density seen throughout both lungs suggests possibility of mild pulmonary edema. There are numerous bilateral suspicious noncalcified pulmonary nodules, many of which in retrospect were present on the previous exam, but all of which have increased in size. The appearance is most consistent with widespread metastatic disease. As example, some of the nodules measure: 1.1 cm nodule seen in the medial left apex, axial image 179, previously measuring only 7 mm. 4 mm nodule in the posterior right upper lobe, axial image 153, previously measured 3 mm. 4 mm nodule in the lateral mid left lung, axial image 141 previously not clearly seen. 4. 5 nodules as much as 6 mm in the lateral mid right lung, axial image 131 increase in size and number since previous study. 8 mm nodule in the anterior segment of the right lower lobe, axial image 126 measured only 6 mm previously. 9 mm nodule in the right middle lobe, axial image 120 not definitely seen previously. Numerous nodules as much as 5 mm size in both lung bases. No infiltrates. No effusions. Normal osseous structures. Normal visualized upper abdomen. IMPRESSION: Normal CTA chest examination, without a demonstrated pulmonary embolism or arterial dissection. Very numerous bilateral noncalcified pulmonary nodules many of which were present previously, but most of which have increased in size and there are also new nodules. Findings suggest metastatic disease. June 23, 2020 Right lung nodule, CT-guided core biopsy: Fragments of benign lung parenchymal tissue with focal area of non-necrotizing granuloma formation. Focal mild chronic inflammation. Special stains for acid fast bacilli and fungi are negative for organisms; matched controls are appropriate. [facility] Medical History Rheumatoid arthritis Coronary artery calcification seen on CAT scan Carpal tunnel syndrome of right wrist Nonsustained paroxysmal supraventricular tachycardia Segmental and somatic dysfunction of lumbar region DDD (degenerative disc disease), cervical Segmental and somatic dysfunction of thoracic region Segmental and somatic dysfunction of cervical region Iron deficiency anemia Obesity Degenerative disc disease, cervical Segmental and somatic dysfunction of cervical region Segmental and somatic dysfunction of thoracic region Segmental and somatic dysfunction of lumbar region Hypothyroidism (acquired) Migraine Gallstones Breast cyst Recurrent UTI Anxiety and depression Anemia Seasonal allergies Bursitis of left hip Dyslipidemia Osteopenia Hypothyroid Surgical History History of colonoscopy (2010) History of esophagogastroduodenoscopy (EGD) (2012) repair of cleft lip Hx of tonsillectomy History of partial hysterectomy Hx of cholecystectomy Family History Father CAD (coronary artery disease) myocardial infarction Cancer Heart disease CVA (cerebral vascular accident) Son Diabetes Brother Hyperthyroidism Kidney stones Mother Hypo (more content not included)... Normal [facility] Absolute lymphocyte countOrd ered By: Kayce London on 03-10-2025 Lymphocytes Auto (Unsp spec) [#/Vol] 0.78 10*3/uL Low 0.83-4.51 [facility] Absolute neutrophil countOrd ered By: [facility] on 03-10-2025 Neutrophils (Bld) [#/Vol] 4.7 10*3/uL 2.0-7.7 [facility] Automated lymphocyte count a s percentage of total leukocytesOrdered By: Kayce London on 03-10-2025 Lymphocytes/100 WBC Auto (Unsp spec) 12.3 % Low 19-41 [facility] Basophil percentageOrdered B y: [facility] on 03-10-2025 Basophils/100 WBC (Bld) 0.9 % 0-1 [facility] Breast imaging reportOrdered By: Thelma Fried on 03-10-[address] [facility] Imaging Services [address] [place] [address] SCRN MAMM (CAD)W/JOSE A BILAT MR#: [id number] Acct: [id number] Name: MARCOS BOLIVAR Rep #: [id number] : 1955 F 69 From: Ade Fried MD PCP: Dr. Rajesh Morley, DO Status: REG CLI Study:SCRN MAMM (CAD)W/JOSE A BILAT Date of Exa m: 03/10/25 Exam# [id number] Ordering Dr: Victorino Weeks MD EXAM: SCRN MAMM (CAD)W/JOSE A BILAT DATE: 03/10/2025 CLINICAL HISTORY: F, Age 69 y/o , SCREENING TECHNIQUE: SCRN MAMM (CAD)W/JOSE A BILAT COMPARISON: Prior exam(s) dated 03/09/2024, 03/06/2023, 09/27/2021. FINDINGS: TISSUE DENSITY: The breasts are almost entirely fatty. Bilateral Breast Mammographic Findings: No significant masses, calcifications or other abnormalities are identified. BI/SCRN MAMM (CAD)W/JOSE A BILAT IMPRESSION: There is no mammographic evidence of malignancy. OVERALL FINAL ASSESSMENT BI-RADS 1: NEGATIVE. RECOMMEND ANNUAL MAMMOGRAPHIC SCREENING. RECOMMENDATION: Routine annual follow-up in 1 Year A letter with findings and recommendations will be mailed to the patient. Reading Location: [facility] CC: Dr. Darryn Weeks MD; Dr. Rajesh Morley, DO ~ Meat Specialist: Signed [facility] CBC W/Diff, Automatedon 07-0 Absolute Lymph 0.78 X10 3/uL Low 0.83-4.51 [facility] Comment on above: Performed By: #### L 100.9950, L503.6550, L503.0106, L100.0100, L503.6030 #### [facility] [address] [place], [address] Absolute Neut 4.7 X10 3/uL Normal 2.0-7.7 [facility] Comment on above: Performed By: #### L 100.9950, L503.6550, L503.0106, L100.0100, L503.6030 #### [facility] [address] [place], [address] Basophils/100 WBC (Bld) 0.9 % Normal 0-1 [facility] Comment on above: Performed By: #### L 100.9950, L503.6550, L503.0106, L100.0100, L503.6030 #### [facility] [address] [place], [address] Eosinophils/100 WBC (Bld) 4.3 % Normal 0-5 [facility] Comment on above: Performed By: #### L 100.9950, L503.6550, L503.0106, L100.0100, L503.6030 #### [facility] [address] [place], [address] Erythrocyte distribution width (RBC) [Ratio] 13.7 % Normal 11.6-14.6 [facility] Comment on above: Performed By: #### L 100.9950, L503.6550, L503.0106, L100.0100, L503.6030 #### [facility] [address] [place], [address] Hematocrit (Bld) [Volume fraction] 39.1 % Normal 37-47 [facility] Comment on above: Performed By: #### L 100.9950, L503.6550, L503.0106, L100.0100, L503.6030 #### [facility] [address] [place], [address] Hemoglobin (Bld) [Mass/Vol] 13.2 g/dL Normal 12.0-15.0 [facility] Comment on above: Performed By: #### L 100.9950, L503.6550, L503.0106, L100.0100, L503.6030 #### [facility] [address] [place], [address] IG% 0.300 Normal 0.0-0.9 [facility] Comment on above: Result Comment: IG% - Immature Granulocytes (promyelocytes, myelocytes and metamyelocytes) > 1% indicates that a LEFT SHIFT is Present. Performed By: #### L 100.9950, L503.6550, L503.0106, L100.0100, L503.6030 #### [facility] [address] [place], [address] Lymphocytes/100 WBC (Bld) 12.3 % Low 19-41 [facility] Comment on above: Performed By: #### L 100.9950, L503.6550, L503.0106, L100.0100, L503.6030 #### [facility] [address] [place], [address] MCH (RBC) [Entitic mass] 30.1 pg Normal 27.0-32.0 [facility] Comment on above: Performed By: #### L 100.9950, L503.6550, L503.0106, L100.0100, L503.6030 #### [facility] [address] [place], [address] MCHC (RBC) [Mass/Vol] 33.8 g/dL Normal 32-[address] [facility] Comment on above: Performed By: #### L 100.9950, L503.6550, L503.0106, L100.0100, L503.6030 #### [facility] [address] [place], [address] MCV (RBC) [Entitic vol] 89.3 fL Normal 81-99 [facility] Comment on above: Performed By: #### L 100.9950, L503.6550, L503.0106, L100.0100, L503.6030 #### [facility] [address] [place], [address] Monocytes/100 WBC (Bld) 8.5 % Normal 0-10 [facility] Comment on above: Performed By: #### L 100.9950, L503.6550, L503.0106, L100.0100, L503.6030 #### [facility] [address] [place], [address] Neutrophils/100 WBC (Bld) 73.7 % High 47-70 [facility] Comment on above: Performed By: #### L 100.9950, L503.6550, L503.0106, L100.0100, L503.6030 #### [facility] [address] [place], [address] Nucleated RBC (Bld) [#/Vol] 0 10*3/uL Normal 0-5 [facility] Comment on above: Performed By: #### L 100.9950, L503.6550, L503.0106, L100.0100, L503.6030 #### [facility] [address] [place], [address] Platelet mean volume (Bld) [Entitic vol] 10.8 fL Normal 6.2-12.0 [facility] Comment on above: Performed By: #### L 100.9950, L503.6550, L503.0106, L100.0100, L503.6030 #### [facility] [address] [place], [address] Platelets (Bld) [#/Vol] 237 10*3/uL Normal 150-450 [facility] Comment on above: Performed By: #### L 100.9950, L503.6550, L503.0106, L100.0100, L503.6030 #### [facility] [address] [place], [address] RBC (Bld) [#/Vol] 4.38 10*6/uL Normal 4.2-5.4 [facility] Comment on above: Performed By: #### L 100.9950, L503.6550, L503.0106, L100.0100, L503.6030 #### [facility] [address] [place], [address] RDW SD 44.9 fl High 35.1-43.9 [facility] Comment on above: Performed By: #### L 100.9950, L503.6550, L503.0106, L100.0100, L503.6030 #### [facility] [address] [place], [address] WBC (Bld) [#/Vol] 6.4 10*3/uL Normal 4.4-11.0 [facility] Comment on above: Performed By: #### L 100.9950, L503.6550, L503.0106, L100.0100, L503.6030 #### [facility] [address] [place], [address] Eosinophil percentageOrdered By: Kayce London on 03-10-2025 Eosinophils/100 WBC (Bld) 4.3 % 0-5 [facility] Erythrocyte distribution wid th ratioOrdered By: Kayce London on 03-10-2025 Erythrocyte distribution width (RBC) [Ratio] 13.7 % 11.6-14.6 [facility] Erythrocyte distribution wid th standard deviationOrdered By: Kayce London on 03-10-2025 Erythrocyte distribution width (RBC) [Ratio] 44.9 fl High 35.1-43.9 [facility] Ferritinon 03-10-2025 Ferritin [Mass/Vol] 74 ng/mL Normal 22-378 [facility] Comment on above: Performed By: #### L 100.9950, L503.6550, L503.0106, L100.0100, L503.6030 #### [facility] [address] [place], [address] Hematocrit Auto (Bld) [Volum e fraction]Ordered By: Kayce London on 03-10-2025 Hematocrit (Bld) [Volume fraction] 39.1 % 37-47 [facility] Hemoglobin measurementOrdere d By: Kayce London on 03-10-2025 Hemoglobin (Bld) [Mass/Vol] 13.2 g/dL 12.0-15.0 [facility] Immature granulocytes/100 WB C Auto (Bld)Ordered By: Kayce London on 03-10-2025 Immature granulocytes/100 WBC (Bld) 0.300 % 0.0-0.9 [facility] Comment on above: IG% - Immature Granu locytes (promyelocytes, myelocytes and metamyelocytes) > 1% indicates that a LEFT SHIFT is Present. Iron measurement (mass/mass) Ordered By: Kayce London on 03-10-2025 Iron (Unsp spec) [Mass/Mass] 66 ug/dL 50-170 [facility] Iron+Iron Binding Capacityon 03-10-2025 Iron [Mass/Vol] 66 ug/dL Normal 50-170 [facility] Comment on above: Performed By: #### L 100.9950, L503.6550, L503.0106, L100.0100, L503.6030 #### [facility] [address] [place], [address] IRON SATURATION 26.0 Normal 13-59 [facility] Comment on above: Performed By: #### L 100.9950, L503.6550, L503.0106, L100.0100, L503.6030 #### [facility] [address] [place], [address] TIBC 252 ug/dL Normal 250-450 [facility] Comment on above: Performed By: #### L 100.9950, L503.6550, L503.0106, L100.0100, L503.6030 #### [facility] [address] [place], [address] UIBC 186 ug/dL Low 228-428 [facility] Comment on above: Performed By: #### L 100.9950, L503.6550, L503.0106, L100.0100, L503.6030 #### [facility] [address] [place], [address] MCV (mean corpuscular volume ) determinationOrdered By: Kayce London on 03-10-2025 MCV (RBC) [Entitic vol] 89.3 fL 81-99 [facility] Mean corpuscular hemoglobin (MCH) determinationOrdered By: Kayce London on 03-10-2025 MCH (RBC) [Entitic mass] 30.1 pg 27.0-32.0 [facility] Mean corpuscular hemoglobin concentration (MCHC) determinationOrdered By: Kayce London on 03-10-2025 MCHC (RBC) [Mass/Vol] 33.8 g/dL 32-[address] [facility] Mean platelet volume determi nationOrdered By: Kayce London on 03-10-2025 Platelet mean volume (Bld) [Entitic vol] 10.8 fL 6.2-12.0 [facility] Monocyte percentageOrdered B y: Kayce London on 03-10-2025 Monocytes/100 WBC (Bld) 8.5 % 0-10 [facility] Neutrophil percentageOrdered By: [facility] on 03-10-2025 Neutrophils/100 WBC (Bld) 73.7 % High 47-70 [facility] No Panel InformationOrdered By: [facility] on 03-10-2025 Unsaturated Iron Binding Capacity 186 ug/dL Low 228-428 [facility] Nucleated red blood cell per centageOrdered By: Kayce London on 03-10-2025 Nucleated RBC/100 WBC (Bld) [Ratio] 0 % 0-5 [facility] Platelet countOrdered By: Bhakti London on 03-10-2025 Platelets (Bld) [#/Vol] 237 10*3/uL 150-450 [facility] RBC Auto (Bld) [#/Vol]Ordere d By: Kayce London on 03-10-2025 RBC (Bld) [#/Vol] 4.38 10*6/uL 4.2-5.4 [facility] Retic Panelon 03-10-2025 IM RET FRACTION 3.90 Normal 3.00-15.90 [facility] Comment on above: Performed By: #### L 100.9950, L503.6550, L503.0106, L100.0100, L503.6030 #### [facility] [address] [place], [address] RET-HE 32.4 pg Normal -35 [facility] Comment on above: Performed By: #### L 100.9950, L503.6550, L503.0106, L100.0100, L503.6030 #### [facility] [address] [place], [address] Retic Count 0.83 Normal 0.5-1.5 [facility] Comment on above: Performed By: #### L 100.9950, L503.6550, L503.0106, L100.0100, L503.6030 #### [facility] [address] [place], [address] Reticulocyte hemoglobin equi valent (RET-He) measurementOrdered By: Kayce London on 03-10-2025 Hemoglobin (Reticulocytes) [Entitic mass] 32.4 pg -35 [facility] Reticulocytes Auto (Bld) [#/ Vol]Ordered By: Kayce London on 03-10-2025 Reticulocytes/100 RBC (Bld) 0.83 % 0.5-1.5 [facility] SCRN MAMM (CAD)W/JOSE A BILATo n 03-10-2025 SCRN MAMM (CAD)W/JOSE A BILAT [facility] Imaging Services [address] [place] [address] SCRN MAMM (CAD)W/JOSE A BILAT MR#: [id number] Acct: [id number] Name: MARCOS BOLIVAR Rep #: [id number] : 1955 F 69 From: Thelma Fried MD PCP: Dr. Rajesh Morley, DO Status: REG CLI Study: SCRN MAMM (CAD)W/JOSE A BILAT Date of Exam: 05/27 Exam# [id number] Ordering Dr: Darryn Weeks MD EXAM: SCRN MAMM (CAD)W/JOSE A BILAT DATE: 03/10/2025 CLINICAL HISTORY: F, Age 69 y/o , SCREENING TECHNIQUE: SCRN MAMM (CAD)W/JOSE A BILAT COMPARISON: Prior exam(s) dated 03/09/2024, 03/06/2023, 09/27/2021. FINDINGS: TISSUE DENSITY: The breasts are almost entirely fatty. Bilateral Breast Mammographic Findings: No significant masses, calcifications or other abnormalities are identified. BI/SCRN MAMM (CAD)W/JOSE A BILAT IMPRESSION: There is no mammographic evidence of malignancy. OVERALL FINAL ASSESSMENT BI-RADS 1: NEGATIVE. RECOMMEND ANNUAL MAMMOGRAPHIC SCREENING. RECOMMENDATION: Routine annual follow-up in 1 Year A letter with findings and recommendations will be mailed to the patient. Reading Location: [id number] CC: Dr. Darryn Weeks MD; Dr. Rajesh Morley DO Meat Specialist: Signed Normal [facility] Serum or plasma ferritin imelda surement (mass/volume)Ordered By: Kayce London on 03-10-2025 Ferritin [Mass/Vol] 74 ng/mL 22-378 [facility] Serum or plasma iron saturat ion measurement (mass fraction)Ordered By: Kayce London on 03-10-2025 Iron saturation [Mass fraction] 26.0 % 13-59 [facility] Vitamin B12on 03-10-2025 Cobalamin (Vitamin B12) [Mass/Vol] 312 pg/mL Normal 180-914 [facility] Comment on above: Performed By: #### L 100.9950, L503.6550, L503.0106, L100.0100, L503.6030 #### [facility] Laboratory [address] [place] [address]. [place], [address] Vitamin B12 ser/plasOrdered By: Kayce London on 03-10-2025 Cobalamin (Vitamin B12) [Mass/Vol] 312 pg/mL 180-914 [facility] White blood cell (WBC) count Ordered By: Kayce London on 03-10-2025 WBC (Bld) [#/Vol] 6.4 10*3/uL 4.4-11.0 [facility] Chest without Contraston Chest without Contrast [facility] Imaging Services [address] [place] [address] Chest without Contrast MR#: [id number] Acct: [id number] Name: MARCOS BOLIVAR Rep #: [id number] : 1955 F 69 From: Rajesh Mota MD PCP: Dr. Rajesh Morley DO Status: REG CLI Study: Chest without Contrast Date of Exam: 01/18/25 Exam# [id number] Ordering Dr: Meka Tomas MEDICAL ASSISTANT FLOAT- C EXAM: CT Chest Without Intravenous Contrast CLINICAL INDICATION: MULTIPLE NODULES, HISTORY OF SARCOIDOSIS TECHNIQUE: Axial computed tomography images of the chest without intravenous contrast. This CT exam was performed using one or more of the following dose reduction techniques: automated exposure control, adjustment of the mA and/or kV according to patient size, and/or use of iterative reconstruction technique. COMPARISON: No relevant prior studies available. FINDINGS: LUNGS AND PLEURAL SPACES: Stable 7 mm nodule of the left upper lobe. Stable 5 mm nodule of the right lower lobe. Stable 3 mm nodule of the right lower lobe. Stable 10 mm nodule of the right middle lobe. Lung emphysema/COPD. No consolidation. No pneumothorax. No significant effusion. No new suspicious pulmonary nodules. HEART: Unremarkable. No cardiomegaly. No significant pericardial effusion. No significant coronary artery calcifications. MEDIASTINUM: Small hiatal hernia. A few prominent mediastinal lymph nodes measuring up to 6 mm. BONES/JOINTS: Unremarkable. No acute fracture. No dislocation. SOFT TISSUES: Unremarkable. VASCULATURE: Unremarkable. No thoracic aortic aneurysm. LYMPH NODES: See above. OTHER FINDINGS: Prior dated 11/30/2023. CT/Chest without Contrast IMPRESSION: 1. No new suspicious pulmonary nodules. 2. No significant change from the prior exam. 3. Continue low-dose CT scan of the chest in 12 months is recommended. Reading Location: [facility] CC: Dr. Rajesh Morley DO; Meka Tomas NP Meat Specialist: Signed Normal [facility] Pulmonary Visit Reporton Pulmonary Visit Report [facility] [address] [place] [address] OFFICE VISIT Date of Service: 12/29/24 MR#: [id number] Acct: [id number] Name: MARCOS BOLIVAR Rep #: [id number] : 1955 Provider: Meka Tomas NP Age/Sex: 69/F Location: [facility] Status: Signed Assessment and Plan Assessment and Plan (1) Multiple lung nodules: Status: Chronic Plan: Patient has a history of multiple lung nodules. This is likely due to her history of sarcoidosis. There is a nodule that measures up to 1.05 cm from 2023 that had increased in size from 8mm in 2021 to 10 mm 08/08/2023 CT. This nodule has not been followed for 2 years to show stability. This case was discussed with Dr. Dahl today. The recommendation is to proceed with a noncontrast chest CT. As long as this shows stability of the nodules then the patient will not need the scan repeated next year and will likely be able to be followed in a 2-year interval for scanning. (2) Sarcoidosis: Status: Chronic Plan: Symptomatically and clinically stable. Her lung functioning does reflect stability. I do not believe that COVID has impacted her functioning. Sarcoidosis does not appear to be active. The patient should notify this practice if she has active respiratory symptoms. (3) MARY (obstructive sleep apnea): Status: Acute Plan: She is not willing to pursue PAP therapy for treatment at this time. Various other options have been discussed with the patient. She did trial a [id number]-yeazecm oral device and indicates that it was not effective as she was gagging and spitting it out throughout the night. The patient understands that this practice is willing to assist her if she would choose to treat sleep disordered breathing and a referral will be placed to Dr. Dupree for a mandibular advancement device, she has declined at this time. The patient understands the risks the risks of untreated sleep apnea. Orders: Orders Chest without Contrast Today R91.8 - Other nonspecific abnormal finding of lung field Plan Details Follow Up: 12 Months (LMR) HPI HPI Comments Details: Patient is a 69-year-old female who presents to the office today for follow-up of her sarcoidosis confirmed by needle biopsy. She is ambulatory and currently on room air. She has not required any antibiotics or prednisone for any breathing problems. She did complete a referral to the sarcoid clinic and was told that she is in remission and does not require any testing and should not be concerned. They stated that she would benefit from annual testing and could follow-up with our practice. She is not currently on any inhalers. She is not currently on any autoimmune suppressant for the sarcoidosis. The patient indicates I feel great today . She denies any shortness of breath. She denies any cough, sputum production or hemoptysis. She denies any wheezing, chest tightness, chest pain or palpitations. She also denies any fever, chills or body aches. She is not feeling rested when she wakes up in the morning. She is having difficulty with dry mouth. The patient reports that she is not experiencing nocturia. Patient reports that she is claustrophobic and could not tolerate mask, even a slim nasal mask. She was tried on CPAP and BiPAP and could not tolerate either setting. She left the titration testing AMA. She did not proceed with therapy. She is a lifetime non-smoker. Documentation reviewed with patient today includes: 6-minute walk test from September 30, 2024 which shows no indication for the use of supplemental oxygen at this time. PFT from 12/24/24 shows grossly normal pulmonary function study. 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 Required: No DME Vendor: n/a Accompanied by: Self Is patient in pain?: No Allergies levofloxacin (From Levaquin) Allergy (Severe, Verified 12/29/24 14:19) Rash amoxicillin trihydrate (From Augmentin) Allergy (Intermediate, Verified 12/29/24 14:19) Rash Penicillins Allergy (Intermediate, Verified 12/29/24 14:19) Rash potassium clavulanate (From Augmentin) Allergy (Intermediate, Verified 12/29/24 14:19) Rash tramadol HCl (From Ultram) Allergy (Intermediate, Verified 12/29/24 14:19) Rash Sulfa (Sulfonamide Antibiotics) Allergy (Mild, Verified 12/29/24 14:19) Rash codeine Adverse Reaction (Intermediate, Verified 12/29/24 14:19) Unknown Medications ???Medication ???Instructions (more content not included)... Normal [facility] PT D/C Summary (1)on 025 PT D/C Summary (1) [facility] [address] [place] [address] / REHABILITATION SERVICES DISCHARGE SUMMARY MR#: [id number] Acct: [id number] Name: MARCOS BOLIVAR Rep #: [id number] : 1955 69 From: Jose Carreno PT, Cert. T, OCS Referring Dr.: MAHAMED Grace Status: REG RCR Insurance: [facility] S[employer] PA[employer] INSURANCE Discharge Summary D/C summary: It has been my pleasure to treat MARCOS BOLIVAR referred by MAHAMED Grace, with the diagnosis of RADUCULOPATHY ,CERVICAL REGION for a total of 9 visit(s). Discharge Date: 12/17/24 Please see the following information for a summary of their discharge status. Subjective Subjective: This patient doing well . Didnt do MRI Less hand arm pain See 12/21 Pain Bilateral: Pain Intensity (Out of 10): 0 Bilateral Wrist: Pain Intensity (Out of 10): 0 Overall Improvement % Improvement: 50 Objective Objective/Function: OSTURE: mild thoracic spine PALPATION: tender UT/levator /paraspinals AROM: BUE WFL MMT: CLARE 4/5 grossly CERVICAL ROM: flexion min loss ,extension /lateral flexion/rotation mod loss PLATE PRINTER STRENGTH ( dynamometer) : DOMIENT right 35 # ,left 40# Goals Goal 1:: Patient to be I with HEP for neck Goal Progress: Goal Met Goal 2:: Patient to demonstrate 60% improvement with improved function Goal Progress: Goal Met Goal 3:: Patient improve cervical ROM for function of recovery for driving a car for rotation Goal Progress: Goal Met Goal 4:: Patient to improve neck oswestry score by 3-5 point to improve QOL Goal Progress: Goal Met Plan Plan: D/C TO HEP D/C Information Discharge Comments: HEP d/c sentence: If there are questions or concerns regarding this patient's physical therapy, please feel free to call me at [phone]. Thank you for the referral of this patient. Sincerely, Jose Carreno PT, Dung CONROYT, OCS Balance/Gait/Functional tests Balance/Special Test Scores Oswestry Neck Score: 4 Improvement % Improvement: 50 12/17/24 1557 CC: MAHAMED Grace; Dr. Rajesh Morley, JLA Signed Normal [facility] Inital Evaluation (1) - PTon 11-17-2024 Inital Evaluation (1) - PT [facility] Physical [facility] [address] [place] [address] [address] [place] [address] / REHABILITATION SERVICES INITIAL EVALUATION MR#: [id number] Acct: [id number] Name: MARCOS BOLIVAR Rep #: [id number] : 1955 69 From: Dung Daniel PT. MD Cervantes, OCS Referring Dr.: MAHAMED Grace Status: REG R Insurance: [facility] [employer] INSURANCE Patient's Visit Information Visit Information Visit Information: MARCOS BOLIVAR is a 69 year old F referred to Physical Therapy by MAHAMED Grace with a diagnosis of RADUCULOPATHY ,CERVICAL REGION. Date of Evaluation: 11/17/24 Physical Therapist: Jose Carreno PT, Dung CONROYT, OCS Visit Plan Frequency: 2x /Week Duration: 4 Weeks Plan: PRECAUTION: RA PT INTERVENTIONS CERVICAL ROM ,POSTURAL EX'S ,SCAPULAR STRENGTH AND MANUAL THERAPY STM (UT/LEVATOR/PARASPINALS) Subjective Subjective: This 69 y/o female presents to physical therapy with cervical radiculopathy .Patient symptoms in arms 1 arm right > left . Patient had EMG nerve conduction test 1 year which was negative. Patient has been diagnosed with RA past year which patient started medication for RA. Patient seen MAHAMED Cosme recommended PT and MRI pending. Stopped celebrex. Pain has pain right arm burning/stinging nerve pain. Patient aggravating factors turning stiffness ,symptoms right arm worse. In morning , fingers stiffness and clamps up hand. Difficulty turning door nob ,open a can ,tie shoes Alleviating factors improves as day goes on. Patient sleeps okay . Patient x-rays showed Straightening of the normal lordosis. Vertebral body heights are within normal limits. Mild/moderate multilevel disc space narrowing. Negative for abnormal motion. Mild multilevel uncovertebral and moderate/advanced multilevel facet arthropathy. Patient is active do Yoga . Patient has had PT in past . Patient condition affects QOL and function, Patient has OT for hands. 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 Pain Bilateral: Pain Intensity (Out of 10): 1 Bilateral Wrist: Pain Intensity (Out of 10): 1 Objective Objective: POSTURE: mild thoracic spine PALPATION: tender UT/levator /paraspinals AROM: BUE WFL MMT: BUE 4/5 grossly CERVICAL ROM: flexion min loss ,extension /lateral flexion/rotation mod loss PLATE PRINTER STRENGTH ( dynamometer) : right 20 # ,left 30# Special Tests C/S Radiculapathy - Left Upper limb tension test: Negative C/S Radiculapathy - Right Upper limb tension test: Negative C/S Radiculapathy - Left Spurlings: Negative C/S Radiculapathy - Right Spurlings: Negative C/S Radiculapathy - Left Cervical distraction: Negative C/S Radiculapathy - Right Cervical distraction: Negative Sharp Bambi: Negative Vertebral Artery Test: Negative Alar Ligament Test: Negative Balance/Special Test Scores Oswestry Neck Score: 15 Goals Goal 1:: Patient to be I with HEP for neck Goal Time Frame: 4-6 Weeks Goal 2:: Patient to demonstrate 60% improvement with improved function Goal Time Frame: 4-6 Weeks Goal 3:: Patient improve cervical ROM for function of recovery for driving a car for rotation Goal Time Frame: 4-6 Weeks Goal 4:: Patient to improve neck oswestry score by 3-5 point to improve QOL Rehabilitation Potential Physical Therapy Diagnosis: This patient has cervical radiculopathy right arm and stiffness in bilateral hand from recent dx of rheumatoid OA with decrease ROM cervical ,weakness hands thus benefit from skilled PT Rehabilitation Potential: Good Anticipated Interventions Patient/Client Instruction: Educate patient on: Condition and Plan of Care For the Purpose of:: To decrease pain, To increase ROM, To improve muscle performance and motor function, To increase tolerance to activity/condition/positio n, To improve ability of physical actions for home/community/work/leisur e, To improve health of tissue, To decrease soft tissue restriction and To increase flexibility/ROM Therapeutic Exercise to Include: Strength training, Postural training, Flexibilty training, Active ROM and Scapular Strength/Stabilization Comment: BLE For the Purpose of:: To decrease pain, To increase ROM, To increase oxygenation perfusion, To increase tolerance to activity/condition/positio n, To improve ability of physical actions for home/community/work/leisur e, To improve health of tissue, To decrease soft tissue restriction and To increase flexibility/ROM Manual Therapy Techniques to Include: Soft tissue mobilization Comment: NECK For the Purpose of:: To decrease pain, To increase ROM, To improve nutrient delivery to tissue, To increase oxygenation perfusion, To improve health of tissue, To decrease soft tissue restriction and To increase flexibility/ROM Text: Thank you for the opportunity to evaluate your patient. For Medicare and Medicare HMO plans, please review the plan of c (more content not included)... Normal [facility] Cerv Spine 4 or 5 Viewson Cerv Spine [address] [facility] Imaging Services [address] [place], [place] [address] Cerv Spine 4 or 5 Views MR#: [id number] Acct: [id number] Name: MARCOS BOLIVAR Rep #: [id number] : 1955 F 69 From: Greg Mistry PCP: Dr. Rajesh Morley, DO Status: DEP AMB Study: Cerv Spine 4 or 5 Views Date of Exam: 11/10/24 Exam# [id number] Ordering Dr: Jenny Cosme PROCEDURE: CERV SPINE 4 OR 5 VIEWS REASON FOR EXAM: CHRONIC PAIN, DDD TECHNIQUE: 4 views of the cervical spine. COMPARISON: None. FINDINGS: See impression RAD/Cerv Spine 4 or 5 Views IMPRESSION: Straightening of the normal lordosis. Vertebral body heights are within normal limits. Mild/moderate multilevel disc space narrowing. Negative for abnormal motion. Mild multilevel uncovertebral and moderate/advanced multilevel facet arthropathy. No prevertebral swelling. Reading Location: [facility] CC: MAHAMED Grace; Dr. Rajesh Morley DO Meat Specialist: Signed Normal [facility] Orthopedic Visit Reporton Orthopedic Visit Report [facility] [address] [place] [address] [address] [place] [address] OFFICE VISIT Date of Service: 11/10/24 MR#: [id number] Acct: [id number] Name: MARCOS BOLIVAR Rep #: [id number] : 1955 Provider: MAHAMED Grace Age/Sex: 69/F Location: [facility].JENNIFER Status: Signed Intake Vital Signs 09/30/24 12:23 10/29/24 09:57 Height 5 ft 6 in 5 ft 6 in Weight: 193 lb 195 lb BMI 31.4 Pulse 96 Pulse Oximetry (%) 98 Intake Visit Reasons: CERVICAL SPINE Chief Complaint: Cervical spine pain Accompanied by: Self Is patient in pain?: No Allergies levofloxacin (From Levaquin) Allergy (Severe, Verified 11/10/24 13:54) Rash amoxicillin trihydrate (From Augmentin) Allergy (Intermediate, Verified 11/10/24 13:54) Rash Penicillins Allergy (Intermediate, Verified 11/10/24 13:54) Rash potassium clavulanate (From Augmentin) Allergy (Intermediate, Verified 11/10/24 13:54) Rash tramadol HCl (From Ultram) Allergy (Intermediate, Verified 11/10/24 13:54) Rash Sulfa (Sulfonamide Antibiotics) Allergy (Mild, Verified 11/10/24 13:54) Rash codeine Adverse Reaction (Intermediate, Verified 11/10/24 13:54) Unknown Medications ???Medication ???Instructions ???Recorded ???Confirmed ???Type levothyroxine 112 mcg tablet 112 mcg PO DAILY 08/11/17 11/10/24 History sertraline 50 mg tablet 50 mg PO DAILY 03/29/20 11/10/24 H istory ferrous sulfate 325 mg (65 mg 325 mg PO DAILY 04/14/24 11/10/24 History iron) tablet (Feosol) cholecalciferol (vitamin D3) 50 50 mcg PO QDAY 07/07/24 11/10/24 H istory mcg (2,000 unit) capsule multivitamin 1 tab PO QAM 09/03/24 11/10/24 His tory prednisone 10 mg tablet 10 mg PO QDAY 09/03/24 11/10/24 Hi story celecoxib 100 mg capsule (Celebrex) 100 mg PO BID #30 caps 11/10/24 11/10/24 Rx hydroxychloroquine 200 mg tablet mg PO 11/10/24 11/10/24 History Have you fallen in the past year?: Yes PFSH Medical History Rheumatoid arthritis Coronary artery calcification seen on CAT scan Carpal tunnel syndrome of right wrist Nonsustained paroxysmal supraventricular tachycardia Segmental and somatic dysfunction of lumbar region DDD (degenerative disc disease), cervical Segmental and somatic dysfunction of thoracic region Segmental and somatic dysfunction of cervical region Iron deficiency anemia Obesity Degenerative disc disease, cervical Segmental and somatic dysfunction of cervical region Segmental and somatic dysfunction of thoracic region Segmental and somatic dysfunction of lumbar region Hypothyroidism (acquired) Migraine Gallstones Breast cyst Recurrent UTI Anxiety and depression Anemia Seasonal allergies Bursitis of left hip Dyslipidemia Osteopenia Hypothyroid Surgical History History of colonoscopy (2010) History of esophagogastroduodenoscopy (EGD) (2012) repair of cleft lip Hx of tonsillectomy History of partial hysterectomy Hx of cholecystectomy Family History Father CAD (coronary artery disease) myocardial infarction Cancer Heart disease CVA (cerebral vascular accident) Son Diabetes Brother Hyperthyroidism Kidney stones Mother Hypothyroidism Sister Kidney stones Hypothyroidism Social History Smoking Status: Never smoker second hand exposure: No alcohol intake: never substance use type: does not use yahaira/caodaism: Hoahaoism seatbelt use: always do you feel safe at home: Yes HPI CERVICAL SPINE Details: This documentation accurately reflects the service provided and the decisions made by me, MAHAMED Grace 11/10/24 3172. Part of today???s visit was documented by Charmaine Chiang MA, acting as scribe. MARCOS BOLIVAR is a 69 year old F here today for cervical spine pain. Is not having any pain from spine. She is having pain in mainly the right arm and the hand. This has been going on for about 6 months. She got xrays of her hands, feet, and neck. Patient does go to the gym 3 times a week. Gripping hurts, she can barely make a fist. Says that her bilateral hands have been swelling which is most likely related to the RA. Says that for the most part she does not have any neck pain however she will get pain down the right arm that will at times extend from her shoulder down the back of her arm all the way to her fingers. She denies any left-sided involvement other than the hand pain related to RA. Denies any balance or dexterity issues. Diagnosed with RA for the last year and a half. Taking hydroxychloroquine. No diabetes, no heart or lung issues, no blood thinners. Ortho (more content not included)... Normal [facility] 6 Minute Walk Teston 025 6 Minute Walk Test y [facility] Services/Neurology [address] [place] [address] MR#: [id number] Acct: [id number] Name: MARCOS BOLIVAR Rep #: [id number] : 1955 69 From: Daron Dahl DO Referring Dr: Meka Tomas MEDICAL ASSISTANT FLOAT-C Status: REG CLI Location: PSN Date: Sex: F C PSN 6 Minute Walk Test 6 Minute Walk Test 6 Minute Walk Test: 6 Minute Walk Test PSN:6-Minute Walk Test Start: 09/30/24 12:23 Freq: Status: Active Protocol: RESP.6MINW Document 09/30/24 12:23 [facility] (Rec: 09/30/24 12:30 [facility] [id number]) 6 Minute Walk Test Date Performed 09/30/24 Time Performed 12:00 Height 5 ft 6 in Weight: 193 lb Weight in Pounds 193.[address]: Meka Tomas Assistive device None used: Pre-test Oxygen Delivery Room Air Method Pulse Ox (%) 97 Pulse Rate (60-100 99 beats/min) Dyspnea Katherin Scale ( 0 0-10) 1st minute Oxygen Delivery Room Air Method Pulse Ox (%) 98 Pulse Rate (60-100 96 beats/min) Dyspnea Katherin Scale ( 0 0-10) Number of Rests 0 Taken 2nd minute Oxygen Delivery Room Air Method Pulse Ox (%) 98 Pulse Rate (60-100 97 beats/min) Dyspnea Katherin Scale ( 0 0-10) Number of Rests 0 Taken 3rd minute Oxygen Delivery Room Air Method Pulse Ox (%) 98 Pulse Rate (60-100 100 beats/min) Dyspnea Katherin Scale ( 0 0-10) Number of Rests 0 Taken 4th minute Oxygen Delivery Room Air Method Pulse Ox (%) 96 Pulse Rate (60-100 104 H beats/min) Dyspnea Katherin Scale ( 0 0-10) Number of Rests 0 Taken 5th minute Oxygen Delivery Room Air Method Pulse Ox (%) 97 Pulse Rate (60-100 101 H beats/min) Dyspnea Katherin Scale ( 0 0-10) Number of Rests 0 Taken 6th minute Oxygen Delivery Room Air Method Pulse Ox (%) 98 Pulse Rate (60-100 103 H beats/min) Dyspnea Katherin Scale ( 0 0-10) Number of Rests 0 Taken Post-test Oxygen Delivery Room Air Method Pulse Ox (%) 98 Pulse Rate (60-100 96 beats/min) Dyspnea Katherin Scale ( 0 0-10) Full Laps Walked 20 Partial Lap, Number 13 of Tiles Walked Total Distance 1193 Walked (ft) Interpretation Interpretation: The patient ambulated 1193 feet over the course of 6 minutes beginning on room air without assistive devices. Pretesting oxygen saturation was noted to be 97% on room air. With ambulation, the katy oxygen saturation was 96%. There was no significant exertional oxygen desaturation. Recommendations Recommendations: There is no indication for the use of supplemental oxygen at this time. 10/07/24 1325 Date Daron Dahl DO CC: Date Dictated: 10/07/24 1324 Date Transcribed: 10/07/241323 Meat Specialist: Dr. Daron Dahl DO Signed Normal [facility] Pulmonary Visit Reporton Pulmonary Visit Report [facility] [address] [place] [address] OFFICE VISIT Date of Service: 09/03/24 MR#: [id number] Acct: [id number] Name: MARCOS BOLIVAR Rep #: [id number] : 1955 Provider: Meka Tomas NP Age/Sex: 69/F Location: [facility] Status: Signed Assessment and Plan Assessment and Plan (1) MARY (obstructive sleep apnea): Status: Acute Plan: The patient is interested in treating sleep apnea with supplemental oxygen although she does not qualify for supplemental oxygen at this time. She is not willing to pursue PAP therapy for treatment at this time. I have recommended a mandibular advancement device and a referral to Dr. Dupree. The patient would like a trial device prior to committing to this therapy as she is apprehensive about being able to tolerate therapy. I have recommended that she trial a snore guard first to see if she is able to wear something in mouth while sleeping. I reviewed the reasons for treating sleep apnea along with the pathophysiology of obstructive sleep apnea. I have discussed the risks of untreated sleep apnea as well as the benefits. (2) Sarcoidosis: Status: Chronic Plan: Symptomatically and clinically stable but with recent COVID, I'm concerned that it may have affected her lung funtioning. Obtain 6 min walk test and PFT as previously recommended. Contact the office with any new or worsening symptoms in the meantime. Orders: Orders Simple Pulmonary Exercise Test Today U07.1 - COVID-19 Plan Details Goals Barriers: Goals Decrease pain Decrease spasm Improve ROM Improve ability to perform ADLs Barriers Cervical DDD Follow Up: as scheduled HPI HPI Comments Details: This patient presents to the office today for follow-up of her sarcoidosis confirmed by needle biopsy. She is ambulatory and currently on room air. She has recently been seen in the ED for COVID in mid August.. She has not required any antibiotics or prednisone for any breathing problems. She did not receive treatment for COVID. She reports that she presented to the ER due to an oxygen saturation of 87%. She reports, when tested in the ER with a walk test her oxygen saturation did not drop and she was released. Patient has oxygen saturation on room air today. She did complete a referral to the sarcoid clinic and was told that she is in remission and does not require any testing and should not be concerned. They stated that she would benefit from annual testing and could follow-up with our practice. She is not currently on any inhalers. She is not currently on any autoimmune suppressant for the sarcoidosis. She denies any shortness of breath. She denies any cough, sputum production or hemoptysis. She denies any wheezing, chest tightness, chest pain or palpitations. She also denies any fever, chills or body aches. She is not feeling rested when she wakes up in the morning. She is having difficulty with dry mouth. She is experiencing at least 1 episode of nocturia nightly. She has had some palpitations that occur at night. Patient reports that she is claustrophobic and could not tolerate mask, even a slim nasal mask. She was tried on CPAP and BiPAP and could not tolerate either setting. She left the titration testing AMA. She did not proceed with therapy. She is a lifetime non-smoker. Intake Vital Signs 08/18/24 05:52 09/03/24 12:15 Height 5 ft 6 in 5 ft 6 in Weight: 197 lb 4 oz BMI 31.8 BP 112/71 Blood Pressure Location Rt brachial Position Sitting Respiration 16 Pulse 77 Pulse Source Monitor Temp 96.9 F L Temperature Source Temporal Artery Pulse Oximetry (%) 96 Oxygen Delivery Method room air Intake Visit Reasons: Discuss Sleep Center visit Chief Complaint: Anemia Accompanied by: Self Allergies levofloxacin (From Levaquin) Allergy (Severe, Verified 09/03/24 13:21) Rash amoxicillin trihydrate (From Augmentin) Allergy (Intermediate, Verified 09/03/24 13:21) Rash Penicillins Allergy (Intermediate, Verified 09/03/24 13:21) Rash potassium clavulanate (From Augmentin) Allergy (Intermediate, Verified 09/03/24 13:21) Rash tramadol HCl (From Ultram) Allergy (Intermediate, Verified 09/03/24 13:21) Rash Sulfa (Sulfonamide Antibiotics) Allergy (Mild, Verified 09/03/24 13:21) Rash codeine Adverse Reaction (Intermediate, Verified 09/03/24 13:21) Unknown Medications ???Medication ???Instructions ???Recorded ???Confirmed ???Type levothyroxine 112 mcg tablet 112 mcg PO DAILY 08/11/17 09/03/24 History sertraline 50 mg tablet 50 mg PO DAILY 03/29/20 09/03/24 History ferrous sulfate 325 mg (65 mg 325 mg PO DAILY 04/14/24 09/03/24 History iron) tablet (Feosol) cholecalciferol (vitamin D3) 50 50 mcg PO QDAY 07/07/24 09/03/24 History mc (more content not included)... Normal [facility] Chest 1 View (Portable)on Chest 1 View (Portable) [facility] Imaging Services [address] [place], [place] [address] Chest 1 View (Portable) MR#: [id number] Acct: [id number] Name: MARCOS BOLIVAR Rep #: [id number] : 1955 F 69 From: Darryl bal MD PCP: Dr. Rajesh Morley, Status: DEP ER Study: Chest 1 View (Portable) Date of Exam: 08/18/24 Exam# [id number] Ordering Dr: Carl Mota DO [id number] STUDY: X-RAY CHEST REASON FOR EXAM: Female, 69 years old. Cough. History of sarcoidosis. History of Covid. TECHNIQUE: Single AP portable view of the chest. COMPARISON: Comparison is made with prior study dated June 09, 2020. FINDINGS: EKG electrodes are seen. The lungs are clear and expanded. There is no demonstrated pleural abnormality. Normal size heart. Normal mediastinum and deejay. Normal visualized pulmonary arteries. Normal visualized aortic arch and descending thoracic aorta. Normal visualized thoracic spine. Normal visualized ribs, clavicles, and shoulders. There is no demonstrated abnormality of the visualized soft tissue structures of the upper abdomen. RAD/Chest 1 View (Portable) IMPRESSION: Normal x-ray examination of the chest. Electronically Signed: Darryl Couch MD at 8:39 EST , CC: Dr. Rajesh Morley DO; Dr. 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 Rajesh Morley DO Status:DEP ER Location: ED HPI History of Present Illness Chief Complaint: Shortness of Breath Informant: patient and family Narrative Narrative: Presents here with sister for evaluation. Patient diagnosed herself COVID 2 days ago. Symptoms of fatigue starting 4 days ago. Slight cough. No fevers headache myalgias. No vomiting or diarrhea. This morning she woke up she checked a pulse ox and was 87% with ambulation however it went up in the 90s. History of sarcoidosis. No tobacco history. Has had COVID infections in the past. She had 1 vaccination with 1 booster. She states symptoms seems to be improving with her fatigue. She is concerned with the initial pulse ox. Prior similar symptoms: Yes PFSH PFS Medical History Rheumatoid arthritis Coronary artery calcification seen on CAT scan Carpal tunnel syndrome of right wrist Nonsustained paroxysmal supraventricular tachycardia Segmental and somatic dysfunction of lumbar region DDD (degenerative disc disease), cervical Segmental and somatic dysfunction of thoracic region Segmental and somatic dysfunction of cervical region Iron deficiency anemia Obesity Degenerative disc disease, cervical Segmental and somatic dysfunction of cervical region Segmental and somatic dysfunction of thoracic region Segmental and somatic dysfunction of lumbar region Hypothyroidism (acquired) Migraine Gallstones Breast cyst Recurrent UTI Anxiety and depression Anemia Seasonal allergies Bursitis of left hip Dyslipidemia Osteopenia Hypothyroid Home Medications ???Medication ???Instructions ???Recorded ???Last Taken ???Type levothyroxine 112 mcg tablet 112 mcg PO DAILY 08/11/17 06/22/20 History sertraline 50 mg tablet 50 mg PO DAILY 03/29/20 06/22/20 History ferrous sulfate 325 mg (65 mg 325 mg PO DAILY 04/14/24 Unknown History iron) tablet (Feosol) cholecalciferol (vitamin D3) 50 50 mcg PO QDAY 07/07/24 Unknown History mcg (2,000 unit) capsule prednisone 10 mg tablet 20 mg PO QDAY 07/07/24 Unknown History Allergy/AdvReac Type Severity Reaction Status Date / Time levofloxacin (From Levaquin) Allergy Severe Rash Verified 08/18/24 05:52 amoxicillin trihydrate (From Allergy Intermediate Rash Verified 08/18/24 05:52 Augmentin) Penicillins Allergy Intermediate Rash Verified 08/18/24 05:52 potassium clavulanate (From Allergy Intermediate Rash Verified 08/18/24 05:52 Augmentin) tramadol HCl (From Ultram) Allergy Intermediate Rash Verified 08/18/24 05:52 Sulfa (Sulfonamide Allergy Mild Rash Verified 08/18/24 05:52 Antibiotics) codeine AdvReac Intermediate Unknown Verified 08/18/24 05:52 Family History Father CAD (coronary artery disease) myocardial infarction Cancer Heart disease CVA (cerebral vascular accident) Son Diabetes Brother Hyperthyroidism Kidney stones Mother Hypothyroidism Sister Kidney stones Hypothyroidism Surgical History History of colonoscopy (2010) History of esophagogastroduodenoscopy (EGD) (2012) repair of cleft lip Hx of tonsillectomy History of partial hysterectomy Hx of cholecystectomy Social History Smoking Status: Never smoker second hand exposure: No alcohol intake: never substance use type: does not use yahaira/caodaism: Hoahaoism seatbelt use: always do you feel safe at home: Yes ROS ROS ED Constitutional Constitutional ED: Reports other Details: Fatigue ; Denies chills, fever(s) or sweats Eyes Eyes: Denies change in vision ENT ENT ED: Denies dysphagia or sore throat Cardiovascular Cardiovascular: Denies chest pain, leg edema, palpitations or racing heartbeat Respiratory/Chest Respiratory/Chest: Reports cough; Denies dyspnea or dyspnea on exertion Gastrointestinal Gastrointestinal: Denies abdominal pain, diarrhea, nausea or vomiting Genitourinary Genitourinary ED: Denies dysuria, hematuria or urinary frequency Musculoskeletal Musculoskeletal: Denies back pain, extremity pain or neck pain Integumentary Denies rash or wounds Neurologic Neurologic: Denies headache(s), paresthesias or weakness EXAM Physical Exam Const Vital Signs: 08/18/24 05:52 08/18/24 05:54 08/18/24 06:16 Temperature 97.7 F L 97.7 F L Temperature Source Oral Oral Pulse Rate 79 77 Respiratory Rate 18 18 Respiratory Effort Normal Respiratory Depth Normal Respirat (more content not included)... Normal [facility] Pulmonary Visit Reporton Pulmonary Visit Report [facility] Pulmonary Medicine of [address] [place] [address] OFFICE VISIT Date of Service: 07/07/24 MR#: [id number] Acct: [id number] Name: MARCOS BOLIVAR Rep #: [id number] : 1955 Provider: BRENDA Peña Age/Sex: 69/F Location: [facility] Status: Signed Assessment and Plan Assessment and Plan (1) MARY (obstructive sleep apnea): Status: Acute Plan: Concern for obstructive sleep apnea. Lengthy discussion about the pathophysiology of obstructive sleep apnea. We discussed the risks of untreated sleep apnea as well as the benefits. She is agreeable to a titration study. She will require a light sleep aid as she has historically not had good success with sleeping in lab. Initial goal will be to wear PAP at least 4 hours nightly. Ultimately, it should be worn any time spent sleeping. I have encouraged the patient to call the office with any difficulties acclimating to PAP therapy. Follow up in the office in 3 months, at which time I anticipate the patient will be on PAP therapy for 4-6 weeks. (2) Sarcoidosis: Status: Chronic Plan: Symptomatically and clinically stable. Repeat pulmonary function test at 1 year, which would be October 2024. Contact the office with any new or worsening symptoms in the meantime. Orders: Orders Pulmonary Function Test (Comp) 10/31/24 D86.9 - Sarcoidosis, unspecified Polysomnography with PAP 07/07/24 G47.33 - Obstructive sleep apnea (adult) (pediatric) Plan Details Goals Barriers: Goals Decrease pain Decrease spasm Improve ROM Improve ability to perform ADLs Barriers Cervical DDD HPI 6 M FU Chief Complaint: Routine follow-up HPI Comments Details: This patient presents to the office today for follow-up of her sarcoidosis confirmed by needle biopsy. She is ambulatory and currently on room air. She has not recently been seen in the ED or urgent care for any respiratory illness. She has not required any antibiotics or prednisone for any breathing problems. She did complete a referral to the pulm clinic since last office visit. She states that the sarcoid clinic told her that she is in remission and does not require any testing and should not be concerned. They stated that she would benefit from annual testing and could follow-up with our practice. She is not currently on any inhalers. She is not currently on any autoimmune suppressant for the sarcoidosis. She denies any shortness of breath. She denies any cough, sputum production or hemoptysis. She denies any wheezing, chest tightness, chest pain or palpitations. She also denies any fever, chills or body aches. She is not feeling rested when she wakes up in the morning. She is having difficulty with dry mouth. She is experiencing at least 1 episode of nocturia nightly. She has had some palpitations that occur at night. STOP-BANG Assessment: 1. Do you snore? Y 2. Are you frequently tired during the day? Y 3. Have you been observed gasping or choking while asleep? N 4. Do you have high blood pressure? N 5. BMI - greater than 35kg/m2? N 6. Age - over 50 years old? Y 7. Neck Circumference - greater than 37 cm for females or 40 cm for males? N 8. Gender - male? N Total STOP-BANG score = 3 which indicates HIGH risk for obstructive sleep apnea (yes to 3 or more questions = high risk of sleep apnea). 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 Accompanied by: Self Allergies levofloxacin (From Levaquin) Allergy (Severe, Verified 07/07/24 11:06) Rash amoxicillin trihydrate (From Augmentin) Allergy (Intermediate, Verified 07/07/24 11:06) Rash Penicillins Allergy (Intermediate, Verified 07/07/24 11:06) Rash potassium clavulanate (From Augmentin) Allergy (Intermediate, Verified 07/07/24 11:06) Rash tramadol HCl (From Ultram) Allergy (Intermediate, Verified 07/07/24 11:06) Rash Sulfa (Sulfonamide Antibiotics) Allergy (Mild, Verified 07/07/24 11:06) Rash codeine Adverse Reaction (Intermediate, Verified 07/07/24 11:06) Unknown Medications ???Medication ???Instructions ???Recorded ???Confirmed ???Type levothyroxine 112 mcg tablet 112 mcg PO DAILY 08/11/17 07/07/24 History sertraline 50 mg tablet 50 mg PO DAILY 03/29/20 07/07/24 History ferrous sulfate 325 mg (65 mg 325 mg PO DAILY 04/14/24 07/07/24 History iron) tablet (Feosol) cholecalciferol (vit (more content not included)... [facility] 04-28-2024 CNOV Office Visit (ENWSTR ) -- MARCOS BOLIVAR ([id number]) 1955 F Date Time Provider Department 04/28/24 3:00 PM DANETTE ISAAC ENWSTR During your visit today, we recorded the following information about you: Danette Isaac MD 04/28/2024 6:37 PM Addendum [facility] Initial Clinic Visit Note CONSULTING PHYSICIAN: Rajesh Morley DO (PCP) My final recommendations will be communicated back to the requesting physician by way of shared Medical record or a letter via [place] mail Subjective: Marcos Bolivar is a 69 year old female here to establish care for hypothyroidism. How hypothyroidism was discovered: about 40 years ago Cause of hypothyroidism: Dilan's thyroiditis Current treatment: LT4 12 mcg daily Prior treatment: does not remember She reports having thyroid nodules, underwent FNAB with benign results- she had done at [facility], about 4 to 5 years ago, and was never followed after She reports she went on a website, and knew that thyroid medication should be taken She reports knowing about temperature, heart rate which tells the thyroid function Reports she has gained weight after starting OCP during reproductive age, but could not lose after discontinuing them. Otherwise no new changes in weight Family history: Hypothyroidism in mother, sisters He has had a lot of questions about hormones She reports she was told that as she has many sons, and brothers, she could have facial hair - underwent electrolysis for this She is diagnosed with RA, intermittently takes steroids with flare REVIEW OF SYSTEMS: GENERAL:No weight loss, malaise or fevers HEENT:Negative for frequent or significant headaches, No changes in hearing or vision, no nose bleeds or other nasal problems NECK:Negative for lumps, goiter, pain and significant neck swelling RESPIRATORY: Negative for cough, hemoptysis, wheezing or shortness of breath CARDIOVASCULAR: Negative for chest pain, leg swelling or palpitations GASTROINTESTINAL: No nausea, vomiting, or persistent diarrhea GENITOURINARY: no dysuria, Polyuria, no changes in urinary frequency MUSCULOSKELETAL:no muscle aches, arthralgia NEUROLOGIC: no numbness, tingling, no Paresthesias, no headaches SKIN:Negative for lesions, rash, and itching PSYCHIATRIC: Negative for sleep disturbance, mood disorder and recent psychosocial stressors. HEMATOLOGIC/LYMPHATIC/IMMU NOLOGIC:Negative for prolonged bleeding, bruising easily ENDOCRINE: Negative for cold or heat intolerance or goiter ALLERGIES: ALLERGIES Allergen Reactions Augmentin [Amoxicil* Rash Levaquin [Levofloxa* Intolerance tendonitis Penicillins Rash Sulfa (Sulfonamide * Intolerance Ultram [Tramadol Hc* Rash MEDICATIONS: Current Outpatient Medications on File Prior to Visit Medication Sig predniSONE (DELTASONE) 10 mg tablet Take 10 mg by mouth as needed (for RA flares). ergocalciferol, vitamin D2, (VITAMIN D2 ORAL) Take by mouth. iron,carb/vit C/vit B12/folic (IRON 100 PLUS ORAL) Take by mouth. levothyroxine (LEVOXYL) 112 mcg tablet Take 1 tablet by mouth once daily. Take on empty stomach. For thyroid. sertraline (ZOLOFT) 25 mg tablet Take 1 tablet by mouth once daily. (Patient taking differently: Take 50 mg by mouth once daily.) hydrOXYchloroQUINE (PLAQUENIL) 200 mg tablet Take 1 tablet by mouth once daily. (Patient not taking: Reported on 04/28/2024) No current facility-administered medications on file prior to visit. PAST MEDICAL HISTORY: PAST MEDICAL HISTORY 03/02/2016: Adjustment disorder with depressed mood No date: Depression No date: Esophagitis, unspecified 11/11/2014: GERD (gastroesophageal reflux disease) No date: Hypothyroidism No date: Migraine PAST SURGICAL HISTORY: PAST SURGICAL HISTORY 1996: CHOLECYSTECTOMY Comment: Cholecystectomy 08/30/00: COLONOSCOPY FLX DX W/COLLJ SPEC WHEN PFRMD Comment: internal hemorrhoids only 03/27/2011: COLONOSCOPY FLX DX W/COLLJ SPEC WHEN PFRMD Comment: Colonoscopy repeat 10 yrs 07/22/00: ESOPHAGOGASTRODUODENOSCOPY TRANSORAL DIAGNOSTIC Comment: mild duodenitis 11/06/2012: ESOPHAGOGASTRODUODENOSCOPY TRANSORAL DIAGNOSTIC Comment: EGD 03/18/15: FNA WITH IMAGING; Left Comment: U/S FNA left breast UOQ 03/2001: HYSTERECTOMY HX Comment: hysterectomy : PAST SURGICAL HISTORY OF Comment: cleft lip surgery 03/02: PAST SURGICAL HISTORY OF Comment: partial hysterectomy has 1 ovary left 1960: TONSILLECTOMY PRIMARY/SECONDARY Comment: Tonsillectomy FAMILY HISTORY: FAMILY HISTORY Problem Relation Age of Onset Cancer Father lung, liver,pancreas Diabetes Son Stroke Father Coronary Artery Disease Father None Brother None Brother None Brother None Brother None Brother other (colitis [Other]) Sister other (hypercholesterol [Other]) Sister SOCIAL HISTORY: Social History Toba (more content not included)... Normal [facility] Lipid Profileon 04-24-2024 Cholesterol [Mass/Vol] 180 mg/dL Normal 200 [facility] Comment on above: Result Comment: <200 mg/dL Desirable 200-240 mg/dL Borderline >240 mg/dL High Risk Performed By: #### L 500.4100, L506.0400, L501.9520 #### [facility] [address] [place], [address] Cholesterol in HDL [Mass/Vol] 48 mg/dL Normal [facility] Comment on above: Result Comment: The drugs N-Acetylcysteine and Metamizole may falsely depress this assay. Reference Range HDL <40 mg/dL Low HDL Cholesterol HDL >or= 60 mg/dL High HDL Cholesterol Performed By: #### L 500.4100, L506.0400, L501.9520 #### [facility] [address] [place], [address] Cholesterol in LDL [Mass/Vol] 117 mg/dL Normal 0-130 [facility] Comment on above: Performed By: #### L 500.4100, L506.0400, L501.9520 #### [facility] [address] [place], [address] Cholesterol in VLDL [Mass/Vol] 15 mg/dL Normal 5-40 [facility] Comment on above: Performed By: #### L 500.4100, L506.0400, L501.9520 #### [facility] [address] [place], [address] Triglyceride [Mass/Vol] 77 mg/dL Normal [facility] Comment on above: Result Comment: The drugs N-Acetylcysteine and Metamizole may falsely depress this assay. Serum Triglycerides Reference Interval Normal <150 mg/dL Borderline high 150 - 199 mg/dL High 200 - 499 mg/dL Very High > or = 500 mg/dL Performed By: #### L 500.4100, L506.0400, L501.9520 #### [facility] [address] [place], [address] T4 Free Directon 04-24-2024 T4 FREE DIRECT 1.16 ng/dL Normal 0.76-1.46 [facility] Comment on above: Performed By: #### L 500.4100, L506.0400, L501.9520 #### [facility] [address] [place], [address] Thyroid Stim Hormone (TSH)on 04-24-2024 TSH 3.170 uIU/mL Normal 0.358-3.74 0 [facility] Comment on above: Performed By: #### L 500.4100, L506.0400, L501.9520 #### [facility] [address] [place], [address] Alanine aminotransferase (AL T) assayOrdered By: Kayce London on 03-16-2024 ALT [Catalytic activity/Vol] 27 U/L 13-56 [facility] Albumin to globulin ratioOrd ered By: Kayce London on 03-16-2024 Albumin/Globulin [Mass ratio] 0.9 {ratio} 0.9-2.4 [facility] Alkaline phosphataseOrdered By: Kayce London on 03-16-2024 ALP [Catalytic activity/Vol] 110 U/L 45-117 [facility] Bilirubin, totalOrdered By: Kayce London on 03-16-2024 Bilirubin [Mass/Vol] 0.30 mg/dL 0.20-1.00 [facility] Comment on above: For patients on eltr ombopag therapy, use of Dimension [place] TBIL is not recommended. Blood urea nitrogen (BUN)/cr eatinine ratioOrdered By: Kayce London on 03-16-2024 Urea nitrogen/Creatinine [Mass ratio] 9.8 mg/mg Low 10-20 [facility] Carbon dioxide measurementOr dered By: Kayce London on 03-16-2024 CO2 [Moles/Vol] 27.0 mmol/L 21.0-32.0 [facility] Chloride measurementOrdered By: Kayce London on 03-16-2024 Chloride [Moles/Vol] 106 mmol/L 98-107 [facility] Glomerular filtration rate ( GFR) estimationOrdered By: Kayce London on 03-16-2024 GFR/1.73 sq M.predicted among non-blacks MDRD (S/P/Bld) [Vol rate/Area] 74 mL/min/{1.73_m2} >60 [facility] Comment on above: Non- GFR Calc Glucose measurementOrdered B y: Kayce London on 03-16-2024 Glucose [Mass/Vol] 108 mg/dL High 74-106 [facility] Comment on above: Fasting Glucose resu lt from 100 to 125 mg/dL suggests IMPAIRED HOMEOSTASIS per A.D.A. criteria. Laboratory - Chemistry and C hemistry - challengeOrdered By: Kayce London on 03-16-2024 AST [Catalytic activity/Vol] 22 U/L 15-37 [facility] Potassium measurementOrdered By: Kayce London on 03-16-2024 Potassium [Moles/Vol] 3.6 mmol/L 3.5-5.[address] [facility] Serum albumin measurementOrd ered By: Kayce London on 03-16-2024 Albumin [Mass/Vol] 3.4 g/dL 3.2-5.0 [facility] Serum anion gap measurementO rdered By: Kayce Lonodn on 03-16-2024 Anion gap [Moles/Vol] 8 mmol/L 5-[address] [facility] Serum globulin measurementOr dered By: Kayce London on 03-16-2024 Globulin (S) [Mass/Vol] 3.7 g/dL 2.2-4.2 [facility] Serum or plasma calcium madhavi urement (mass/volume)Ordered By: Kayce London on 03-16-2024 Calcium [Mass/Vol] 9.1 mg/dL 8.5-10.1 [facility] Serum or plasma creatinine m easurement (mass/volume)Ordered By: Kayce London on 03-16-2024 Creatinine [Mass/Vol] 0.82 mg/dL 0.55-1.[address] [facility] Comment on above: The validity of the calculated GFR & GFRAA in patients over 70 years has not been determined. Clinical correlation is essential. Serum or plasma urea nitroge n measurement (mass/volume)Ordered By: Lexikaleb Lita on 03-16-2024 Urea nitrogen [Mass/Vol] 8 mg/dL 7-18 [facility] Sodium levelOrdered By: Lexi manuel Lita on 03-16-2024 Sodium [Moles/Vol] 141 mmol/L 136-145 [facility] Total proteinOrdered By: Sandro mckinney Lita on 03-16-2024 Protein [Mass/Vol] 7.1 g/dL 6.4-8.2 [facility] CNOVon 01-02-2024 CNOV Office Visit ([facility] ) -- KATTMARCOS Chavez ([id number]) 1955 F Date Time Provider Department 01/02/24 2:00 PM VIVEK SILVA [facility] During your visit today, we recorded the following information about you: Temperature Pulse Respiration Blood pressure 99.2 degrees 70/minute 18/minute 117/74 Weight 92.1 kg Vivek Silva MD 01/02/2024 2:44 PM Signed MD Marcos Felder January 01, 2024 Referring Provider:Anand Taylor PCP: Rajesh Morley DO Chief Complaint: Patient presents with: New HPI:Marcos Bolivar is a 68 year old female who comes here today for sarcoidosis and RA. She started to notice nodules, swelling and pain on her right second and third fingers about a year ago. This happened almost overnight. No pain or swelling in the other joints. She was seen by local provider. Her RF and CCP were positive. She was offered treatment with DMARDs but she declined citing concern over side effect. So far, she has been treated with only 2 short course of steroid burst which was effective to control her symptoms and swelling. She is also recently diagnosed with pulmonary sarcoidosis. It was accidentally found on CT scan that was done to rule out PE because of palpitation and elevated D-dimer. She does not have pulmonary symptoms. No cough, pleurisy or dyspnea. The diagnosis of sarcoidosis was eventually confirmed by biopsy. She was seen by Dr. Foy earlier today who does not think that her pulmonary sarcoidosis needs treatment. PAST MEDICAL HISTORY Diagnosis Date Adjustment disorder with depressed mood 03/02/2016 Depression Esophagitis, unspecified GERD (gastroesophageal reflux disease) 11/11/2014 Hypothyroidism Migraine PAST SURGICAL HISTORY Procedure Laterality Date CHOLECYSTECTOMY 1996 Cholecystectomy COLONOSCOPY FLX DX W/COLLJ SPEC WHEN PFRMD 08/30/00 internal hemorrhoids only COLONOSCOPY FLX DX W/COLLJ SPEC WHEN PFRMD 03/27/2011 Colonoscopy repeat 10 yrs ESOPHAGOGASTRODUODENOSCOPY TRANSORAL DIAGNOSTIC 07/22/00 mild duodenitis ESOPHAGOGASTRODUODENOSCOPY TRANSORAL DIAGNOSTIC 11/06/2012 EGD FNA WITH IMAGING Left 03/18/15 U/S FNA left breast UOQ HYSTERECTOMY HX 03/2001 hysterectomy PAST SURGICAL HISTORY OF cleft lip surgery PAST SURGICAL HISTORY OF 03/02 partial hysterectomy has 1 ovary left TONSILLECTOMY PRIMARY/SECONDARY Tonsillectomy Social History Tobacco Use Smoking status: Never Smokeless tobacco: Never Substance Use Topics Alcohol use: Yes Comment: once a month-Rare Drug use: No Health Maintenance: Annual PCP Team Chronic Disease Visit Never done RSV Vaccine(1 - 1-dose 60+ series) Never done Mammogram Screening due on 03/19/2017 Diabetes Screening due on 07/23/2019 Colorectal Cancer Screening due on 03/27/2021 Lipid Screening due on 07/23/2021 Pneumococcal Vaccine: 65+(2 of 2 - PCV) due on 04/23/2023 Covid-19 Vaccine(2022- season) due on 05/03/2023 Advance Directive Discussion Never done Behavioral Health Screening Never done Immunization History Administered Date(s) Administered COVID-19 original vaccine, full dose, monovalent (MODERNA) 10/30/2020 11/23/2020 07/17/2021 COVID-19 vaccine, age 12+ yr, bivalent (MODERNA) 06/07/2022 influenza (IIV4) vaccine, age 6 mo - 64 yr, quadrivalent (AFLURIA, FLULAVAL, FLUZONE) 06/10/2015 08/03/2016 novel influenza (T8V0-04) vaccine, PF 10/10/2009 tetanus diphtheria pertussis (Tdap) vaccine, age 7+ yr (ADACEL, BOOSTRIX) 04/10/2019 zoster (ZVL) vaccine, live (ZOSTAVAX) 06/10/2015 Current Outpatient Medications Medication Sig Dispense Refill hydrOXYchloroQUINE (PLAQUENIL) 200 mg tablet Take 1 tablet by mouth once daily. 30 tablet 11 mupirocin (BACTROBAN) 2 % ointment Apply 1 application to affected area three times daily. (Patient not taking: Reported on 03/03/2023) 30 g 0 ibuprofen (MOTRIN) 800 mg tablet Take 1 tablet by mouth every 8 hours as needed for Pain (with food.). (Patient not taking: Reported on 04/10/2019) 30 tablet 0 levothyroxine (LEVOXYL) 112 mcg tablet Take 1 tablet by mouth once daily. Take on empty stomach. For thyroid. 90 tablet 3 sertraline (ZOLOFT) 25 mg tablet Take 1 tablet by mouth once daily. 90 tablet 3 cholecalciferol (VITAMIN D3) 1,000 unit tab tablet Take 1,000 Units by mouth once daily. (Patient not taking: Reported on 01/02/2024) No current facility-administered medications for this visit. ALLERGIES Allergen Reactions Augmentin [Amoxicil* Rash Levaquin [Levofloxa* Intolerance tendonitis Penicillins Rash Sulfa (Sulfonamide * Intolerance Ultram [Tramadol Hc* Rash Physical Exam: BP 117/74 Pulse 70 Temp (Src) 99.2 (Temporal) Resp 18 Wt 203 lb (92.1kg) SpO2 96% General: Not pale, no jaundice, not in acute distress Head: Normocephalic, atraumatic Eyes: No redeye, no discharge (more content not included)... [facility] CNOV Office Visit ([facility] ) -- MARCOS BOLIVAR ([id number]) 1955 F Date Time Provider Department 01/02/24 1:00 PM MICHAEL FOY During your visit today, we recorded the following information about you: Temperature Pulse Respiration Blood pressure 99.2 degrees 70/minute 18/minute 117/74 Weight 92.3 kg Michael Foy MD 01/02/2024 2:50 PM Addendum Respiratory [place] Consultation requested by Dr. Rajesh Morley for an opinion regarding pulmonary sarcoidosis. My final recommendations will be communicated back to the requesting physician by way of shared Medical record or letter to requesting physician via US mail. 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 -01/02/2024: seen in sarcoidosis clinic, asymptomatic, no evidence of extrapulmonary sarcoidosis. Sarcoidosis History: Date of symptom onset: 2018 Date of diagnosis: 2021 How was the diagnosis confirmed?:Other biopsy: needle lung nodule biopsy. Was the biopsy performed here? No What organs are affected (in your opinion)?: Lungs Interval development of possible Sarcoidosis manifestations (related to previously uninvolved organs): No new symptoms Immediate relative with sarcoidosis: None Pulmonary hypertension: No suspicion Sarcoidosis Therapies: Past medications: No medication Current medications: No medication Treatment-defining organ: None Is the patient being treated with oxygen therapy?: No MRC Dyspnea Scale: 1. Not troubled by breathlessness except on strenuous exercise ALLERGIES Allergen Reactions Augmentin [Amoxicil* Rash Levaquin [Levofloxa* Intolerance tendonitis Penicillins Rash Sulfa (Sulfonamide * Intolerance Ultram [Tramadol Hc* Rash CURRENT MEDICATIONS: levothyroxine (LEVOXYL) 112 mcg tablet Take 1 tablet by mouth once daily. Take on empty stomach. For thyroid. sertraline (ZOLOFT) 25 mg tablet Take 1 tablet by mouth once daily. hydrOXYchloroQUINE (PLAQUENIL) 200 mg tablet Take 1 tablet by mouth once daily. mupirocin (BACTROBAN) 2 % ointment Apply 1 application to affected area three times daily. (Patient not taking: Reported on 03/03/2023) ibuprofen (MOTRIN) 800 mg tablet Take 1 tablet by mouth every 8 hours as needed for Pain (with food.). (Patient not taking: Reported on 04/10/2019) cholecalciferol (VITAMIN D3) 1,000 unit tab tablet Take 1,000 Units by mouth once daily. (Patient not taking: Reported on 01/02/2024) PHYSICAL EXAM: BP 117/74 Pulse 70 Temp (Src) 99.2 (Temporal) Resp 18 Wt 203 lb 6.4 oz (92.3kg) SpO2 96% General appearance: Well appearing, alert, in no acute distress, well-hydrated, well nourished. Skin: Skin color, texture, turgor normal, no suspicious rashes or lesions Head: Normocephalic, no masses, lesions, tenderness or abnormalities Eyes: Anicteric sclera. Extraocular movements are intact. Lungs: no audible wheeze, no accessory muscle use, on RA Extremities: No deformities, edema, skin discoloration, clubbing or cyanosis. Neuro: Gait normal. Sensation grossly intact. Moving all extremities Data Reviewed (in addition to that noted in HPI, and Past histories above): Date FVC (%) FEV1 (%) Post -BD (%) FEV1/ FVC DLCO (%) 11/13/23 2.7 (875) 2.2 (90% 80% 21.3 (104%) 11/13/23 CT chest ASSESSMENT Marcos Bolivar is a 68 year old female with PMH rheumatoid arthritis here for information on sarcoidosis Diagnosis: confirmed with lung biopsy with granluoma with r/o infection (per pt, working on getting path) Organ involvement (based on WASOG organ assessment tool) - This tool assumes granulomatous inflammation identified on biopsy, and alternative causes excluded -Lung: highly probable with granulomatous nodules that are stable, old histo infection is also on differential -Eyes: no symptoms -Skin: no rash -Renal: nl SCr -Liver/splee: nl LFTs -Ca/vit D: nl Ca -Neuro: no symptoms -Cardiac: no symptoms -Constitutional (fatigue, SFN, depression) Treatment: has not required treatment, asymptomatic PLAN Pulmonary sarcoidosis: no indication for treatment -follow up 1 year with PFTs Lung nodules: most likely sarcoidosis but need to review imaging -obtain past imaging/path -consideration of follow up CT to ensure stability (6 months vs. 1 year). Rheumatoid arthritis: L metacarpal pain and elevated RF -seeing rheum today, would support treatment. Do not think this is related to sarcoidosis Sarcoidosis medications after visit: No medication Follow up 1 year Michael Foy, (more content not included)... [facility] CNPNon 01-02-2024 CNPN Telephone ([facility]UL[facility]) -- MARCOS BOLIVAR ([id number]) 1955 F Date Time Provider Department 01/02/24 MELINDA HOOKS PULNIDIA During your visit today, we recorded the following information about you: Melinda Hooks RN 01/02/2024 3:26 PM Signed 01/02/2024: 1524: Called [facility] Imaging dept and spoke to Yue- she is pushing CT of chest images from 11/23, 2022, and 2020 and also needle bx of 2019. She is faxing the pathology report of the biopsy to us as well. Dr. Foy notified. Melinda Hooks RN Allergies As of Date: 01/02/2024 Noted Allergy Reaction AUGMENTIN (AMOXICILLIN-POT CLAVUL*04/26/2007 2 - Rash LEVAQUIN (LEVOFLOXACIN) 08/30/2015 5 - Intolerance Comments: tendonitis PENICILLINS 02/05/2011 2 - Rash SULFA (SULFONAMIDE ANTIBIOTICS) 10/17/2012 5 - Intolerance ULTRAM (TRAMADOL HCL) 04/28/2007 2 - Rash Date Reviewed: 01/02/2024 Reviewed by: Cristofer Jaramillo MA - Fully Assessed Prescriptions as of 01/02/2024 - hydrOXYchloroQUINE (PLAQUENIL) 200 mg tablet Take 1 tablet by mouth once daily. - levothyroxine (LEVOXYL) 112 mcg tablet Take 1 tablet by mouth once daily. Take on empty stomach. For thyroid. - sertraline (ZOLOFT) 25 mg tablet Take 1 tablet by mouth once daily. Problem List As Of Date 01/02/2024 Noted Resolved BMI 32.0-32.9,adult [Z68.32] 11/11/2014 06/10/2015 Abnormal mammogram of left breast [R92.8] 03/18/2015 Adjustment disorder with depressed mood [F43.21]03/02/2016 Encounter for gynecological examination without*07/18/2016 Well adult exam [Z00.00] 07/18/2016 Gastroesophageal reflux disease without esophag*07/18/2016 Acquired hypothyroidism [E03.9] 07/18/2016 Encounter for screening for cardiovascular diso*07/18/2016 Encounter for screening for diabetes mellitus [*07/18/2016 Encounter Status:Closed by MELINDA HOOKS on 01/02/24 [facility] 12-20-2023 CNPN Telephone (PULMMN) -- MARCOS BOLIVAR ([id number]) 1955 F Date Time Provider Department 12/20/23 MICHAEL FOY During your visit today, we recorded the following information about you: Chacha Whipple 12/20/2023 10:49 AM Signed Imported external CT/PFT report from [facility], dated 11/13/2023. Please allow time delay for documents to appear in Epic (Scanned Documents Tab). Images can take up to 24 hours to appear in Epic. Chacha Whipple 01/06/2024 12:58 PM Signed Imported external pathology report from [facility], dated 06/23/2020. --------- --------- Please allow time delay for documents to appear in Epic (Scanned Documents Tab). Images can take up to 24 hours to appear in Epic. Allergies As of Date: 12/20/2023 Noted Allergy Reaction AUGMENTIN (AMOXICILLIN-POT CLAVUL*04/26/2007 2 - Rash LEVAQUIN (LEVOFLOXACIN) 08/30/2015 5 - Intolerance Comments: tendonitis PENICILLINS 02/05/2011 2 - Rash SULFA (SULFONAMIDE ANTIBIOTICS) 10/17/2012 5 - Intolerance ULTRAM (TRAMADOL HCL) 04/28/2007 2 - Rash Date Reviewed: 03/03/2023 Reviewed by: Hazel Alexander MA - Fully Assessed Reason for Visit: Received Outside Medical Records [[id number]] Prescriptions as of 01/06/2024 - hydrOXYchloroQUINE (PLAQUENIL) 200 mg tablet Take 1 tablet by mouth once daily. - levothyroxine (LEVOXYL) 112 mcg tablet Take 1 tablet by mouth once daily. Take on empty stomach. For thyroid. - sertraline (ZOLOFT) 25 mg tablet Take 1 tablet by mouth once daily. Problem List As Of Date 12/20/2023 Noted Resolved BMI 32.0-32.9,adult [Z68.32] 11/11/2014 06/10/2015 Abnormal mammogram of left breast [R92.8] 03/18/2015 Adjustment disorder with depressed mood [F43.21]03/02/2016 Encounter for gynecological examination without*07/18/2016 Well adult exam [Z00.00] 07/18/2016 Gastroesophageal reflux disease without esophag*07/18/2016 Acquired hypothyroidism [E03.9] 07/18/2016 Encounter for screening for cardiovascular diso*07/18/2016 Encounter for screening for diabetes mellitus [*07/18/2016 Encounter Status:Closed by CHACHA WHIPPLE on 12/20/[address] [facility] 11-19-2023 CNPN Telephone (PULMMN) -- MARCOS BOLIVAR ([id number]) 1955 F Date Time Provider Department 11/19/23 MELINDA HOOKS During your visit today, we recorded the following information about you: Melinda Hooks, RN 11/20/2023 9:29 AM Signed Sarcoidosis Consult Note Patient: Marcos Bolivar Date: November 19, 2023 8:02 AM Schedulers: Patient referred please schedule first available appointment for Sarcoidosis with him/her if possible. Other options that should be presented to the patient are: ILD/Sarcoid Dr. Rowan Coleman: [facility] AND [place]. Dr. Michael Foy: [facility] AND [facility] ([place]). Dr. Douglas Camejo: [facility] and [facility] Dr. Tony Angeles: [facility], [facility] AND [place]. Dr. Sujit Lopez: [facility] AND [place]. Dr. Kemar Zee: [facility], [facility] ([facility]) AND [facility] ([facility]). Sarcoid/ILD Pulmonary [place]: [facility] ( afternoon). Dr. Nathalia Lomas: [facility]. AND [place]. ILD/Sarcoid/Beryllium/Occu pational Dr. Quin Quiroz: [facility], [facility]. Testing to be done on first visit: Consults to be done on first visit: Rheumatology Consult - Dr. Vivek Silva-Per pt request PSS: Please remind patient to have their CT/MRI in hand and bring to the appointment if unable to upload or mail in. Diagnosis: Do you have a diagnosis of sarcoidosis by a doctor? Yes Have you had a biopsy? Yes If so, biopsy type: Needle biopsy Date diagnosis made: 2021 If not, why does your physician think you have sarcoidosis? N/A Pt is a self referral Pt with pmHx of: Anxiety disorder, Cardiac dysrhythmia (SVT), Acquired Hypothyroidism, Osteoporosis, RA 11/13/2023: CT Chest w/o contrast: -There is a 7.5 mm noncalcified nodule in the anterior medial aspect of the left upper lobe as seen on axial image #29. -Partially calcified 4.8 mm nodule in the anterior aspect of the right lower lobe adjacent to the right major fissure. 3 mm noncalcified nodule in the peripheral lateral aspect of the right lower lobe as seen on image #52. 1.05 cm nodule in the anterior medial aspect of the right middle lobe as seen on axial image #56. 08/08/2023: CT Chest w/o contrast: -There is a noncalcified nodule in the right upper lobe that measures 9 mm. There is a noncalcified nodule seen. The right middle lobe and measures 1.1 cm. There are small 3 to 4 mm noncalcified nodules seen right middle and lower lobes as well as in the left lower lobe. 05/23/2023: CT Chest w/o contrast: -Stable 8 mm noncalcified nodule in the medial aspect of the left upper lobe as seen on axial image #2. Slight increase in size of the previously seen nodule in the right middle lobe as seen on axial image #31. This measures 1.2 cm. Stable 5.2 mm well-defined nodule in the anterior aspect of the right lower lobe. Abbreviated Sarcoidosis-related Review of System: Eyes Have you been seeing an formal service waiter for inflammation in your eyes? No Do you have blurred vision, sensitivity to light? No Last ophthalmology exam 2022 Heart Have you been told you have heart involvement? No If so, have you had an MRI or PET scan? No Do you have a device, pacemaker, or defibrillator? No Do you have palpitations? Yes Ever been told you have ventricular tachycardia or a heart block? No Do you have heart failure? No Neuro Have you ever seen a neurologist? No Have you ever had a brain, neck, spine MRI? No Do you have extremity weakness? No Do you have numbness and tingling? 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 As Above Triage/Consult Team: Advise patient that a senior master scheduler will call them in 3-5 business days. Assessment and Plan What is the goal of you seeking an evaluation at the [facility]? Evaluation and treatment plan for sarcoidosis Thank you, Melinda Hooks RN Allergies As of Date: 11/19/2023 Noted Allergy Reaction AUGMENTIN (AMOXICILLIN-POT CLAVUL*04/26/2007 2 - Rash LEVAQUIN (LEVOFLOXACIN) 08/30/2015 5 - Intolerance Comments: tendonitis PENICILLINS 02/05/2011 2 - Rash SULFA (SULFONAMIDE ANTIBIOTICS) 10/17/2012 5 - Intolerance ULTRAM (TRAMADOL HCL) 04/28/2007 2 - Rash Date Reviewed: 03/03/2023 Reviewed by: Hazel Alexander MA - Fully Assessed Primary Visit Diagnosis:Sarcoidosis [D86.9] Order(s):CONSULT TO RHEUM/IMMUN DISEASE [9039] Order #: [id number]: 1 FUTURE Prescriptions as of 11/20/2023 - mupirocin (BACTROBAN) 2 % ointment Apply 1 application to affected area three times daily. - ibuprofen (MOTRIN) 800 mg tablet Take 1 tablet by mouth every 8 hours as needed for Pain (with (more content not included)... [facility] MARCOS BOLIVAR ([id number]) 1955 F Date Time Provider Department 11/18/23 SUJIT DURBIN During your visit today, we recorded the following information about you: Chuy Cutler 11/19/2023 3:24 PM Signed A referral from [facility] was received today and the medical records were scanned into the system. Allergies As of Date: 11/18/2023 Noted Allergy Reaction AUGMENTIN (AMOXICILLIN-POT CLAVUL*04/26/2007 2 - Rash LEVAQUIN (LEVOFLOXACIN) 08/30/2015 5 - Intolerance Comments: tendonitis PENICILLINS 02/05/2011 2 - Rash SULFA (SULFONAMIDE ANTIBIOTICS) 10/17/2012 5 - Intolerance ULTRAM (TRAMADOL HCL) 04/28/2007 2 - Rash Date Reviewed: 03/03/2023 Reviewed by: Hazel Alexander MA - Fully Assessed Reason for Visit: Referral Information [[id number]] Prescriptions as of 11/19/2023 - mupirocin (BACTROBAN) 2 % ointment Apply 1 application to affected area three times daily. - ibuprofen (MOTRIN) 800 mg tablet Take 1 tablet by mouth every 8 hours as needed for Pain (with food.). - levothyroxine (LEVOXYL) 112 mcg tablet Take 1 tablet by mouth once daily. Take on empty stomach. For thyroid. - sertraline (ZOLOFT) 25 mg tablet Take 1 tablet by mouth once daily. - cholecalciferol (VITAMIN D3) 1,000 unit tab tablet Take 1,000 Units by mouth once daily. Problem List As Of Date 11/18/2023 Noted Resolved BMI 32.0-32.9,adult [Z68.32] 11/11/2014 06/10/2015 Abnormal mammogram of left breast [R92.8] 03/18/2015 Adjustment disorder with depressed mood [F43.21]03/02/2016 Encounter for gynecological examination without*07/18/2016 Well adult exam [Z00.00] 07/18/2016 Gastroesophageal reflux disease without esophag*07/18/2016 Acquired hypothyroidism [E03.9] 07/18/2016 Encounter for screening for cardiovascular diso*07/18/2016 Encounter for screening for diabetes mellitus [*07/18/2016 Encounter Status:Closed by CHUY CUTLER [facility] 11/18/23 [facility] Bas[facility] percentageOrdered B y: Rajesh Morley on 04-24-2023 Bilirubin [Mass/Vol] 0.40 mg/dL 0.20-1.00 [facility] Comment on above: For patients on eltr ombopag therapy, use of Dimension [place] TBIL is not recommended. Chloride [Moles/Vol] 107 mmol/L 98-107 [facility] Cholesterol [Mass/Vol] 195 mg/dL <200 [facility] Comment on above: <200 mg/dL Desirable 200-240 mg/dL Borderline >240 mg/dL High Risk Glucose [Mass/Vol] 90 mg/dL 74-106 [facility] Potassium [Moles/Vol] 3.6 mmol/L 3.5-5.[address] [facility] Protein [Mass/Vol] 6.9 g/dL 6.4-8.2 [facility] Sodium [Moles/Vol] 142 mmol/L 136-145 [facility] Triglyceride [Mass/Vol] 94 mg/dL <199 [facility] Comment on above: The drugs N-Acetylcy steine and Metamizole may falsely depress this assay.Serum Triglycerides Reference Interval Normal <150 mg/dL Borderline high 150 - 199 mg/dL High 200 - 499 mg/dL Very High > or = 500 mg/dL Laboratory - Chemistry and C hemistry - challengeOrdered By: Rajesh Morley on 04-24-2023 ALP [Catalytic activity/Vol] 95 U/L 45-117 [facility] ALT [Catalytic activity/Vol] 32 U/L 13-56 [facility] CO2 [Moles/Vol] 32.0 mmol/L 21.0-32.0 [facility] Free T4 [Mass/Vol] 1.16 ng/dL 0.76-1.46 [facility] Globulin (S) [Mass/Vol] 3.5 g/dL 2.2-4.2 [facility] Urea nitrogen/Creatinine [Mass ratio] 16.0 mg/mg 10-20 [facility] No Panel InformationOrdered By: Rajesh Morley on 04-24-2023 Estimated GFR (MDRD) Amer 99 mL/min >60 [facility] Comment on above: GFR Calc Estimated GFR (MDRD) Non-Af Amer 82 mL/min >60 [facility] Comment on above: Non- GFR Calc Thyroid Stimulating Hormone (TSH) 2.70 uIU/mL 0.358-3.74 [facility] Serum or plasma albumin madhavi urement (mass/volume)Ordered By: Rajesh Morley on 04-24-2023 Albumin [Mass/Vol] 3.4 g/dL 3.2-5.0 [facility] Serum or plasma albumin/glob ulin mass ratioOrdered By: Rajehs Morley on 04-24-2023 Albumin/Globulin [Mass ratio] 1.0 {ratio} 0.9-2.4 [facility] Serum or plasma calcium madhavi urement (mass/volume)Ordered By: Rajesh Morley on 04-24-2023 Calcium [Mass/Vol] 8.7 mg/dL 8.5-10.1 [facility] Serum or plasma cholesterol in HDL measurement (mass/volume)Ordered By: Rajesh Morley on 04-24-2023 Cholesterol in HDL [Mass/Vol] 44 mg/dL >40 [facility] Comment on above: The drugs N-Acetylcy steine and Metamizole may falsely depress this assay. Reference Range HDL <40 mg/dL Low HDL Cholesterol HDL >or= 60 mg/dL High HDL Cholesterol Serum or plasma cholesterol in VLDL measurement (mass/volume)Ordered By: Rajesh Morley on 04-24-2023 Cholesterol in VLDL [Mass/Vol] 19 mg/dL 5-40 [facility] Serum or plasma creatinine m easurement (mass/volume)Ordered By: Rajesh Morley on 04-24-2023 Creatinine [Mass/Vol] 0.75 mg/dL 0.55-1.[address] [facility] Comment on above: The validity of the calculated GFR & GFRAA in patients over 70 years has not been determined. Clinical correlation is essential. Serum or plasma low density lipoprotein (LDL) cholesterol measurement (mass/volume)Ordered By: Rajesh Morley on 04-24-2023 Cholesterol in LDL [Mass/Vol] 132 mg/dL 0-130 [facility] Serum or plasma urea nitroge n measurement (mass/volume)Ordered By: Rajesh Morley on 04-24-2023 Urea nitrogen [Mass/Vol] 12 mg/dL 7-18 [facility] Thin prep Papanicolaou smear with manual screeningOrdered By: Rajesh Morley on 04-24-2023 Thin prep Papanicolaou smear with manual screening 22 U/L 15-37 [facility] Thin prep Papanicolaou smear with manual screening 3 5-15 [facility] Absolute lymphocyte countOrd ered By: Kayce London on 02-26-2023 Lymphocytes Auto (Unsp spec) [#/Vol] 2.06 10*3/uL 0.83-4.51 [facility] Basophil percentageOrdered B y: Kayce London on 02-26-2023 Basophils/100 WBC (Bld) 0.5 % 0-1 [facility] Eosinophils/100 WBC (Bld) 1.7 % 0-5 [facility] Neutrophils (Bld) [#/Vol] 7.5 10*3/uL 2.0-7.7 [facility] Neutrophils/100 WBC (Bld) 69.5 % 47-70 [facility] WBC (Bld) [#/Vol] 10.7 10*3/uL 4.4-11.0 [facility] Blood erythrocytes count (nu mber/volume)Ordered By: Kayce London on 02-26-2023 RBC (Bld) [#/Vol] 4.59 10*6/uL 4.2-5.4 [facility] Blood hemoglobin measurement (mass/volume)Ordered By: Kayce London on 02-26-2023 Hemoglobin (Bld) [Mass/Vol] 13.8 g/dL 12.0-15.0 [facility] Blood lymphocytes/100 leukoc ytesOrdered By: Kayce London on 02-26-2023 Lymphocytes/100 WBC (Bld) 19.2 % 19-41 [facility] Blood monocytes/100 leukocyt esOrdered By: Kayce London on 02-26-2023 Monocytes/100 WBC (Bld) 8.5 % 0-10 [facility] Blood platelet mean volumeOr dered By: Kayce London on 02-26-2023 Platelet mean volume (Bld) [Entitic vol] 10.6 fL 6.2-12.0 [facility] Determination of erythrocyte mean corpuscular volume (MCV)Ordered By: Kayce London on 02-26-2023 MCV (RBC) [Entitic vol] 91.3 fL 81-99 [facility] Hematocrit Auto (Bld) [Volum e fraction]Ordered By: Kayce London on 02-26-2023 Hematocrit (Bld) [Volume fraction] 41.9 % 37-47 [facility] Iron measurement (mass/mass) Ordered By: Kayce London on 02-26-2023 Iron (Unsp spec) [Mass/Mass] 99 ug/dL 50-170 [facility] Laboratory - Hematology and Cell countsOrdered By: Kayce London on 02-26-2023 Erythrocyte distribution width (RBC) [Entitic vol] 45.1 fL 35.1-43.9 [facility] Erythrocyte distribution width (RBC) [Ratio] 13.5 % 11.6-14.6 [facility] Immature granulocytes/100 WBC (Bld) 0.600 % 0.0-0.9 [facility] Comment on above: IG% - Immature Granu locytes (promyelocytes, myelocytes and metamyelocytes) > 1% indicates that a LEFT SHIFT is Present. MCH (RBC) [Entitic mass] 30.1 pg 27.0-32.0 [facility] Nucleated RBC/100 WBC (Bld) [Ratio] 0 % 0-5 [facility] MCHC Auto (RBC) [Mass/Vol]Or dered By: Kayce London on 02-26-2023 MCHC (RBC) [Mass/Vol] 32.9 g/dL 32-[address] [facility] No Panel InformationOrdered By: Kayce London on 02-26-2023 Total Iron Binding Capacity 271 ug/dL 250-450 [facility] Platelets bldOrdered By: Sandro London on 02-26-2023 Platelets (Bld) [#/Vol] 288 10*3/uL 150-450 [facility] Serum or plasma ferritin imelda surement (mass/volume)Ordered By: Kayce London on 02-26-2023 Ferritin [Mass/Vol] 42 ng/mL 8-252 [facility] Serum or plasma iron saturat ion measurement (mass fraction)Ordered By: Kayce London on 02-26-2023 Iron saturation [Mass fraction] 36.5 % 15.0-55.0 [facility] Absolute lymphocyte countOrd ered By: Karolyn Vanessa on 02-15-2023 Lymphocytes Auto (Unsp spec) [#/Vol] 0.74 10*3/uL 0.83-4.51 [facility] Basophil percentageOrdered B y: Karolyn Vanessa on 02-15-2023 Basophils/100 WBC (Bld) 0.7 % 0-1 [facility] Eosinophils/100 WBC (Bld) 3.0 % 0-5 [facility] Neutrophils (Bld) [#/Vol] 4.5 10*3/uL 2.0-7.7 [facility] Neutrophils/100 WBC (Bld) 75.1 % 47-70 [facility] WBC (Bld) [#/Vol] 5.9 10*3/uL 4.4-11.0 [facility] Blood erythrocytes count (nu mber/volume)Ordered By: Karolyn Vanessa on 02-15-2023 RBC (Bld) [#/Vol] 4.53 10*6/uL 4.2-5.4 [facility] Blood hemoglobin measurement (mass/volume)Ordered By: Karolyn Vanessa on 02-15-2023 Hemoglobin (Bld) [Mass/Vol] 13.7 g/dL 12.0-15.0 [facility] Blood lymphocytes/100 leukoc ytesOrdered By: Karolyn Vanessa on 02-15-2023 Lymphocytes/100 WBC (Bld) 12.5 % 19-41 [facility] Blood monocytes/100 leukocyt esOrdered By: Karolyn Vanessa on 02-15-2023 Monocytes/100 WBC (Bld) 8.4 % 0-10 [facility] Blood platelet mean volumeOr dered By: Karolyn Vanessa on 02-15-2023 Platelet mean volume (Bld) [Entitic vol] 11.8 fL 6.2-12.0 [facility] Determination of erythrocyte mean corpuscular volume (MCV)Ordered By: Karolyn Vanessa on 02-15-2023 MCV (RBC) [Entitic vol] 90.3 fL 81-99 [facility] Erythrocyte sedimentation ra teOrdered By: Karolyn Vanessa on 02-15-2023 ESR (Bld) [Velocity] 27 mm/h 0-30 [facility] Hematocrit Auto (Bld) [Volum e fraction]Ordered By: Karolyn Vanessa on 02-15-2023 Hematocrit (Bld) [Volume fraction] 40.9 % 37-47 [facility] Iron measurement (mass/mass) Ordered By: Karolyn Vanessa on 02-15-2023 Iron (Unsp spec) [Mass/Mass] 72 ug/dL 50-170 [facility] Laboratory - Chemistry and C hemistry - challengeOrdered By: Karolyn Vanessa on 02-15-2023 Cobalamin (Vitamin B12) [Mass/Vol] 295 pg/mL 211-911 [facility] Laboratory - Hematology and Cell countsOrdered By: Karolyn Vanessa on 02-15-2023 Erythrocyte distribution width (RBC) [Entitic vol] 42.7 fL 35.1-43.9 [facility] Erythrocyte distribution width (RBC) [Ratio] 12.9 % 11.6-14.6 [facility] Immature granulocytes/100 WBC (Bld) 0.300 % 0.0-0.9 [facility] Comment on above: IG% - Immature Granu locytes (promyelocytes, myelocytes and metamyelocytes) > 1% indicates that a LEFT SHIFT is Present. MCH (RBC) [Entitic mass] 30.2 pg 27.0-32.0 [facility] Nucleated RBC/100 WBC (Bld) [Ratio] 0 % 0-5 [facility] MCHC Auto (RBC) [Mass/Vol]Or dered By: Karolyn Vanessa on 02-15-2023 MCHC (RBC) [Mass/Vol] 33.5 g/dL 32-[address] [facility] No Panel InformationOrdered By: Karolyn Vanessa on 02-15-2023 Anti-Nuclear Antibody Screen Negative Negative [facility] Comment on above: Performed at: - [address] [id number] Director: Lauri Malagon PhD, Phone: [phone] Vitamin D 25-Hydroxy 54.4 ng/mL [facility] Comment on above: Vitamin D 25(OH) Sta tus Range Deficiency <20 ng/mL (50nmol/L) Insufficiency 20 - 30 ng/mL (50 - 75 nmol/L) Sufficiency 30 - 100 ng/mL (75 - 250 nmol/L) Toxicity >100 ng/mL (>250 nmol/L) Platelets bldOrdered By: Alli Vanessa on 02-15-2023 Platelets (Bld) [#/Vol] 261 10*3/uL 150-450 [facility] Serum cyclic citrullinated p eptide IgG antibody assay (units/volume)Ordered By: Karolyn Vanessa on 02-15-2023 Cyclic citrullinated peptide IgG Qn > 250 units 0-19 [facility] Comment on above: Negative <20 Weak po sitive 20 - 39 Moderate positive 40 - 59 Strong positive >59Performed at: [facility] [id number] Director: Lauri Malagon PhD, Phone: [phone] Serum or plasma C reactive p rotein measurement (mass/volume)Ordered By: Karolyn Vanessa on 02-15-2023 CRP [Mass/Vol] 4.01 mg/L 0.0-3.0 [facility] Comment on above: C-Reactive Protein ( CRP) provides useful information for thediagnosis, therapy and monitoring of inflammatory processesand associated diseases. For the evaluation of Relative Riskfor Cardiovascular Disease, a High Sensitivity CRP (HSCRP)should be ordered. Serum or plasma ferritin imelda surement (mass/volume)Ordered By: Karolyn Vanessa on 02-15-2023 Ferritin [Mass/Vol] 35 ng/mL 8-252 [facility] Serum rheumatoid factor dete ctionOrdered By: Karolyn Vanessa on 02-15-2023 Rheumatoid factor Ql (S) 79.0 IU/mL <15 [facility] Absolute lymphocyte countOrd ered By: Dr. Morley on 09-11-2022 Lymphocytes Auto (Unsp spec) [#/Vol] 1.01 10*3/uL 0.83-4.51 [facility] Basophil percentageOrdered B y: Dr. Morley on 09-11-2022 Basophils/100 WBC (Bld) 0.7 % 0-1 [facility] Bilirubin [Mass/Vol] 0.30 mg/dL 0.20-1.00 [facility] Comment on above: For patients on eltr ombopag therapy, use of Dimension [place] TBIL is not recommended. Chloride [Moles/Vol] 105 mmol/L 98-107 [facility] Eosinophils/100 WBC (Bld) 0.5 % 0-5 [facility] Glucose [Mass/Vol] 117 mg/dL 74-106 [facility] Comment on above: Fasting Glucose resu lt from 100 to 125 mg/dL suggests IMPAIRED HOMEOSTASIS per A.D.A. criteria. Neutrophils (Bld) [#/Vol] 6.6 10*3/uL 2.0-7.7 [facility] Neutrophils/100 WBC (Bld) 79.8 % 47-70 [facility] Potassium [Moles/Vol] 4.3 mmol/L 3.5-5.[address] [facility] Protein [Mass/Vol] 7.5 g/dL 6.4-8.2 [facility] Sodium [Moles/Vol] 140 mmol/L 136-145 [facility] WBC (Bld) [#/Vol] 8.2 10*3/uL 4.4-11.0 [facility] Blood erythrocytes count (nu mber/volume)Ordered By: Dr. Morley on 09-11-2022 RBC (Bld) [#/Vol] 4.69 10*6/uL 4.2-5.4 [facility] Blood hemoglobin measurement (mass/volume)Ordered By: Dr. Morley on 09-11-2022 Hemoglobin (Bld) [Mass/Vol] 14.4 g/dL 12.0-15.0 [facility] Blood lymphocytes/100 leukoc ytesOrdered By: Dr. Morley on 09-11-2022 Lymphocytes/100 WBC (Bld) 12.3 % 19-41 [facility] Blood monocytes/100 leukocyt esOrdered By: Dr. Morley on 09-11-2022 Monocytes/100 WBC (Bld) 6.5 % 0-10 [facility] Blood platelet mean volumeOr dered By: Dr. Morley on 09-11-2022 Platelet mean volume (Bld) [Entitic vol] 12.0 fL 6.2-12.0 [facility] Determination of erythrocyte mean corpuscular volume (MCV)Ordered By: Dr. Morley on 09-11-2022 MCV (RBC) [Entitic vol] 94.5 fL 81-99 [facility] Hematocrit Auto (Bld) [Volum e fraction]Ordered By: Dr. Morley on 09-11-2022 Hematocrit (Bld) [Volume fraction] 44.3 % 37-47 [facility] Iron measurement (mass/mass) Ordered By: Dr. Morley on 09-11-2022 Iron (Unsp spec) [Mass/Mass] 82 ug/dL 50-170 [facility] Laboratory - Chemistry and C hemistry - challengeOrdered By: Dr. Morley on 09-11-2022 ALP [Catalytic activity/Vol] 101 U/L 45-117 [facility] ALT [Catalytic activity/Vol] 35 U/L 13-56 [facility] CO2 [Moles/Vol] 28.0 mmol/L 21.0-32.0 [facility] Free T4 [Mass/Vol] 1.33 ng/dL 0.76-1.46 [facility] Globulin (S) [Mass/Vol] 4.0 g/dL 2.2-4.2 [facility] Urea nitrogen/Creatinine [Mass ratio] 11.6 mg/mg 10-20 [facility] Laboratory - Hematology and Cell countsOrdered By: Dr. Morley on 09-11-2022 Erythrocyte distribution width (RBC) [Entitic vol] 47.5 fL 35.1-43.9 [facility] Erythrocyte distribution width (RBC) [Ratio] 13.6 % 11.6-14.6 [facility] Immature granulocytes/100 WBC (Bld) 0.200 % 0.0-0.9 [facility] Comment on above: IG% - Immature Granu locytes (promyelocytes, myelocytes and metamyelocytes) > 1% indicates that a LEFT SHIFT is Present. MCH (RBC) [Entitic mass] 30.7 pg 27.0-32.0 [facility] Nucleated RBC/100 WBC (Bld) [Ratio] 0.2 % 0-5 [facility] MCHC Auto (RBC) [Mass/Vol]Or dered By: Dr. Morley on 09-11-2022 MCHC (RBC) [Mass/Vol] 32.5 g/dL 32-[address] [facility] No Panel InformationOrdered By: Dr. Morley on 09-11-2022 Estimated GFR (MDRD) Amer 85 mL/min >60 [facility] Comment on above: GFR Calc Estimated GFR (MDRD) Non-Af Amer 70 mL/min >60 [facility] Comment on above: Non- GFR Calc Thyroid Stimulating Hormone (TSH) 2.67 uIU/mL 0.358-3.74 [facility] Platelets bldOrdered By: Dr. Morley on 09-11-2022 Platelets (Bld) [#/Vol] 185 10*3/uL 150-450 [facility] Serum or plasma albumin madhavi urement (mass/volume)Ordered By: Dr. Morley on 09-11-2022 Albumin [Mass/Vol] 3.5 g/dL 3.2-5.0 [facility] Serum or plasma albumin/glob ulin mass ratioOrdered By: Dr. Morley on 09-11-2022 Albumin/Globulin [Mass ratio] 0.9 {ratio} 0.9-2.4 [facility] Serum or plasma calcium madhavi urement (mass/volume)Ordered By: Dr. Morley on 09-11-2022 Calcium [Mass/Vol] 9.3 mg/dL 8.5-10.1 [facility] Serum or plasma cortisol imelda surement (mass/volume)Ordered By: Dr. Morley on 09-11-2022 Cortisol [Mass/Vol] 9.70 ug/dL 3.44-22.45 [facility] Comment on above: Adult (AM) 5.27 - 22 .45 ug/dL Adult (PM) 3.44 - 16.76 ug/dLPlease note revised CORTISOL reference range effective 2019. Serum or plasma creatinine m easurement (mass/volume)Ordered By: Dr. Morley on 09-11-2022 Creatinine [Mass/Vol] 0.86 mg/dL 0.55-1.[address] [facility] Comment on above: The validity of the calculated GFR & GFRAA in patients over 70 years has not been determined. Clinical correlation is essential. Serum or plasma ferritin imelda surement (mass/volume)Ordered By: Dr. Morley on 09-11-2022 Ferritin [Mass/Vol] 51 ng/mL 8-252 [facility] Serum or plasma urea nitroge n measurement (mass/volume)Ordered By: Dr. Morley on 09-11-2022 Urea nitrogen [Mass/Vol] 10 mg/dL 7-18 [facility] Thin prep Papanicolaou smear with manual screeningOrdered By: Dr. Morley on 09-11-2022 Thin prep Papanicolaou smear with manual screening 23 U/L 15-37 [facility] Thin prep Papanicolaou smear with manual screening 7 5-15 [facility] Whole blood hemoglobin A1c/t otal hemoglobin ratio (mass fraction)Ordered By: Dr. Morley on 09-11-2022 HbA1c (Bld) [Mass fraction] 5.2 % 3.8-5.6 [facility] Comment on above: Normal < 5.7 % Predi abetic 5.7 - 6.4 % Diabetic >or= 6.5 % Please note range changes. Basophil percentageon 2021 Cholesterol [Mass/Vol] 222 mg/dL <200 [facility] Work Phone: Comment on above: <200 mg/dL Desirable 200-240 mg/dL Borderline >240 mg/dL High Risk Triglyceride [Mass/Vol] 89 mg/dL <199 [facility] Work Phone: Comment on above: The drugs N-Acetylcy steine and Metamizole may falsely depress this assay.Serum Triglycerides Reference Interval Normal <150 mg/dL Borderline high 150 - 199 mg/dL High 200 - 499 mg/dL Very High > or = 500 mg/dL Laboratory - Chemistry and C hemistry - challengeon 04-17-2022 Free T4 [Mass/Vol] 1.20 ng/dL 0.76-1.46 [facility] Work Phone: No Panel Informationon 04-17 Thyroid Stimulating Hormone (TSH) 3.42 uIU/mL 0.358-3.74 [facility] Work Phone: Vitamin D 25-Hydroxy 36.3 ng/mL [facility] Work Phone: Comment on above: Vitamin D 25(OH) Sta tus Range Deficiency <20 ng/mL (50nmol/L) Insufficiency 20 - 30 ng/mL (50 - 75 nmol/L) Sufficiency 30 - 100 ng/mL (75 - 250 nmol/L) Toxicity >100 ng/mL (>250 nmol/L) Serum or plasma cholesterol in HDL measurement (mass/volume)on 04-17-2022 Cholesterol in HDL [Mass/Vol] 50 mg/dL >40 [facility] Work Phone: Comment on above: The drugs N-Acetylcy steine and Metamizole may falsely depress this assay. Reference Range HDL <40 mg/dL Low HDL Cholesterol HDL >or= 60 mg/dL High HDL Cholesterol Serum or plasma cholesterol in VLDL measurement (mass/volume)on 04-17-2022 Cholesterol in VLDL [Mass/Vol] 18 mg/dL 5-40 [facility] Work Phone: Serum or plasma low density lipoprotein (LDL) cholesterol measurement (mass/volume)on 04-17-2022 Cholesterol in LDL [Mass/Vol] 154 mg/dL 0-130 [facility] Work Phone: Absolute lymphocyte counton 03-28-2022 Lymphocytes Auto (Unsp spec) [#/Vol] 1.64 10*3/uL 0.83-4.51 [facility] Work Phone: Basophil percentageon 2021 Basophils/100 WBC (Bld) 1.1 % 0-1 [facility] Work Phone: Eosinophils/100 WBC (Bld) 3.9 % 0-5 [facility] Work Phone: Neutrophils (Bld) [#/Vol] 5.2 10*3/uL 2.0-7.7 [facility] Work Phone: Neutrophils/100 WBC (Bld) 65.5 % 47-70 [facility] Work Phone: WBC (Bld) [#/Vol] 7.9 10*3/uL 4.4-11.0 [facility] Work Phone: Blood erythrocytes count (nu mber/volume)on 03-28-2022 RBC (Bld) [#/Vol] 4.40 10*6/uL 4.2-5.4 [facility]: Blood hemoglobin measurement (mass/volume)on 03-28-2022 Hemoglobin (Bld) [Mass/Vol] 13.8 g/dL 12.0-15.0 [facility] Work Phone: Blood lymphocytes/100 leukoc yteson 03-28-2022 Lymphocytes/100 WBC (Bld) 20.7 % 19-41 [facility] Work Phone: [phone] Blood monocytes/100 leukocyt eson 03-28-2022 Monocytes/100 WBC (Bld) 8.7 % 0-10 [facility] Work Phone: Blood platelet mean volumeon 03-28-2022 Platelet mean volume (Bld) [Entitic vol] 10.2 fL 6.2-12.0 [facility] Work Phone: Determination of erythrocyte mean corpuscular volume (MCV)on 03-28-2022 MCV (RBC) [Entitic vol] 92.0 fL 81-99 [facility] Work Phone: Hematocrit Auto (Bld) [Volum e fraction]on 03-28-2022 Hematocrit (Bld) [Volume fraction] 40.5 % 37-47 [facility] Work Phone: Iron measurement (mass/mass) on 03-28-2022 Iron (Unsp spec) [Mass/Mass] 59 ug/dL 50-170 [facility] Work Phone: Laboratory - Hematology and Cell countson 03-28-2022 Erythrocyte distribution width (RBC) [Entitic vol] 47.8 fL 35.1-43.9 [facility] Work Phone: Erythrocyte distribution width (RBC) [Ratio] 14.1 % 11.6-14.6 [facility] Work Phone: Immature granulocytes/100 WBC (Bld) 0.100 % 0.0-0.9 [facility] Work Phone: Comment on above: IG% - Immature Granu locytes (promyelocytes, myelocytes and metamyelocytes) > 1% indicates that a LEFT SHIFT is Present. MCH (RBC) [Entitic mass] 31.4 pg 27.0-32.0 [facility] Work Phone: Nucleated RBC/100 WBC (Bld) [Ratio] 0 % 0-5 [facility] Work Phone: MCHC Auto (RBC) [Mass/Vol]on 03-28-2022 MCHC (RBC) [Mass/Vol] 34.1 g/dL 32-[address] [facility] Work Phone: No Panel Informationon 03-28 Total Iron Binding Capacity 284 ug/dL 250-450 [facility] Work Phone: Platelets bldon 03-28-2022 Platelets (Bld) [#/Vol] 290 10*3/uL 150-450 [facility] Work Phone: Serum or plasma ferritin imelda surement (mass/volume)on 03-28-2022 Ferritin [Mass/Vol] 41 ng/mL 8-252 [facility] Work Phone: Serum or plasma iron saturat ion measurement (mass fraction)on 03-28-2022 Iron saturation [Mass fraction] 20.8 % 15.0-55.0 [facility] Work Phone: Basophil percentageon 2021 Chloride [Moles/Vol] 107 mmol/L 98-107 [facility] Work Phone: Glucose [Mass/Vol] 102 mg/dL 74-106 [facility] Work Phone: Comment on above: Fasting Glucose resu lt from 100 to 125 mg/dL suggests IMPAIRED HOMEOSTASIS per A.D.A. criteria. Potassium [Moles/Vol] 3.6 mmol/L 3.5-5.[address] [facility] Work Phone: Sodium [Moles/Vol] 140 mmol/L 136-145 [facility] Work Phone: WBC (Bld) [#/Vol] 7.8 10*3/uL 4.4-11.0 [facility] Work Phone: Blood erythrocytes count (nu mber/volume)on 01-08-2022 RBC (Bld) [#/Vol] 4.32 10*6/uL 4.2-5.4 [facility] Work Phone: Blood hemoglobin measurement (mass/volume)on 01-08-2022 Hemoglobin (Bld) [Mass/Vol] 13.2 g/dL 12.0-15.0 [facility] Work Phone: Blood platelet mean volumeon 01-08-2022 Platelet mean volume (Bld) [Entitic vol] 11.3 fL 6.2-12.0 [facility] Work Phone: Determination of erythrocyte mean corpuscular volume (MCV)on 01-08-2022 MCV (RBC) [Entitic vol] 92.6 fL 81-99 [facility] Work Phone: Hematocrit Auto (Bld) [Volum e fraction]on 01-08-2022 Hematocrit (Bld) [Volume fraction] 40.0 % 37-47 [facility] Work Phone: Laboratory - Chemistry and C hemistry - challengeon 01-08-2022 CO2 [Moles/Vol] 27.0 mmol/L 21.0-32.0 [facility] Work Phone: Urea nitrogen/Creatinine [Mass ratio] 17.4 mg/mg 10-20 [facility] Work Phone: Laboratory - Hematology and Cell countson 01-08-2022 Erythrocyte distribution width (RBC) [Entitic vol] 45.4 fL 35.1-43.9 [facility] Work Phone: Erythrocyte distribution width (RBC) [Ratio] 13.4 % 11.6-14.6 [facility] Work Phone: MCH (RBC) [Entitic mass] 30.6 pg 27.0-32.0 [facility] Work Phone: MCHC Auto (RBC) [Mass/Vol]on 01-08-2022 MCHC (RBC) [Mass/Vol] 33.0 g/dL 32-[address] [facility] Work Phone: No Panel Informationon 01-08 Estimated GFR (MDRD) Amer 85 mL/min >60 [facility] Work Phone: Comment on above: GFR Calc Estimated GFR (MDRD) Non-Af Amer 70 mL/min >60 [facility] Work Phone: Comment on above: Non- GFR Calc Platelets bldon 01-08-2022 Platelets (Bld) [#/Vol] 252 10*3/uL 150-450 [facility] Work Phone: Serum or plasma calcium madhavi urement (mass/volume)on 01-08-2022 Calcium [Mass/Vol] 8.8 mg/dL 8.5-10.1 [facility] Work Phone: Serum or plasma creatinine m easurement (mass/volume)on 01-08-2022 Creatinine [Mass/Vol] 0.86 mg/dL 0.55-1.[address] [facility] Work Phone: Comment on above: The validity of the calculated GFR & GFRAA in patients over 70 years has not been determined. Clinical correlation is essential. Serum or plasma urea nitroge n measurement (mass/volume)on 01-08-2022 Urea nitrogen [Mass/Vol] 15 mg/dL 7-18 [facility] Work Phone: Thin prep Papanicolaou smear with manual screeningon 01-08-2022 Thin prep Papanicolaou smear with manual screening 6 5-15 [facility] Work Phone: Absolute lymphocyte counton 09-20-2021 Lymphocytes Auto (Unsp spec) [#/Vol] 1.40 10*3/uL 0.83-4.51 [facility] Work Phone: Basophil percentageon 2021 Basophils/100 WBC (Bld) 0.9 % 0-1 [facility] Work Phone: Eosinophils/100 WBC (Bld) 4.2 % 0-5 [facility] Work Phone: Neutrophils (Bld) [#/Vol] 4.3 10*3/uL 2.0-7.7 [facility] Work Phone: Neutrophils/100 WBC (Bld) 64.9 % 47-70 [facility] Work Phone: WBC (Bld) [#/Vol] 6.6 10*3/uL 4.4-11.0 [facility] Work Phone: Blood erythrocytes count (nu mber/volume)on 09-20-2021 RBC (Bld) [#/Vol] 4.67 10*6/uL 4.2-5.4 [facility] Work Phone: Blood hemoglobin measurement (mass/volume)on 09-20-2021 Hemoglobin (Bld) [Mass/Vol] 14.0 g/dL 12.0-15.0 [facility] Work Phone: Blood lymphocytes/100 leukoc yteson 09-20-2021 Lymphocytes/100 WBC (Bld) 21.1 % 19-41 [facility] Work Phone: Blood monocytes/100 leukocyt eson 09-20-2021 Monocytes/100 WBC (Bld) 8.6 % 0-10 [facility] Work Phone: Blood platelet mean volumeon 09-20-2021 Platelet mean volume (Bld) [Entitic vol] 10.4 fL 6.2-12.0 [facility] Work Phone: Determination of erythrocyte mean corpuscular volume (MCV)on 09-20-2021 MCV (RBC) [Entitic vol] 92.5 fL 81-99 [facility] Work Phone: Hematocrit Auto (Bld) [Volum e fraction]on 09-20-2021 Hematocrit (Bld) [Volume fraction] 43.2 % 37-47 [facility] Work Phone: Iron measurement (mass/mass) on 09-20-2021 Iron (Unsp spec) [Mass/Mass] 79 ug/dL 50-170 [facility] Work Phone: Laboratory - Hematology and Cell countson 09-20-2021 Erythrocyte distribution width (RBC) [Entitic vol] 45.0 fL 35.1-43.9 [facility] Work Phone: Erythrocyte distribution width (RBC) [Ratio] 13.3 % 11.6-14.6 [facility] Work Phone: Immature granulocytes/100 WBC (Bld) 0.300 % 0.0-0.9 [facility] Work Phone: Comment on above: IG% - Immature Granu locytes (promyelocytes, myelocytes and metamyelocytes) > 1% indicates that a LEFT SHIFT is Present. MCH (RBC) [Entitic mass] 30.0 pg 27.0-32.0 [facility] Work Phone: Nucleated RBC/100 WBC (Bld) [Ratio] 0 % 0-5 [facility] Work Phone: MCHC Auto (RBC) [Mass/Vol]on 09-20-2021 MCHC (RBC) [Mass/Vol] 32.4 g/dL 32-[address] [facility] Work Phone: No Panel Informationon 09-20 Total Iron Binding Capacity 268 ug/dL 250-450 [facility] Work Phone: Platelets bldon 09-20-2021 Platelets (Bld) [#/Vol] 297 10*3/uL 150-450 [facility] Work Phone: Serum or plasma ferritin imelda surement (mass/volume)on 09-20-2021 Ferritin [Mass/Vol] 68 ng/mL 8-252 [facility] Work Phone: Serum or plasma iron saturat ion measurement (mass fraction)on 09-20-2021 Iron saturation [Mass fraction] 29.5 % 15.0-55.0 [facility] Work Phone: Laboratory - Chemistry and C hemistry - challengeon 12-19-2020 Cobalamin (Vitamin B12) [Mass/Vol] 287 pg/mL 211-911 [facility] No Panel Informationon 05-19 Folate 6.70 ng/mL 3.1-55.4 [facility] US Thyroidon 05-09-2018 US Thyroid Exam Date/Time: 018 10:22 EDTReason for Exam:NONTOXIC MULTINODULAR GOITERReportSTUDY:US Thyroid 05/09/2018 10:22 amINDICATION:63 y/o F with NONTOXIC MULTINODULAR GOITER.COMPARISON:Outside study 09/08/2012, 10/29/2017. Patient status post ultrasound-guided right thyroid fine needle aspiration of a nodule in the superior pole of the right lobe. This was performed at [facility]. I do not have the cytology resultsACCESSION NUMBER(S):[id number] ORDERING CLINICIAN:Monae Ocampo:Routine ultrasound of the thyroid was performed. Static images were obtained for remote interpretation.FINDINGS:RI GHT THYROID LOBE:The right lobe is prominent in size measuring 4.5 x 1.6 x 2.2 cmThere are multiple nodules consistent with multinodular goiter or Dilan's thyroiditis.There is a 1.4 x 1.0 x 0.8 cm homogeneous hyperechoic dominant solid nodule in the upper pole the right lobe.On outside study from [facility] dated 10/29/2017, this measured 1.4 x 1.2 x 0.9 cm.On outside study from [facility], this was not discretely measured but measured approximately 1.0 cm in retrospect.LEFT THYROID LOBE:The left lobe is normal in size measuring 4.0 x 1.3 x 1.5 cmThere are multiple nodules consistent with multinodular goiter or Dilan's thyroiditis.ISTHMUS:The isthmus measures 0.2 cmCERVICAL LYMPHADENOPATHY:None.IMPRE SSION:1. Multinodular goiter Dilan's thyroiditis.Exam Date/Time:05/09/2018 10:22 EDTReport2. Stable hyperechoic solid nodule upper pole right lobe which has been aspirated [facility]. I do not have the cytology results. FINAL REPORT Dictated: 05/09/2018 1:59 pm Rebeca Bello MDgned (Electronic Signature): 05/09/2018 1:59 pmSigned by: Rebeca Bello MD Technologist: [facility] US Needle Guided Biopsyon US Needle Guided Biopsy Exam Date/Time:11/15/2017 11:51 EDTReason for Exam:RIGHT THYROID NODULEReportTHYROID ASPIRATION BIOPSY UNDER ULTRASOUND GUIDANCE.FINDINGS:The right lobe contains multiple hyperechoic nodules. A nodule in the superiorportion of this lobe was chosen for the biopsy at this is a larger nodule.PROCEDURE:The procedure was explained to the patient. She was anxious.After appropriate informed consent, the neck was sterilely prepped. Localanesthesia was given with 2% XylocaineUnder ultrasound guidance multiple aspiration biopsies were performed,utilizing 27-gauge needles. Smears were made and also material collected forcytospin. Initial evaluation by the pathologist indicates an adequate sample.The patient tolerated the procedure well.IMPRESSION:Aspiration biopsies superior pole nodule right lobe. FINAL REPORT Dictated: 11/15/2017 5:29 pm Higinio Yee MD KSigned (Electronic Signature): 11/15/2017 5:29 pmSigned by: Higinio Yee MD Technologist: [facility] Office Visit: Spine Visit- L hip ianon 02-06-2017 Protein mass conc Done [facility] Work Phone: Office Visit: Spine Visit- L hip painon 12-25-2016 Documentation of current medications (procedure) Done Invalid Interpretation Code [facility] Work Phone: Office Visit: Spine Visiton 07-31-2016 Dietary management education, guidance, and counseling (procedure) yes Invalid Interpretation Code [facility] Work Phone: Tobacco smoking status NHIS Never [facility] Work Phone: Tobacco smoking status NHIS Never smoker [facility] Work Phone: Tobacco use CPHS Never smoker Invalid Interpretation Code [facility] Work Phone: Vital Signs Date Time Vital Sign Value Performing Clinician Facility 04-22-2025 07:44-0400 Body height 167.[address] Rajesh Morley DO Work Phone: [facility] 04-22-2025 07:44-0400 Body mass index (BMI) [Ratio] 30.8 kg/m2 Dr. Rajesh Morley DO Work Phone: [facility] 04-22-2025 07:44-0400 Body weight 86.[address] Rajesh Morley DO Work Phone: [facility] 04-22-2025 07:44-0400 Diastolic blood pressure 71 mm[Hg] Dr. Rajesh Morley DO Work Phone: [facility] 04-22-2025 07:44-0400 Heart rate 70 /min Dr. Rajesh Morley DO Work Phone: [facility] 04-22-2025 07:44-0400 Respiratory rate 18 /min Dr. Rajesh Morley DO Work Phone: [facility] 04-22-2025 07:44-0400 SaO2% (BldA) [Mass fraction] 96 % Dr. Rajesh Morley DO Work Phone: [facility] 04-22-2025 07:44-0400 Systolic blood pressure 105 mm[Hg] Dr. Rajesh Morley DO Work Phone: [facility] 03-16-2025 14:26-0400 Body height 167.[address] Rajesh Morley DO Work Phone: [facility] 03-16-2025 14:26-0400 Body mass index (BMI) [Ratio] 31.6 kg/m2 Dr. Rajesh Morley DO Work Phone: [facility] 03-16-2025 14:26-0400 Body temperature 97.7 [degF] Dr. Rajesh Morley DO Work Phone: [facility] 03-16-2025 14:26-0400 Body weight 88.[address] Rajesh Morley DO Work Phone: [facility] 03-16-2025 14:26-0400 Diastolic blood pressure 73 mm[Hg] Dr. Rajesh Morley DO Work Phone: [facility] 03-16-2025 14:26-0400 Heart rate 70 /min Dr. Rajesh Morley DO Work Phone: [facility] 03-16-2025 14:26-0400 Respiratory rate 16 /min Dr. Rajesh Mroley DO Work Phone: [facility] 03-16-2025 14:26-0400 SaO2% (BldA) [Mass fraction] 95 % Dr. Rajesh Morley DO Work Phone: [facility] 03-16-2025 14:26-0400 Systolic blood pressure 114 mm[Hg] Dr. Rajesh Morley DO Work Phone: [facility] 12-29-2024 08:12-0400 Body mass index (BMI) [Ratio] 30.8 kg/m2 Dr. Rajesh Morley DO Work Phone: [facility] 12-29-2024 08:12-0400 Body temperature 97.1 [degF] Dr. Rajesh Morley DO Work Phone: [facility] 12-29-2024 08:12-0400 Body weight 86.[address] Rajesh Morley DO Work Phone: [facility] 12-29-2024 08:12-0400 Diastolic blood pressure 71 mm[Hg] Dr. Rajesh Morley DO Work Phone: [facility] 12-29-2024 08:12-0400 Heart rate 75 /min Dr. Rajesh Morley DO Work Phone: [facility] 12-29-2024 08:12-0400 Respiratory rate 20 /min Dr. Rajesh Morley DO Work Phone: [facility] 12-29-2024 08:12-0400 SaO2% (BldA) [Mass fraction] 95 % Dr. Rajesh Morley DO Work Phone: [facility] 12-29-2024 08:12-0400 Systolic blood pressure 111 mm[Hg] Dr. Rajesh Morley DO Work Phone: [facility] 03-16-2024 11:41-0400 Body weight 90.[address] Rajesh Morley DO Work Phone: [facility] 01-02-2024 13:47-0400 Body mass index (BMI) [Ratio] 33.27 kg/m2 Vivek Silva MD Work Phone: [facility] 01-02-2024 13:47-0400 Body temperature 99.19 [degF] Vivek Silva MD Work Phone: [facility] 01-02-2024 13:47-0400 Body weight 92.08 kg Vivek Silva MD Work Phone: [facility] 01-02-2024 13:47-0400 Diastolic blood pressure 74 mm[Hg] Vivek Silva MD Work Phone: [facility] 01-02-2024 13:47-0400 Heart rate 70 /min Vivek Silva MD Work Phone: [facility] 01-02-2024 13:47-0400 Respiratory rate 18 /min Vivek Silva MD Work Phone: [facility] 01-02-2024 13:47-0400 SaO2% (BldA) [Mass fraction] 96 % Vivek Silva MD Work Phone: [facility] 01-02-2024 13:47-0400 Systolic blood pressure 117 mm[Hg] Vivek Silva MD Work Phone: [facility] 01-02-2024 12:48-0400 Body mass index (BMI) [Ratio] 33.33 kg/m2 Michael Foy MD Work Phone: [facility] 01-02-2024 12:48-0400 Body temperature 99.19 [degF] Michael Foy MD Work Phone: [facility] 01-02-2024 12:48-0400 Body weight 92.26 kg Michael Foy MD Work Phone: [facility] 01-02-2024 12:48-0400 Diastolic blood pressure 74 mm[Hg] Michael Foy MD Work Phone: [facility] 01-02-2024 12:48-0400 Heart rate 70 /min Michael Foy MD Work Phone: [facility] 01-02-2024 12:48-0400 Respiratory rate 18 /min Michael Foy MD Work Phone: [facility] 01-02-2024 12:48-0400 SaO2% (BldA) [Mass fraction] 96 % Michael Foy MD Work Phone: [facility] 01-02-2024 12:48-0400 Systolic blood pressure 117 mm[Hg] Michael Foy MD Work Phone: [facility] 08-12-2023 06:00-0500 Body height 167.[address] Rajesh Morley Work Phone: [facility] 08-12-2023 06:00-0500 Body mass index (BMI) [Ratio] 31.6 kg/m2 Dr. Rajesh Morley Work Phone: [facility] 08-12-2023 06:00-0500 Body temperature 94.7 [degF] Dr. Rajesh Morley Work Phone: [facility] 08-12-2023 06:00-0500 Body weight 88.[address] Rajesh Morley Work Phone: [facility] 08-12-2023 06:00-0500 Diastolic blood pressure 74 mm[Hg] Dr. Rajesh Morley Work Phone: [facility] 08-12-2023 06:00-0500 Heart rate 73 /min Dr. Rajesh Morley Work Phone: [facility] 08-12-2023 06:00-0500 Respiratory rate 18 /min Dr. Rajesh Morley Work Phone: [facility] 08-12-2023 06:00-0500 SaO2% (BldA) [Mass fraction] 96 % Dr. Rajesh Morley Work Phone: [facility] 08-12-2023 06:00-0500 Systolic blood pressure 113 mm[Hg] Dr. Rajesh Morley Work Phone: [facility] 06-10-2023 15:02-0400 Body mass index (BMI) [Ratio] 32.8 kg/m2 Dr. Rajesh Morley Work Phone: [facility] 06-10-2023 15:02-0400 Body weight 92.[address] Rajesh Morley Work Phone: [facility] 06-10-2023 15:02-0400 Diastolic blood pressure 68 mm[Hg] Dr. Rajesh Morley Work Phone: [facility] 06-10-2023 15:02-0400 Systolic blood pressure 108 mm[Hg] Dr. Rajesh Morley Work Phone: [facility] 05-30-2023 08:03-0400 Body mass index (BMI) [Ratio] 32.3 kg/m2 Dr. Rajesh Morley Work Phone: [facility] 05-30-2023 08:03-0400 Body temperature 97.2 [degF] Dr. Rajesh Morley Work Phone: [facility] 05-30-2023 08:03-0400 Body weight 90.[address] Rajesh Morley Work Phone: [facility] 05-30-2023 08:03-0400 Diastolic blood pressure 73 mm[Hg] Dr. Rajesh Morley Work Phone: [facility] 05-30-2023 08:03-0400 Heart rate 76 /min Dr. Rajesh Morley Work Phone: [facility] 05-30-2023 08:03-0400 Respiratory rate 18 /min Dr. Rajesh Morley Work Phone: [facility] 05-30-2023 08:03-0400 SaO2% (BldA) [Mass fraction] 96 % Dr. Rajesh Morley Work Phone: [facility] 05-30-2023 08:03-0400 Systolic blood pressure 106 mm[Hg] Dr. Rajesh Morley Work Phone: [facility] 05-23-2023 13:57-0400 Diastolic blood pressure 63 mm[Hg] Dr. Rajesh Morley Work Phone: [facility] 05-23-2023 13:57-0400 Heart rate 62 /min Dr. Rajesh Morley Work Phone: [facility] 05-23-2023 13:57-0400 Respiratory rate 18 /min Dr. Rajesh Morley Work Phone: [facility] 05-23-2023 13:57-0400 SaO2% (BldA) [Mass fraction] 93 % Dr. Rajesh Morley Work Phone: [facility] 05-23-2023 13:57-0400 Systolic blood pressure 95 mm[Hg] Dr. Rajesh Morley Work Phone: [facility] 05-23-2023 13:26-0400 Body height 167.[address] Rajesh Morley Work Phone: [facility] 05-23-2023 13:26-0400 Body mass index (BMI) [Ratio] 31.4 kg/m2 Dr. Rajesh Morley Work Phone: [facility] 05-23-2023 13:26-0400 Body temperature 97.7 [degF] Dr. Rajesh Morley Work Phone: [facility] 05-23-2023 13:26-0400 Body weight 88.[address] Rajesh Morley Work Phone: [facility] 04-17-2023 10:38-0400 Body height 167.[address] Rajesh Morley Work Phone: [facility] 04-17-2023 10:38-0400 Body mass index (BMI) [Ratio] 32.3 kg/m2 Dr. Rajesh Morley Work Phone: [facility] 04-17-2023 10:38-0400 Body weight 90.[address] Rajesh Morley Work Phone: [facility] 04-17-2023 10:38-0400 Diastolic blood pressure 65 mm[Hg] Dr. Rajesh Morley Work Phone: [facility] 04-17-2023 10:38-0400 Heart rate 75 /min Dr. Rajesh Morley Work Phone: [facility] 04-17-2023 10:38-0400 Respiratory rate 18 /min Dr. Rajesh Morley Work Phone: [facility] 04-17-2023 10:38-0400 SaO2% (BldA) [Mass fraction] 95 % Dr. Rajesh Morley Work Phone: [facility] 04-17-2023 10:38-0400 Systolic blood pressure 108 mm[Hg] Dr. Rajesh Morley Work Phone: [facility] 03-03-2023 11:46-0400 Body temperature 97.81 [degF] Cori Lowe APRN.SHIP ENGINEER Work Phone: [facility] 03-03-2023 11:46-0400 Body weight 91.17 kg Cori Lowe APRN.SHIP ENGINEER Work Phone: [facility] 03-03-2023 11:46-0400 Diastolic blood pressure 68 mm[Hg] Cori Praisler-Wood PHOTOGRAPHIC EQUIPMENT ASSEMBLER.SHIP ENGINEER Work Phone: [facility] 03-03-2023 11:46-0400 Heart rate 70 /min Cori Praisler-Wood PHOTOGRAPHIC EQUIPMENT ASSEMBLER.SHIP ENGINEER Work Phone: [facility] 03-03-2023 11:46-0400 Respiratory rate 18 /min Cori Praisler-Wood PHOTOGRAPHIC EQUIPMENT ASSEMBLER.SHIP ENGINEER Work Phone: [facility] 03-03-2023 11:46-0400 SaO2% (BldA) [Mass fraction] 97 % Cori Praisler-Wood PHOTOGRAPHIC EQUIPMENT ASSEMBLER.SHIP ENGINEER Work Phone: [facility] 03-03-2023 11:46-0400 Systolic blood pressure 96 mm[Hg] Cori Praisler-Wood PHOTOGRAPHIC EQUIPMENT ASSEMBLER.SHIP ENGINEER Work Phone: [facility] 02-26-2023 15:04-0400 Body height 167.[address] Rajesh Morley Work Phone: [facility] 02-26-2023 15:03-0400 Body mass index (BMI) [Ratio] 32.4 kg/m2 Dr. Rajesh Morley Work Phone: [facility] 02-26-2023 15:03-0400 Body temperature 98.3 [degF] Dr. Rajesh Morley Work Phone: [facility] 02-26-2023 15:03-0400 Body weight 91.[address] Rajesh Morley Work Phone: [facility] 02-26-2023 15:03-0400 Diastolic blood pressure 75 mm[Hg] Dr. Rajesh Morley Work Phone: [facility] 02-26-2023 15:03-0400 Heart rate 65 /min Dr. Rajesh Morley Work Phone: [facility] 02-26-2023 15:03-0400 Respiratory rate 16 /min Dr. Rajesh Morley Work Phone: [facility] 02-26-2023 15:03-0400 SaO2% (BldA) [Mass fraction] 99 % Dr. Rajesh Molrey Work Phone: [facility] 02-26-2023 15:03-0400 Systolic blood pressure 112 mm[Hg] Dr. Rajesh Morley Work Phone: [facility] 11-22-2022 15:32-0400 Body height 167.64 cm [facility] 03-28-2022 14:30-0400 Body height 167.[address] Rajesh Morley Work Phone: [facility] Work Phone: 03-28-2022 14:30-0400 Body mass index (BMI) [Ratio] 34.2 kg/m2 Dr. Rajesh Morley Work Phone: [facility] Work Phone: 03-28-2022 14:30-0400 Body weight 96.[address] Rajesh Morley Work Phone: [facility] Work Phone: 03-28-2022 11:10-0400 Body mass index (BMI) [Ratio] 34 kg/m2 Dr. Rajesh Morley Work Phone: [facility] Work Phone: 03-28-2022 11:10-0400 Body temperature 98.8 [degF] Dr. Rajesh Morley Work Phone: [facility] Work Phone: 03-28-2022 11:10-0400 Body weight 95.[address] Rajesh Morley Work Phone: [facility] Work Phone: 03-28-2022 11:10-0400 Diastolic blood pressure 77 mm[Hg] Dr. Rajesh Morley Work Phone: [facility] Work Phone: 03-28-2022 11:10-0400 Heart rate 67 /min Dr. Rajesh Morley Work Phone: [facility] Work Phone: 03-28-2022 11:10-0400 Respiratory rate 16 /min Dr. Rajesh Morley Work Phone: [facility] Work Phone: 03-28-2022 11:10-0400 SaO2% (BldA) [Mass fraction] 98 % Dr. Rajesh Morley Work Phone: [facility] Work Phone: 03-28-2022 11:10-0400 Systolic blood pressure 115 mm[Hg] Dr. Rajesh Morley Work Phone: [facility] Work Phone: 02-21-2022 11:08-0400 Body height 167.[address] Rajesh Morley Work Phone: [facility] Work Phone: 02-21-2022 11:08-0400 Body mass index (BMI) [Ratio] 33.7 kg/m2 Dr. Rajesh Morley Work Phone: [facility] Work Phone: 02-21-2022 11:08-0400 Body weight 94.[address] Rajesh Morley Work Phone: [facility] Work Phone: 02-21-2022 11:08-0400 Diastolic blood pressure 72 mm[Hg] Dr. Rajesh Morley Work Phone: [facility] Work Phone: 02-21-2022 11:08-0400 Heart rate 70 /min Dr. Rajesh Morley Work Phone: [facility] Work Phone: 02-21-2022 11:08-0400 Respiratory rate 18 /min Dr. Rajesh Morley Work Phone: [facility] Work Phone: 02-21-2022 11:08-0400 SaO2% (BldA) [Mass fraction] 96 % Dr. Rajesh Morley Work Phone: [facility] Work Phone: 02-21-2022 11:08-0400 Systolic blood pressure 113 mm[Hg] Dr. Rajesh Morley Work Phone: [facility] Work Phone: 09-20-2021 12:37-0500 Body height 167.[address] Rajesh Morley Work Phone: [facility] Work Phone: 09-20-2021 12:37-0500 Body mass index (BMI) [Ratio] 33 kg/m2 Dr. Rajesh Morley Work Phone: [facility] Work Phone: 09-20-2021 12:37-0500 Body temperature 98.4 [degF] Dr. Rajesh Morley Work Phone: [facility] Work Phone: 09-20-2021 12:37-0500 Body weight 92.[address] Rajesh Morley Work Phone: [facility] Work Phone: 09-20-2021 12:37-0500 Diastolic blood pressure 71 mm[Hg] Dr. Rajesh Morley Work Phone: [facility] Work Phone: 09-20-2021 12:37-0500 Heart rate 72 /min Dr. Rajesh Morley Work Phone: [facility] Work Phone: 09-20-2021 12:37-0500 Respiratory rate 16 /min Dr. Rajesh Morley Work Phone: [facility] Work Phone: 09-20-2021 12:37-0500 SaO2% (BldA) [Mass fraction] 96 % Dr. Rajesh Morley Work Phone: [facility] Work Phone: 09-20-2021 12:37-0500 Systolic blood pressure 109 mm[Hg] Dr. Rajesh Morley Work Phone: [facility] Work Phone: 03-21-2021 14:34-0400 Body mass index (BMI) [Ratio] 34 kg/m2 Dr. Rajesh Morley Work Phone: [facility] 03-21-2021 14:34-0400 Body mass index (BMI) [Ratio] 34 kg/m2 Dr. Rajesh Morley Work Phone: [facility] Work Phone: 12-26-2020 14:08-0400 Body temperature 95 [degF] Dr. Rajesh Morley Work Phone: [facility] 12-26-2020 14:08-0400 Body weight 94.[address] Rajesh Morley Work Phone: [facility] 12-26-2020 14:08-0400 Diastolic blood pressure 74 mm[Hg] Dr. Rajesh Morley Work Phone: [facility] 12-26-2020 14:08-0400 Heart rate 70 /min Dr. Rajesh Morley Work Phone: [facility] 12-26-2020 14:08-0400 Respiratory rate 16 /min Dr. Rajesh Morley Work Phone: [facility] 12-26-2020 14:08-0400 Systolic blood pressure 108 mm[Hg] Dr. Rajesh Morley Work Phone: [facility] 09-30-2020 11:05-0500 SaO2% (BldA) [Mass fraction] 98 % Dr. Rajesh Morley Work Phone: [facility] 09-30-2020 10:05-0500 SaO2% (BldA) [Mass fraction] 98 % Dr. Rajesh Morley Work Phone: [facility] Work Phone: 07-31-2016 10:20-0500 BMI (Body Mass Index) 34.75 kg/m2 Jossie Dossi DC [facility] Work Phone: 07-31-2016 10:20-0500 Body weight 86.18 kg Jossie Dossi DC [facility] Work Phone: 07-31-2016 10:20-0500 BP Diastolic 64 mm[Hg] Jossie Dossi DC [facility] Work Phone: 07-31-2016 10:20-0500 BP Systolic 134 mm[Hg] Jossie Dossi DC [facility] Work Phone: 07-31-2016 10:20-0500 Height 157.48 cm Jossie Dossi DC [facility] Work Phone: 07-31-2016 10:20-0500 Weight 86.18 kg Jossie Dossi DC [facility] Work Phone: Encounters Encounter Date Encounter Type Care Provider Facility Start: 04-22-2025 End: 04-22-2025 Patient encounter procedure Marybeth IRBY -[facility] Work Phone: Start: 04-22-2025 End: 04-22-[address] Rajesh Morley DO Work Phone: -[facility] Start: 04-06-2025 ambulatory Rajesh Morley Facility: [facility] Start: 03-16-2025 End: 03-16-[address] Kayce London MD -[facility] Work Phone: Start: 03-16-2025 End: 03-16-[address] Rajesh Morley DO Work Phone: -[facility] Start: 03-16-2025 ambulatory Rajesh Morley Facility: [facility] Start: 03-10-[address] Thu London MD -[facility] Start: 03-10-2025 End: 03-10-[address] Rajesh Morley DO Work Phone: -Outpatient Breast Imaging Start: 03-10-2025 End: 03-10-[address] Darryn Weeks MD -Outpatient Breast Imaging Work Phone: Start: 03-10-2025 End: 03-10-2025 ambulatory Darryn Weeks Facility:[facility] Start: 01-18-2025 End: 01-18-2025 Patient encounter procedure ANDREW Tomas -[facility] Work Phone: Start: 01-18-2025 End: 01-18-2025 ambulatory Meka Tomas Facility:[facility] Start: 12-29-2024 End: 12-29-2024 Patient encounter procedure ANDREW Tomas -[facility] Work Phone: Start: 12-29-2024 End: 12-29-2024 ambulatory Meka Tomas Facility:[facility] Start: 12-23-2024 End: 12-23-2024 Patient encounter procedure Denise GUTIERRZE -Pulmonary Services/Neurology Work Phone: Start: 12-23-2024 End: 12-23-2024 ambulatory Rajesh Morley Facility:[facility] Start: 12-17-2024 ambulatory Jenny Cosme Facility:[facility] Start: 12-17-2024 Registered Recurring Jenny Cosme PA -Physical Therapy Work Phone: Start: 11-10-2024 End: 11-10-2024 ambulatory Rajesh Morley Facility:[facility] Start: 10-07-2024 ambulatory Meka Tomas Facili ty:[facility] Start: 09-30-2024 End: 09-30-2024 ambulatory Meka Tomas Facility:[facility] Start: 09-03-2024 End: 09-03-2024 ambulatory Rajesh Morley Facility:[facility] Start: 08-18-2024 End: 08-18-2024 Emergency department patient visit [facility] Facility:[facility] Start: 07-22-2024 End: 07-22-2024 ambulatory [facility] Facility:[facility] Start: 07-07-2024 End: 07-07-2024 ambulatory [facility] Facility: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) Start: 04-24-2024 End: 04-24-2024 ambulatory [facility] Facility:[facility] Start: 01-04-2024 ambulatory Vivek Silva MD Work Phone: Rheumatology/Pulmonar y Comment on above: Refusal Start: 01-02-2024 Telephone encounter Melinda Hooks RN Pul monary Medicine Start: 01-02-2024 End: 01-02-2024 ambulatory PATOMPONG UNGPRASERT Facility:[facility] Start: 01-02-2024 End: 01-02-2024 Patient encounter procedure Michael Foy MD Work Phone: Pulmonary Medicine Comment on above: Pulmonary sarcoidosi s (HCC) (Primary Dx); Sarcoidosis; Rheumatoid arthritis involving multiple sites with positive rheumatoid factor (HCC); Lung nodules Seropositive rheumat oid arthritis (HCC) (Primary Dx); Pulmonary sarcoidosis (HCC); Long-term use of hydroxychloroquine Start: 12-20-2023 Telephone encounter Michael kirkland MD Work Phone: Pulmonary Medicine Comment on above: Received Outside Med ical Records Start: 11-19-2023 Telephone encounter Melinda Hooks RN Pul monary Medicine Start: 11-18-2023 Telephone encounter Sujit Brandon MD Work Phone: Respiratory [place] Comment on above: Referral Information (A referral from Pulmonary Medicine [facility] was received today and the medical records were scanned into the system.) Start: 11-13-2023 End: 11-13-[address] Rajesh Morley Work Phone: [facility] Work Phone: Start: 11-13-2023 End: 11-13-[address] [facility] Start: 08-12-2023 End: 08-12-[address] [facility] Work Phone: Start: 08-08-2023 End: 08-08-[address] Rajesh Morley Work Phone: [facility] Work Phone: Start: 08-08-2023 End: 08-08-[address] Rajesh Morley Work Phone: [facility] Work Phone: Start: 06-10-2023 End: 06-10-[address] Rajesh Morley Work Phone: [facility] Work Phone: Start: 06-06-2023 Non-patient / Non-visit Dr. Bhakti Morley Work Phone: [facility] Start: 06-06-2023 End: 06-06-[address] Rajesh Mor[facility] Work [facility] Start: 05-30-2023 End: 05-30-[address] Rajesh Morley Work Phone: [facility] Work Phone: Start: 05-24-2023 Non-patient / Non-visit Dr. Bhakti Morley Work Phone: [facility] Work Phone: Start: 05-24-2023 Non-patient / Non-visit Dr. Bhakti Morley Work Phone: [facility] Start: 05-23-2023 End: 05-23-[address] Rajesh Morley Work Phone: [facility] Work Phone: Start: 05-23-2023 End: 05-23-[address] Rajesh Morley Work Phone: [facility] Work Phone: Start: 05-23-2023 Non-patient / Non-visit Dr. Bhakti Morley Work Phone: [facility] Start: 04-24-2023 End: 04-24-[address] Rajesh Morley Work Phone: [facility] Work Phone: Start: 04-24-2023 End: 04-24-[address] Rajesh Morley Work Phone: [facility] Start: 04-17-2023 End: 04-17-[address] Rajesh Morley Work Phone: [facility] Work Phone: Start: 03-06-2023 Non-patient / Non-visit Dr. Bhakti Morley Work Phone: [facility] Start: 03-06-2023 End: 03-06-[address] Rajesh Morley Work Phone: [facility] Work Phone: Start: 03-06-2023 End: 03-06-[address] Rajesh Morley Work Phone: [facility]-Pulmonary Services/Neurology Work Phone: Start: 03-06-2023 End: 03-06-[address] Rajesh Morley Work Phone: [facility] Work Phone: Start: 03-06-2023 End: 03-06-[address] Rajesh Morley Work Phone: [facility]-Outpatient Breast Imaging Work Phone: Start: 03-03-2023 End: 03-03-2023 Patient encounter procedure Cori Lowe APRN.CNP Work Phone: [facility] Comment on above: Other acute nonsuppu rative otitis media of right ear, recurrence not specified (Primary Dx); Acute otitis externa of right ear, unspecified type Start: 02-26-2023 End: 02-26-[address] Rajesh Morley Work Phone: [facility] Work Phone: Start: 02-26-2023 End: 02-26-[address] Rajesh Morley Work Phone: [facility] Work Phone: Start: 02-26-2023 End: 02-26-[address] Rajesh Morley Work Phone: [facility]-Occupational Therapy Work Phone: Start: 02-26-[address] Rajesh Morley Work Phone: [facility] Start: 02-19-[address] Rajesh Morley Work Phone: [facility]-Occupational Therapy Start: 02-15-2023 End: 02-15-[address] Rajesh Morley Work Phone: [facility] Work Phone: Start: 02-15-2023 End: 02-15-[address] Rajesh Morley Work Phone: [facility]-Laboratory, [place] Start: 12-31-2022 End: 12-31-[address] Rajesh Morley Work Phone: [facility] Start: 11-22-2022 End: 11-22-2022 ambulatory [facility] Work Phone: Start: 11-22-2022 End: 11-22-2022 Patient encounter procedure [facility]-Outpatient Bone Densitometry Start: 09-11-2022 End: 09-11-2022 Patient encounter procedure [facility]-Laboratory, [facility] Start: 04-17-2022 End: 04-17-[address] Rajesh Mor[facility] Start: 04-06-2022 End: 04-06-[address] Rajesh Morley Work Phone: [facility] Start: 04-03-2022 End: 04-03-[address] Rajesh Morley Work Phone: [facility] - [facility] Start: 03-28-2022 End: 03-28-[address] Rajesh Morley Work Phone: [facility] Start: 03-28-2022 End: 03-28-[address] Rajesh Morley Work Phone: [facility] Start: 03-28-[address] Rajesh Morley Work Phone: [facility] Start: 03-14-2022 Non-patient / Non-visit Dr. Bhakti Morley Work Phone: [facility] Start: 03-13-2022 End: 03-13-[address] Rajesh Morley Work Phone: [facility]-Cat Scan, [facility] Start: 02-21-2022 End: 02-21-[address] Rajesh Morley Work Phone: [facility] Start: 01-16-2022 End: 01-16-2022 Patient encounter procedure [facility]-Laboratory, Specimen Start: 01-08-2022 End: 01-08-[address] [facility]esh [facility] Start: 01-04-2022 End: 01-04-[address] Rajesh Morley Work Phone: [facility]-Pulmonary Services/Neurology Start: 12-13-2021 End: 12-13-[address] Rajesh Morley Work Phone: [facility]-Laboratory Start: 11-29-2021 End: 11-29-[address] Rajesh Morley Work Phone: [facility]-Ultrasound, [facility] Start: 09-27-2021 End: 09-27-[address] Rajesh Morley Work Phone: [facility]-Outpatient Breast Imaging Start: 09-20-[address] Rajesh Morley Work Phone: [facility] Start: 09-20-2021 End: 09-20-[address] Rajesh Morley Work Phone: [facility] Start: 08-23-[address] Peyton Morley Work Phone: [facility], [facility] Start: 05-09-2018 End: 05-10-2018 Patient encounter Monae Maldonado Facility:[facility] Start: 05-09-2018 Patient encounter Facil [id number] Start: 11-15-2017 End: 11-16-2017 Patient encounter Leo Strauss Facility:[facility] Start: 07-18-2016 Patient encounter status Cori StatonChrista MCCARTNEY.[facility] Work Phone: [facility] Work Phone: Procedures Date Procedure Procedure Detail Performing Clinician Start: 03-10-[address] fraction Dr. Rajesh Morley DO Work Phone: Start: 03-10-2025 Total iron binding c apacity measurement Dr. Rajesh Morley DO Work Phone: Start: 03-10-2025 Screening mammography Mike Morley DO Work Phone: Start: 01-18-2025 CT of chest without contrast Dr. Rajesh Morley DO Work Phone: Start: 03-16-[address] Rajesh Morley DO Work Phone: Start: 03-16-2024 Measurement of renal function Dr. Rajesh Morley DO Work Phone: Comment on above: GFR Calc Start: 11-13-2023 CT of chest without contrast Dr. Rajesh Morley Work Phone: Start: 08-08-2023 CT of chest without contrast Dr. Rajesh Morley Work Phone: Start: 05-23-2023 CT angiography of co ronary arteries Dr. Rajesh Morley Work Phone: Start: 03-06-2023 Screening mammography D juan a Morley Work Phone: Start: 12-31-2022 Plain x-ray of hand Dr. Rajesh Morley Work Phone: Start: 11-22-2022 Dual energy X-ray absorptiometry Start: 04-03-2022 MRI of joint of lowe r extremity Dr. Rajesh Morley Work Phone: Start: 03-28-2022 Radiologic examinati on of knee Dr. Rajesh Morley Work Phone: Start: 03-13-2022 CT of chest without contrast Dr. Rajesh Morley Work Phone: Start: 11-29-2021 Ultrasonography of t hyroid and parathyroid Dr. Rajesh Molrey Work Phone: Start: 11-29-2021 US scan of thyroid Dr. Rajesh Morley Work Phone: Start: 09-27-2021 Screening mammography Mike Morley Work Phone: Start: 08-23-[address] Rajesh hernandez Work Phone: Start: 02-06-2017 End: 02-06-2017 Documentation of current medications Jossie Park DC Start: 02-06-2017 End: 02-06-2017 Chiropractic manipulative tx spinal 3-4 regions Jossie Park DC Work Phone: Start: 12-25-2016 End: 12-26-2016 Chiropractic manipulation Jossie Pressley Dossi DC Work Phone: Start: 11-12-2016 End: 11-12-2016 Chiropractic manipulation Jossie Pressley Dossi DC Work Phone: Start: 11-07-2016 End: 11-08-2016 Chiropractic manipulation Jossie Pressley Dossi DC Work Phone: Start: 07-31-2016 End: 07-31-2016 Dietary management education, guidance, and counseling Jossie Park DC Start: 07-31-2016 End: 07-31-2016 Chiropractic manipulation Jossie Valadezsi DC Work Phone: Start: 07-23-2016 Lipid 1996 panel - S maurilio or Plasma Sujit Brandon MD Work Phone: Start: 03-19-2016 Mammography Cori Solis APRN.STACEY Work Phone: Start: 03-27-2011 Colonoscopy Cori Solis APRN.[employer] ENGINE[employer] Work Phone: Plan of Treatment Date Care Activity Detail Author Start: 04-10-2029 Urine microalbumin profile [facility] Start: 07-28-2024 End: 07-28-2024 Patient encounter procedure 07/28/2024 2:20 PM EST Office Visit Endocrinology [address] [place], [place] [id number] Danette Isaac MD [address] [place], [place] [id number] 3 mo follow up Endocrinology Comment on above: 3 mo follow up Start: 05-03-2024 Influenza vaccination [facility] Start: 04-09-2024 End: 04-09-2024 Patient encounter procedure 04/09/2024 3:00 PM EDT Office Visit Rheumatology/Pulmonary [address] [place], [place] [id number] Vivek Silva MD [address] [place] [id number] Pulm Sarcoid Rheumatology/Pulmonar y Comment on above: Pulm Sarcoid Start: 01-02-2024 End: 04-02-2024 Alanine aminotransferase [Enzymatic activity/volume] in Serum or Plasma ALANINE AMINOTRANSFERASE / SGPT Lab Routine Seropositive rheumatoid arthritis (HCC) Expected: 01/02/2024, Expires: 04/02/2024 [facility] Work Phone: Comment on above: Expected: 01/02/2024, Expires: Start: 01-02-2024 End: 04-02-2024 Aspartate aminotransferase [Enzymatic activity/volume] in Serum or Plasma ASPARTATE AMINOTRANSFERASE/SGOT Lab Routine Seropositive rheumatoid arthritis (HCC) Expected: 01/02/2024, Expires: 04/02/2024 [facility] Comment on above: Expected: 01/02/2024, Expires: Start: 01-02-2024 End: 04-02-2024 C reactive protein [Mass/volume] in Serum or Plasma C-REACTIVE PROTEIN Lab Routine Seropositive rheumatoid arthritis ([facility]) Expected: 01/02/2024, Expires: 04/02/2024 [facility] Comment on above: Expected: 01/02/2024, Expires: Start: 01-02-2024 End: 04-02-2024 CBC W Auto Differential panel - Blood COMPLETE BLOOD COUNT AND DIFFERENTIAL Lab Routine Seropositive rheumatoid arthritis ([facility]) Expected: 01/02/2024, Expires: 04/02/2024 [facility] Comment on above: Expected: 01/02/2024, Expires: Start: 01-02-2024 End: 04-02-2024 CREATININE BLD CREATININE BLD Lab Routine Seropositive rheumatoid arthritis ([facility]) Expected: 01/02/2024, Expires: 04/02/2024 [facility] Comment on above: Expected: 01/02/2024, Expires: Start: 01-02-2024 End: 04-02-2024 Cyclic citrullinated peptide IgG Ab [Units/volume] in Serum or Plasma CCP ANTIBODY IGG Lab Routine Seropositive rheumatoid arthritis ([facility]) Expected: 01/02/2024, Expires: 04/02/2024 [facility] Comment on above: Expected: 01/02/2024, Expires: Start: 01-02-2024 End: 04-02-2024 Erythrocyte sedimentation rate SEDIMENTATION RATE, WESTERGREN Lab Routine Seropositive rheumatoid arthritis ([facility]) Expected: 01/02/2024, Expires: 04/02/2024 [facility] Comment on above: Expected: 01/02/2024, Expires: Start: 01-02-2024 End: 04-02-2024 Hepatitis B virus core Ab [Presence] in Serum HEPATITIS B CORE ANTIBODY TOTAL Lab Routine Seropositive rheumatoid arthritis ([facility]) Expected: 01/02/2024, Expires: 04/02/2024 [facility] Comment on above: Expected: 01/02/2024, Expires: 4 Start: 01-02-2024 End: 04-02-2024 Hepatitis B virus surface Ag [Presence] in Serum HEPATITIS B SURFACE ANTIGEN Lab Routine Seropositive rheumatoid arthritis (HCC) Expected: 01/02/2024, Expires: 04/02/2024 [facility] Comment on above: Expected: 01/02/2024, Expires: Start: 01-02-2024 End: 04-02-2024 Hepatitis C virus Ab [Presence] in Serum HEPATITIS C ANTIBODY IA WITH CONFIRMATION Lab Routine Seropositive rheumatoid arthritis (HCC) Expected: 01/02/2024, Expires: 04/02/2024 [facility] Comment on above: Expected: 01/02/2024, Expires: 4 Start: 01-02-2024 End: 04-02-2024 Rheumatoid factor [Units/volume] in Serum or Plasma RHEUMATOID FACTOR Lab Routine Seropositive rheumatoid arthritis (HCC) Expected: 01/02/2024, Expires: 04/02/2024 [facility] Comment on above: Expected: 01/02/2024, Expires: 4 Start: 01-02-2024 End: 04-02-2024 Urea nitrogen [Mass/volume] in Serum or Plasma UREA NITROGEN Lab Routine Seropositive rheumatoid arthritis (HCC) Expected: 01/02/2024, Expires: 04/02/2024 [facility] Comment on above: Expected: 01/02/2024, Expires: Start: 09-02-2023 Advance Directive Discussion Advance Directive Discussion [facility] Start: 09-02-2023 Behavioral Health Screening Behavioral Health Screening [facility] Start: 09-02-2023 Depression Assessment Depression Assessment [facility] Start: 05-23-2023 Following clinical pathway protocol [facility] Start: 05-03-2023 Covid-19 Vaccine () Covid-19 Vaccine () [facility] Start: 05-03-2023 Influenza vaccination [facility] Start: 04-26-2023 Oxygen therapy [facility] Start: 04-26-2023 [facility] Start: 04-23-2023 Pneumococcal Vaccine: 65+ (2 of 2 - PCV) Pneumococcal Vaccine: 65+ (2 of 2 - PCV) [facility] Start: 09-02-2022 ADVANCE DIRECTIVE DISCUSSION ADVANCE DIRECTIVE DISCUSSION [facility] Start: 09-02-2022 DEPRESSION ASSESSMENT DEPRESSION ASSESSMENT [facility] Start: 07-23-2021 Lipid panel Lipid Screening [facility] Start: 07-23-2021 LIPID SCREEN LIPID SCREEN [facility] Start: 03-27-2021 Colonoscopy COLONOSCOPY [facility] Start: 03-27-2021 COLORECTAL CANCER SCREENING COLORECTAL CANCER SCREENING [facility] Start: 03-27-2021 Screening for malignant neoplasm of colon [facility] Start: 08-15-2020 Following clinical pathway protocol [facility] Start: 2020 PNEUMOCOCCAL: 65+ (1 - PCV) PNEUMOCOCCAL: 65+ (1 - PCV) [facility] Start: 07-23-2019 DIABETES SCREEN DIABETES SCREEN [facility] Start: 07-23-2019 Diabetes Screening Diabetes Screening [facility] Start: 03-19-2017 Mammography MAMMOGRAM [facility] Start: 03-19-2017 Screening for malignant neoplasm of breast Mammogram Screening [facility] Start: 02-06-2017 End: 02-06-2017 Appointment Appointment [facility] Work Phone: Start: 11-12-2016 End: 11-12-2016 Follow up Appt 2x/week [facility] Work Phone: Start: 11-07-2016 End: 11-08-2016 Follow up Appt 2x/week Follow up Appt 2x/week [employer] Work Phone: Start: 11-05-2016 End: 11-05-2016 X-Ray, Hip Unilateral X-Ray, Hip Unilateral [facility] Work Phone: Start: 08-05-2015 SHINGRIX VACCINE (2 of 3) SHINGRIX VACCINE (2 of 3) [facility] Start: 2015 RSV Vaccine (1 - 1-dose 60+ series) RSV Vaccine (1 - 1-dose 60+ series) [facility] Start: 2000 COLOGUARD (FIT-DNA) COLOGUARD (FIT-DNA) [facility] Start: [address] COLONOGRAPHY [facility] Start: 2000 FECAL OCCULT BLOOD FECAL OCCULT BLOOD [facility] Start: 2000 Screening for malignant neoplasm of colon [facility] Start: 2000 SIGMOIDOSCOPY SIGMOIDOSCOPY [facility] Start: 1973 ANNUAL PCP TEAM CHRONIC DISEASE VISIT ANNUAL PCP TEAM CHRONIC DISEASE VISIT [facility] Start: 1973 Anxiety Screening Anxiety Screening [facility] Start: 1973 Depression Screening Depression Screening [facility] CBC W Auto Different ial panel - Blood [facility] Work Phone: CT angiography of coronary arteries [facility] CT Chest WO contrast [facility] CTA Heart and Gaitan ry arteries W contrast IV [facility] Ferritin [Mass/volum e] in Serum or Plasma [facility] Work Phone: Iron and Iron bindin g capacity panel - Serum or Plasma [facility] Work Phone: End: 01-31-2025 LUNG DIFFUSION CAPACITY (DLCO) LUNG DIFFUSION CAPACITY (DLCO) PFT Routine Pulmonary sarcoidosis (HCC) 1 Occurrences starting 01/02/2024 until 01/31/2025 [facility] Comment on above: 1 Occurrences starting 01/02/2024 until 01/31/2025 Measurement of respiratory function [facility] Patient Education ACUTE%20LOW%20 BACK%20PAI N [facility] Work Phone: End: 01-31-2025 SPIROMETRY WITH DILATOR IF OBSTRUCTED SPIROMETRY WITH DILATOR IF OBSTRUCTED PFT Routine Pulmonary sarcoidosis (HCC) 1 Occurrences starting 01/02/2024 until 01/31/2025 [facility] Work Phone: Comment on above: 1 Occurrences starting 01/02/2024 until 01/31/2025 [facility] Immunizations Immunization Date Immunization Notes Care Provider Rhoda morales 06-18-2023 influenza virus vaccine, unspecified formulation Danette Isaac MD Work Phone: [facility] 06-07-2022 influenza virus vaccine, unspecified formulation Sujit Brandon MD Work Phone: [facility] 04-10-2019 tetanus toxoid, redu jesus alberto diphtheria toxoid, and acellular pertussis vaccine, adsorbed Cori Lowe PHOTOGRAPHIC EQUIPMENT ASSEMBLER.SHIP ENGINEER Work Phone: [facility] 08-03-2016 influenza, injectabl e, quadrivalent, contains preservative Cori Lowe PHOTOGRAPHIC EQUIPMENT ASSEMBLER.SHIP ENGINEER Work Phone: [facility] Work Phone: 06-10-2015 influenza, injectabl e, quadrivalent, contains preservative Cori Lowe PHOTOGRAPHIC EQUIPMENT ASSEMBLER.SHIP ENGINEER Work Phone: [facility] 06-10-2015 zoster vaccine, live Croi Garza PHOTOGRAPHIC EQUIPMENT ASSEMBLER.SHIP ENGINEER Work Phone: [facility] 10-10-2009 novel [id number], preservative-free, injectable Cori Lowe PHOTOGRAPHIC EQUIPMENT ASSEMBLER.SHIP ENGINEER Work Phone: [facility] Payers Date Payer Category Payer Medicare [employer] MEDICARE A ETNA MEDICARE PPO [id number] 2021-Present [phone] [address] [place] [address] PPO [id number] 2020 Private Health Insurance [id number] 2020 Self-pay [id number] 2017 Unknown Unknown [id number] Unknown [facility] P[facility] [id number] Unknown [id number] [id number] 62 Unknown [id number] 2.16.840.1.918525.3.579.2.4 62 Unknown [id number] 2.16.840.1.143421.3.579.2.4 62 Unknown [id number] 2.16.840.1.553222.3.579.2.4 62 Unknown [id number] 2.16.840.1.334087.3.579.2.4 62 Unknown [id number] 2.16.840.1.127251.3.579.2.4 62 Unknown [id number] 2.16.840.1.568045.3.579.2.4 62 Unknown [id number] 2.16.840.1.208157.3.579.2.4 62 Unknown [id number] 2.16.840.1.085610.3.579.2.4 62 Unknown [id number] 2.16.840.1.511439.3.579.2.4 62 Unknown [id number] 2.16.840.1.307834.3.579.2.4 62 Unknown [id number] 2.16.840.1.507916.3.579.2.4 62 Unknown [id number] 2.16.840.1.159708.3.579.2.4 62 Unknown [id number] 2.16.840.1.582989.3.579.2.4 62 Unknown [id number] 2.16.840.1.187328.3.579.2.4 62 Unknown [id number] 2.16.840.1.577271.3.579.2.4 62 Unknown [id number] 2.16.840.1.023098.3.579.2.4 62 Unknown [id number] 2.16.840.1.240260.3.579.2.4 62 Unknown [id number] 2.16.840.1.916775.3.579.2.4 62 Unknown [id number] 2.16.840.1.259924.3.579.2.4 62 Unknown [id number] 2.16.840.1.553321.3.579.2.4 62 Unknown [id number] 2.16.840.1.838979.3.579.2.4 62 Social History Date Type Detail Facility Start: 04-04-2021 End: 08-12-2023 Tobacco smoking status NHIS Unknown if ever smoked [facility] Start: 06-09-2020 None [facility] Start: 06-09-2020 Alone [facility] Start: 06-09-2020 Non-smoker [facility] Start: 1955 Sex Assigned At Female [facility] Start: 04-16-2013 End: 10-29-2024 Tobacco smoking status NHIS Never smoked tobacco [facility] Start: 04-16-2013 Tobacco use and exposure Smokeless tobacco non-user [facility] Start: 03-03-2023 End: 01-02-2024 Alcohol intake Current drinker of alcohol (finding) [facility] Start: 07-18-2015 Alcohol Comment once a month-Rare Cl [facility] Start: 1955 Sex Assigned At Not on file [facility] Start: 03-03-2023 End: 01-02-2024 History of Social function [facility] Start: 03-03-2023 End: 01-02-2024 Tobacco use panel [facility] National Score (1-100), lower number is lower risk Not on file [facility] Goals Date Patient Goal Desired Activity /State Mental Status Date Assessment Result Facility 05-23-2023 Cognitive function Awake;Alert;Appropriat e [facility] Work Phone: 09-30-2020 Cognitive function Awake;Alert;A ppropriate;Foll ows Commands [facility] Work Phone: 08-15-2020 Cognitive function Arousable To Voice/Nam e [facility] Work Phone: Clinical Notes 11-11-2014 to 04-22-2025 Note Date & Type Note Facility 04-22-2025 Progress note [facility] 04-22-2025 Progress note Note Date/Time April 22, 2025 10:28am [facility] [address] [place] [address] OFFICE VISIT Date of Service: 04/22/25 MR#: [id number] Acct: [id number] Name: MARCOS BOLIVAR Rep #: [id number] : 1955 Provider: MAHAMED Wells Age/Sex: 70/F Location: [facility] Status: Signed HPI HPI History of Present Illness Details: Marcos Bolivar is a 70 year-old female that presents here today for a cardiovascular follow-up.? She established with us for concerns over palpitations.? She was noted to be anemic at that time with a low iron.? We did start her on iron.? She also underwent a 30-day event monitor.? 30-day event monitor she did have one episode of SVT.? She has done remarkably well since getting her iron transfusions and her ferritin and iron levels are improved as well as her hemoglobin. She no longer needs to see hematology. ? She has not hadany further palpitations her metoprolol has been discontinued.? Of interest is the fact that she has been diagnosed with sarcoid.? We did talk a bit about sarcoid heart disease.?She was diagnosed with MARY, she did not tolerate PAP devices. Her Coronary calcium score 12.7. She did see [facility] for the sarcoid and RA clinic. She was recommended to f/u annualCTs. From a cardiac standpoint, patient is doing well. She does not have any chest discomfort/heaviness/tightness. She does not have any worsening symptoms of shortness of breath. She does not have any orthopnea. She denies PND. She does not have any symptoms of congestive heart failure. She does not have any palpitations that she is aware of. She does not have any lightheadedness or dizziness. She does not have any near-syncope or syncope. She does not have any lower extremity edema. She does not have any symptoms of claudication. 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 Is patient in pain?: No Allergies levofloxacin (From Levaquin) Allergy (Severe, Verified 03/16/25 14:25) Rash amoxicillin trihydrate (From Augmentin) Allergy (Intermediate, Verified 03/16/2514:25) Rash Penicillins Allergy (Intermediate, Verified 03/16/25 14:25) Rash potassium clavulanate (From Augmentin) Allergy (Intermediate, Verified 03/16/25 14:25) Rash tramadol HCl (From Ultram) Allergy (Intermediate, Verified 03/16/25 14:25) Rash Sulfa (Sulfonamide Antibiotics) Allergy (Mild, Verified 03/16/25 14:25) Rash codeine Adverse Reaction (Intermediate, Verified 03/16/25 14:25) Unknown Medications ?Medication ?Instructions ?Recorded ?Confirmed ?Type levothyroxine 112 mcg tablet 112 mcg PO DAILY 08/11/17 04/22/25 History sertraline 50 mg tablet 50 mg PO DAILY 03/29/2004/03 History multivitamin 1 tab PO QAM 09/03/24 History hydroxychloroquine 200 mg tablet mg PO 11/10/24 History Ejection fraction %: 65 Have you fallen in the past year?: No PFSH Medical History Rheumatoid arthritis Coronary artery calcification seen on CAT scan Carpal tunnel syndrome of right wrist Nonsustained paroxysmal supraventricular tachycardia Segmental and somatic dysfunction of lumbar region DDD (degenerative disc disease), cervical Segmental and somatic dysfunction of thoracic region Segmental and somatic dysfunction of cervical region Iron deficiency anemia Obesity Degenerative disc disease, cervical Segmental and somatic dysfunction of cervical region Segmental and somatic dysfunction of thoracic region Segmental and somatic dysfunction of lumbar region Hypothyroidism (acquired) Migraine Gallstones Breast cyst Recurrent UTI Anxiety and depression Anemia Seasonal allergies Bursitis of left hip Dyslipidemia Osteopenia Hypothyroid Surgical History History of colonoscopy (2010) History of esophagogastroduodenoscopy (EGD) (2012) repair of cleft lip Hx of tonsillectomy History of partial hysterectomy Hx of cholecystectomy Family History Father CAD (coronary artery disease) myocardial infarction Cancer Heart disease CVA (cerebral vascular accident) Son Diabetes Brother Hyperthyroidism Kidney stones Mother Hypothyroidism Sister Kidney stones Hypothyroidism Social History Smoking Status: Never smoker second hand exposure: No alcohol intake: never substance use type: does not use yahaira/caodaism: Hoahaoism seatbelt use: always do you feel safe at home: Yes ROS Const Const: Positive for fatigue; Negative for weakness, headache(s) or frequent falls Eyes Eyes: Negative for blurry vision ENT ENT: Negative for headache(s), dizziness or Nosebleed/epistaxis Cardio Chest Pain: No Palpitations: No Edema: None Muscle aches with walking: None Resp Respiratory: Negative for SOB with activity, SOB at rest or SOB orthopnea\SOB lying down GI GI: Negative nausea, vomiting, heartburn, bright, red blood in stools or black,tarry stools : Negative for hematuria Neuro Neuro: Negative for dizziness, lightheadedness, near syncope, syncope, frequent falls, headache(s), weakness or blurry vision Endo Endo: Positive for fatigue Cardiology Exam Const Appearance: cooperative, healthy appearing, comfortable, no acute distress and well developed Orientation: alert, awake and oriented x3 Head Head: normal to inspection Ears: hearing grossly normal bilaterally Nose: external nose normal Face and Sinus: face symmetric Mouth: oral mucosae normal, lip normal and moist mucous membranes Eyes General: appearance normal, both eyes and all related structures Eyelids: eyelids normal Conjunctivae: conjunctivae normal Pupils: PERRL EOM: EOM intact bilaterally Neck Neck: normal visual inspection and trachea midline; Negative no JVD Carotids: Negative bruit Chest Chest inspection: normal inspection of the chest Auscultation: Bilateral: Clear to Auscultation Cardio Palpation: normal PMI Rate: regular rate Rhythm: regular rhythm Heart sounds: S1 normal and S2 normal; Negative rub, gallop or murmur GI GI: soft, no hepatosplenomegaly and bowel sounds present Neuro General: patient alert, patient awake, patient oriented x3 and CN's II-XI intactbilaterally Extremities Pulses: Normal: Right Posterior Tibial Pulse, Left Posterior Tibial Pulse, RightRadial Pulse and Left Radial Pulse Lower Extremity Edema: None: Bilateral Psych Psychological: normal affect Supplemental Info Supplemental Information Echocardiogram 2018: Normal LV size. Left ventricular systolic function is normal. The estimated ejection fraction is 65 %. Mild (1+) tricuspid valve insufficiency. Coronary angiography CT scan from 05/24/2023: CORONARY CALCIUM SCORE: 12.7 Left main score 0 Left anterior descending artery score 11.9. Left circumflex artery 0.8 Right coronary artery 0 Total Agatston score 12.7 Percentile ranking 25th to 50th percentile. Conclusion: Minimal atherosclerotic plaquing with nonobstructive stenosis noted in the coronary arteries. Limited chest CT scan from 05/23/2023: IMPRESSION: Interval increase in size of the previously seen nodule in the anterior aspect of the right middle lobe. It presently measures 1.2 cm. Correlation with a PET scan is recommended. Labs: No Data to Display Diagnostics: No Data to Display Pulmonary: No Data to Display Past Visits: Cardiology Visit 04/22/25 Assessment and Plan Assessment and Plan (1) Nonsustained paroxysmal supraventricular tachycardia: Status: Chronic Comment: per 30 day 05/2020 Plan: Patient has not had any recurrence. She is no longer taking a beta-olivier. (2) Dyslipidemia: Status: Chronic Plan: Laboratory Tests 04/17/22 09:55 Cholesterol 222 H LDL Cholesterol 154 H HDL Cholesterol 50 Pt wishes not to treat with lifestyle modifactions (3) Iron deficiency anemia: Status: Chronic Qualifiers: Iron deficiency anemia type: chronic blood loss Qualified Code(s): D50.0 - Iron deficiency anemia secondary to blood loss (chronic) Plan: This is now being followed by her primary care. (4) Coronary artery calcification seen on CAT scan: Status: Acute Plan: Her CCA score is 12. Will continue with risk risk factor modifaction. (5) MARY (obstructive sleep apnea): Status: Acute Plan: Pts stop bang is positive. She would like to do a home sleep study for further evaluate. Plan Details Follow Up: 04/22/25 (As needed ) Coding Level of Care Code Off vis,est,level 3 Diagnoses Nonsustained paroxysmal supraventricular tachycardia I47.1 Dyslipidemia E78.5 Iron deficiency anemia due to chronic blood loss D50.0 Iron deficiency anemia type: chronic blood loss Coronary artery calcification seen on CAT scan I25.10 MARY (obstructive sleep apnea) G47.33 Coding Level of Care Code Off vis,est,level 3 Diagnoses Nonsustained paroxysmal supraventricular tachycardia I47.1 Dyslipidemia E78.5 Iron deficiency anemia due to chronic blood loss D50.0 Iron deficiency anemia type: chronic blood loss Coronary artery calcification seen on CAT scan I25.10 MARY (obstructive sleep apnea) G47.33 Clinical Quality Measures Falls Risk Screening/Assistive Devices Have you fallen in the past year?: No Cardiac Ejection fraction %: 65 04/22/25 1028 <Electronically signed by Marybeth Ovalle> Date _ Marybeth IRBY [facility] Signature: Date (if applicable) CC: ~ [employer] Work Phone: 1(864) 492-552807-15-2025 Progress [facility] [address] [address] OFFICE VISIT Date of Service: 03/16/25 1422 MR#: [id number] Acct: [id number] Name: MARCOS BOLIVAR Rep #: [id number] : 1955 From: Kayce guidry MD Age/Sex: 69/F Location: [facility] Status: Signed HPI Subjective Date of Service 03/16/25 Chief Complaint Anemia History of Present Illness 67-year-old female with #1- Chronic iron deficiency anemia. > 20 years earlier her anemia was attributed to excessive uterine bleeding from fibroids and at that time she underwent a hysterectomy with an improvement of her anemia. Since then she has been unaware of any external blood loss . She has not had any gastric surgeriesand suffers from occasional dyspepsia and GERD and uses acid suppressants on a as needed basis averaging once or so per week. She underwent upper and lower GIendoscopies in June 2020 with no obvious source of GI blood loss seen. She has started oral iron supplement April 2020 with improvement. #2-Multiple bilateral lung nodules, sarcoidosis: She has no prior history of malignancies. Was seen in the emergency room June [address] chest June 09, 2020: COMPARISON: 09/21/2011. FINDINGS: Normal enhancement of the main pulmonary artery and right and left pulmonary arteries. Normal enhancement of the bilateral peripheral pulmonary arteries. There is no demonstrated pulmonary embolism. Normal thoracic aorta and visualized great vessels. There is no demonstrated aortic dissection. Normal heart and pericardium. Normal mediastinum. Normal hilar regions. Normal visualized trachea and bronchi. The lungs are well expanded. Mild diffuse hazy density seen throughout both lungs suggests possibility of mild pulmonary edema. There are numerous bilateral suspicious noncalcified pulmonary nodules, many of which in retrospect were present on the previous exam, but all of which have increased in size. The appearance is most consistent with widespread metastatic disease. As example, some of the nodules measure: 1.1 cm nodule seen in the medial left apex, axial image 179, previously measuring only 7 mm. 4 mm nodule in the posterior right upper lobe, axial image 153, previously measured 3 mm. 4 mm nodule in the lateral mid left lung, axial image 141 previously not clearly seen. 4. 5 nodules as much as 6 mm in the lateral mid right lung, axial image 131 increase in size and number since previous study. 8 mm nodule in the anterior segment of the right lower lobe, axial image 126 measured only 6 mm previously. 9 mm nodule in the right middle lobe, axial image 120 not definitely seen previously. Numerous nodules as much as 5 mm size in both lung bases. No infiltrates. No effusions. Normal osseous structures. Normal visualized upper abdomen. IMPRESSION: Normal CTA chest examination, without a demonstrated pulmonary embolism or arterial dissection. Very numerous bilateral noncalcified pulmonary nodules many of which were present previously, but most of which have increased in size and there are also new nodules. Findings suggest metastatic disease. June 23, 2020 Right lung nodule, CT-guided core biopsy: Fragments of benign lung parenchymal tissue with focal area of non-necrotizing granuloma formation. Focal mild chronic inflammation. Special stains for acid fast bacilli and fungi are negative for organisms; matched controls are appropriate. [facility] Medical History Rheumatoid arthritis Coronary artery calcification seen on CAT scan Carpal tunnel syndrome of right wrist Nonsustained paroxysmal supraventricular tachycardia Segmental and somatic dysfunction of lumbar region DDD (degenerative disc disease), cervical Segmental and somatic dysfunction of thoracic region Segmental and somatic dysfunction of cervical region Iron deficiency anemia Obesity Degenerative disc disease, cervical Segmental and somatic dysfunction of cervical region Segmental and somatic dysfunction of thoracic region Segmental and somatic dysfunction of lumbar region Hypothyroidism (acquired) Migraine Gallstones Breast cyst Recurrent UTI Anxiety and depression Anemia Seasonal allergies Bursitis of left hip Dyslipidemia Osteopenia Hypothyroid Surgical History History of colonoscopy (2010) History of esophagogastroduodenoscopy (EGD) (2012) repair of cleft lip Hx of tonsillectomy History of partial hysterectomy Hx of cholecystectomy Family History Father CAD (coronary artery disease) myocardial infarction Cancer Heart disease CVA (cerebral vascular accident) Son Diabetes Brother Hyperthyroidism Kidney stones Mother Hypothyroidism Sister Kidney stones Hypothyroidism Social History Smoking Status: Never smoker second hand exposure: No alcohol intake: never substance use type: does not use yahaira/caodaism: Hoahaoism seatbelt use: always do you feel safe at home: Yes ROS Constitutional Constitutional: Reports systems reviewed and no addt'l complaints, except as documented; Denies fatigue Eyes Eyes: Reports systems reviewed and no addt'l complaints, except as documented ENT HEENT: Reports systems reviewed and no addt'l complaints, except as documented Cardiovascular Cardiovascular: Reports systems reviewed and no addt'l complaints, except as documented; Denies chest pain with activity or edema Respiratory/Chest Respiratory/Chest: Reports systems reviewed and no addt'l complaints, except as documented; Denies dyspnea on exertion Gastrointestinal Gastrointestinal: Reports systems reviewed and no addt'l complaints, except as documented; Denies hematochezia or melena Genitourinary Genitourinary: Reports systems reviewed and no addt'l complaints, except as documented; Denies hematuria Musculoskeletal Musculoskeletal: Reports arthralgias Integumentary Integumentary: Denies new lesions Neurologic Neurologic: Reports systems reviewed and no addt'l complaints, except as documented Psychiatric Psychiatric: Reports systems reviewed and no addt'l complaints, except as documented Endocrine Endocrinology: Reports systems reviewed and no addt'l complaints, except as documented Hematologic/Lymphatic Hematologic/Lymphatic: Denies anemia, easy bleeding or easy bruising Intake Vital Signs 12/29/24 08:12 03/16/25 14:24 03/16/25 14:26 Height 5 ft 6 in 5 ft 6 in 5 ft 6 in Weight: 88.961 kg BMI 31.6 BP 114/73 Blood Pressure Location Rt brachial Position Sitting Respiration 16 Pulse 70 Pulse Source Monitor Temp 97.7 F L Temperature Source Temporal Artery Pulse Oximetry (%) 95 Oxygen Delivery Method room air Intake Is patient in pain?: No Allergies levofloxacin (From Levaquin) Allergy (Severe, Verified 03/16/25 14:25) Rash amoxicillin trihydrate (From Augmentin) Allergy (Intermediate, Verified 03/16/2514:25) Rash Penicillins Allergy (Intermediate, Verified 03/16/25 14:25) Rash potassium clavulanate (From Augmentin) Allergy (Intermediate, Verified 03/16/25 14:25) Rash tramadol HCl (From Ultram) Allergy (Intermediate, Verified 03/16/25 14:25) Rash Sulfa (Sulfonamide Antibiotics) Allergy (Mild, Verified 03/16/25 14:25) Rash codeine Adverse Reaction (Intermediate, Verified 03/16/25 14:25) Unknown Medications ?Medication ?Instructions ?Recorded ?Confirmed ?Type levothyroxine 112 mcg tablet 112 mcg PO DAILY 08/11/17 03/16/25 History sertraline 50 mg tablet 50 mg PO DAILY 03/29/2003/02 History cholecalciferol (vitamin D3) 50 50 mcg PO QDAY 4 03/16/25 History mcg (2,000 unit) capsule multivitamin 1 tab PO QAM 09/03/24 History celecoxib 100 mg capsule (Celebrex) 100 mg PO BID #30 caps 11/10/24 03/16/25 Rx hydroxychloroquine 200 mg tablet mg PO 11/10/24 History Have you fallen in the past year?: No Central Venous Access Central Venous Access: No Laboratory Tests 04/30/13 02/29/16 08/11/17 09:22 08:50 02:07 Hgb 13.0 12.0 11.7 L Iron Saturation Ferritin 04/18/18 04/21/19 10/02/19 09:39 08:11 09:40 Hgb 11.7 L 11.7 L Iron Saturation Ferritin 4 L 3 L 03/30/20 05/05/2005/19/20 08:52 10:23 13:31 Hgb Iron Saturation 7.0 L Ferritin 3 L 6 L 3 L 06/15/20 06/23/20 09/19/20 12:35 07:59 12:22 Hgb 11.8 L Iron Saturation 7.6 L 18.5 Ferritin 4 L 47 12/19/20 03/20/21 09/20/21 14:49 14:55 12:18 Hgb 13.3 14.0 Iron Saturation 21.6 26.3 29.5 Ferritin 71 68 68 01/08/22 03/28/22 02/15/23 11:38 10:13 13:44 Hgb 13.2 13.8 13.7 Iron Saturation 20.8 Ferritin 41 35 02/26/23 03/16/24 03/10/25 14:20 10:45 10:28 Hgb 13.8 13.4 13.2 Iron Saturation 36.5 25.4 26.0 Ferritin 42 26 74 Exam Physical Exam Const alert, oriented x3 and no apparent distress General Appearance: cooperative and comfortable Coding Level of Care Code Off vis,est,level 3 Exam Problem Focused Diagnoses Iron deficiency anemia due to chronic blood loss D50.0 Iron deficiency anemia type: chronic blood loss Assessment and Plan Assessment and Plan (1) Iron deficiency anemia: Status: Chronic Qualifiers: Iron deficiency anemia type: chronic blood loss Qualified Code(s): D50.0 - Iron deficiency anemia secondary to blood loss (chronic) Plan 68-year-old female with #1- Chronic iron deficiency anemia due to chronic external blood loss. She has been anemic most of her adult life, and young age it was attributed to heavy uterine bleeding which improved after a hysterectomy some 20 years ago for uterine fibroids. Persistence of chronic iron deficiency after hysterectomy is consistent with chronic external blood loss most likely GI, source not identified on upper and lower GI endoscopies June 2020. Her anemia resolved with oral supplemented with IV iron. She stopped her oral iron by her own initiative in December 2024 and has remained stable with no recurrent anemia. #2-Sarcoidosis: Presented with incidental finding of multiple bilateral lung nodules: First noted on a CT scan of the chest in 2011, subtle progression on CTscan of the chest June 2020 suggestive of a quite indolent or benign process. CT-guided lung nodule biopsy June 23, 2020 showed a non-necrotizing granulomaformation., Focal mild chronic inflammation, and special stains for acid fast bacilli and fungi are negative for organisms; these findings were consistent with sarcoidosis, being asymptomatic watchful expectancy was advised by pulmonary consult #3-Chronic comorbid conditions: Pulmonary sarcoidosis, degenerative joint disease, dyslipidemia.. Plan: 1. Watchful, if her anemia recurs I would advise long-term oral iron. 2. Follow-up for anemia in12 months. 3. Routine cancer screening: Colonoscopy June 2020, mammography March 2025, she is a never smoker. Impression as above outlined discussed with patient. Kayce London MD Nursery Helper, [facility] Divisions of Medical Oncology & Hematology Department of Internal Medicine [place] [id number] This note was generated using a voice recognition system software. Although itwas reviewed by the author prior to finalization, it may still contain incorrectwords, spelling, and punctuation that were not noted when reviewing prior to saving. If a clinically significant typo or inaccurately typed phrase is noted, please notify the author.. Clinical Quality Measures Falls Risk Screening/Assistive Devices Have you fallen in the past year?: No 03/16/25 1438 shoaib [place]> Date _ Kayce London MD Cosigner Signature: Date (if applicable) CC: Dr. Rajesh Morley, DO ~ [facility]07-15-2025 Progress note Author Kayce London [facility] Note Date/Time March 16, 2025 2:38 [place] [address] OFFICE VISIT Date of Service: 03/16/25 1422 MR#: [id number] Acct: [id number] Name: MARCOS BOLIVAR Rep #: [id number] : 1955 From: Kayce guidry MD Age/Sex: 69/F Location: [facility] Status: Signed HPI Subjective Date of Service 03/16/25 Chief Complaint Anemia History of Present Illness 67-year-old female with #1- Chronic iron deficiency anemia. > 20 years earlier her anemia was attributed to excessive uterine bleeding from fibroids and at that time she underwent a hysterectomy with an improvement of her anemia. Since then she has been unaware of any external blood loss . She has not had any gastric surgeriesand suffers from occasional dyspepsia and GERD and uses acid suppressants on a as needed basis averaging once or so per week. She underwent upper and lower GIendoscopies in June 2020 with no obvious source of GI blood loss seen. She has started oral iron supplement April 2020 with improvement. #2-Multiple bilateral lung nodules, sarcoidosis: She has no prior history of malignancies. Was seen in the emergency room June [address] chest June 09, 2020: COMPARISON: 09/21/2011. FINDINGS: Normal enhancement of the main pulmonary artery and right and left pulmonary arteries. Normal enhancement of the bilateral peripheral pulmonary arteries. There is no demonstrated pulmonary embolism. Normal thoracic aorta and visualized great vessels. There is no demonstrated aortic dissection. Normal heart and pericardium. Normal mediastinum. Normal hilar regions. Normal visualized trachea and bronchi. The lungs are well expanded. Mild diffuse hazy density seen throughout both lungs suggests possibility of mild pulmonary edema. There are numerous bilateral suspicious noncalcified pulmonary nodules, many of which in retrospect were present on the previous exam, but all of which have increased in size. The appearance is most consistent with widespread metastatic disease. As example, some of the nodules measure: 1.1 cm nodule seen in the medial left apex, axial image 179, previously measuring only 7 mm. 4 mm nodule in the posterior right upper lobe, axial image 153, previously measured 3 mm. 4 mm nodule in the lateral mid left lung, axial image 141 previously not clearly seen. 4. 5 nodules as much as 6 mm in the lateral mid right lung, axial image 131 increase in size and number since previous study. 8 mm nodule in the anterior segment of the right lower lobe, axial image 126 measured only 6 mm previously. 9 mm nodule in the right middle lobe, axial image 120 not definitely seen previously. Numerous nodules as much as 5 mm size in both lung bases. No infiltrates. No effusions. Normal osseous structures. Normal visualized upper abdomen. IMPRESSION: Normal CTA chest examination, without a demonstrated pulmonary embolism or arterial dissection. Very numerous bilateral noncalcified pulmonary nodules many of which were present previously, but most of which have increased in size and there are also new nodules. Findings suggest metastatic disease. June 23, 2020 Right lung nodule, CT-guided core biopsy: Fragments of benign lung parenchymal tissue with focal area of non-necrotizing granuloma formation. Focal mild chronic inflammation. Special stains for acid fast bacilli and fungi are negative for organisms; matched controls are appropriate. [facility] Medical History Rheumatoid arthritis Coronary artery calcification seen on CAT scan Carpal tunnel syndrome of right wrist Nonsustained paroxysmal supraventricular tachycardia Segmental and somatic dysfunction of lumbar region DDD (degenerative disc disease), cervical Segmental and somatic dysfunction of thoracic region Segmental and somatic dysfunction of cervical region Iron deficiency anemia Obesity Degenerative disc disease, cervical Segmental and somatic dysfunction of cervical region Segmental and somatic dysfunction of thoracic region Segmental and somatic dysfunction of lumbar region Hypothyroidism (acquired) Migraine Gallstones Breast cyst Recurrent UTI Anxiety and depression Anemia Seasonal allergies Bursitis of left hip Dyslipidemia Osteopenia Hypothyroid Surgical History History of colonoscopy (2010) History of esophagogastroduodenoscopy (EGD) (2012) repair of cleft lip Hx of tonsillectomy History of partial hysterectomy Hx of cholecystectomy Family History Father CAD (coronary artery disease) myocardial infarction Cancer Heart disease CVA (cerebral vascular accident) Son Diabetes Brother Hyperthyroidism Kidney stones Mother Hypothyroidism Sister Kidney stones Hypothyroidism Social History Smoking Status: Never smoker second hand exposure: No alcohol intake: never substance use type: does not use yahaira/caodaism: Hoahaoism seatbelt use: always do you feel safe at home: Yes ROS Constitutional Constitutional: Reports systems reviewed and no addt'l complaints, except as documented; Denies fatigue Eyes Eyes: Reports systems reviewed and no addt'l complaints, except as documented ENT HEENT: Reports systems reviewed and no addt'l complaints, except as documented Cardiovascular Cardiovascular: Reports systems reviewed and no addt'l complaints, except as documented; Denies chest pain with activity or edema Respiratory/Chest Respiratory/Chest: Reports systems reviewed and no addt'l complaints, except as documented; Denies dyspnea on exertion Gastrointestinal Gastrointestinal: Reports systems reviewed and no addt'l complaints, except as documented; Denies hematochezia or melena Genitourinary Genitourinary: Reports systems reviewed and no addt'l complaints, except as documented; Denies hematuria Musculoskeletal Musculoskeletal: Reports arthralgias Integumentary Integumentary: Denies new lesions Neurologic Neurologic: Reports systems reviewed and no addt'l complaints, except as documented Psychiatric Psychiatric: Reports systems reviewed and no addt'l complaints, except as documented Endocrine Endocrinology: Reports systems reviewed and no addt'l complaints, except as documented Hematologic/Lymphatic Hematologic/Lymphatic: Denies anemia, easy bleeding or easy bruising Intake Vital Signs 12/29/24 08:12 03/16/25 14:24 03/16/25 14:26 Height 5 ft 6 in 5 ft 6 in 5 ft 6 in Weight: 88.961 kg BMI 31.6 BP 114/73 Blood Pressure Location Rt brachial Position Sitting Respiration 16 Pulse 70 Pulse Source Monitor Temp 97.7 F L Temperature Source Temporal Artery Pulse Oximetry (%) 95 Oxygen Delivery Method room air Intake Is patient in pain?: No Allergies levofloxacin (From Levaquin) Allergy (Severe, Verified 03/16/25 14:25) Rash amoxicillin trihydrate (From Augmentin) Allergy (Intermediate, Verified 03/16/2514:25) Rash Penicillins Allergy (Intermediate, Verified 03/16/25 14:25) Rash potassium clavulanate (From Augmentin) Allergy (Intermediate, Verified 03/16/25 14:25) Rash tramadol HCl (From Ultram) Allergy (Intermediate, Verified 03/16/25 14:25) Rash Sulfa (Sulfonamide Antibiotics) Allergy (Mild, Verified 03/16/25 14:25) Rash codeine Adverse Reaction (Intermediate, Verified 03/16/25 14:25) Unknown Medications ?Medication ?Instructions ?Recorded ?Confirmed ?Type levothyroxine 112 mcg tablet 112 mcg PO DAILY 08/11/17 03/16/25 History sertraline 50 mg tablet 50 mg PO DAILY 03/29/2003/02 History cholecalciferol (vitamin D3) 50 50 mcg PO QDAY 4 03/16/25 History mcg (2,000 unit) capsule multivitamin 1 tab PO QAM 09/03/24 History celecoxib 100 mg capsule (Celebrex) 100 mg PO BID #30 caps 11/10/24 03/16/25 Rx hydroxychloroquine 200 mg tablet mg PO 11/10/24 History Have you fallen in the past year?: No Central Venous Access Central Venous Access: No Laboratory Tests 04/30/13 02/29/16 08/11/17 09:22 08:50 02:07 Hgb 13.0 12.0 11.7 L Iron Saturation Ferritin 04/18/18 04/21/19 10/02/19 09:39 08:11 09:40 Hgb 11.7 L 11.7 L Iron Saturation Ferritin 4 L 3 L 03/30/20 05/05/20 05/19/20 08:52 10:23 13:31 Hgb Iron Saturation 7.0 L Ferritin 3 L 6 L 3 L 06/15/20 06/23/20 09/19/20 12:35 07:59 12:22 Hgb 11.8 L Iron Saturation 7.6 L 18.5 Ferritin 4 L 47 12/19/20 03/20/21 09/20/21 14:49 14:55 12:18 Hgb 13.3 14.0 Iron Saturation 21.6 26.3 29.5 Ferritin 71 68 68 01/08/22 03/28/22 02/15/23 11:38 10:13 13:44 Hgb 13.2 13.8 13.7 Iron Saturation 20.8 Ferritin 41 35 02/26/23 03/16/24 03/10/25 14:20 10:45 10:28 Hgb 13.8 13.4 13.2 Iron Saturation 36.5 25.4 26.0 Ferritin 42 26 74 Exam Physical Exam Const alert, oriented x3 and no apparent distress General Appearance: cooperative and comfortable Coding Level of Care Code Off vis,est,level 3 Exam Problem Focused Diagnoses Iron deficiency anemia due to chronic blood loss D50.0 Iron deficiency anemia type: chronic blood loss Assessment and Plan Assessment and Plan (1) Iron deficiency anemia: Status: Chronic Qualifiers: Iron deficiency anemia type: chronic blood loss Qualified Code(s): D50.0 - Iron deficiency anemia secondary to blood loss (chronic) Plan 68-year-old female with #1- Chronic iron deficiency anemia due to chronic external blood loss. She has been anemic most of her adult life, and young age it was attributed to heavy uterine bleeding which improved after a hysterectomy some 20 years ago for uterine fibroids. Persistence of chronic iron deficiency after hysterectomy is consistent with chronic external blood loss most likely GI, source not identified on upper and lower GI endoscopies June 2020. Her anemia resolved with oral supplemented with IV iron. She stopped her oral iron by her own initiative in December 2024 and has remained stable with no recurrent anemia. #2-Sarcoidosis: Presented with incidental finding of multiple bilateral lung nodules: First noted on a CT scan of the chest in 2011, subtle progression on CTscan of the chest June 2020 suggestive of a quite indolent or benign process. CT-guided lung nodule biopsy June 23, 2020 showed a non-necrotizing granulomaformation., Focal mild chronic inflammation, and special stains for acid fast bacilli and fungi are negative for organisms; these findings were consistent with sarcoidosis, being asymptomatic watchful expectancy was advised by pulmonary consult #3-Chronic comorbid conditions: Pulmonary sarcoidosis, degenerative joint disease, dyslipidemia.. Plan: 1. Watchful, if her anemia recurs I would advise long-term oral iron. 2. Follow-up for anemia in12 months. 3. Routine cancer screening: Colonoscopy June 2020, mammography March 2025, she is a never smoker. Impression as above outlined discussed with patient. Kayce London MD Nursery Helper, [facility] Divisions of Medical Oncology & Hematology Department of Internal Medicine [facility] [place] [id number] This note was generated using a voice recognition system software. Although itwas reviewed by the author prior to finalization, it may still contain incorrectwords, spelling, and punctuation that were not noted when reviewing prior to saving. If a clinically significant typo or inaccurately typed phrase is noted, please notify the author.. Clinical Quality Measures Falls Risk Screening/Assistive Devices Have you fallen in the past year?: No 03/16/25 7799 <Electronically signed by Kayce cramer MD> Date _ Kayce López Signature: Date (if applicable) CC: Dr. Rajesh Morley, DO ~ [facility] Work Phone: 1(147) 347-368704-29-2025 Evaluation note* Diagnosis Onset Date Resolution Status Admit Date MARY (obstructive sleep apnea) acute December 29, 2024 2:01pm Multiple lung nodules chronic Dec [place] 2024 2:01pm Sarcoidosis chronic December 29, 2 025 2:01pm Iron deficiency anemia chronic Ju ly 2024 10:30am Multiple lung nodules chronic Mar y 2024 10:30am [facility] Work Phone: 1(632) 941-551004-29-2025 Evaluation note* Diagnosis Onset Date Resolution Status Admit Date MARY (obstructive sleep apnea) acute December 29, 2024 2:01pm Multiple lung nodules chronic Dec [place] 2024 2:01pm Sarcoidosis chronic December 29, 2 025 2:01pm Iron deficiency anemia chronic Ju ly 2024 10:30am Multiple lung nodules chronic Mar y 2024 10:30am Iron deficiency anemia chronic Ju ly 2024 2:15pm [facility] Work Phone: 1(795) 459-954304-29-2025 Evaluation note* Diagnosis Onset Date Resolution Status Admit Date MARY (obstructive sleep apnea) acute December 29, 2024 2:01pm Multiple lung nodules chronic Apr il 2024 2:01pm Sarcoidosis chronic December 29, 2 025 2:01pm Iron deficiency anemia chronic Ju ly 2024 10:30am Multiple lung nodules chronic Mar y 2024 10:30am Iron deficiency anemia chronic Ju ly 2024 2:15pm Coronary artery calcificatio n seen on CAT scan acute April 22 9:55am MARY (obstructive sleep apnea) acute April 22, 2025 9:55am Dyslipidemia chronic April 22, 2025 9:55am Iron deficiency anemia chronic Au danny 2024 9:55am Nonsustained paroxysmal supraventricular tachycardia chronic Aug ust 2024 9:55am [facility] Work Phone: [phone] Instructions* Patient Instructions* Danette Isaac MD - 04/28/2024 3:29 PM EDT You can continue the same dose of levothyroxine Please bring thyroid ultrasound and biopsy on next visit [facility] NoteHNO ID: [id number] Author: DANETTE ISAAC MD Service: ? Author Type: Physician Type: Progress Notes Filed: 04/28/2024 18:37 Note Text: [facility] Initial Clinic Visit Note CONSULTING PHYSICIAN: Rajesh Morley DO (PCP) My final recommendations will be communicated back to the requesting physician by way of shared Medical record or a letter via [place] mail Subjective: Marcos Bolivar is a 69 year old female here to establish care for hypothyroidism. How hypothyroidism was discovered: about 40 years ago Cause of hypothyroidism: Dilan's thyroiditis Current treatment: LT4 12 mcg daily Prior treatment: does not remember She reports having thyroid nodules, underwent FNAB with benign results- she had done at [facility], about 4 to 5 years ago, and was never followed after She reports she went on a website, and knew that thyroid medication should be taken She reports knowing about temperature, heart rate which tells the thyroid function Reports she has gained weight after starting OCP during reproductive age, but could not lose after discontinuing them. Otherwise no new changes in weight Family history: Hypothyroidism in mother, sisters He has had a lot of questions about hormones She reports she was told that as she has many sons, and brothers, she could have facial hair - underwent electrolysis for this She is diagnosed with RA, intermittently takes steroids with flare REVIEW OF SYSTEMS: GENERAL:No weight loss, malaise or fevers HEENT:Negative for frequent or significant headaches, No changes in hearing or vision, no nose bleeds or other nasal problems NECK:Negative for lumps, goiter, pain and significant neck swelling RESPIRATORY: Negative for cough, hemoptysis, wheezing or shortness of breath CARDIOVASCULAR: Negative for chest pain, leg swelling or palpitations GASTROINTESTINAL: No nausea, vomiting, or persistent diarrhea GENITOURINARY: no dysuria, Polyuria, no changes in urinary frequency MUSCULOSKELETAL:no muscle aches, arthralgia NEUROLOGIC: no numbness, tingling, no Paresthesias, no headaches SKIN:Negative for lesions, rash, and itching PSYCHIATRIC: Negative for sleep disturbance, mood disorder and recent psychosocial stressors. HEMATOLOGIC/LYMPHATIC/IMMUNOLOGIC:Negative for prolonged bleeding, bruising easily ENDOCRINE: Negative for cold or heat intolerance or goiter ALLERGIES: ALLERGIES Allergen Reactions Augmentin [Amoxicil* Rash Levaquin [Levofloxa* Intolerance tendonitis Penicillins Rash Sulfa (Sulfonamide * Intolerance Ultram [Tramadol Hc* Rash MEDICATIONS: Current Outpatient Medications on File Prior to Visit Medication Sig predniSONE (DELTASONE) 10 mg tablet Take 10 mg by mouth as needed (for RA flares). ergocalciferol, vitamin D2, (VITAMIN D2 ORAL) Take by mouth. iron,carb/vit C/vit B12/folic (IRON 100 PLUS ORAL) Take by mouth. levothyroxine (LEVOXYL) 112 mcg tablet Take 1 tablet by mouth once daily. Take on empty stomach. For thyroid. sertraline (ZOLOFT) 25 mg tablet Take 1 tablet by mouth once daily. (Patient taking differently: Take 50 mg by mouth once daily.) hydrOXYchloroQUINE (PLAQUENIL) 200 mg tablet Take 1 tablet by mouth once daily. (Patient not taking: Reported on 04/28/2024) No current facility-administered medications on file prior to visit. PAST MEDICAL HISTORY: PAST MEDICAL HISTORY 03/02/2016: Adjustment disorder with depressed mood No date: Depression No date: Esophagitis, unspecified 11/11/2014: GERD (gastroesophageal reflux disease) No date: Hypothyroidism No date: Migraine PAST SURGICAL HISTORY: PAST SURGICAL HISTORY 1996: CHOLECYSTECTOMY Comment: Cholecystectomy 08/30/00: COLONOSCOPY FLX DX W/COLLJ SPEC WHEN PFRMD Comment: internal hemorrhoids only 03/27/2011: COLONOSCOPY FLX DX W/COLLJ SPEC WHEN PFRMD Comment: Colonoscopy repeat 10 yrs 07/22/00: ESOPHAGOGASTRODUODENOSCOPY TRANSORAL DIAGNOSTIC Comment: mild duodenitis 11/06/2012: ESOPHAGOGASTRODUODENOSCOPY TRANSORAL DIAGNOSTIC Comment: EGD 03/18/15: FNA WITH IMAGING; Left Comment: U/S FNA left breast UOQ 03/2001: HYSTERECTOMY HX Comment: hysterectomy : PAST SURGICAL HISTORY OF Comment: cleft lip surgery 03/02: PAST SURGICAL HISTORY OF Comment: partial hysterectomy has 1 ovary left 1960: TONSILLECTOMY PRIMARY/SECONDARY Comment: Tonsillectomy FAMILY HISTORY: FAMILY HISTORY Problem Relation Age of Onset Cancer Father lung, liver,pancreas Diabetes Son Stroke Father Coronary Artery Disease Father None Brother None Brother None Brother None Brother None Brother other (colitis [Other]) Sister other (hypercholesterol [Other]) Sister SOCIAL HISTORY: Social History Tobacco Use Smoking status: Never Smokeless tobacco: Never Substance Use Topics Alcohol use: Yes Comment: once a month-Rare Drug use: No PHYSICAL EXAM: There were no vitals taken for this visit. Las (more content not included)...[facility]08-27-2024 History of Present illness Narrative* Danette Isaac MD - 04/28/2024 3:14 PM EDT [facility] Initial Clinic Visit Note CONSULTING PHYSICIAN: Rajesh Morley DO (PCP) My final recommendations will be communicated back to the requesting physician by way of shared Medical record or a letter via [place] mail Subjective: Marcos Bolivar is a 69 year old female here to establish care for hypothyroidism. How hypothyroidism was discovered: about 40 years ago Cause of hypothyroidism: Dilan's thyroiditis Current treatment: LT4 12 mcg daily Prior treatment: does not remember She reports having thyroid nodules, underwent FNAB with benign results- she had done at [facility], about 4 to 5 years ago, and was never followed after She reports she went on a website, and knew that thyroid medication should be taken She reports knowing about temperature, heart rate which tells the thyroid function Reports she has gained weight after starting OCP during reproductive age, but could not lose after discontinuing them. Otherwise no new changes in weight Family history: Hypothyroidism in mother, sisters He has had a lot of questions about hormones She reports she was told that as she has many sons, and brothers, she could have facial hair - underwent electrolysis for this She is diagnosed with RA, intermittently takes steroids with flare REVIEW OF SYSTEMS: GENERAL:No weight loss, malaise or fevers HEENT:Negative for frequent or significant headaches, No changes in hearing or vision, no nose bleeds or other nasal problems NECK:Negative for lumps, goiter, pain and significant neck swelling RESPIRATORY: Negative for cough, hemoptysis, wheezing or shortness of breath CARDIOVASCULAR: Negative for chest pain, leg swelling or palpitations GASTROINTESTINAL: No nausea, vomiting, or persistent diarrhea GENITOURINARY: no dysuria, Polyuria, no changes in urinary frequency MUSCULOSKELETAL:no muscle aches, arthralgia NEUROLOGIC: no numbness, tingling, no Paresthesias, no headaches SKIN:Negative for lesions, rash, and itching PSYCHIATRIC: Negative for sleep disturbance, mood disorder and recent psychosocial stressors. HEMATOLOGIC/LYMPHATIC/IMMUNOLOGIC:Negative for prolonged bleeding, bruising easily ENDOCRINE: Negative for cold or heat intolerance or goiter ALLERGIES: ALLERGIES Allergen Reactions Augmentin [Amoxicil* Rash Levaquin [Levofloxa* Intolerance tendonitis Penicillins Rash Sulfa (Sulfonamide * Intolerance Ultram [Tramadol Hc* Rash MEDICATIONS: Current Outpatient Medications on File Prior to Visit Medication Sig predniSONE (DELTASONE) 10 mg tablet Take 10 mg by mouth as needed (for RA flares). ergocalciferol, vitamin D2, (VITAMIN D2 ORAL) Take by mouth. iron,carb/vit C/vit B12/folic (IRON 100 PLUS ORAL) Take by mouth. levothyroxine (LEVOXYL) 112 mcg tablet Take 1 tablet by mouth once daily. Take on empty stomach. For thyroid. sertraline (ZOLOFT) 25 mg tablet Take 1 tablet by mouth once daily. (Patient taking differently: Take 50 mg by mouth once daily.) hydrOXYchloroQUINE (PLAQUENIL) 200 mg tablet Take 1 tablet by mouth once daily. (Patient not taking: Reported on 04/28/2024) No current facility-administered medications on file prior to visit. PAST MEDICAL HISTORY: PAST MEDICAL HISTORY 03/02/2016: Adjustment disorder with depressed mood No date: Depression No date: Esophagitis, unspecified 11/11/2014: GERD (gastroesophageal reflux disease) No date: Hypothyroidism No date: Migraine PAST SURGICAL HISTORY: PAST SURGICAL HISTORY 1996: CHOLECYSTECTOMY Comment: Cholecystectomy 08/30/00: COLONOSCOPY FLX DX W/COLLJ SPEC WHEN PFRMD Comment: internal hemorrhoids only 03/27/2011: COLONOSCOPY FLX DX W/COLLJ SPEC WHEN PFRMD Comment: Colonoscopy repeat 10 yrs 07/22/00: ESOPHAGOGASTRODUODENOSCOPY TRANSORAL DIAGNOSTIC Comment: mild duodenitis 11/06/2012: ESOPHAGOGASTRODUODENOSCOPY TRANSORAL DIAGNOSTIC Comment: EGD 03/18/15: FNA WITH IMAGING; Left Comment: U/S FNA left breast UOQ 03/2001: HYSTERECTOMY HX Comment: hysterectomy : PAST SURGICAL HISTORY OF Comment: cleft lip surgery 03/02: PAST SURGICAL HISTORY OF Comment: partial hysterectomy has 1 ovary left 1960: TONSILLECTOMY PRIMARY/SECONDARY <AGE 12 Comment: Tonsillectomy FAMILY HISTORY: FAMILY HISTORY Problem Relation Age of Onset Cancer Father lung, liver,pancreas Diabetes Son Stroke Father Coronary Artery Disease Father None Brother None Brother None Brother None Brother None Brother other (colitis [Other]) Sister other (hypercholesterol [Other]) Sister SOCIAL HISTORY: Social History Tobacco Use Smoking status: Never Smokeless tobacco: Never Substance Use Topics Alcohol use: Yes Comment: once a month-Rare Drug use: No PHYSICAL EXAM: There were no vitals taken for this visit. Last 3 Encounter Wt Readings: Date: Wt: 01/02/2024 92.1 kg (203 lb) 01/02/2024 92.3 kg (203 lb 6.4 oz) 03/03/2023 91.2 kg (201 lb) General: Alert and oriented x3, no acute distress Eyes: Anicteric sclera. Extraocular movements are intact. Neck supple, no cervical lymphadenopathy Thyroid: normal size, normal texture, no palpable nodules Lungs: Breathing unlabored on room air Heart regular rate and rhythm Neuro: Gait normal. 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 She would like to know what she needs to do for the nodules. She as recomemnded to bring her thyroid ultrasound and FNAB results on next visit She had multiple questions about thyroid and hormones in general which she agrees have been answered Medical Decision Making: Problems: Moderate: 1+ chronic illnesses with change Data: Unique test result(s) reviewed: 3+ Independent interpretation of test from other physician/QHCP Medical Decision Making Level: 4 - Moderate Danette Isaac MD Endocrinology Associate Staff [facility] Specialty & Surgery [facility] Endocrinology and Metabolism [place] [phone] documented [facility] Telephone encounter Note * Telephone Encounter - Melinda Hooks RN - 01/02/2024 3:24 PM EDTSummary: Telephone Encounter for images and biopsy report 01/02/2024: 1524: Called [facility] Imaging dept and spoke to Yue- she is pushing CT of chest images from 11/23, 2022, and 2020 and also needle bx of 2019. She is faxing the pathology report of the biopsy to us as well. Dr. Foy notified. Melinda Hooks RN [facility]05-02[facility]24 Miscellaneous Notes* Telephone Encounter - Melinda Hooks RN - 01/02/2024 3:24 PM EDTSummary: Telephone Encounter for images and biopsy report 01/02/2024: 1524: Called [facility] Imaging dept and spoke to Yue- she is pushing CT of chest images from 11/23, 2022, and 2020 and also needle bx of 2019. She is faxing the pathology report of the biopsy to us as well. Dr. Foy notified. Melinda Hooks RN documented in this encounterH[facility]05-02-2024 Instructions* Patient Instructions* Vivek Silva MD - 01/02/2024 2:25 PM EDT Follow up Apr 09 at 3 PM documented in this encounterH[facility]05-[facility]24 History of Present illness Narrative* Vivek Silva MD - 01/02/2024 2:00 PM EDT Vivek Silva MD Marcos Bolivar January 01, 2024 Referring Provider:Anand Taylor PCP: Rajesh Mroley DO Chief Complaint: Patient presents with: New HPI:Marcos Bolivar is a 68 year old female who comes here today for sarcoidosis and RA. She started to notice nodules, swelling and pain on her right second and third fingers about a yearago. This happened almost overnight. No pain or swelling in the other joints. She was seen by local provider. Her RF and CCP were positive. She was offered treatment with DMARDsbut she declined citing concern over side effect. So far, she has been treated with only 2 short course of steroid burst which was effective to control her symptoms and swelling. She is also recently diagnosed with pulmonary sarcoidosis. It was accidentally found on CT scan that was done to rule out PE because of palpitation and elevated D-dimer. She does not have pulmonary symptoms. No cough, pleurisy or dyspnea. The diagnosis of sarcoidosis was eventually confirmed by biopsy. She was seen by Dr. Foy earlier today who does not think that her pulmonary sarcoidosis needs treatment. PAST MEDICAL HISTORY Diagnosis Date Adjustment disorder with depressed mood 03/02/2016 Depression Esophagitis, unspecified GERD (gastroesophageal reflux disease) 11/11/2014 Hypothyroidism Migraine PAST SURGICAL HISTORY Procedure Laterality Date CHOLECYSTECTOMY 1996 Cholecystectomy COLONOSCOPY FLX DX W/COLLJ SPEC WHEN PFRMD 08/30/00 internal hemorrhoids only COLONOSCOPY FLX DX W/COLLJ SPEC WHEN PFRMD 03/27/2011 Colonoscopy repeat 10 yrs ESOPHAGOGASTRODUODENOSCOPY TRANSORAL DIAGNOSTIC 07/22/00 mild duodenitis ESOPHAGOGASTRODUODENOSCOPY TRANSORAL DIAGNOSTIC 11/06/2012 EGD FNA WITH IMAGING Left 03/18/15 U/S FNA left breast UOQ HYSTERECTOMY HX 03/2001 hysterectomy PAST SURGICAL HISTORY OF cleft lip surgery PAST SURGICAL HISTORY OF 03/02 partial hysterectomy has 1 ovary left TONSILLECTOMY PRIMARY/SECONDARY <AGE 12 1960 Tonsillectomy Social History Tobacco Use Smoking status: Never Smokeless tobacco: Never Substance Use Topics Alcohol use: Yes Comment: once a month-Rare Drug use: No Health Maintenance: Annual PCP Team Chronic Disease Visit Never done RSV Vaccine(1 - 1-dose 60+ series) Never done Mammogram Screening due on 03/19/2017 Diabetes Screening due on 07/23/2019 Colorectal Cancer Screening due on 03/27/2021 Lipid Screening due on 07/23/2021 Pneumococcal Vaccine: 65+(2 of 2 - PCV) due on 04/23/2023 Covid-19 Vaccine(2022- season) due on 05/03/2023 Advance Directive Discussion Never done Behavioral Health Screening Never done Immunization History Administered Date(s) Administered COVID-19 original vaccine, full dose, monovalent (MODERNA) 10/30/2020 11/23/2020 07/17/2021 COVID-19 vaccine, age 12+ yr, bivalent (MODERNA) 06/07/2022 influenza (IIV4) vaccine, age 6 mo - 64 yr, quadrivalent (AFLURIA, FLULAVAL, FLUZONE) 06/10/2015 08/03/2016 novel influenza (M1H6-09) vaccine, PF 10/10/2009 tetanus diphtheria pertussis (Tdap) vaccine, age 7+ yr (ADACEL, BOOSTRIX) 04/10/2019 zoster (ZVL) vaccine, live (ZOSTAVAX) 06/10/2015 Current Outpatient Medications Medication Sig Dispense Refill hydrOXYchloroQUINE (PLAQUENIL) 200 mg tablet Take 1 tablet by mouth once daily. 30 tablet 11 mupirocin (BACTROBAN) 2 % ointment Apply 1 application to affected area three times daily. (Patientnot taking: Reported on 03/03/2023) 30 g 0 ibuprofen (MOTRIN) 800 mg tablet Take 1 tablet by mouth every 8 hours as needed for Pain (with food.). (Patient not taking: Reported on 04/10/2019) 30 tablet 0 levothyroxine (LEVOXYL) 112 mcg tablet Take 1 tablet by mouth once daily. Take on empty stomach. For thyroid. 90 tablet 3 sertraline (ZOLOFT) 25 mg tablet Take 1 tablet by mouth once daily. 90 tablet 3 cholecalciferol (VITAMIN D3) 1,000 unit tab tablet Take 1,000 Units by mouth once daily. (Patient not taking: Reported on 01/02/2024) No current facility-administered medications for this visit. ALLERGIES Allergen Reactions Augmentin [Amoxicil* Rash Levaquin [Levofloxa* Intolerance tendonitis Penicillins Rash Sulfa (Sulfonamide * Intolerance Ultram [Tramadol Hc* Rash Physical Exam: BP 117/74 Pulse 70 Temp (Src) 99.2 (Temporal) Resp 18 Wt 203 lb (92.1kg) SpO2 96% General: Not pale, no jaundice, not in acute distress Head: Normocephalic, atraumatic Eyes: No redeye, no discharge ENT: No oral/nasal ulcer Neck: No lymphadenopathy Lungs: Normal breath sound, no adventitious sound Abdomen: Soft, not tender CV: Normal S1 S2, no murmur, no rub, pulse regular Skin: No rash, no malar rash, no telangiectasia, no pitting nail/onycholysis, no gross periungual telangiectasia Neuro: Grossly intact, motor power 5 all Joints LEFT Shoulder Full ROM, not tender Elbow Full ROM, not tender, not swollen Wrist Full ROM, not tender, not swollen 2nd MCP Not tender, not swollen 3rd MCP Not tender, not swollen 4th MCP Not tender, not swollen 5th MCP Not tender, not swollen 1st IP Not tender, not swollen 2nd PIP Not tender, not swollen 3rd PIP Not tender, not swollen 4th PIP Not tender, not swollen 5th PIP Not tender, not swollen 2nd DIP Not tender, not swollen 3rd DIP Not tender, not swollen 4th DIP Not tender, not swollen 5th DIP Not tender, not swollen Hip Full ROM Knee Full ROM, not tender, no effusion Ankle Not tender, not swollen Achilles Not tender, not swollen Squeezing test Negative RIGHT Shoulder Full ROM, not tender Elbow Full ROM, not tender, not swollen Wrist Full ROM, not tender, not swollen 2nd MCP mod tender, mod swollen 3rd MCP mod tender, mod swollen 4th MCP Not tender, not swollen 5th MCP Not tender, not swollen 1st IP Not tender, not swollen 2nd PIP mod tender, mod swollen 3rd PIP mod tender, mod swollen 4th PIP Not tender, not swollen 5th PIP Not tender, not swollen 2nd DIP Not tender, not swollen 3rd DIP Not tender, not swollen 4th DIP Not tender, not swollen 5th DIP Not tender, not swollen Hip Full ROM Knee Full ROM, not tender, no effusion Ankle Not tender, not swollen Achilles Not tender, not swollen Squeezing test Negative Labs: Serology: CRP: No results found for: CCPABG RF: No results found for: RF ESR: No results found for: WSR CRP No results found for: CRP Quantiferon:No components found for: QTBA Cr: No components found for: CR CBC: Imaging: Impression: 68 year old female [facility]. 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 I would recommend treatment to help controlling her symptoms as well as to prevent joint damage. The patient now agrees with treatment. I would elect to use hydroxychloroquine given its favorable safety profile. Side effects of HCQ, especially HCQ maculopathy, were discussed. The patient will need regular eye exam. I would also agree with Dr. Foy that her pulmonary sarcoidosis does not need treatment per se. Will obtain baseline blood work today too. Recommendations/Plan Plan discussed with patient Return Visit: Follow up Apr 09 at 3 PM I spent a total of 50 minutes on the date of the service which included preparing to see the patient, [id number] patient care, completing clinical documentation, obtaining and/or reviewing separately obtained history, performing a medically appropriate examination, counseling and educating the pat ient/family/caregiver, and ordering medications, tests, or procedures. Vivek Silva MD Referring Provider:Anand Taylor PCP: Rajesh Morley DO documented in this encounterH[facility] NoteHNO ID: [id number] Author: VIVEK SILVA MD Service: ? Author Type: Physician Type: Progress Notes Filed: 01/02/2024 14:44 Note Text: MD Marcos Felder K Katt January 01, 2024 Referring Provider:Anand Taylor PCP: Rajesh Morley DO Chief Complaint: Patient presents with: New HPI:Marcos Bolivar is a 68 year old female who comes here today for sarcoidosis and RA. She started to notice nodules, swelling and pain on her right second and third fingers about a year ago. This happened almost overnight. No pain or swelling in the other joints. She was seen by local provider. Her RF and CCP were positive. She was offered treatment with DMARDs but she declined citing concern over side effect. So far, she has been treated with only 2 short course of steroid burst which was effective to control her symptoms and swelling. She is also recently diagnosed with pulmonary sarcoidosis. It was accidentally found on CT scan that was done to rule out PE because of palpitation and elevated D-dimer. She does not have pulmonary symptoms. No cough, pleurisy or dyspnea. The diagnosis of sarcoidosis was eventually confirmed by biopsy. She was seen by Dr. Foy earlier today who does not think that her pulmonary sarcoidosis needs treatment. PAST MEDICAL HISTORY Diagnosis Date Adjustment disorder with depressed mood 03/02/2016 Depression Esophagitis, unspecified GERD (gastroesophageal reflux disease) 11/11/2014 Hypothyroidism Migraine PAST SURGICAL HISTORY Procedure Laterality Date CHOLECYSTECTOMY 1996 Cholecystectomy COLONOSCOPY FLX DX W/COLLJ SPEC WHEN PFRMD 08/30/00 internal hemorrhoids only COLONOSCOPY FLX DX W/COLLJ SPEC WHEN PFRMD 03/27/2011 Colonoscopy repeat 10 yrs ESOPHAGOGASTRODUODENOSCOPY TRANSORAL DIAGNOSTIC 07/22/00 mild duodenitis ESOPHAGOGASTRODUODENOSCOPY TRANSORAL DIAGNOSTIC 11/06/2012 EGD FNA WITH IMAGING Left 03/18/15 U/S FNA left breast UOQ HYSTERECTOMY HX 03/2001 hysterectomy PAST SURGICAL HISTORY OF cleft lip surgery PAST SURGICAL HISTORY OF 03/02 partial hysterectomy has 1 ovary left TONSILLECTOMY PRIMARY/SECONDARY Tonsillectomy Social History Tobacco Use Smoking status: Never Smokeless tobacco: Never Substance Use Topics Alcohol use: Yes Comment: once a month-Rare Drug use: No Health Maintenance: Annual PCP Team Chronic Disease Visit Never done RSV Vaccine(1 - 1-dose 60+ series) Never done Mammogram Screening due on 03/19/2017 Diabetes Screening due on 07/23/2019 Colorectal Cancer Screening due on 03/27/2021 Lipid Screening due on 07/23/2021 Pneumococcal Vaccine: 65+(2 of 2 - PCV) due on 04/23/2023 Covid-19 Vaccine(2022- season) due on 05/03/2023 Advance Directive Discussion Never done Behavioral Health Screening Never done Immunization History Administered Date(s) Administered COVID-19 original vaccine, full dose, monovalent (MODERNA) 10/30/2020 11/23/2020 07/17/2021 COVID-19 vaccine, age 12+ yr, bivalent (MODERNA) 06/07/2022 influenza (IIV4) vaccine, age 6 mo - 64 yr, quadrivalent (AFLURIA, FLULAVAL, FLUZONE) 06/10/2015 08/03/2016 novel influenza (Z5Y8-29) vaccine, PF 10/10/2009 tetanus diphtheria pertussis (Tdap) vaccine, age 7+ yr (ADACEL, BOOSTRIX) 04/10/2019 zoster (ZVL) vaccine, live (ZOSTAVAX) 06/10/2015 Current Outpatient Medications Medication Sig Dispense Refill hydrOXYchloroQUINE (PLAQUENIL) 200 mg tablet Take 1 tablet by mouth once daily. 30 tablet 11 mupirocin (BACTROBAN) 2 % ointment Apply 1 application to affected area three times daily. (Patient not taking: Reported on 03/03/2023) 30 g 0 ibuprofen (MOTRIN) 800 mg tablet Take 1 tablet by mouth every 8 hours as needed for Pain (with food.). (Patient not taking: Reported on 04/10/2019) 30 tablet 0 levothyroxine (LEVOXYL) 112 mcg tablet Take 1 tablet by mouth once daily. Take on empty stomach. For thyroid. 90 tablet 3 sertraline (ZOLOFT) 25 mg tablet Take 1 tablet by mouth once daily. 90 tablet 3 cholecalciferol (VITAMIN D3) 1,000 unit tab tablet Take 1,000 Units by mouth once daily. (Patient not taking: Reported on 01/02/2024) No current facility-administered medications for this visit. ALLERGIES Allergen Reactions Augmentin [Amoxicil* Rash Levaquin [Levofloxa* Intolerance tendonitis Penicillins Rash Sulfa (Sulfonamide * Intolerance Ultram [Tramadol Hc* Rash Physical Exam: BP 117/74 Pulse 70 Temp (Src) 99.2 (Temporal) Resp 18 Wt 203 lb (92.1kg) SpO2 96% General: Not pale, no jaundice, not in acute distress Head: Normocephalic, atraumatic Eyes: No redeye, no discharge ENT: No oral/nasal ulcer Neck: No lymphadenopathy Lungs: Normal breath sound, no adventitious sound Abdomen: Soft, not tender CV: Normal S1 S2, no murmur, no rub, pulse regular Skin: No rash, no malar rash, no telangiectasia, no pitting nail/onycholysis, no gross periungual telangiectasia Neuro: Hugo (more content not included)...[facility]05-02-2024 Instructions* Patient Instructions* Michael Foy MD - 01/02/2024 1:33 PM EDT - The biopsy results and stable size of lung nodules over years are compatible with sarcoidosis - You have no signs of sarcoidosis in other organs - Isolated pulmonary sarcoidosis with normal lung function testing (such as you have) often does not require treatment and goes in to remission on its own - I recommend yearly lung function tests to make sure you're still feeling good. - Let me know if you develop new symptoms that are unexplained and we can reassess for signs of active sarcoidosis - I will send you a message if you need an earlier CT chest to follow the nodules (I don't think you will). - Talk to Dr. Silva about rheumatoid arthritis. - Follow up with me in 1 year. documented in this [facility] History of Present illness Narrative* Michael Foy MD - 01/02/2024 1:00 PM EDT Images from the original note were not included. Respiratory [place] Consultation requested by Dr. Rajesh Morley for an opinion regarding pulmonary sarcoidosis. My final recommendations will be communicated back to the requesting physician by way of shared Medical record or letter to requesting physician via US mail. 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 -01/02/2024: seen in sarcoidosis clinic, asymptomatic, no evidence of extrapulmonary sarcoidosis. Sarcoidosis History: Date of symptom onset: 2018 Date of diagnosis: 2021 How was the diagnosis confirmed?:Other biopsy: needle lung nodule biopsy. Was the biopsy performed here? No What organs are affected (in your opinion)?: Lungs Interval development of possible Sarcoidosis manifestations (related to previously uninvolved organs): No new symptoms Immediate relative with sarcoidosis: None Pulmonary hypertension: No suspicion Sarcoidosis Therapies: Past medications: No medication Current medications: No medication Treatment-defining organ: None Is the patient being treated with oxygen therapy?: No MRC Dyspnea Scale: 1. Not troubled by breathlessness except on strenuous exercise ALLERGIES Allergen Reactions Augmentin [Amoxicil* Rash Levaquin [Levofloxa* Intolerance tendonitis Penicillins Rash Sulfa (Sulfonamide * Intolerance Ultram [Tramadol Hc* Rash CURRENT MEDICATIONS: levothyroxine (LEVOXYL) 112 mcg tablet Take 1 tablet by mouth once daily. Take on empty stomach. For thyroid. sertraline (ZOLOFT) 25 mg tablet Take 1 tablet by mouth once daily. hydrOXYchloroQUINE (PLAQUENIL) 200 mg tablet Take 1 tablet by mouth once daily. mupirocin (BACTROBAN) 2 % ointment Apply 1 application to affected area three times daily. (Patientnot taking: Reported on 03/03/2023) ibuprofen (MOTRIN) 800 mg tablet Take 1 tablet by mouth every 8 hours as needed for Pain (with food.). (Patient not taking: Reported on 04/10/2019) cholecalciferol (VITAMIN D3) 1,000 unit tab tablet Take 1,000 Units by mouth once daily. (Patient not taking: Reported on 01/02/2024) PHYSICAL EXAM: BP 117/74 Pulse 70 Temp (Src) 99.2 (Temporal) Resp 18 Wt 203 lb 6.4 oz (92.3kg) SpO2 96% General appearance: Well appearing, alert, in no acute distress, well-hydrated, well nourished. Skin: Skin color, texture, turgor normal, no suspicious rashes or lesions Head: Normocephalic, no masses, lesions, tenderness or abnormalities Eyes: Anicteric sclera. Extraocular movements are intact. Lungs: no audible wheeze, no accessory muscle use, on RA Extremities: No deformities, edema, skin discoloration, clubbing or cyanosis. Neuro: Gait normal. Sensation grossly intact. Moving all extremities Data Reviewed (in addition to that noted in HPI, and Past histories above): Date FVC (%) FEV1 (%) Post -BD (%) FEV1/ FVC DLCO (%) 11/13/23 2.7 (875) 2.2 (90% 80% 21.3 (104%) 11/13/23 CT chest ASSESSMENT Marcos Bolivar is a 68 year old female with PMH rheumatoid arthritis here for information on sarcoidosis Diagnosis: confirmed with lung biopsy with granluoma with r/o infection (per pt, working on gettingpath) Organ involvement (based on WASOG organ assessment tool) - This tool assumes granulomatous inflammation identified on biopsy, and alternative causes excluded -Lung: highly probable with granulomatous nodules that are stable, old histo infection is also on differential -Eyes: no symptoms -Skin: no rash -Renal: nl SCr -Liver/splee: nl LFTs -Ca/vit D: nl Ca -Neuro: no symptoms -Cardiac: no symptoms -Constitutional (fatigue, SFN, depression) Treatment: has not required treatment, asymptomatic PLAN Pulmonary sarcoidosis: no indication for treatment -follow up 1 year with PFTs Lung nodules: most likely sarcoidosis but need to review imaging -obtain past imaging/path -consideration of follow up CT to ensure stability (6 months vs. 1 year). Rheumatoid arthritis: L metacarpal pain and elevated RF -seeing rheum today, would support treatment. Do not think this is related to sarcoidosis Sarcoidosis medications after visit: No medication Follow up 1 year Michael Foy MD I spent a total of 60 minutes on the date of the service which included preparing to see the patient, [id number] patient care, completing clinical documentation, obtaining and/or reviewing separately obtained history, performing a medically appropriate examination, counseling and educating the pat ient/family/caregiver, ordering medications, tests, or procedures, communicating with other HCPs (not separately reported), independently interpreting results (not separately reported), communicatingresults to the patient/family/caregiver, and care coordination (not separately reported). documented in this encounterH[facility]05-[facility]24 NoteHNO ID: [id number] Author: MICHAEL FOY MD Service: ? Author Type: Physician Type: Progress Notes Filed: 01/02/2024 14:50 Note Text: Respiratory [place] Consultation requested by Dr. Rajesh Morley for an opinion regarding pulmonary sarcoidosis. My final recommendations will be communicated back to the requesting physician by way of shared Medical record or letter to requesting physician via [place] mail. 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 -01/02/2024: seen in sarcoidosis clinic, asymptomatic, no evidence of extrapulmonary sarcoidosis. Sarcoidosis History: Date of symptom onset: 2018 Date of diagnosis: 2021 How was the diagnosis confirmed?:Other biopsy: needle lung nodule biopsy. Was the biopsy performed here? No What organs are affected (in your opinion)?: Lungs Interval development of possible Sarcoidosis manifestations (related to previously uninvolved organs): No new symptoms Immediate relative with sarcoidosis: None Pulmonary hypertension: No suspicion Sarcoidosis Therapies: Past medications: No medication Current medications: No medication Treatment-defining organ: None Is the patient being treated with oxygen therapy?: No MRC Dyspnea Scale: 1. Not troubled by breathlessness except on strenuous exercise ALLERGIES Allergen Reactions Augmentin [Amoxicil* Rash Levaquin [Levofloxa* Intolerance tendonitis Penicillins Rash Sulfa (Sulfonamide * Intolerance Ultram [Tramadol Hc* Rash CURRENT MEDICATIONS: levothyroxine (LEVOXYL) 112 mcg tablet Take 1 tablet by mouth once daily. Take on empty stomach. For thyroid. sertraline (ZOLOFT) 25 mg tablet Take 1 tablet by mouth once daily. hydrOXYchloroQUINE (PLAQUENIL) 200 mg tablet Take 1 tablet by mouth once daily. mupirocin (BACTROBAN) 2 % ointment Apply 1 application to affected area three times daily. (Patient not taking: Reported on 03/03/2023) ibuprofen (MOTRIN) 800 mg tablet Take 1 tablet by mouth every 8 hours as needed for Pain (with food.). (Patient not taking: Reported on 04/10/2019) cholecalciferol (VITAMIN D3) 1,000 unit tab tablet Take 1,000 Units by mouth once daily. (Patient not taking: Reported on 01/02/2024) PHYSICAL EXAM: BP 117/74 Pulse 70 Temp (Src) 99.2 (Temporal) Resp 18 Wt 203 lb 6.4 oz (92.3kg) SpO2 96% General appearance: Well appearing, alert, in no acute distress, well-hydrated, well nourished. Skin: Skin color, texture, turgor normal, no suspicious rashes or lesions Head: Normocephalic, no masses, lesions, tenderness or abnormalities Eyes: Anicteric sclera. Extraocular movements are intact. Lungs: no audible wheeze, no accessory muscle use, on RA Extremities: No deformities, edema, skin discoloration, clubbing or cyanosis. Neuro: Gait normal. Sensation grossly intact. Moving all extremities Data Reviewed (in addition to that noted in HPI, and Past histories above): Date FVC (%) FEV1 (%) Post -BD (%) FEV1/ FVC DLCO (%) 11/13/23 2.7 (875) 2.2 (90% 80% 21.3 (104%) 11/13/23 CT chest ASSESSMENT Marcos Bolivar is a 68 year old female with PMH rheumatoid arthritis here for information on sarcoidosis Diagnosis: confirmed with lung biopsy with granluoma with r/o infection (per pt, working on getting path) Organ involvement (based on WASOG organ assessment tool) - This tool assumes granulomatous inflammation identified on biopsy, and alternative causes excluded -Lung: highly probable with granulomatous nodules that are stable, old histo infection is also on differential -Eyes: no symptoms -Skin: no rash -Renal: nl SCr -Liver/splee: nl LFTs -Ca/vit D: nl Ca -Neuro: no symptoms -Cardiac: no symptoms -Constitutional (fatigue, SFN, depression) Treatment: has not required treatment, asymptomatic PLAN Pulmonary sarcoidosis: no indication for treatment -follow up 1 year with PFTs Lung nodules: most likely sarcoidosis but need to review imaging -obtain past imaging/path -consideration of follow up CT to ensure stability (6 months vs. 1 year). Rheumatoid arthritis: L metacarpal pain and elevated RF -seeing rheum today, would support treatment. Do not think this is related to sarcoidosis Sarcoidosis medications after visit: No medication Follow up 1 year Michael Foy MD I spent a total of 60 minutes on the date of the service which included preparing to see the patient, [id number] patient care, completing clinical documentation, obtaining and/or reviewing separately obtained history, performing a medically appropriate examination, counseling and educating (more content not included)...[facility]04-19-2024 Miscellaneous Notes * Telephone Encounter - Chacha Whipple - 12/20/2023 10:47 AM EDTSummarrishi: Medical Record Imported external CT/PFT report from [facility], dated 11/13/2023. Please allow time delay for documents to appear in [facility] (Scanned Documents Tab). Images can take up to 24 hours to appear in [facility]. documented [facility] Miscellaneous Notes* Telephone Encounter - Melinda Hooks RN - 11/19/2023 8:02 AM EDTSummarrishi: New Sarcoidosis Referral Sarcoidosis Consult Note Patient: Marcos Bolivar Date: November 19, 2023 8:02 AM Schedulers: Patient referred please schedule first available appointment for Sarcoidosis with him/her if possible. Other options that should be presented to the patient are: ILD/Sarcoid Dr. Rowan Coleman: [facility] & [place]. Dr. Michael Foy: [facility] & [facility] ([place]). Dr. Douglas Camejo: [facility] and [facility] Dr. Tony Angeles: [facility], [place] ([facility], & [place]. Dr. Sujit Lopez: [facility] & [place]. Dr. Kemar Zee: [facility], [facility] & [facility] Sarcoid/ILD Pulmonary [place]: [facility] ( afternoon). Dr. Nathalia Lomas: [facility]. & [place]. ILD/Sarcoid/Beryllium/Occupational Dr. Quin Quiroz: [facility], [place], [place], & [place]. Testing to be done on first visit: Consults to be done on first visit: Rheumatology Consult - Dr. Vivek Silva-Per pt request PSS: Please remind patient to have their CT/MRI in hand and bring to the appointment if unable to upload or mail in. Diagnosis: Do you have a diagnosis of sarcoidosis by a doctor? Yes Have you had a biopsy? Yes If so, biopsy type: Needle biopsy Date diagnosis made: 2021 If not, why does your physician think you have sarcoidosis? N/A Pt is a self referral Pt with pmHx of: Anxiety disorder, Cardiac dysrhythmia (SVT), Acquired Hypothyroidism, Osteoporosis, RA 11/13/2023: CT Chest w/o contrast: -There is a 7.5 mm noncalcified nodule in the anterior medial aspect of the left upper lobe as seenon axial image #29. -Partially calcified 4.8 mm nodule in the anterior aspect of the right lower lobe adjacent to the right major fissure. 3 mm noncalcified nodule in the peripheral lateral aspect of the right lower lobe as seen on image #52. 1.05cm nodule in the anterior medial aspect of the right middle lobe as seen on axial image #56. 08/08/2023: CT Chest w/o contrast: -There is a noncalcified nodule in the right upper lobe that measures 9 mm. There is a noncalcified nodule seen. The right middle lobe and measures 1.1 cm. There are small 3 to 4 mm noncalcified nodules seen right middle and lower lobes as wellas in the left lower lobe. 05/23/2023: CT Chest w/o contrast: -Stable 8 mm noncalcified nodule in the medial aspect of the left upper lobe as seen on axial image#2. Slight increase in size of the previously seen nodule in the right middle lobe as seen on axial image #31. This measures 1.2 cm. Stable 5.2 mm well-defined nodule in the anterior aspect of the right lower lobe. Abbreviated Sarcoidosis-related Review of System: Eyes Have you been seeing an formal service waiter for inflammation in your eyes? No Do you have blurred vision, sensitivity to light? No Last ophthalmology exam 2022 Heart Have you been told you have heart involvement? No If so, have you had an MRI or PET scan? No Do you have a device, pacemaker, or defibrillator? No Do you have palpitations? Yes Ever been told you have ventricular tachycardia or a heart block? No Do you have heart failure? No Neuro Have you ever seen a neurologist? No Have you ever had a brain, neck, spine MRI? No Do you have extremity weakness? No Do you have numbness and tingling? 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 As Above Triage/Consult Team: Advise patient that a senior master scheduler will call them in 3-5 business days. Assessment and Plan What is the goal of you seeking an evaluation at [facility]? Evaluation and treatment plan for sarcoidosis Thank you, Melinda Hooks, RN documented in this encounterH[facility]07[facility] Procedure [facility]07-02-2023 History of Present illness Narrative* Cori Lowe APRN.SHIP ENGINEER - 03/03/2023 11:59 AM EDT Subjective Ear Pain Pertinent negatives include no chills, congestion, coughing, fever or sore throat. Marcos Bolivar is a 67 year old female who presents with right ear pain. This started yesterday. She has had decreased hearing in the right ear. She has not had any associated URI symptoms. She has not had a fever. She has not taken any medication for this today. Review of Systems Constitutional: Negative for chills and fever. HENT: Positive for ear pain and hearing loss. Negative for congestion and sore throat. Respiratory: Negative for cough. Cardiovascular: Negative. Skin: Negative. BP 96/68 Pulse 70 Temp 36.6 C (97.8 F) Resp 18 Wt 91.2 kg (201 lb) SpO2 97% BMI 32.94 kg/m PAST MEDICAL HISTORY Diagnosis Date Adjustment disorder with depressed mood 03/02/2016 Depression Esophagitis, unspecified GERD (gastroesophageal reflux disease) 11/11/2014 Hypothyroidism Migraine PAST SURGICAL HISTORY Procedure Laterality Date CHOLECYSTECTOMY 1996 Cholecystectomy COLONOSCOPY FLX DX W/COLLJ SPEC WHEN PFRMD 08/30/00 internal hemorrhoids only COLONOSCOPY FLX DX W/COLLJ SPEC WHEN PFRMD 03/27/2011 Colonoscopy repeat 10 yrs ESOPHAGOGASTRODUODENOSCOPY TRANSORAL DIAGNOSTIC 07/22/00 mild duodenitis ESOPHAGOGASTRODUODENOSCOPY TRANSORAL DIAGNOSTIC 11/06/2012 EGD FNA WITH IMAGING Left 03/18/15 U/S FNA left breast UOQ HYSTERECTOMY HX 03/2001 hysterectomy PAST SURGICAL HISTORY OF cleft lip surgery PAST SURGICAL HISTORY OF 03/02 partial hysterectomy has 1 ovary left TONSILLECTOMY PRIMARY/SECONDARY <AGE 12 1960 Tonsillectomy ALLERGIES Augmentin [Amoxicillin-Pot Clavulanate], Levaquin [Levofloxacin], Penicillins, Sulfa (Sulfonamide Antibiotics), and Ultram [Tramadol Hcl] MEDICATIONS levothyroxine (LEVOXYL) 112 mcg tablet Take 1 tablet by mouth once daily. Take on empty stomach. For thyroid. sertraline (ZOLOFT) 25 mg tablet Take 1 tablet by mouth once daily. cholecalciferol (VITAMIN D3) 1,000 unit tab tablet Take 1,000 Units by mouth once daily. azithromycin (ZITHROMAX) 250 mg tablet Take 2 tablets by mouth once daily for 1 day, THEN 1 tablet once daily for 4 days. ofloxacin (FLOXIN) 0.3 % otic solution Use 5 Drops in the right ear once daily for 7 days. mupirocin (BACTROBAN) 2 % ointment Apply 1 application to affected area three times daily. (Patientnot taking: Reported on 03/03/2023) ibuprofen (MOTRIN) 800 mg tablet Take 1 tablet by mouth every 8 hours as needed for Pain (with food.). (Patient not taking: No sig reported) FAMILY HISTORY Problem Relation Age of Onset Cancer Father lung, liver,pancreas Diabetes Son Stroke Father Coronary Artery Disease Father None Brother None Brother None Brother None Brother None Brother other (colitis [Other]) Sister other (hypercholesterol [Other]) Sister Social History Tobacco Use Smoking status: Never Smokeless tobacco: Never Substance Use Topics Alcohol use: Yes Comment: once a month-Rare Drug use: No Objective Physical Exam Vitals and nursing note reviewed. Constitutional: General: She is not in acute distress. Appearance: Normal appearance. She is not ill-appearing. HENT: Right Ear: Ear canal and external ear normal. Decreased hearing noted. Swelling and tenderness present. A middle ear effusion is present. Tympanic membrane is injected and erythematous. Left Ear: Tympanic membrane, ear canal and external ear normal. Mouth/Throat: Pharynx: Uvula midline. Cardiovascular: Rate and Rhythm: Normal rate. Pulmonary: Effort: Pulmonary effort is normal. Musculoskeletal: Cervical back: Neck supple. Lymphadenopathy: Cervical: No cervical adenopathy. Skin: General: Skin is warm and dry. Findings: No erythema or rash. Neurological: Mental Status: She is alert. ASSESSMENT/PLAN: 1. Other acute nonsuppurative otitis media of right ear, recurrence not specified - ICD9: 381.00, ICD10: H65.191 (primary diagnosis) - Will begin treatment with as per antibiotic as written, see orders - Supportive care with plenty of fluids, rest, and analgesia prn. - AZITHROMYCIN 250 MG TABLET 2. Acute otitis externa of right ear, unspecified type - ICD9: 380.10, ICD10: H60.501 - OFLOXACIN 0.3 % EAR DROPS - Follow-up with your PCP in 3-5 days if symptoms have not improved or sooner if symptoms worsen - Discussed red flags and need for immediate medical evaluation if any occur. - Discussed supportive care treatment with fluids, rest and analgesia. - Discussed expected course of illness Cori Lowe APRN.CNP documented in this encounterH[facility]07-02-2023 Instructions* Patient Instructions* Cori Lowe APRN.CNP - 03/03/2023 11:59 AM EDT ASSESSMENT/PLAN: 1. Other acute nonsuppurative otitis media of right ear, recurrence not specified - ICD9: 381.00, ICD10: H65.191 (primary diagnosis) - Will begin treatment with as per antibiotic as written, see orders - Supportive care with plenty of fluids, rest, and analgesia prn. - AZITHROMYCIN 250 MG TABLET 2. Acute otitis externa of right ear, unspecified type - ICD9: 380.10, ICD10: H60.501 - OFLOXACIN 0.3 % EAR DROPS - Follow-up with your PCP in 3-5 days if symptoms have not improved or sooner if symptoms worsen - Discussed red flags and need for immediate medical evaluation if any occur. - Discussed supportive care treatment with fluids, rest and analgesia. - Discussed expected course of illness Cori Lowe APRN.SHIP ENGINEER OTITIS MEDIA GENERAL INFORMATION: Otitis media is an infection of the middle ear. The middle ear sits behind the eardrum. This infection may be caused by a virus or bacteria and often follows a cold. Children often have repeat ear infections. Otitis media is not contagious. INSTRUCTIONS: 1. An antibiotic has been prescribed. It should be taken exactly as prescribed. Do not stop the medicine even if the symptoms go away. 2. [id number] pain medication may be taken or other pain medication as prescribed by the doctor. 3. Nothing should be placed in the ear unless instructed by your doctor. 4. The patient may return to school/daycare or work when the temperature is normal (98.6 F or 37 C). 5. The patient should not swim while the ear is infected. CONTACT YOUR DOCTOR IF YOU OR YOUR CHILD: 1. Does not feel better within 36 hours. 2. Develops a temperature over 102E F (39E C). 3. Starts vomiting or has diarrhea. 4. Develops drainage from the affected ear. 5. Has any new problem that may be related to the medicine prescribed. RETURN TO THE ED IF: 1. You or your child has a severe headache or pain around the ear. 2. You or your child notice swelling around the ear. 3. You or your child has a seizure (convulsion), twitching of the facial muscles, or passes out. 4. You or your child is dizzy, has a stiff neck, or cannot walk or talk normally. 5. Your child becomes more irritable or listless (not interested in his or her surroundings, does not get soothed by you holding him or her). EXTERNAL OTITIS OVERVIEW External otitis is a condition that occurs when the ear canal becomes irritated. The ear canal is the part of the ear that leads from the outer ear to the ear drum. External otitis can develop as a result of an infection, allergy, or skin problem. Swimmer's ear is the name for external otitis that occurs in a person who swims frequently. External otitis is different from otitis media (middle ear infections). When a person says that they have an ear infection, they usually mean that they have otitis media. This article will discuss external otitis that is caused by an infection, as well as ways to prevent future episodes of external otitis. EXTERNAL OTITIS RISK FACTORS Several factors can increase your risk of developing external otitis. Cleaning the ear canal removes ear wax. Ear wax serves to protect the ears from water, bacteria, and injury. Excessive cleaning or scratching can injure the skin, potentially leading to infection. Swimming on a regular basis removes some of the ear wax, allowing water to soften the skin. Bacteria, which normally live in the ear canal, can then enter the skin more easily. Wearing devices that block the ear canals, such as hearing aids, headphones, or ear plugs, can increase the risk of external otitis (if worn frequently) by injuring the skin. EXTERNAL OTITIS SYMPTOMS The most common symptoms of external otitis include: Pain in the outer ear, especially when the ear is pulled or moved Itchiness of the ear Fluid or pus leaking from the ear Difficulty hearing clearly EXTERNAL OTITIS TREATMENT Treatment of external otitis aims to reduce pain and eliminate the infection. In some cases, your healthcare provider will flush out your ear with water and hydrogen peroxide before you begin treatment; this speeds healing by removing skin cells and excess ear wax. Ear drops -- Ear drops are usually prescribed to reduce pain and swelling caused by external otitis. It is important to apply the ear drops correctly so that they reach the ear canal: Lie on your side or tilt your head towards the opposite shoulder. Fill the ear canal with drops. Lie on your side for [address] cotton ball in the ear canal for 20 minutes. Finish the entire course of treatment, even if you begin to feel better within a few days. You should begin to feel better within 36 to 48 hours of starting treatment. If your pain worsens or does not improve within this time period, call your healthcare provider. Pain medication -- If you have bothersome ear pain, you can take a non- prescription pain medication. Avoid getting ears wet -- During treatment, you should avoid getting the inside of your ears wet. While showering, you can place a cotton ball coated with petroleum jelly in the ear. However, you should not swim for 7 to 10 days after starting treatment. Avoid wearing hearing aids and in-ear headphones until pain improves. EXTERNAL OTITIS PREVENTION The old saying, Don't put anything smaller than your elbow in your ear to clean the ear is true. The ear is self-cleaning; fingers, towels, cotton-tipped applicators, and other devices should not be used to clean the inside of the ears. If you feel that you need to clean excessive wax from your ears, talk to your healthcare provider first. S/he may want to examine your ears to see if the ear wax is excessive. It is normal to have some ear wax (also called cerumen). If you have an excessive amount of ear wax, talk to your healthcare provider about safe ways to clean your ears. If you swim frequently, experts recommend the following tips to reduce the chance of developing external otitis. Shake your ears dry after swimming Blow dry your ears on a low setting, holding the dryer 12 inches away. Use ear drops after swimming to prevent ear infections; these are available at most pharmacies without a prescription. Consider wearing ear plugs made for swimming. documented in this [facility] History of Past illness Narrative* Problem Noted Date Resolved Date BMI 32.0-32.9,adult 11/11/2014 06/10/2015 documented as of this encounter (statuses as of 03/03/2023) [facility] History of Past illness Narrative* Problem Noted Date Diagnosed Date Resolved Date BMI 32.0-32.9,adult 11/11/2014 06/10/20 15 documented as of this encounter (statuses as of 11/19/2023) [facility] History of Past illness Narrative* Problem Noted Date Diagnosed Date Resolved Date BMI 32.0-32.9,adult 11/11/2014 06/10/20 15 documented as of this encounter (statuses as of 11/20/2023) [place] [address]-12-2015 History of Past illness Narrative* Problem Noted Date Diagnosed Date Resolved Date BMI 32.0-32.9,adult 11/11/2014 06/10/20 15 documented as of this encounter (statuses as of 12/20/2023) [facility] Diagnosis Onset Date Resolution Status Iron deficiency anemia chron ic Iron deficiency anemia chron ic Multiple lung nodules chroni c [facility] Work Phone: Evaluation noteNo assessment information available [facility] Work Phone: Evaluation note* Diagnosis Onset Date Resolution Status Dyslipidemia chronic Iron deficiency anemia chron ic Nonsustained paroxysmal supraventricular tachycardia [facility] Work Phone: Evaluation note* Diagnosis Onset Date Resolution Status Dyslipidemia chronic Iron deficiency anemia chron ic Nonsustained paroxysmal supraventricular tachycardia chronic Iron deficiency anemia chron ic Multiple lung nodules chroni c Iron deficiency anemia chron ic Mechanical pain of left knee acute Chondromalacia, left knee ac alutiiq [facility] Work Phone: Evaluation note* Diagnosis Onset Date Resolution Status Carpal tunnel syndrome of right wrist acute [facility] Work Phone: Evaluation note* Diagnosis Other acute nonsuppurative otitis media of right ear, recurrence not specified- Primary Acute otitis externa of right ear, unspecified type [facility] encounter [facility]* Diagnosis Onset Date Resolution Status Carpal tunnel syndrome of right wrist acute Iron deficiency anemia chron ic Multiple lung nodules chroni c Iron deficiency anemia chron ic [facility] Work Phone: Evaluation note* Diagnosis Onset Date Resolution Status Carpal tunnel syndrome of right wrist acute Iron deficiency anemia chron ic Multiple lung nodules chroni c Iron deficiency anemia chron ic Coronary artery calcification seen on CAT scan acute Rib pain acute Dyslipidemia chronic Iron deficiency anemia chron ic Nonsustained paroxysmal supraventricular tachycardia [facility] Work Phone: Evaluation note* Diagnosis Onset Date Resolution Status Iron deficiency anemia chron ic Multiple lung nodules chroni c Iron deficiency anemia chron ic Coronary artery calcification seen on CAT scan acute Rib pain acute Dyslipidemia chronic Iron deficiency anemia chron ic Nonsustained paroxysmal supraventricular tachycardia [facility] Work Phone: Evaluation note* Diagnosis Onset Date Resolution Status Coronary artery calcification seen on CAT scan acute Rib pain acute Dyslipidemia chronic Iron deficiency anemia chron ic Nonsustained paroxysmal supraventricular tachycardia chronic Multiple lung nodules chroni c Routine gynecological examination noneactive Multiple lung nodules chroni c Sarcoidosis [facility] Work Phone: Evaluation note* Diagnosis Onset Date Resolution Status Multiple lung nodules chroni c Sarcoidosis chronic [facility] Work Phone: Evaluation note* Diagnosis Sarcoidosis- Primary [facility] Diagnosis Pulmonary sarcoidosis (HCC)- Primary Sarcoidosis Sarcoidosis Rheumatoid arthritis involving multiple sites with positive rheumatoid factor (HCC) Lung nodules Other nonspecific abnormal finding of lung field documented in this encounter [facility] note* Diagnosis Seropositive rheumatoid arthritis (HCC)- Primary Rheumatoid arthritis Pulmonary sarcoidosis (HCC) Sarcoidosis Long-term use of hydroxychloroquine Encounter for long-term (current) use of other medications documented in this encounter [facility] note* Diagnosis 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 for referral (narrative)* Outpatient Procedure (Routine) - Pending Review Specialty Diagnoses / Procedures Referred By Mily cervantes Referred To [facility] [place] Diagnoses Pulmonary sarcoidosis (HCC) Procedures LUNG DIFFUSION CAPACITY (DLCO) DIFFUSING CAPACITY Michael Foy MD [address] [place] [address] [address] Referral ID Status Reason Start Date Expiration Date Visits Requested Visits Authorized [id number] Pending Review Auto-Generat ed Referral 01/02/2024 01/31/2025 1 1 * Outpatient Procedure (Routine) - Pending Review Specialty Diagnoses / Procedures Referred By Mily cervantes Referred To [facility] [place] Diagnoses Pulmonary sarcoidosis (HCC) Procedures SPIROMETRY WITH DILATOR IF OBSTRUCTED BRNCDILAT RSPSE SPMTRY PRE&POST-BRNCDILAT ADMN Michael Foy MD [address] [place] [address] [address] Referral ID Status Reason Start Date Expiration Date Visits Requested Visits Authorized [id number] Pending Review Auto-Generat ed Referral 01/02/2024 01/31/2025 [address] [facility] for referral (narrative)No reason for referral [facility]: Summary Purpose Family History No Family History Records Found Relationship Condition Age at Onset Recorded Date/T greer father Coronary artery disease Unknown Malignant neoplasm Unknown Cardiac disease Unknown Cerebrovascular accident (CVA) Unknown son Diabetes mellitus Unknown brother Hyperthyroidism Unknown Calculus of kidney Unknown mother Hypothyroidism Unknown sister Calculus of kidney Unknown Hypothyroidism Unknown Advance Directives No Advanced Directives Records Found Advance Directive Response Recorded Date/ Time Advance Directives No August 2:36pm Living Will No August 15 2:36pm Power of Pan Devulcanizer No August 15, 2020 2:36pm Advance Directive Response Recorded Date/ Time Advance Directives No March 26 1:01pm Living Will No March 26, 2022 1:01pm Power of Pan Devulcanizer No March 26 1:01pm Advance Directives on File No 2019 2:36pm Advance Directive Response Recorded Date/ Time Advance Directives No March 26 1:01pm Living Will No March 26, 2022 1:01pm Power of Pan Devulcanizer No March 26 1:01pm Advance Directive Response Recorded Date/ Time Advance Directives on File No 2019 2:36pm Advance Directives No March 26 1:01pm Living Will No March 26, 2022 1:01pm Power of Pan Devulcanizer No March 26 1:01pm Advance Directive Response Recorded Date/ Time Advance Directives No March 26 12:01pm Living Will No March 26, 2022 12:01pm Power of Pan Devulcanizer No March 26 12:01pm Advance Directive Response Recorded Date/ Time Advance Directives on File No Dece2019 2:36pm Living Will No August 15, 2:36pm Do you have a Healthcare Power of Pan Devulcanizer? No August 15, 2020 2:36pm Advance Directives No August 2:58am Chief Complaint and Reason for Visit Chief Complaint HYPOTHYROIDISM 6 MO - LABS ONC/HEM SCREENING NODULE Reason for Visit Iron deficiency anem ia Iron deficiency anemia Multiple lung nodules Chief Complaint 6 MO - LABS ONC/HEM SCREENING NODULE L. PREAURICULAR MASS/NEEDLE BIOPSY Reason for Visit Iron deficiency anem ia Iron deficiency anemia Multiple lung nodules Chief Complaint 6 MO - LABS ONC/HEM SCREENING NODULE L. PREAURICULAR MASS/NEEDLE BIOPSY PRE OP LABS FOR SURGERY AT [facility]/ EXCISION FACIAL Reason for Visit Iron deficiency anem ia Iron deficiency anemia Multiple lung nodules Chief Complaint SCREENING NODULE L. PREAURICULAR MASS/NEEDLE BIOPSY PRE OP LABS FOR SURGERY AT [facility]/ EXCISION FACIAL LOCALIZED SWELLING/LUMP/FACIAL LESION Chief Complaint NODULE L. PREAURICULAR MASS/NEEDLE BIOPSY PRE OP LABS FOR SURGERY AT [facility]/ EXCISION FACIAL LOCALIZED SWELLING/LUMP/FACIAL LESION 1 Y FU Other nonspecific abnormal finding of lung field Other nonspecific abnormal finding of lung field Reason for Visit Dyslipidemia Iron deficiency anemia Nonsustained paroxysmal supraventricular tachycardia Chief Complaint L. PREAURICULAR MASS /NEEDLE BIOPSY PRE OP LABS FOR SURGERY AT [facility]/ EXCISION FACIAL LOCALIZED SWELLING/LUMP/FACIAL LESION 1 Y FU Other nonspecific abnormal finding of lung field Other nonspecific abnormal finding of lung field ONC/HEM 6 MO - LABS LEFT KNEE Left Knee LEFT KNEE PAIN LEFT KNEE Reason for Visit Dyslipidemia Iron deficiency anemia Nonsustained paroxysmal supraventricular tachycardia Iron deficiency anemia Multiple lung nodules Iron deficiency anemia Mechanical pain of left knee Chondromalacia, left knee Chief Complaint PRE OP LABS FOR SURGERY AT [facility]/ EXCISION FACIAL LOCALIZED SWELLING/LUMP/FACIAL LESION 1 Y FU Other nonspecific abnormal finding of lung field Other nonspecific abnormal finding of lung field ONC/HEM 6 MO - LABS LEFT KNEE Left Knee LEFT KNEE PAIN LEFT KNEE Reason for Visit Dyslipidemia Iron deficiency anemia Nonsustained paroxysmal supraventricular tachycardia Iron deficiency anemia Multiple lung nodules Iron deficiency anemia Mechanical pain of left knee Chondromalacia, left knee Chief Complaint Age-related osteopor osis without current pathologi Chief Complaint Age-related osteopor osis without current pathologi RIGHT HAND room 8 L HAND CARPAL TUNNEL / RX HERE Reason for Visit Carpal tunnel syndro me of right wrist Chief Complaint Age-related osteopor osis without current pathologi RIGHT HAND room 8 L HAND CARPAL TUNNEL / RX HERE ONC/HEM OVERDUE FOR 6 MO F/U - LABS SCREENING PAIN IN RIGHT HAND PAIN IN RIGHT HAND Reason for Visit Carpal tunnel syndro me of right wrist Iron deficiency anemia Multiple lung nodules Iron deficiency anemia Chief Complaint RIGHT HAND room 8 L HAND CARPAL TUNNEL / RX HERE ONC/HEM OVERDUE FOR 6 MO F/U - LABS SCREENING PAIN IN RIGHT HAND PAIN IN RIGHT HAND 1 y fu Reason for Visit Carpal tunnel syndro me of right wrist Iron deficiency anemia Multiple lung nodules Iron deficiency anemia Coronary artery calcification seen on CAT scan Rib pain Dyslipidemia Iron deficiency anemia Nonsustained paroxysmal supraventricular tachycardia Chief Complaint L HAND CARPAL TUNNEL / RX HERE ONC/HEM OVERDUE FOR 6 MO F/U - LABS SCREENING PAIN IN RIGHT HAND PAIN IN RIGHT HAND 1 y fu Reason for Visit Iron deficiency anem ia Multiple lung nodules Iron deficiency anemia Coronary artery calcification seen on CAT scan Rib pain Dyslipidemia Iron deficiency anemia Nonsustained paroxysmal supraventricular tachycardia Chief Complaint L HAND CARPAL TUNNEL / RX HERE ONC/HEM OVERDUE FOR 6 MO F/U - LABS SCREENING PAIN IN RIGHT HAND PAIN IN RIGHT HAND 1 y fu . 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 RX HERE December 172024 3:00pm Sarcoidosis, unspecified December 23 1:00pm 4 M FU December 29, 2024 2:0 1pm R91.8 Other nonspecific abnormal finding of lung f January 18, 2025 4:15pm SCREENING March 10, 2025 9:56a m ONC/HEM March 10, 2025 10:30 am Reason for Visit Admit Date MARY (obstructive sleep apnea) December 2:01pm Multiple lung nodules December 29, 2024 2 :01pm Sarcoidosis December 29, 2024 2:0 1pm Iron deficiency anemia March 10, 2025 10 :30am Multiple lung nodules March 10, 2025 10: 30am Chief Complaint Admit Date CERVICAL RADICULOPATHY. RX HERE December 172024 3:00pm Sarcoidosis, unspecified December 23 1:00pm 4 M FU December 29, 2024 2:0 1pm R91.8 Other nonspecific abnormal finding of lung f January 18, 2025 4:15pm SCREENING March 10, 2025 9:56a m ONC/HEM March 10, 2025 10:30 am 1YR LABS PRIOR REVIEW MAMMO March 16, 2 025 2:15pm Reason for Visit Admit Date MARY (obstructive sleep apnea) December 2:01pm Multiple lung nodules December 29, 2024 2 :01pm Sarcoidosis December 29, 2024 2:0 1pm Iron deficiency anemia March 10, 2025 10 :30am Multiple lung nodules March 10, 2025 10: 30am Iron deficiency anemia March 16, 2025 2 :15pm Chief Complaint Admit Date Sarcoidosis, unspecified December 23 1:00pm 4 M FU December 29, 2024 2:0 1pm R91.8 Other nonspecific abnormal finding of lung f January 18, 2025 4:15pm SCREENING March 10, 2025 9:56a m ONC/HEM March 10, 2025 10:30 am 1YR LABS PRIOR REVIEW MAMMO March 16, 2 025 2:15pm 1 Y FU April 22, 2025 9: 55am Reason for Visit Admit Date MARY (obstructive sleep apnea) December 2:01pm Multiple lung nodules December 29, 2024 2 :01pm Sarcoidosis December 29, 2024 2:0 1pm Iron deficiency anemia March 10, 2025 10 :30am Multiple lung nodules March 10, 2025 10: 30am Iron deficiency anemia March 16, 2025 2 :15pm Coronary artery calcification seen on CA T scan April 22, 2025 9:55am MARY (obstructive sleep apnea) April 9:55am Dyslipidemia April 22, 2025 9: 55am Iron deficiency anemia April 22, 2025 9:55am Nonsustained paroxysmal supraventricular tachycardia April 22, 2025 9:55am Reason for Referral Specialty Diagnoses / Procedures Referred By Mily t Referred To Contact Rheumatology Diagnoses Sarcoidosis Procedures CONSULT TO RHEUM/IMMUN DISEASE OFFICE/OUTPATIENT [facility] 60 MINUTES Anand Taylor PA-C [address] [place] [address] Referral ID Status Reason Start Date Expiration Date Visits Requested Visits Authorized [id number] Authorized PCP Requested Referral 11/20/2023 11/19/2024 1 1 Additional Source Comments INFORMATION SOURCE (unrecogn ized section and content) DATE CREATED AUTHOR 05/24/2018 [facility] DATE CREATED AUTHOR AUTHOR'S ORGANIZ ATION 06/08/2018 [facility] DATE CREATED AUTHOR AUTHOR'S ORGANIZ ATION 04/30/2024 [facility] DATE CREATED AUTHOR AUTHOR'S ORGANIZ ATION 04/24/2025 [facility] Care Teams (unrecognized sec tion and content) Team Status: Active Member Role Status Dates Dr. Rajesh Morley DO Family Provider Active Dr. Rajesh Morley DO Primary Care Provider Active Team Status: Inactive Member Role Status Dates Dr. Rajesh Morley DO Primary Care Provider, Attendin g Provider Active Team Status: Inactive Member Role Status Dates Dr. Rajesh Morley DO Primary Care Prov ider, Attending Provider, Referring Provider Active Team Status: Inactive Member Role Status Dates Dr. Rajesh Morley DO Primary Care Provider, Referrin g Provider Active Yuni Tao NP-C Attending Provider Active Team Status: Inactive Member Role Status Dates Dr. Rajesh Morley DO Primary Care Provider Active Dr. Jhon Rojas MD Attending Provider Active Team Status: Active Member Role Status Dates Dr. Rajesh Morley DO Primary Care Provider, Attendin g Provider Active Karolyn Vanessa NP-Michelle Referring Provider Active Team Status: Inactive Member Role Status Dates Dr. Rajesh Morley DO Primary Care Provider Active Karolyn Vanessa NP-C Attending Provider, Referring Prov ider Active Line Staker Relationship Specialty Start Date End Date Rajesh Morley DO [address] [place] [address] PCP - General Family Medicine 09/22/17 Team Status: Inactive Member Role Status Dates Dr. Rajesh Morley DO Primary Care Provider, Referrin g Provider Active Dr. Kayce London MD Attending Provider Active Team Status: Active Member Role Status Dates Dr. Rajesh Morley , DO Primary Care Provider Active Yuni Tao MEDICAL ASSISTANT FLOAT-C Referring Provider, Other Provi tali Active Dr. Brooklynn Rockwell MD Attending Provider Active Team Status: Active Member Role Status Dates Dr. Rajesh Morley , DO Primary Care Provider Active Dr. Kayce London MD Attending Provider Active Dr. Greg Odom MD Referring Provider Active Team Status: Inactive Member Role Status Dates Dr. Rajesh Morley , DO Primary Care Provider Active Yuni Tao , MEDICAL ASSISTANT FLOAT-C Attending Provider, Referring P rovider Active Team Status: Inactive Member Role Status Dates Dr. Rajesh Morley , DO Primary Care Provider Active Dr. Kayce London MD Attending Provider Active Team Status: Inactive Member Role Status Dates Dr. Rajesh Morley , DO Primary Care Provider, Referrin g Provider Active Marybeth De La Rosa PA, PA Attending Provider Active Team Status: Inactive Member Role Status Dates Dr. Rajesh Morley , DO Primary Care Provider, Attendin g Provider Active Karolyn Vanessa MEDICAL ASSISTANT FLOAT-C Referring Provider Active Team Status: Active Member Role Status Dates Dr. Rajesh Morley DO Primary Care Provider Active Marybeth De La Rosa PA, PA Other Provider Active Dr. Jhon Rojas MD Attending Provider Active Team Status: Active Member Role Status Dates Dr. Rajesh Morley , DO Primary Care Provider Active Joon Mathur MEDICAL ASSISTANT FLOAT, MEDICAL ASSISTANT FLOAT-C Attending Provider Active Team Status: Inactive Member Role Status Dates Dr. Rajesh Morley , DO Primary Care Provider Active Marybeth De La Rosa PA, PA Attending Provider, Referr ing Provider Active Team Status: Inactive Member Role Status Dates Dr. Rajesh Morley , DO Primary Care Provider, Referrin g Provider Active Germaine Das MEDICAL ASSISTANT FLOAT, MEDICAL ASSISTANT FLOAT-C Attending Provider Active Team Status: Inactive Member Role Status Dates Dr. Rajesh Morley , DO Primary Care Provider, Referrin g Provider Active Denise Peña MEDICAL ASSISTANT FLOAT, MEDICAL ASSISTANT FLOAT-C Attending Provider Active Team Status: Active Member Role Status Dates Dr. Rajesh Morley , DO Primary Care Provider Active Dr. Jhon Rojas MD Attending Provider Active Team Status: Active Member Role Status Dates Dr. Rajesh Morley , DO Primary Care Provider Active Denise Peña MEDICAL ASSISTANT FLOAT, MEDICAL ASSISTANT FLOAT-C Referring Provider, Other Pr ovider Active Dr. Daron Dahl , DO Attending Provider Active Team Status: Inactive Member Role Status Dates Dr. Rajesh Morley , DO Primary Care Provider, Referrin g Provider Active Dr. Sergio Kilpatrick MD Attending Provider Active Team Status: Inactive Member Role Status Dates Dr. Rajesh Morley , DO Primary Care Provider Active Denise Peña MEDICAL ASSISTANT FLOAT, MEDICAL ASSISTANT FLOAT-C Attending Provider, Referrin g Provider Active Team Status: Inactive Member Role Status Dates Dr. Rajesh Morley , DO Primary Care Provider Active Dr. Sergio Kilpatrick MD Attending Provider, Referring Pr ovider Active Line Staker Relationship Specialty Start Date End Date Rajesh MorleyDO [address] [place] [address] PCP - General Family Medicine 09/22/17 Line Staker Relationship Specialty Start Date End Date Rajesh MorleyDO [address] [place] [address] PCP - General Family Medicine 09/22/17 Line Staker Relationship Specialty Start Date End Date Rajesh MorleyDO [address] [place] [address] PCP - General Family Medicine 09/22/17 Line Staker Relationship Specialty Start Date End Date Rajesh MorleyDO [address] [place] [address] PCP - General Family Medicine 09/22/17 Line Staker Relationship Specialty Start Date End Date Rajesh MorleyDO [address] [place] [address] PCP - General Family Medicine 09/22/17 Line Staker Relationship Specialty Start Date End Date LauraRajesh hilliardDO [address] [place] [address] PCP - General Family Medicine 09/22/17 Line Staker Relationship Specialty Start Date End Date Rajesh Morley DO [address] [place] [address] PCP - General Family Medicine 09/22/17 Team Status: Active Member Role/Relationship Status Dates Dr. Rajesh Morley DO Primary Care Provider Active Team Status: Active Member Role/Relationship Status Dates Dr. Rajesh Morley DO Primary Care Provider Active Start: December 17, 2024 MAHAMED Grace Attending Provider Active Star t: December 17, 2024 MAHAMED Grace Referring Provider Active Star t: December 17, 2024 Team Status: Inactive Member Role/Relationship Status Dates Dr. Rajesh Morley DO Primary Care Provider Active Start: December 23, 2024 End: December 23, 2024 Denise Peña NP, MEDICAL ASSISTANT FLOAT-C Attending Provider Active Start: December 23, 2024 End: December 23, 2024 Denise Peña NP MEDICAL ASSISTANT FLOAT-C Referring Provider Active Start: December 23, 2024 End: December 23, 2024 Team Status: Inactive Member Role/Relationship Status Dates Dr. Rajesh Morley DO Primary Care Provider Active Start: December 29, 2024 End: December 29, 2024 Dr. Rajesh Morley DO Referring Provider Active Start: December 29, 2024 End: December 29, 2024 TOMER DoranC Attending Provider Active Start: December 29, 2024 End: December 29, 2024 Team Status: Inactive Member Role/Relationship Status Dates Dr. Rajesh Morley DO Primary Care Provider Active Start: January 18, 2025 End: January 18, 2025 BRENDA Doran Attending Provider Active Start: January 18, 2025 End: January 18, 2025 TOMER DoranC Referring Provider Active Start: January 18, 2025 End: January 18, 2025 Team Status: Inactive Member Role/Relationship Status Dates Dr. Rajesh Morley DO Primary Care Provider Active Start: March 10, 2025 End: March 10, 2025 Dr. Darryn Weeks MD Attending Provider Active S tart: March 10, 2025 End: March 10, 2025 Dr. Darryn Weeks MD Referring Provider Active S tart: March 10, 2025 End: March 10, 2025 Team Status: Active Member Role/Relationship Status Dates Dr. Rajesh Morley DO Primary Care Provider Active Start: March 10, 2025 Dr. Kayce London MD Attending Provider Active Start: March 10, 2025 Dr. Greg Odom MD Referring Provider Active Start: March 10, 2025 Team Status: Inactive Member Role/Relationship Status Dates Dr. Rajesh Morley DO Primary Care Provider Active Start: March 16, 2025 End: March 16, 2025 Dr. Rajesh Morley DO Referring Provider Active Start: March 16, 2025 End: March 16, 2025 Dr. Kayce London MD Attending Provider Active Start: March 16, 2025 End: March 16, 2025 Team Status: Inactive Member Role/Relationship Status Dates Dr. Rajesh Morley DO Primary Care Provider Active Start: December 23, 2024 End: December 23, 2024 Denise Peña NP MEDICAL ASSISTANT FLOAT-C Attending Provider Active Start: December 23, 2024 End: December 23, 2024 Denise Peña NP MEDICAL ASSISTANT FLOAT-C Referring Provider Active Start: December 23, 2024 End: December 23, 2024 Team Status: Inactive Member Role/Relationship Status Dates Dr. Rajesh Morley DO Primary Care Provider Active Start: December 29, 2024 End: December 29, 2024 Dr. Rajesh Morley DO Referring Provider Active Start: December 29, 2024 End: December 29, 2024 TOMER DoranC Attending Provider Active Start: December 29, 2024 End: December 29, 2024 Team Status: Inactive Member Role/Relationship Status Dates Dr. Rajesh Morley DO Primary Care Provider Active Start: January 18, 2025 End: January 18, 2025 Meka Tomas NP-C Attending Provider Active Start: January 18, 2025 End: January 18, 2025 Meka M Rufener , MEDICAL ASSISTANT FLOAT-C Referring Provider Active Start: January 18, 2025 End: January 18, 2025 Team Status: Inactive Member Role/Relationship Status Dates Dr. Rajesh Morley DO Primary Care Provider Active Start: March 10, 2025 End: March 10, 2025 Dr. Darryn Weeks MD Attending Provider Active S tart: March 10, 2025 End: March 10, 2025 Dr. Darryn Weeks MD Referring Provider Active S tart: March 10, 2025 End: March 10, 2025 Team Status: Active Member Role/Relationship Status Dates Dr. Rajesh Morley DO Primary Care Provider Active Start: March 10, 2025 Dr. Kayce London MD Attending Provider Active Start: March 10, 2025 Dr. Greg Odom MD Referring Provider Active Start: March 10, 2025 Team Status: Inactive Member Role/Relationship Status Dates Dr. Rajesh Morley DO Primary Care Provider Active Start: March 16, 2025 End: March 16, 2025 Dr. Rajesh Morley DO Referring Provider Active Start: March 16, 2025 End: March 16, 2025 Dr. Kayce London MD Attending Provider Active Start: March 16, 2025 End: March 16, 2025 Team Status: Inactive Member Role/Relationship Status Dates Dr. Rajesh Morley DO Primary Care Provider Active Start: April 22, 2025 End: April 22, 2025 Dr. Rajesh Morley DO Referring Provider Active Start: April 22, 2025 End: April 22, 2025 Marybeth IRBY, PA Attending Provider Active Start: April 22, 2025 End: April 22, 2025 Source Comments (unrecognize d section and content) In the event this informatio n is protected by the Federal Confidentiality of Alcohol and Drug Abuse Patient Records regulations: The Federal rules restrict any use of the information to criminally investigate or prosecute any alcohol or drug abuse patient.[facility] the event this information is protected by the Federal Confidentiality of Alcohol and Drug Abuse Patient Records regulations: The Federal rules restrict any use of the information to criminally investigate or prosecute any alcohol or drug abuse patient.[facility] the event this information is protected by the Federal Confidentiality of Alcohol and Drug Abuse Patient Records regulations: The Federal rules restrict any use of the information to criminally investigate or prosecute any alcohol or drug abuse patient.[facility] the event this information is protected by the Federal Confidentiality of Alcohol and Drug Abuse Patient Records regulations: The Federal rules restrict any use of the information to criminally investigate or prosecute any alcohol or drug abuse patient.[facility] the event this information is protected by the Federal Confidentiality of Alcohol and Drug Abuse Patient Records regulations: The Federal rules restrict any use of the information to criminally investigate or prosecute any alcohol or drug abuse patient.[facility] the event this information is protected by the Federal Confidentiality of Alcohol and Drug Abuse Patient Records regulations: The Federal rules restrict any use of the information to criminally investigate or prosecute any alcohol or drug abuse patient.[facility] the event this information is protected by the Federal Confidentiality of Alcohol and Drug Abuse Patient Records regulations: The Federal rules restrict any use of the information to criminally investigate or prosecute any alcohol or drug abuse patient.[facility] the event this information is protected by the Federal Confidentiality of Alcohol and Drug Abuse Patient Records regulations: The Federal rules restrict any use of the information to criminally investigate or prosecute any alcohol or drug abuse patient.[facility] the event this information is protected by the Federal Confidentiality of Alcohol and Drug Abuse Patient Records regulations: The Federal rules restrict any use of the information to criminally investigate or prosecute any alcohol or drug abuse patient.[facility] Reason for Visit (unrecogniz ed section and content) Reason Comments Ear Pain R ear pain x1 day Reason Comments Referral Information A referral from [facility] was received today and the medical records were scanned into the system. Reason Comments Received Outside Medical Records Reason Comments New Specialty Diagnoses / Procedures Referred By Contac t Referred To Contact Rheumatology Diagnoses Sarcoidosis Procedures CONSULT TO RHEUM/IMMUN DISEASE OFFICE/OUTPATIENT NEW HIGH [facility] 60 MINUTES Anand Taylor PA-C [id number] [place] [address] Referral ID Status Reason Start Date Expiration Date V isits Requested Visits Authorized [id number] Closed PCP Requested Referral 11/20/2023 11/19/2024 1 1 Reason Comments New Reason Comments Thyroid Problem Labs FOR RECORDS PERTAINING TO PATIENTS WHO ARE OR HAVE BEEN ENROLLED IN A CHEMICAL DEPENDENCY/SUBSTANCEABUSE PROGRAM, SOME INFORMATION MAY BE OMITTED. This clinical summary was aggregated from multiple sources. Caution should be exercised in using it in the provision of clinical care. This summary normalizes information from multiple sources, and as a consequence, information in this document may materially change the coding, format and clinical context of patient data. In addition, data may be omitted in some cases. CLINICAL DECISIONS SHOULD BE BASED ON THE PRIMARY CLINICAL RECORDS. [facility]. provides no warranty or guarantee of the accuracy or completeness of information in this document.
[2025-05-01 10:37] LABS: AST(SGOT) 25 U/L (<=31); Alanine Aminotransfer ALT/SGPT 24 U/L (<=34); Albumin, Serum 4.1 g/dL (3.4-4.8); Alkaline Phosphatase 95 U/L (35-104); Anion Gap 10 (5-15); BUN 7 mg/dL (4-19); BUN/Creat Ratio 8.4 RATIO (10-20); Calcium,Total 9.1 mg/dL (7.6-11.0); Carbon Dioxide 25.7 mmol/L (21.0-32.0); Chloride 105 mmol/L (98-108); Globulin 2.9 g/dL (2.2-4.2); Glucose 91 mg/dL (70-99); Potassium 3.9 mmol/L (3.3-5.1); Vitamin D,25 Hydroxy 36.4 ng/mL (30-100)
[2025-05-01 10:51] LABS: Cholesterol 156 mg/dL (<=200); Low Density Lipoprotein Calc. 92 mg/dL; Triglycerides 69 mg/dL; Very Low Density Lipoprotein 14 mg/dL (5-40); cholesterol:hdl ratio screen 3.11
== END | disposition home or self-care (01) ==
LOC: LAB 08:31
PROVIDERS: PCP Family Medicine; Referring Provider Family Medicine; Visit Provider Family Medicine
DX: E06.3 Autoimmune thyroiditis (principal); E78.5 Hyperlipidemia, unspecified; M81.0 Age-related osteoporosis without current pathological fracture; R00.2 Palpitations
CPT/HCPCS: 36415; 80053; 80061; 82306; 84439; 84443